=== PATIENT | female | born 1945 | race Caucasian/White ===

== ENCOUNTER 2019-08-22 17:46 | Inpatient (IN) | payer MEDICARE ==
[2019-08-22] MEDS ORDERED: DUONEB 0.5-3 MG/3 ml Neb IH ONE ×2 (17:51→17:59)
[2019-08-22] MEDS ORDERED: ROCEPHIN 1 Gm-D5w 50 ml Bag** 1 G/50 ML IVPB IV STA (17:51)
[2019-08-22] MEDS ORDERED: Zithromax 500 MG/ 250 ML NaCl Premix 500 MG/250 ML IVPB IV STA (17:51)
--- NOTE | 2019-08-22 17:51 | ERPHSYRPT ---
- History of Present Illness Time Seen by Provider: 08/22/19 17:47 Source: patient, family Exam Limitations: no limitations Physician History: known case of COPD, on home oxygen. The patient is DO NOT RESUSCITATE. The patient brought in by EMS for a cough, shortness of breath and fever for last 3- 4 days. EMS gave her a 125 Solu-Medrol, DuoNeb breathing treatment.. The patient feels little better. Patient is on nonrebreather mask. Patient denies any chest pain. Timing/Duration: day(s) (3) Activities at Onset: none Severity of Dyspnea-Max: moderate Severity of Dyspnea-Current: moderate Possible Cause: occasional episodes (history of pneumonia.) Modifying Factors: Improves With: coughing, deep breath, exertion, lying down Associated Symptoms: intermittent, cough, wheezing, No lightheadedness, No weakness, No ankle swelling, No chills, No hemoptysis, No calf pain, No dizziness, No heaviness, No heart racing International travel in last 2 weeks: No Allergies/Adverse Reactions: tapentadol HCl [From Nucynta] Allergy (Severe, Verified 08/22/19 17:51) throat swelling and itching acetaminophen [From Vicodin] Allergy (Mild, Verified 08/22/19 17:51) intense itching hydrocodone bitartrate [From Vicodin] Allergy (Mild, Verified 08/22/19 17:51) intense itching Home Medications: Amlodipine Besylate 5 mg [Norvasc 5 mg] 5 mg PO QAM 01/31/15 [History] Aspirin 81 gm Chew [Baby Aspirin 81 mg Chew] 81 mg PO HS 01/31/15 [History ] Gabapentin [Neurontin] 800 mg PO TID 01/31/15 [History] Nebivolol HCl [Bystolic] 10 mg PO DAILY 01/31/15 [History] Ramipril 1.25 mg [Altace 1.25 MG] 1.25 mg PO QAM 01/31/15 [History] Anastrozole [Arimidex] 1 mg PO HS 02/01/15 [History] Atorvastatin Calcium [Lipitor] 10 mg PO HS 02/01/15 [History] Buprenorphine [Butrans] 1 each TD WEEKLY 02/01/15 [History] Calcium 500 mg PO BID 02/01/15 [History] Cholecalciferol (Vitamin D3) [Vitamin D3] 50,000 unit PO WEEKLY 02/01/15 [ History] Duloxetine HCl [Cymbalta] 120 mg PO QAM 02/01/15 [History] Furosemide [Lasix] 20 mg PO DAILY 02/01/15 [History] Glimepiride 2 mg [Amaryl 2 MG] 2 mg PO DAILY 02/01/15 [History] Glucosam/Antony-Msm1/C/[place]/Bosw [Osteo Bi-Flex Caplet] 1 each PO BID 02/01/15 [ History] Ibandronate Sodium [Boniva] 150 mg PO UD 02/01/15 [History] Levothyroxine Sodium 75 Mcg [Synthroid 75 Mcg] 75 mcg PO DAILY 02/01/15 [ History] Loratadine 10 mg [Claritin 10 mg] 10 mg PO DAILY 02/01/15 [History] Multivitamin [Multivitamins] 1 each PO DAILY 02/01/15 [History] Oxybutynin Chloride 5 mg PO DAILY 02/01/15 [History] Pantoprazole Sodium [Protonix] 40 mg PO DAILY 02/01/15 [History] Ropinirole HCl [Requip] 1 mg PO HS 02/01/15 [History] SUMAtriptan succinate [Imitrex] 100 mg PO UD PRN 02/01/15 [History] Temazepam 15 mg [Restoril 15 MG] 30 mg PO HS 02/01/15 [History] Tizanidine HCl 4 mg [Zanaflex 4 MG] 4 mg PO HS 02/01/15 [History] Hx Influenza Vaccination/Date Given: Yes (2013) Hx Pneumococcal Vaccination/Date Given: Yes (" Due for another" 2009) - Review of Systems Constitutional: No Fever, No Chills Eyes: No Symptoms Ears, Nose, & Throat: No Symptoms Respiratory: Cough, Dyspnea Cardiac: No Chest Pain, No Edema, No Syncope Abdominal/Gastrointestinal: No Abdominal Pain, No Nausea, No Vomiting, No Diarrhea Genitourinary Symptoms: No Dysuria Musculoskeletal: No Back Pain, No Neck Pain Skin: No Rash Neurological: No Dizziness, No Focal Weakness, No Sensory Changes Psychological: No Symptoms Endocrine: No Symptoms All Other Systems: Reviewed and Negative - Past Medical History Pertinent Past Medical History: Yes Neurological History: Migraines, Peripheral Neuropathy ENT History: Cataracts Cardiac History: High Cholesterol, Hypertension Respiratory History: Other Endocrine Medical History: Diabetes Type II, Hypothyroidism Musculoskeletal History: Degenerative Disk Disease, Osteoporosis, Rheumatoid Arthritis GI Medical History: Diverticulosis, GERD History: Renal Disease Psycho-Social History: Anxiety, Depression Female Reproductive Disorders: Breast Cancer Other Medical History: Chronic stage 3 kidney diseasedropped mesh into vagina from bladder sling- causes frequent UTIIron def anemia and b-12 anemia - Past Surgical History Past Surgical History: Yes Neuro Surgical History: No Pertinent History Cardiac: Cardiac Catheterization Respiratory: No Pertinent History Gastrointestinal: Appendectomy, Cholecystectomy Genitourinary: Other Musculoskeletal: Orthopedic Surgery Female Surgical History: Hysterectomy, Lumpectomy, Mastectomy Other Surgical History: righ carpel tunnel surgerybilateral mastectomy 2013 Radical to left side2 lamenectomys3 vertebre fused to lumbarneck fusionthorasic fusionleft knee surgerybladder sling with mesh - Social History Smoking Status: Never smoker Exposure to second hand smoke: No Drug Use: none - Nursing Vital Signs Nursing Vital Signs: Initial Vital Signs Temperature 99.2 F 08/22/19 17:52 Pulse Rate 64 08/22/19 17:52 Respiratory Rate 26 H 08/22/19 17:52 Blood Pressure 157/81 08/22/19 17:52 O2 Sat by Pulse Oximetry 100 08/22/19 17:52 Pain Scale Pain Intensity 0 - Physical Exam General Appearance: mild distress Eye Exam: PERRL/EOMI Neck Exam: normal inspection, supple Respiratory Exam: respiratory distress, airway intact, diminished breath sounds , accessory muscle use, prolonged expirations, wheezing, No chest tenderness Cardiovascular/Chest Exam: normal heart sounds, regular rate/rhythm Abdominal/Gastrointestinal Exam: soft, No tenderness, No distention, No mass Extremity Exam: non-tender, normal range of motion, normal inspection, no calf tenderness, no pedal edema Neurologic Exam: alert, oriented x 3, cooperative, 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, sensation nml, No motor deficits Skin Exam: normal color, warm, No dry SpO2 Interpretation: normal O2 Delivery: Non-rebreather Ordered Tests: Active Orders 24 hr Category Date Time Status Adjunct Psychology Faculty Member STAT Care 08/22/19 17:52 Active EKG-ER Only STAT Care 08/22/19 17:51 Active IV Insertion STAT Care 08/22/19 17:51 Active Oxygen-ED Only NON-REBREATHER 100% Care 08/22/19 17:51 Active CHEST 1 VIEW (PORTABLE) Stat Exams 08/22/19 17:52 Taken ARTERIAL BLOOD GASES Stat Lab 08/22/19 17:55 Results BLOOD CULTURE Stat Lab 08/22/19 18:40 Received CBC W DIFF Stat Lab 08/22/19 18:40 Completed CMP Stat Lab 08/22/19 18:40 Completed CULTURE,SPUTUM Stat Lab 08/22/19 17:52 Uncollected Lactic Acid Stat Lab 08/22/19 17:55 Results TROPONIN Q3H Lab 08/22/19 18:40 Received TROPONIN Q3H Lab 08/22/19 21:00 Ordered Respiratory Therapy Assessment DAILY RT 08/22/19 18:03 Active Medication Summary Discontinued Medications Generic Name Dose Route Start Last Admin Trade Name Freq PRN Reason Stop Dose Admin Albuterol/Ipratropium 3 ml 08/22/19 17:51 08/22/19 18:00 Duoneb 0.5-3 Mg/3 Ml Neb IH 08/22/19 17:52 3 ml STAT ONE Administration Albuterol/Ipratropium Confirm 08/22/19 17:59 Duoneb 0.5-3 Mg/3 Ml Neb Administered 08/22/19 18:00 Dose 3 ml IH .STK-MED ONE Ceftriaxone Sodium/Dextrose 1 g in 50 mls @ 100 mls/hr 08/22/19 17:51 19:18 Rocephin 1 Gm-D5w 50 Ml Bag IV 08/22/19 18:20 Infused STAT STA Infusion Azithromycin 500 mg in 250 mls @ 250 mls/hr 08/22/19 17:51 Zithromax 500 Mg/ 250 Ml Nacl Premix IV 08/22/19 18:50 STAT STA Azithromycin Confirm 08/22/19 18:45 Zithromax 500 Mg/ 250 Ml Nacl Premix Administered 08/22/19 18:46 Dose 500 mg in 250 mls @ ud IV .STK-MED ONE Ceftriaxone Sodium/Dextrose Confirm 08/22/19 18:45 Rocephin 1 Gm-D5w 50 Ml Bag Administered 08/22/19 18:46 Dose 1 g in 50 mls @ ud IV .STK-MED ONE Lab/Rad Data: Laboratory Result Diagrams 08/22/19 18:40 08/22/19 18:40 Laboratory Results 08/22/19 08/22/19 08/22/19 Range/Units 18:40 18:40 17:55 WBC 9.4 (4.0-10.5) K/mm3 RBC 4.89 (4.1-5.4) M/mm3 Hgb 14.1 (12.0-16.0) gm/dl Hct 42.5 (35-47) % MCV 86.9 (78-100) fl MCH 28.8 (26-32) pg MCHC 33.2 (32-36) g/dl RDW 14.1 H (11.5-14.0) % Plt Count 216 (150-450) K/mm3 MPV 9.8 H (6-9.5) fl Gran % 72.2 H (36.0-66.0) % Eos # (Auto) 0.06 (0-0.5) Absolute Lymphs (auto) 2.17 (1.0-4.6) Absolute Monos (auto) 0.37 (0.0-1.3) Lymphocytes % 23.1 L (24.0-44.0) % Monocytes % 3.9 (0.0-12.0) % Eosinophils % 0.6 (0.00-5.0) % Basophils % 0.2 (0.0-0.4) % Absolute Granulocytes 6.76 (1.4-6.9) Basophils # 0.02 (0-0.4) Puncture Site LEFT RADIAL pCO2 21 L (35-45) mmHg pO2 162 H* (75-100) mmHg Base Excess 5.7 H (-2.0-2.0) O2 Saturation 96.6 (94-100) g/dF ABG pH 7.67 H* (7.35-7.45) ABG HCO3 24.2 (22-28) Subhash Test NOT APPLICABLE A-a Gradient 240 a/A Ratio 0.40 Hemoglobin 14.7 Carboxyhemoglobin 0.7 (0.0-6.9) % THgb Methemoglobin 0.7 L (1.4-1.5) % Potassium 4.3 4.1 (3.5-5.1) Temperature 37.0 C Sodium 143 (137-145) mmol/L Chloride 105 (98-107) mmol/L Carbon Dioxide 25 (22-30) mmol/L Anion Gap 17.6 H (5-15) MEQ/L BUN 23 H (7-17) mg/dL Creatinine 1.07 H (0.52-1.04) mg/dL Estimated GFR 53.6 ML/MIN Glucose 145 H (74-106) mg/dL Lactic Acid 2.0 (0.4-2.0) Calcium 9.6 (8.4-10.2) mg/dL Total Bilirubin 0.50 (0.2-1.3) mg/dL AST 38 H (14-36) U/L ALT 23 (0-35) U/L Alkaline Phosphatase 97 (38-126) U/L Serum Total Protein 8.2 (6.3-8.2) g/dL Albumin 4.3 (3.5-5.0) g/dL - Progress Progress: improved Air Movement: fair Progress Note: 08/22/19 19:[address] Franco Blood Culture(s) Obtained: Yes Antibiotics given: Yes Discussed with : Ry Will see patient in: hospital (full admit) Counseled pt/family regarding: lab results, diagnosis, rad results - Departure Departure Disposition: In-patient Admission Clinical Impression: Left lower lobe pneumonia Qualifiers: Pneumonia type: due to unspecified organism Qualified Code(s): J18.9 - Pneumonia, unspecified organism Chronic obstructive pulmonary disease Qualifiers: COPD type: COPD with acute lower respiratory infection Qualified Code(s): J44.0 - Chronic obstructive pulmonary disease with (acute) lower respiratory infection Condition: Stable Critical Care Time: No Referrals: JABIER RAUSCH [Primary Care Provider] - Instructions: Pneumonia, Adult (DC), Chronic Obstructive Pulmonary Disease Plan of Treatment: Admitted
[2019-08-22 18:04] LABS: A-aADO2 240; ABG POTASSIUM 4.1 (3.5-5.1); ARTERIAL BLOOD GAS BASE EXCESS 5.7 (-2.0-2.0); ARTERIAL BLOOD GAS PCO2 21 mmHg (35-45); ARTERIAL BLOOD GAS PO2 162 mmHg (75-100); CARBOXYHEMOGLOBIN 0.7 % THgb (0.0-6.9); HCO3- 24.2 (22-28); HGB O2 SAT 96.6 g/dF (94-100); Methhemoglobin 0.7 % (1.4-1.5)
[2019-08-22 18:05] LABS: ABG HEMOGLOBIN 14.7; ABG SITE LEFT RADIAL; ARTERIAL BLOOD GAS pH 7.67 (7.35-7.45)
[2019-08-22 18:43] LABS: Absolute Neutrophil Ct (ANC) 6.76 (1.4-6.9); BASOPHIL % 0.2 % (0.0-0.4); Basophil (Absolute #) 0.02 (0-0.4); Eosinophil % 0.6 % (0.00-5.0); Eosinophil (Absolute #) 0.06 (0-0.5); Hematocrit 42.5 % (35-47); Hemoglobin 14.1 gm/dl (12.0-16.0); Lymphocyte (Absolute #) 2.17 (1.0-4.6); Lymphocytes % 23.1 % (24.0-44.0); Mean Cell Volume 86.9 fl (78-100); Mean Corpuscular Hemoglobin 28.8 pg (26-32); Mean Corpuscular Hgb Concent. 33.2 g/dl (32-36); Mean Platelet Volume 9.8 fl (6-9.5); Monocyte (Absolute #) 0.37 (0.0-1.3); Monocytes % 3.9 % (0.0-12.0); Neutrophil % 72.2 % (36.0-66.0); Platelet Count 216 K/mm3 (150-450); Red Blood Count 4.89 M/mm3 (4.1-5.4); Red Cell Distribution Width 14.1 % (11.5-14.0); White Blood Count 9.4 K/mm3 (4.0-10.5)
[2019-08-22] MEDS ORDERED: Zithromax 500 MG/ 250 ML NaCl Premix 500 MG/250 ML IVPB IV ONE (18:45)
[2019-08-22] MEDS ORDERED: ROCEPHIN 1 Gm-D5w 50 ml Bag** 1 G/50 ML IVPB IV ONE (18:45)
[2019-08-22 19:02] LABS: ALBUMIN 4.3 g/dL (3.5-5.0); ANION GAP 17.6 MEQ/L (5-15); BILIRUBIN,TOTAL 0.5 mg/dL (0.2-1.3); Calcium 9.6 mg/dL (8.4-10.2); Creatinine 1 1.07 mg/dL (0.52-1.04); Potassium 4.3 mmol/L (3.5-5.1); Total Protein 8.2 g/dL (6.3-8.2)
[2019-08-22 19:59] LABS: INFLUENZA A NEGATIVE (NEGATIVE); INFLUENZA B NEGATIVE (NEGATIVE); RESPIRATORY SYNCTIAL VIRUS NEGATIVE (Negative)
[2019-08-22] MEDS ORDERED: DUONEB 0.5-3 MG/3 ml Neb IH PRN (21:02)
[2019-08-22] MEDS: DUONEB 0.5-3 MG/3 ml Neb IH SCH (22:29)
[2019-08-22] MEDS ORDERED: Amaryl 2 MG PO SCH (23:55)
[2019-08-22] MEDS ORDERED: BABY ASPIRIN 81 MG CHEW PO SCH (23:55)
[2019-08-23] MEDS ORDERED: ECOTRIN 81 MG PO ONE (00:02)
[2019-08-23] MEDS: DESYREL 50 MG PO SCH ×2 (00:07→21:24)
[2019-08-23] MEDS: Requip 0.5 MG PO SCH ×2 (00:07→21:26)
[2019-08-23] MEDS: LYRICA 150MG PO SCH ×3 (00:08→21:25)
[2019-08-23] MEDS: Protonix 40MG Tablet PO SCH ×3 (00:08→21:25)
[2019-08-23] MEDS: OXYCODONE-ACETAMINOPHEN 10-325 PO SCH ×3 (00:08→21:25)
[2019-08-23] MEDS: FISH OIL 1,000 MG CAPSULE PO SCH ×2 (00:08→21:24)
[2019-08-23] MEDS: Zanaflex 4 MG PO SCH ×3 (00:09→21:26)
[2019-08-23] MEDS: Zocor 10MG PO SCH ×2 (00:09→21:26)
[2019-08-23] MEDS ORDERED: ECOTRIN 81 MG PO SCH ×2 (00:30→10:00)
[2019-08-23] MEDS: DUONEB 0.5-3 MG/3 ml Neb IH SCH ×6 (05:19→22:38)
[2019-08-23] MEDS: Advair Hfa 230/21 Mcg COMMON CANISTER IH SCH ×2 (05:21→19:08)
[2019-08-23] MEDS: Amaryl 2 MG PO SCH ×2 (07:55→16:20)
--- NOTE | 2019-08-23 08:37 | XRAY ---
Indication: Dyspnea. Comparison: None Portable chest demonstrates subtle left base infiltrate. Remaining heart and right lung normal. Bony thorax intact with mild degenerative changes.
--- NOTE | 2019-08-23 09:09 | PCM.HP ---
History of Present Illness - Chief Complaint Chief Complaint: c/o shortness of breath for 2-3 days History of Present Illness: is a 74 year old female.known case of COPD, on home oxygen. The patient brought in by EMS for a cough, shortness of breath and fever for last 3- 4 days. EMS gave her a 125 Solu-Medrol, DuoNeb breathing treatment.. The patient feels little better. Patient is on nonrebreather mask. Patient denies any chest pain. Timing/Duration: day(s) (3) Activities at Onset: none Severity of Dyspnea-Max: moderate Severity of Dyspnea-Current: moderate Possible Cause: occasional episodes (history of pneumonia.) Modifying Factors: Improves With: coughing, deep breath, exertion, lying down Associated Symptoms: intermittent, cough, wheezing, No lightheadedness, No weakness, No ankle swelling, No chills, No hemoptysis, No calf pain, No dizziness, No heaviness, No heart racing - Review of Systems Constitutional: No Fever, No Chills Eyes: No Symptoms Ears, Nose, & Throat: No Symptoms Respiratory: Cough, Orthopnea, Short Of Breath Cardiac: No Chest Pain, No Edema, No Syncope Abdominal/Gastrointestinal: No Abdominal Pain, No Nausea, No Vomiting, No Diarrhea Genitourinary Symptoms: No Dysuria Musculoskeletal: No Back Pain, No Neck Pain Skin: No Rash Neurological: No Dizziness, No Focal Weakness, No Sensory Changes Psychological: No Symptoms Endocrine: No Symptoms Hematologic/Lymphatic: No Symptoms Immunological/Allergic: No Symptoms Medications & Allergies Home Medications: Home Medication List Amlodipine Besylate 5 mg [Norvasc 5 mg] 5 mg PO [facility] 01/31/15 [History Confirmed 08/22/19] Aspirin 81 gm Chew [Baby Aspirin 81 mg Chew] 324 mg PO 01/31/15 [ History Confirmed 08/23/19] Ramipril 1.25 mg [Altace 1.25 MG] 1.25 mg PO [facility] 01/31/15 [History Confirmed 08/22/19] Anastrozole [Arimidex] 1 mg PO 02/01/15 [History Confirmed 08/22/19] Atorvastatin Calcium [Lipitor] 10 mg PO 02/01/15 [History Confirmed 08/22/19] Calcium 500 mg PO BID 02/01/15 [History Confirmed 08/22/19] Cholecalciferol (Vitamin D3) [Vitamin D3] 50,000 unit PO WEEKLY 02/01/15 [ History Confirmed 08/22/19] Duloxetine HCl [Cymbalta] 60 mg PO QAM 02/01/15 [History Confirmed 08/22/19] Furosemide [Lasix] 40 mg PO DAILY 02/01/15 [History Confirmed 08/22/19] Glimepiride 2 mg [Amaryl 2 MG] 2 mg PO BID 02/01/15 [History Confirmed ] Glucosam/Antony-Msm1/C/[place]/Bosw [Osteo Bi-Flex Caplet] 1 each PO BID 02/01/15 [ History Confirmed 08/22/19] Levothyroxine Sodium 75 Mcg [Synthroid 75 Mcg] 88 mcg PO DAILY 02/01/15 [ History Confirmed 08/22/19] Loratadine 10 mg [Claritin 10 mg] 10 mg PO DAILY 02/01/15 [History Confirmed 08/22/19] Multivitamin [Multivitamins] 1 each PO DAILY 02/01/15 [History Confirmed ] Oxybutynin Chloride 10 mg PO DAILY 02/01/15 [History Confirmed 08/22/19] Pantoprazole Sodium [Protonix] 40 mg PO BID 02/01/15 [History Confirmed 08/22/19 ] Ropinirole HCl [Requip] 1 mg PO HS 02/01/15 [History Confirmed 08/22/19] SUMAtriptan succinate [Imitrex] 100 mg PO WEEKLY 02/01/15 [History Confirmed ] Tizanidine HCl 4 mg [Zanaflex 4 MG] 4 mg PO BID 02/01/15 [History Confirmed 08/22/19] Albuterol 2 inh PO Q4H PRN PRN 08/22/19 [History Confirmed 08/22/19] Albuterol 2.5 mg/3 ml Neb [Proventil 2.5 mg/3 ml Neb] 2.5 inh PO Q4HPRN PRN 08/22/19 [History Confirmed 08/22/19] Budesonide/Formoterol Fumarate [Symbicort 160-4.5 Mcg Inhaler] 2 inh PO DAILY [History Confirmed 08/22/19] Buprenorphine HCl [Belbuca] 450 mcg PO BID 08/22/19 [History Confirmed 08/22/19] Canagliflozin [Invokana] 300 mg PO DAILY 08/22/19 [History Confirmed 08/22/19] Metformin HCl Xr 500 mg [Glucophage XR 500 MG] 500 mg PO AC 08/22/19 [ History Confirmed 08/22/19] Sargeant-3/Dha/Epa/Fish Oil [Fish Oil 1,000 mg Softgel] 1,000 mg PO HS 08/22/19 [ History Confirmed 08/22/19] Oxycodone / APAP 10/325 mg [Oxycodone-Acetaminophen 10-325] 1 tab PO BID 08/22/19 [History Confirmed 08/22/19] Potassium Chloride 10 Meq Tab* [Klor Con 10 MEQ] 1 tab PO AC 08/22/19 [ History Confirmed 08/22/19] Pregabalin [Lyrica 150Mg] 150 mg PO BID 08/22/19 [History Confirmed 08/22/19] Propranolol HCl 20 mg [Inderal 20 MG] 60 mg PO DAILY 08/22/19 [History Confirmed 08/22/19] Raloxifene HCl 60 mg PO DAILY 08/22/19 [History Confirmed 08/22/19] Trazodone HCl 50 mg [Desyrel 50 mg] 100 mg PO HS 08/22/19 [History Confirmed 08/22/19] Allergies/Adverse Reactions: Allergies Allergy/AdvReac Type Severity Reaction Status Date / Time Sulfa (Sulfonamide Allergy Severe Hives Verified 08/22/19 21:41 Antibiotics) tapentadol HCl [From Nucynta] Allergy Severe throat Verified 08/22/19 21:41 swelling and itching acetaminophen [From Vicodin] Allergy Mild intense Verified 08/22/19 21:41 itching hydrocodone bitartrate Allergy Mild intense Verified 08/22/19 21:41 [From Vicodin] itching - Past Medical History Past Medical History: Yes Neurological History: Migraines, Peripheral Neuropathy ENT History: Cataracts Cardiac History: High Cholesterol, Hypertension Respiratory History: COPD, Pulmonary Embolism, Other Endocrine Medical History: Diabetes Type II, Hypothyroidism Musculoskelatal History: Degenerative Disk Disease, Fibromyalgia, Osteoporosis, Rheumatoid Arthritis GI Medical History: Diverticulosis, GERD History: Renal Disease Pyscho-Social History: Anxiety, Depression Reproductive Disorders: Breast Cancer Comment: Chronic stage 3 kidney diseasedropped mesh into vagina from bladder sling- causes frequent UTIIron def anemia and b-12 anemia, didn't recovery well from the PE pts wears 2L O2 via nasal canula - Female History Are you now?: No - Past Surgical History Past Surgical History: Yes Neuro Surgical History: No Pertinent History Cardiac History: Cardiac Catheterization Respiratory Surgery: No Pertinent History GI Surgical History: Cholecystectomy Genitourinary Surgical Hx: Other Musculskeletal Surgical Hx: Orthopedic Surgery Female Surgical History: Hysterectomy, Lumpectomy, Mastectomy Other Surgical History: righ carpel tunnel surgerybilateral mastectomy 2013 Radical to left side2 lamenectomys3 vertebre fused to lumbarneck fusionthorasic fusionleft knee surgerybladder sling with mesh catarct and lasix surgery - Social History Smoking Status: Never smoker Exposure to second hand smoke: No Alcohol: None Drug Use: none - Physical Exam Vital Signs: Vital Signs - 24 hr Temp Pulse Resp BP Pulse Ox 08/23/19 07:58 98.2 F 90 16 131/61 95 08/23/19 05:49 90 18 90 L 08/23/19 04:00 98 F 90 20 120/59 95 08/23/19 00:00 97.9 F 102 H 18 119/71 98 08/22/19 23:25 106 H 22 98 08/22/19 22:43 98.0 F 80 20 121/67 97 08/22/19 21:02 98.0 F 80 20 121/67 97 08/22/19 18:04 86 20 99 08/22/19 17:52 99.2 F 64 26 H 157/81 96 Oxygen-Last 24 hours O2 Percentage 2 Liters = 28% O2 Percentage 2 Liters = 28% O2 Percentage 2 Liters = 28% O2 Percentage 100% O2 Percentage 100% Oxygen Flowrate (L/min)-RT 2 General Appearance: no apparent distress, alert Neurologic Exam: alert, oriented x 3, cooperative, normal mood/affect, nml cerebellar function, nml station & gait, sensation nml, No motor deficits Eye Exam: PERRL/EOMI, eyes nml inspection Ears, Nose, Throat Exam: normal ENT inspection, TMs normal, pharynx normal, moist mucous membranes Neck Exam: normal inspection, non-tender, supple, full range of motion Respiratory Exam: normal breath sounds, diminished breath sounds, rhonchi, wheezing, No respiratory distress Cardiovascular Exam: regular rate/rhythm, normal heart sounds, normal peripheral pulses Gastrointestinal/Abdomen Exam: soft, normal bowel sounds, No tenderness, No mass Back Exam: normal inspection, normal range of motion, No CVA tenderness, No vertebral tenderness Extremity Exam: normal inspection, normal range of motion, pelvis stable Skin Exam: normal color, warm, dry, No rash Lymphatic Exam: No adenopathy Results - Labs Lab/Micro Results: Lab Results-Last 24 Hours 08/22/19 08/22/19 08/22/19 Range/Units 17:55 18:40 18:40 WBC 9.4 (4.0-10.5) K/mm3 RBC 4.89 (4.1-5.4) M/mm3 Hgb 14.1 (12.0-16.0) gm/dl Hct 42.5 (35-47) % MCV 86.9 (78-100) fl MCH 28.8 (26-32) pg MCHC 33.2 (32-36) g/dl RDW 14.1 H (11.5-14.0) % Plt Count 216 (150-450) K/mm3 MPV 9.8 H (6-9.5) fl Gran % 72.2 H (36.0-66.0) % Eos # (Auto) 0.06 (0-0.5) Absolute Lymphs (auto) 2.17 (1.0-4.6) Absolute Monos (auto) 0.37 (0.0-1.3) Lymphocytes % 23.1 L (24.0-44.0) % Monocytes % 3.9 (0.0-12.0) % Eosinophils % 0.6 (0.00-5.0) % Basophils % 0.2 (0.0-0.4) % Absolute Granulocytes 6.76 (1.4-6.9) Basophils # 0.02 (0-0.4) Puncture Site LEFT RADIAL pCO2 21 L (35-45) mmHg pO2 162 H* (75-100) mmHg Base Excess 5.7 H (-2.0-2.0) O2 Saturation 96.6 (94-100) g/dF ABG pH 7.67 H* (7.35-7.45) ABG HCO3 24.2 (22-28) Subhash Test NOT APPLICABLE A-a Gradient 240 a/A Ratio 0.40 Hemoglobin 14.7 Carboxyhemoglobin 0.7 (0.0-6.9) % THgb Methemoglobin 0.7 L (1.4-1.5) % Potassium 4.1 4.3 (3.5-5.1) Temperature 37.0 C Sodium 143 (137-145) mmol/L Chloride 105 (98-107) mmol/L Carbon Dioxide 25 (22-30) mmol/L Anion Gap 17.6 H (5-15) MEQ/L BUN 23 H (7-17) mg/dL Creatinine 1.07 H (0.52-1.04) mg/dL Estimated GFR 53.6 ML/MIN Glucose 145 H (74-106) mg/dL Lactic Acid 2.0 (0.4-2.0) Calcium 9.6 (8.4-10.2) mg/dL Total Bilirubin 0.50 (0.2-1.3) mg/dL AST 38 H (14-36) U/L ALT 23 (0-35) U/L Alkaline Phosphatase 97 (38-126) U/L Troponin I (0.000-0.034) ng/mL Serum Total Protein 8.2 (6.3-8.2) g/dL Albumin 4.3 (3.5-5.0) g/dL Influenza Type A Ag (NEGATIVE) Influenza Type B Ag (NEGATIVE) RSV (PCR) (Negative) 08/22/19 08/22/19 08/22/19 Range/Units 18:40 18:40 21:05 WBC (4.0-10.5) K/mm3 RBC (4.1-5.4) M/mm3 Hgb (12.0-16.0) gm/dl Hct (35-47) % MCV (78-100) fl MCH (26-32) pg MCHC (32-36) g/dl RDW (11.5-14.0) % Plt Count (150-450) K/mm3 MPV (6-9.5) fl Gran % (36.0-66.0) % Eos # (Auto) (0-0.5) Absolute Lymphs (auto) (1.0-4.6) Absolute Monos (auto) (0.0-1.3) Lymphocytes % (24.0-44.0) % Monocytes % (0.0-12.0) % Eosinophils % (0.00-5.0) % Basophils % (0.0-0.4) % Absolute Granulocytes (1.4-6.9) Basophils # (0-0.4) Puncture Site pCO2 (35-45) mmHg pO2 (75-100) mmHg Base Excess (-2.0-2.0) O2 Saturation (94-100) g/dF ABG pH (7.35-7.45) ABG HCO3 (22-28) Subhash Test A-a Gradient a/A Ratio Hemoglobin Carboxyhemoglobin (0.0-6.9) % THgb Methemoglobin (1.4-1.5) % Potassium (3.5-5.1) Temperature C Sodium (137-145) mmol/L Chloride (98-107) mmol/L Carbon Dioxide (22-30) mmol/L Anion Gap (5-15) MEQ/L BUN (7-17) mg/dL Creatinine (0.52-1.04) mg/dL Estimated GFR ML/MIN Glucose (74-106) mg/dL Lactic Acid (0.4-2.0) Calcium (8.4-10.2) mg/dL Total Bilirubin (0.2-1.3) mg/dL AST (14-36) U/L ALT (0-35) U/L Alkaline Phosphatase (38-126) U/L Troponin I < 0.012 < 0.012 (0.000-0.034) ng/mL Serum Total Protein (6.3-8.2) g/dL Albumin (3.5-5.0) g/dL Influenza Type A Ag NEGATIVE (NEGATIVE) Influenza Type B Ag NEGATIVE (NEGATIVE) RSV (PCR) NEGATIVE (Negative) 08/22/19 Range/Units 21:06 WBC (4.0-10.5) K/mm3 RBC (4.1-5.4) M/mm3 Hgb (12.0-16.0) gm/dl Hct (35-47) % MCV (78-100) fl MCH (26-32) pg MCHC (32-36) g/dl RDW (11.5-14.0) % Plt Count (150-450) K/mm3 MPV (6-9.5) fl Gran % (36.0-66.0) % Eos # (Auto) (0-0.5) Absolute Lymphs (auto) (1.0-4.6) Absolute Monos (auto) (0.0-1.3) Lymphocytes % (24.0-44.0) % Monocytes % (0.0-12.0) % Eosinophils % (0.00-5.0) % Basophils % (0.0-0.4) % Absolute Granulocytes (1.4-6.9) Basophils # (0-0.4) Puncture Site pCO2 (35-45) mmHg pO2 (75-100) mmHg Base Excess (-2.0-2.0) O2 Saturation (94-100) g/dF ABG pH (7.35-7.45) ABG HCO3 (22-28) Subhash Test A-a Gradient a/A Ratio Hemoglobin Carboxyhemoglobin (0.0-6.9) % THgb Methemoglobin (1.4-1.5) % Potassium (3.5-5.1) Temperature C Sodium (137-145) mmol/L Chloride (98-107) mmol/L Carbon Dioxide (22-30) mmol/L Anion Gap (5-15) MEQ/L BUN (7-17) mg/dL Creatinine (0.52-1.04) mg/dL Estimated GFR ML/MIN Glucose (74-106) mg/dL Lactic Acid 2.0 (0.4-2.0) Calcium (8.4-10.2) mg/dL Total Bilirubin (0.2-1.3) mg/dL AST (14-36) U/L ALT (0-35) U/L Alkaline Phosphatase (38-126) U/L Troponin I (0.000-0.034) ng/mL Serum Total Protein (6.3-8.2) g/dL Albumin (3.5-5.0) g/dL Influenza Type A Ag (NEGATIVE) Influenza Type B Ag (NEGATIVE) RSV (PCR) (Negative) Microbiology 08/22/19 18:40 Blood Culture - Preliminary Blood NO GROWTH TO DATE 08/22/19 18:40 Blood Culture - Preliminary Blood NO GROWTH TO DATE - Radiology Impressions Radiology Exams & Impressions: Radiology Procedures Category Date Time Status CHEST 1 VIEW (PORTABLE) Stat Exams 08/22/19 17:52 Completed - Other Procedures and Tests Respiratory Therapy 08/22/19 18:03 Respiratory Therapy Assessment DAILY 08/22/19 21:02 Oxygen Nasal Cannula 3 lpm 08/22/19 23:46 BiPap/CPAP ROUTINE 08/23/19 07:00 Peak Expiratory Flow Rate ONCE Assessment/Plan (1) Acute exacerbation of chronic obstructive pulmonary disease (COPD) Current Visit: Yes Status: Acute Code(s): J44.1 - CHRONIC OBSTRUCTIVE PULMONARY DISEASE W (ACUTE) EXACERBATION
[2019-08-23] MEDS ORDERED: NovoLOG Insulin SQ PRN (15:09)
[2019-08-23] MEDS ORDERED: ROCEPHIN 1 Gm-D5w 50 ml Bag** 1 G/50 ML IVPB IV SCH (22:00)
[2019-08-23] MEDS ORDERED: Zithromax 500 MG/ 250 ML NaCl Premix 500 MG/250 ML IVPB IV SCH (22:00)
[2019-08-23] MEDS ORDERED: Ecotrin 325 MG PO SCH (22:00)
[2019-08-24] MEDS: DUONEB 0.5-3 MG/3 ml Neb IH SCH ×3 (03:06→10:44)
[2019-08-24] MEDS: Advair Hfa 230/21 Mcg COMMON CANISTER IH SCH (07:15)
[2019-08-24] MEDS ORDERED: NON-FORMULARY ITEM (Sumatriptan Succinate [Imitrex] 100 MG) PO SCH (07:45)
[2019-08-24] MEDS ORDERED: NON-FORMULARY ITEM (Cholecalciferol (Vitamin D3) [Vitamin D3] 50,000 UNIT) PO SCH (07:45)
[2019-08-24] MEDS ORDERED: MEDICATION INTERVENTION MC SCH ×6 (08:00→08:30)
[2019-08-24] MEDS ORDERED: LASIX 20 MG PO SCH (10:00)
[2019-08-24] MEDS ORDERED: Lasix 40 MG PO SCH (10:00)
[2019-08-24] MEDS ORDERED: NON-FORMULARY ITEM (Duloxetine Hcl [Cymbalta] 60 MG) PO SCH (10:00)
[2019-08-24] MEDS ORDERED: NON-FORMULARY ITEM PO SCH (10:00)
[2019-08-24] MEDS ORDERED: NON-FORMULARY ITEM (Calcium [Calcium] 500 MG) PO SCH (10:00)
[2019-08-24] MEDS ORDERED: [UNRECOGNIZED DRUG - OTHER] PO SCH (10:00)
[2019-08-24] MEDS ORDERED: Inderal 20 MG PO SCH (10:00)
[2019-08-24] MEDS ORDERED: VITAMIN D2 PO SCH (10:00)
[2019-08-24] MEDS ORDERED: Cymbalta 30 MG Capsule PO SCH (10:00)
[2019-08-24] MEDS ORDERED: Calcium 500MG W/Vit D Tablet PO SCH (10:00)
[2019-08-24] MEDS ORDERED: SYNTHROID 88 MCG PO SCH (10:00)
[2019-08-24] MEDS ORDERED: Altace 1.25 MG PO SCH (10:00)
[2019-08-24] MEDS ORDERED: Ditropan 5 MG PO SCH (10:00)
[2019-08-24] MEDS ORDERED: SYNTHROID 75 MCG PO SCH (10:00)
[2019-08-24] MEDS ORDERED: NON-FORMULARY ITEM (Multivitamin [Multivitamins] 1 EACH) PO SCH (10:00)
[2019-08-24] MEDS ORDERED: THERAGRAN MULTIVITAMIN PO SCH (10:00)
[2019-08-24] MEDS ORDERED: NORVASC 5 MG PO SCH (10:00)
[2019-08-24] MEDS ORDERED: CLARITIN 10 MG PO SCH (10:00)
[2019-08-24] MEDS: OXYCODONE-ACETAMINOPHEN 10-325 PO SCH (10:34)
[2019-08-24] MEDS: Amaryl 2 MG PO SCH (10:35)
[2019-08-24] MEDS: Protonix 40MG Tablet PO SCH (10:37)
[2019-08-24] MEDS: Zanaflex 4 MG PO SCH (10:37)
[2019-08-24] MEDS: Glucophage XR 500 MG PO SCH ×2 (10:51→11:41)
[2019-08-24] MEDS ORDERED: Klor Con 10 MEQ PO SCH (11:30)
[2019-08-24] MEDS: LYRICA 150MG PO SCH (11:41)
[2019-08-24 12:45] VITALS: BP 184/84; PULSE 92; O2SAT 97
[2019-08-24] MEDS ORDERED: ANASTROZOLE 1 MG PO SCH (22:00)
== END 2019-08-24 14:15 | disposition home or self-care (01) | DRG 192 ==
LOC: ED 17:46 → MED SURG 20:54
PROVIDERS: ADMIT General Practice; ATTEND General Practice
DX: J44.1 Chronic obstructive pulmonary disease with (acute) exacerbation (principal); E78.00 Pure hypercholesterolemia, unspecified; Z99.81 Dependence on supplemental oxygen; E11.22 Type 2 diabetes mellitus with diabetic chronic kidney disease; I12.9 Hypertensive chronic kidney disease with stage 1 through stage 4 chronic kidney disease, or unspecified chronic kidney disease; N18.3 Chronic kidney disease, stage 3 (moderate); E03.9 Hypothyroidism, unspecified; Z86.711 Personal history of pulmonary embolism; M79.7 Fibromyalgia; M06.9 Rheumatoid arthritis, unspecified
CPT/HCPCS: 36415; 36600; 71045; 80053; 82375; 82803; 82962; 83036; 83605; 84484; 85025; 87040; 87070; 87631; 93005; 93041; 94150; 94640; 94660; 94760; 96365; 96367; 99284; J0456; J0696; A9270-GY

== ENCOUNTER 2019-10-03 08:46 | Day surgery (SDC) | payer MEDICARE ==
[2019-10-03] MEDS ORDERED: Depo-Medrol 40 MG/ML IM ONE (08:47)
[2019-10-03] MEDS ORDERED: Sodium Chloride 0.9(Preservative Free) 10 ML IJ ONE (08:47)
[2019-10-03] MEDS ORDERED: Ketamine HCl 50 MG/ML ONE (09:51)
[2019-10-03] MEDS ORDERED: DIPRIVAN 200 MG/20 ML IV ONE (09:51)
--- NOTE | 2019-10-03 11:51 | XRAY ---
Indication: Right L3-S1 transforaminal HERSON. Intraoperative fluoroscopy was provided for 48 seconds. 2 digital spot images submitted for interpretation demonstrate posterior needle tips projecting over the expected course of the right L4 and L5 nerve roots. Small amount of contrast injected for needle tip placement. Correlate with intraoperative findings/report. Incidental bilateral L4-S1 posterior spinal fusion hardware.
--- NOTE | 2019-10-03 11:58 | XRAY ---
48 seconds fluoroscopy time in surgery for L3-L5 transforaminal HERSON.
[2019-10-03] MEDS ORDERED: Lactated Ringers 1,000 ML IV ONE (13:09)
== END 2019-10-03 10:32 | disposition home or self-care (01) ==
LOC: SDC-PAIN 08:46
PROVIDERS: ATTEND Psychiatry & Neurology Pain Medicine
DX: M54.16 Radiculopathy, lumbar region (principal); E11.22 Type 2 diabetes mellitus with diabetic chronic kidney disease; N18.3 Chronic kidney disease, stage 3 (moderate); I13.0 Hypertensive heart and chronic kidney disease with heart failure and stage 1 through stage 4 chronic kidney disease, or unspecified chronic kidney disease; I50.9 Heart failure, unspecified; Z85.3 Personal history of malignant neoplasm of breast; K57.30 Diverticulosis of large intestine without perforation or abscess without bleeding; K21.9 Gastro-esophageal reflux disease without esophagitis; E11.40 Type 2 diabetes mellitus with diabetic neuropathy, unspecified; F41.8 Other specified anxiety disorders; Z79.899 Other long term (current) drug therapy; J44.9 Chronic obstructive pulmonary disease, unspecified; M79.7 Fibromyalgia
CPT/HCPCS: 64483; 64484; 72100; 77003; 82962; 99100; J1030; J2704; Q9966

== ENCOUNTER 2020-07-16 08:11 | Day surgery (SDC) | payer MEDICARE ==
[2020-07-16] MEDS ORDERED: Sodium Chloride 0.9(Preservative Free) 10 ML IJ ONE (08:12)
[2020-07-16] MEDS ORDERED: Xylocaine 1% Vial 30 ML PF IJ ONE (08:12)
[2020-07-16] MEDS ORDERED: Depo-Medrol 40 MG/ML IM ONE (08:12)
[2020-07-16] MEDS ORDERED: Ketamine HCl 50 MG/ML ONE (09:59)
[2020-07-16] MEDS ORDERED: DIPRIVAN 200 MG/20 ML IV ONE (09:59)
--- NOTE | 2020-07-16 11:15 | XRAY ---
Indication: Lumbar HERSON. Intraoperative fluoroscopy was provided for 20 seconds. 2 digital spot images submitted for interpretation demonstrates midline posterior needle tip projecting just posterior to the L2-L3 interspace. Small amount of contrast injected for needle tip placement. Correlate with intraoperative findings/report. Incidental partially visualized bilateral L4 posterior spinal fusion hardware.
--- NOTE | 2020-07-16 11:17 | XRAY ---
20 seconds fluoroscopy time in surgery for lumbar HERSON.
[2020-07-16] MEDS ORDERED: Lactated Ringers 1,000 ML IV ONE (15:41)
== END 2020-07-16 10:30 | disposition home or self-care (01) ==
LOC: SDC-PAIN 08:11
PROVIDERS: ATTEND Psychiatry & Neurology Pain Medicine
DX: M54.16 Radiculopathy, lumbar region (principal); J44.9 Chronic obstructive pulmonary disease, unspecified; I10 Essential (primary) hypertension; E11.40 Type 2 diabetes mellitus with diabetic neuropathy, unspecified; F41.8 Other specified anxiety disorders; Z79.899 Other long term (current) drug therapy
CPT/HCPCS: 62323; 72100; 77003; 82947; 82962; J1030; J2001; J2704; Q9966

== ENCOUNTER 2021-02-25 08:30 | Day surgery (SDC) | payer MEDICARE ==
[2021-02-25] MEDS ORDERED: Depo-Medrol 40 MG/ML IM ONE (08:31)
[2021-02-25] MEDS ORDERED: LIDOCAINE HCL 2% 100 MG/5 ML IJ ONE (08:31)
[2021-02-25] MEDS ORDERED: DIPRIVAN 200 MG/20 ML IV ONE (09:37)
--- NOTE | 2021-02-25 11:44 | XRAY ---
29 seconds fluoroscopy time in surgery for bilateral L4-S1 MBB.
--- NOTE | 2021-02-25 12:05 | XRAY ---
Indication: Bilateral L4-S1 MBB. Intraoperative fluoroscopy provided for 29 seconds. Single digital spot image submitted for interpretation demonstrates posterior needle tips projecting over the left and right L4-S1 nerve roots. Correlate with intraoperative findings/report. Incidental incompletely visualized bilateral L4-S1 posterior fusion hardware.
[2021-02-25] MEDS ORDERED: Lactated Ringers 1,000 ML IV ONE (15:29)
== END 2021-02-25 10:07 | disposition home or self-care (01) ==
LOC: SDC-PAIN 08:30
PROVIDERS: ATTEND Psychiatry & Neurology Pain Medicine
DX: M47.816 Spondylosis without myelopathy or radiculopathy, lumbar region (principal); I50.9 Heart failure, unspecified; J44.9 Chronic obstructive pulmonary disease, unspecified; I10 Essential (primary) hypertension; N18.30 Chronic kidney disease, stage 3 unspecified; E11.9 Type 2 diabetes mellitus without complications; F41.9 Anxiety disorder, unspecified; F32.9 Major depressive disorder, single episode, unspecified; K21.9 Gastro-esophageal reflux disease without esophagitis; Z79.01 Long term (current) use of anticoagulants; Z79.899 Other long term (current) drug therapy
CPT/HCPCS: 64493; 64494; 72020; 77002; 82947; J1030; J2704

== ENCOUNTER 2021-04-08 09:28 | Day surgery (SDC) | payer MEDICARE ==
[2021-04-08] MEDS ORDERED: Depo-Medrol 40 MG/ML IM ONE (09:29)
[2021-04-08] MEDS ORDERED: BUPIVACAINE 0.5% VIAL IJ ONE (09:29)
[2021-04-08] MEDS ORDERED: DIPRIVAN 200 MG/20 ML IV ONE (11:32)
--- NOTE | 2021-04-08 12:37 | XRAY ---
Indication: Bilateral L4-S1 MBB. Intraoperative fluoroscopy provided for 33 seconds. Single digital spot images submitted for interpretation demonstrates posterior needle tips projecting over the expected left and right L4-S1 nerve roots. Correlate with intraoperative findings/report. Incidental bilateral L4-S1 posterior fusion hardware.
--- NOTE | 2021-04-08 14:51 | XRAY ---
33 seconds fluoroscopy time in surgery for bilateral L4-S1 MBB.
[2021-04-08] MEDS ORDERED: Lactated Ringers 1,000 ML IV ONE (16:34)
== END 2021-04-08 12:01 | disposition home or self-care (01) ==
LOC: SDC-PAIN 09:28
PROVIDERS: ATTEND Psychiatry & Neurology Pain Medicine
DX: M47.816 Spondylosis without myelopathy or radiculopathy, lumbar region (principal); E11.9 Type 2 diabetes mellitus without complications; Z79.899 Other long term (current) drug therapy
CPT/HCPCS: 72020; 77002; 82947; J1030; J2704

== ENCOUNTER 2021-05-06 08:57 | Day surgery (SDC) | payer MEDICARE ==
[2021-05-06] MEDS ORDERED: Depo-Medrol 40 MG/ML IM ONE (08:58)
[2021-05-06] MEDS ORDERED: BUPIVACAINE 0.5% VIAL IJ ONE (08:58)
[2021-05-06] MEDS ORDERED: DIPRIVAN 200 MG/20 ML IV ONE (09:38)
[2021-05-06] MEDS ORDERED: Lactated Ringers 1,000 ML IV ONE (10:41)
--- NOTE | 2021-05-06 11:03 | XRAY ---
Indication: Left SI joint injection. Intraoperative fluoroscopy provided for 10 seconds. 2 digital spot images submitted for interpretation demonstrates posterior needle tip projecting over the inferior left SI joint. Correlate with intraoperative findings/report. Incidental incompletely visualized posterior lumbosacral fusion hardware.
--- NOTE | 2021-05-06 11:13 | XRAY ---
10 seconds of fluoroscopy was used in surgery for a left sacroiliac joint injection.
== END 2021-05-06 10:15 | disposition home or self-care (01) ==
LOC: SDC-PAIN 08:57
PROVIDERS: ATTEND Psychiatry & Neurology Pain Medicine
DX: M46.1 Sacroiliitis, not elsewhere classified (principal); E11.9 Type 2 diabetes mellitus without complications; Z79.899 Other long term (current) drug therapy
CPT/HCPCS: 27096; 72020; 77002; 82947; G0260; 99100; J1030; J2704

== ENCOUNTER 2021-05-27 06:45 | Day surgery (SDC) | payer MEDICARE ==
[2021-05-27] MEDS ORDERED: BUPIVACAINE 0.5% VIAL IJ ONE (06:46)
[2021-05-27] MEDS ORDERED: Xylocaine 1% Vial 30 ML PF IJ ONE (06:46)
[2021-05-27] MEDS ORDERED: Depo-Medrol 40 MG/ML IM ONE (06:46)
[2021-05-27] MEDS ORDERED: DIPRIVAN 200 MG/20 ML IV ONE (08:32)
--- NOTE | 2021-05-27 12:29 | XRAY ---
Indication: Right L4-S1 RFA. Intraoperative fluoroscopy was provided for 1 minute 22 seconds. 6 digital spot images submitted for interpretation demonstrates posterior needle tips projecting over the expected right L4-S1 nerve roots. Correlate with intraoperative findings/report. Incidental partially visualized bilateral L4-S1 posterior spinal fusion hardware.
--- NOTE | 2021-05-27 16:41 | XRAY ---
1 minute 22 seconds of fluoroscopy was used in surgery for a right L4-S1 RFA.
[2021-05-27] MEDS ORDERED: Lactated Ringers 1,000 ML IV ONE (17:24)
== END 2021-05-27 09:20 | disposition home or self-care (01) ==
LOC: SDC-PAIN 06:45
PROVIDERS: ATTEND Psychiatry & Neurology Pain Medicine
DX: M47.816 Spondylosis without myelopathy or radiculopathy, lumbar region (principal); E11.9 Type 2 diabetes mellitus without complications; Z79.899 Other long term (current) drug therapy
CPT/HCPCS: 64635; 64636; 72100; 77002; 82947; 99100; J1030; J2001; J2704

== ENCOUNTER 2021-06-03 09:28 | Day surgery (SDC) | payer MEDICARE ==
[2021-06-03] MEDS ORDERED: Depo-Medrol 40 MG/ML IM ONE (09:29)
[2021-06-03] MEDS ORDERED: BUPIVACAINE 0.5% VIAL IJ ONE (09:29)
[2021-06-03] MEDS ORDERED: Xylocaine 1% Vial 30 ML PF IJ ONE (09:29)
[2021-06-03] MEDS ORDERED: DIPRIVAN 200 MG/20 ML IV ONE (10:56)
--- NOTE | 2021-06-03 11:46 | XRAY ---
Indication: Left L4-S1 RFA. Intraoperative fluoroscopy provided for 36 seconds. 3 digital spot images submitted for interpretation demonstrates posterior needle tips projecting over the expected left L4-S1 nerve roots. Correlate with intraoperative findings/report. Incidental partially visualized bilateral L4-S1 posterior spinal fusion hardware.
--- NOTE | 2021-06-03 11:58 | XRAY ---
36 seconds fluoroscopy time in surgery for left L4-S1 RFA.
[2021-06-03] MEDS ORDERED: Lactated Ringers 1,000 ML IV ONE (15:20)
== END 2021-06-03 11:28 | disposition home or self-care (01) ==
LOC: SDC-PAIN 09:28
PROVIDERS: ATTEND Psychiatry & Neurology Pain Medicine
DX: M47.816 Spondylosis without myelopathy or radiculopathy, lumbar region (principal); E11.9 Type 2 diabetes mellitus without complications; Z79.899 Other long term (current) drug therapy
CPT/HCPCS: 64635; 64636; 72100; 77002; 82947; 99100; J1030; J2001; J2704

== ENCOUNTER 2023-06-30 15:35 | Emergency (ER) | payer MEDICARE ==
--- NOTE | 2023-06-30 16:01 | ERPHSYRPT ---
- History of Present Illness Time Seen by Provider: 06/30/23 16:00 Source: patient Exam Limitations: no limitations Physician History: This is a 78-year-old obese white female patient who presents with concerns that she has parasites living in side of her causing her to have "sutures" being placed in her skin about her face and in the buttock area. She has had negative ova and parasite test of her stool within the last few months and wants a repeat test. Patient has a degree of dementia per her report. She stated that she wants the sutures removed. She is also concerned about infection. Quality: itchy Severity: mild Location: face, perirectal Possible Causes: no cause identified Associated Symptoms: denies symptoms Allergies/Adverse Reactions: Sulfa (Sulfonamide Antibiotics) Allergy (Severe, Verified 06/30/23 15:55) Hives tapentadol HCl [From Nucynta] Allergy (Severe, Verified 06/30/23 15:55) throat swelling and itching acetaminophen [From Vicodin] Allergy (Mild, Verified 06/30/23 15:55) intense itching hydrocodone bitartrate [From Vicodin] Allergy (Mild, Verified 06/30/23 15:55) intense itching Home Medications: Amlodipine Besylate 5 mg [Norvasc 5 mg] 5 mg PO QA 01/31/15 [History] Aspirin 81 gm Chew [Baby Aspirin 81 mg Chew] 324 mg PO HS 01/31/15 [History] Ramipril 1.25 mg [Altace 1.25 MG] 1.25 mg PO QA 01/31/15 [History] Anastrozole [Arimidex] 1 mg PO HS 02/01/15 [History] Atorvastatin Calcium [Lipitor] 10 mg PO HS 02/01/15 [History] Calcium 500 mg PO BID 02/01/15 [History] Cholecalciferol (Vitamin D3) [Vitamin D3] 50,000 unit PO WEEKLY 02/01/15 [History] Duloxetine HCl [Cymbalta] 60 mg PO QAM 02/01/15 [History] Furosemide [Lasix] 40 mg PO DAILY 02/01/15 [History] Glimepiride 2 mg [Amaryl 2 MG] 2 mg PO BID 02/01/15 [History] Glucosam/Antony-Msm1/C/[place]/Bosw [Osteo Bi-Flex Caplet] 1 each PO BID 02/01/15 [History] Levothyroxine Sodium 75 Mcg [Synthroid 75 Mcg] 88 mcg PO DAILY 02/01/15 [History] Loratadine 10 mg [Claritin 10 mg] 10 mg PO DAILY 02/01/15 [History] Multivitamin [Multivitamins] 1 each PO DAILY 02/01/15 [History] Oxybutynin Chloride 10 mg PO DAILY 02/01/15 [History] Pantoprazole Sodium [Protonix] 40 mg PO BID 02/01/15 [History] Ropinirole HCl [Requip] 1 mg PO HS 02/01/15 [History] SUMAtriptan succinate [Imitrex] 100 mg PO WEEKLY 02/01/15 [History] Tizanidine HCl 4 mg [Zanaflex 4 MG] 4 mg PO BID 02/01/15 [History] Albuterol 2 inh PO Q4H PRN PRN 08/22/19 [History] Albuterol 2.5 mg/3 ml Neb [Proventil 2.5 mg/3 ml Neb] 2.5 inh PO Q4HPRN PRN 08/22/19 [History] Budesonide/Formoterol Fumarate [Symbicort 160-4.5 Mcg Inhaler] 2 inh PO DAILY 08/22/19 [History] Buprenorphine HCl [Belbuca] 450 mcg PO BID 08/22/19 [History] Canagliflozin [Invokana] 300 mg PO DAILY 08/22/19 [History] Metformin HCl Xr 500 mg [Glucophage XR 500 MG] 500 mg PO AC 08/22/19 [History] Marble-3/Dha/Epa/Fish Oil [Fish Oil 1,000 mg Softgel] 1,000 mg PO HS 08/22/19 [History] Oxycodone / APAP 10/325 mg [Oxycodone-Acetaminophen 10-325] 1 tab PO BID 08/22/19 [History] Potassium Chloride Tab* [Klor Con] 1 tab PO AC 08/22/19 [History] Pregabalin [Lyrica 150Mg] 150 mg PO BID 08/22/19 [History] Propranolol HCl [Inderal ] 60 mg PO DAILY 08/22/19 [History] Raloxifene HCl 60 mg PO DAILY 08/22/19 [History] Trazodone HCl 50 mg [Desyrel 50 mg] 100 mg PO HS 08/22/19 [History] Hx Influenza Vaccination/Date Given: Yes (2013) Hx Pneumococcal Vaccination/Date Given: Yes (" Due for another" 2009) Travel Risk - International Travel Have you traveled outside of the country in past 3 weeks: No - Coronavirus Screening Are you exhibiting any of the following symptoms?: No Close contact with a COVID-19 positive Pt in past 14-21 Days: No - Review of Systems Constitutional: No Symptoms Eyes: No Symptoms Ears, Nose, & Throat: No Symptoms Respiratory: No Symptoms Cardiac: No Symptoms Abdominal/Gastrointestinal: No Symptoms Genitourinary Symptoms: No Symptoms Musculoskeletal: No Symptoms Skin: Pruritis, Other (Patient has a belief that there are worms under her skin forming sutures and she wants them removed) Neurological: No Symptoms Psychological: Anxiety, Hallucinations Endocrine: No Symptoms Hematologic/Lymphatic: No Symptoms Immunological/Allergic: No Symptoms All Other Systems: Reviewed and Negative - Past Medical History Pertinent Past Medical History: Yes Neurological History: Migraines, Peripheral Neuropathy ENT History: Cataracts Cardiac History: High Cholesterol, Hypertension Respiratory History: COPD, Pulmonary Embolism, Other Endocrine Medical History: Diabetes Type II, Hypothyroidism Musculoskeletal History: Degenerative Disk Disease, Fibromyalgia, Osteoporosis, Rheumatoid Arthritis GI Medical History: Diverticulosis, GERD History: Renal Disease Psycho-Social History: Anxiety, Depression Female Reproductive Disorders: Breast Cancer Other Medical History: Chronic stage 3 kidney diseasedropped mesh into vagina from bladder sling- causes frequent UTIIron def anemia and b-12 anemia, didn't recovery well from the PE pts wears 2L O2 via nasal canula - Past Surgical History Past Surgical History: Yes Neuro Surgical History: No Pertinent History Cardiac: Cardiac Catheterization Respiratory: No Pertinent History Gastrointestinal: Cholecystectomy Genitourinary: Other Musculoskeletal: Orthopedic Surgery Female Surgical History: Hysterectomy, Lumpectomy, Mastectomy Other Surgical History: righ carpel tunnel surgerybilateral mastectomy 2013 Radical to left side2 lamenectomys3 vertebre fused to lumbarneck fusionthorasic fusionleft knee surgerybladder sling with mesh catarct and lasix surgery - Social History Smoking Status: Never smoker Exposure to second hand smoke: No Drug Use: none Patient Lives Alone: Yes - Nursing Vital Signs Nursing Vital Signs: Initial Vital Signs Temperature 97.2 F 06/30/23 16:03 Pulse Rate 67 06/30/23 16:03 Blood Pressure 116/54 06/30/23 16:03 O2 Sat by Pulse Oximetry 94 L 06/30/23 16:03 Pain Scale Pain Intensity 7 - Physical Exam General Appearance: no apparent distress, alert, anxiety, obese Eye Exam: PERRL/EOMI, eyes nml inspection Ears, Nose, Throat Exam: normal ENT inspection, moist mucous membranes Neck Exam: normal inspection, non-tender, supple, full range of motion Respiratory Exam: normal breath sounds, lungs clear, airway intact, No chest tenderness, No respiratory distress Cardiovascular Exam: regular rate/rhythm, normal heart sounds, normal peripheral pulses Gastrointestinal/Abdomen Exam: soft, normal bowel sounds, No tenderness Pelvic Exam: not done (Excoriation of the skin) Rectal Exam: other (Around the left buttock area slightly reddened) Back Exam: normal inspection, normal range of motion, vertebral tenderness, No CVA tenderness Extremity Exam: normal inspection, normal range of motion, pelvis stable Neurologic Exam: alert, oriented x 3, cooperative, data management analyst II-XII nml as tested, other Skin Exam: other (Anxious excoriation sites of her face and the left buttock area. No visible foreign bodies. No visible parasites or worms under the skin) - Course Nursing assessment & vital signs reviewed: Yes - Progress Progress: unchanged Progress Note: 06/30/23 16:30 This patient's medical issue is 1 of low complexity. Level complex in the work- up performed is based on review of the patient's past medical history, review the patient's medication list, review the patient's drug allergy list, history of present illness and physical findings on examination. This patient does not require any laboratory studies. Patient states that she cannot provide a stool sample at this time. We will send a prescription for the patient to obtain a stool sample at home and return the sample to the hospital lab. We will make sure that on the prescription it says to send the results to her primary care provider. I will write a prescription for Keflex 500 mg 3 times a day for 7 days because of the redness in the buttock area from the patient scratching. Patient does not require any other laboratory or radiographic studies. 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 Keep the abrasion sites clean daily with soap and water. Take your antibiotics as prescribed. Take your other medication as prescribed. Follow-up with your primary care provider for further evaluation management. Return the stool specimen to the lab.
[2023-06-30 16:04] VITALS: TEMP 97.2; O2SAT 94
[2023-06-30 16:36] VITALS: BP 109/60; PULSE 63; RESP 20
== END 2023-06-30 16:59 | disposition home or self-care (01) ==
LOC: ED 15:35
DX: F22 Delusional disorders (principal); L03.317 Cellulitis of buttock; E78.5 Hyperlipidemia, unspecified; I12.9 Hypertensive chronic kidney disease with stage 1 through stage 4 chronic kidney disease, or unspecified chronic kidney disease; E11.22 Type 2 diabetes mellitus with diabetic chronic kidney disease; N18.30 Chronic kidney disease, stage 3 unspecified; E11.42 Type 2 diabetes mellitus with diabetic polyneuropathy; Z79.84 Long term (current) use of oral hypoglycemic drugs; Z79.899 Other long term (current) drug therapy
CPT/HCPCS: 99281

== ENCOUNTER 2023-12-06 17:30 | Observation (INO) | payer MEDICARE ==
[2023-12-06 18:20] LABS: Hematocrit 33.9 % (35-47); Hemoglobin 10.5 g/dL (12.0-16.0); Mean Corpuscular Hemoglobin 26.6 pg (26-32); Mean Platelet Volume 9.2 fL (7.5-11.0); Platelet Count 196 x10^3/uL (150-450); Red Blood Count 3.94 x10^6/uL (4.1-5.4); Red Cell Distribution Width 14.1 % (11.5-14.0); White Blood Count 7.2 x10^3/uL (4.0-10.5)
--- NOTE | 2023-12-06 18:45 | ERPHSYRPT ---
- History of Present Illness Time Seen by Provider: 12/06/23 18:00 Source: patient Exam Limitations: no limitations Patient Subjective Stated Complaint: daughter states that pt has had 3 crises in the past 36 hours. pt states that her blood sugar has dropped 3 times and needed the ambulance to help. daughter states that she called mothers primary and they states to discontinue diabetic medication Triage Nursing Assessment: pt came into the er via ambulance; pt was transferred to cot per self and assist of 1; c/o hypoglycemia; blood sugar on arrival was 102; skin PDW; no respiratory distress present; vitals wnl Physician History: 78-year-old female presents to our ED via EMS for evaluation of blood sugar. Patient's daughter at bedside states patient had 2 episodes of hypoglycemia yesterday. She contacted primary care provider who ordered her to discontinue the diabetes medications. Since then patient's blood sugar has been normal. Patient's primary care doctor advised her to come to our ED to assess for possible cause for her hypoglycemia other than the medication. Patient states she feels weak. No pain. No nausea no vomiting no rash no fever. Patient conversant and has no complaints at this time. Portions of this note were created with voice recognition technology. There may be grammatical, spelling, punctuation or sound alike errors Timing/Duration: yesterday Severity: moderate Modifying Factors: Improves With: nothing Associated Symptoms: denies symptoms Allergies/Adverse Reactions: Sulfa (Sulfonamide Antibiotics) Allergy (Severe, Verified 12/06/23 17:38) Hives tapentadol HCl [From Nucynta] Allergy (Severe, Verified 12/06/23 17:38) throat swelling and itching acetaminophen [From Vicodin] Allergy (Mild, Verified 12/06/23 17:38) intense itching hydrocodone bitartrate [From Vicodin] Allergy (Mild, Verified 12/06/23 17:38) intense itching Home Medications: Amlodipine Besylate 5 mg [Norvasc 5 mg] 5 mg PO QAM 01/31/15 [History] Atorvastatin Calcium [Lipitor] 10 mg PO HS 02/01/15 [History] Calcium 500 mg PO BID 02/01/15 [History] Cholecalciferol (Vitamin D3) [Vitamin D3] 50,000 unit PO WEEKLY 02/01/15 [History] Duloxetine HCl [Cymbalta] 60 mg PO QAM 02/01/15 [History] Furosemide [Lasix] 40 mg PO DAILY 02/01/15 [History] Glucosam/Antony-Msm1/C/[place]/Bosw [Osteo Bi-Flex Caplet] 1 each PO BID 02/01/15 [History] Levothyroxine Sodium 75 Mcg [Synthroid 75 Mcg] 88 mcg PO DAILY 02/01/15 [History] Loratadine 10 mg [Claritin 10 mg] 10 mg PO DAILY 02/01/15 [History] Multivitamin [Multivitamins] 1 each PO DAILY 02/01/15 [History] Albuterol 2 inh PO Q4H PRN PRN 08/22/19 [History] Albuterol 2.5 mg/3 ml Neb [Proventil 2.5 mg/3 ml Neb] 2.5 inh PO Q4HPRN PRN 08/22/19 [History] Potassium Chloride Tab* [Klor Con] 1 tab PO AC 08/22/19 [History] Propranolol HCl [Inderal ] 60 mg PO DAILY 08/22/19 [History] Apixaban [Eliquis] 5 mg PO BID 12/06/23 [History] Cariprazine HCl [Vraylar] 3 mg PO DAILY 12/06/23 [History] Gabapentin 800 mg PO TID 12/06/23 [History] Magnesium 200 mg PO DAILY 12/06/23 [History] Memantine HCl 10 mg PO BID 12/06/23 [History] Methadone HCl 10 mg [DOLOPHINE 10MG Tablet] 10 mg PO BID 12/06/23 [History] Nitrofurantoin Macro 100 mg [Macrobid 100MG Capsule] 100 mg PO BID 12/06/23 [History] Nitrofurantoin Macrocrystal [Nitrofurantoin] 50 mg PO DAILY 12/06/23 [History] PANTOPRAZOLE 40 mg Tablet [Protonix 40MG Tablet] 40 mg PO QAM 12/06/23 [History] Quetiapine Fumarate 50 mg PO HS 12/06/23 [History] Solifenacin Succinate 5 mg PO DAILY 12/06/23 [History] Hx Tetanus, Diphtheria Vaccination/Date Given: No Hx Influenza Vaccination/Date Given: Yes Hx Pneumococcal Vaccination/Date Given: Yes Immunizations Up to Date: No Travel Risk - International Travel Have you traveled outside of the country in past 3 weeks: No - Emerging Infectious Disease Are you exhibiting symptoms associated with any current EIDs: No - Review of Systems Constitutional: No Symptoms, No Fever, No Chills Eyes: No Symptoms Ears, Nose, & Throat: No Symptoms Respiratory: No Symptoms, No Cough, No Dyspnea Cardiac: No Symptoms, No Chest Pain, No Edema, No Syncope Abdominal/Gastrointestinal: No Symptoms, No Abdominal Pain, No Nausea, No Vomiting, No Diarrhea Genitourinary Symptoms: No Symptoms, No Dysuria Musculoskeletal: No Symptoms, No Back Pain, No Neck Pain Skin: No Symptoms, No Rash Neurological: No Symptoms, No Dizziness, No Focal Weakness, No Sensory Changes Psychological: No Symptoms Endocrine: No Symptoms Hematologic/Lymphatic: No Symptoms Immunological/Allergic: No Symptoms All Other Systems: Reviewed and Negative - Past Medical History Pertinent Past Medical History: Yes Neurological History: Migraines, Peripheral Neuropathy ENT History: Cataracts Cardiac History: High Cholesterol, Hypertension Respiratory History: COPD, Pulmonary Embolism, Other Endocrine Medical History: Diabetes Type II, Hypothyroidism Musculoskeletal History: Degenerative Disk Disease, Fibromyalgia, Osteoporosis, Rheumatoid Arthritis GI Medical History: Diverticulosis, GERD History: Renal Disease Psycho-Social History: Anxiety, Depression Female Reproductive Disorders: Breast Cancer Other Medical History: Chronic stage 3 kidney diseasedropped mesh into vagina from bladder sling- causes frequent UTIIron def anemia and b-12 anemia, didn't recovery well from the PE pts wears 2L O2 via nasal canula - Past Surgical History Past Surgical History: Yes Neuro Surgical History: No Pertinent History Cardiac: Cardiac Catheterization Respiratory: No Pertinent History Gastrointestinal: Cholecystectomy Genitourinary: Other Musculoskeletal: Orthopedic Surgery Female Surgical History: Hysterectomy, Lumpectomy, Mastectomy Other Surgical History: righ carpel tunnel surgerybilateral mastectomy 2013 Radical to left side2 lamenectomys3 vertebre fused to lumbarneck fusionthorasic fusionleft knee surgerybladder sling with mesh catarct and lasix surgery - Social History Smoking Status: Never smoker Exposure to second hand smoke: No Drug Use: none Patient Lives Alone: Yes - Nursing Vital Signs Nursing Vital Signs: Initial Vital Signs Pulse Rate 63 12/06/23 17:34 Respiratory Rate 19 04/09/24 17:34 Blood Pressure 117/53 12/06/23 17:34 O2 Sat by Pulse Oximetry 96 12/06/23 17:34 Pain Scale Pain Intensity 6 - Physical Exam General Appearance: no apparent distress, alert Eye Exam: PERRL/EOMI, eyes nml inspection Ears, Nose, Throat Exam: normal ENT inspection, TMs normal, pharynx normal, moist mucous membranes Neck Exam: normal inspection, non-tender, supple, full range of motion Respiratory Exam: normal breath sounds, lungs clear, airway intact, No respiratory distress Cardiovascular Exam: regular rate/rhythm, normal heart sounds, normal peripheral pulses Gastrointestinal/Abdomen Exam: soft, normal bowel sounds, No tenderness, No mass Back Exam: normal inspection, normal range of motion, No CVA tenderness, No vertebral tenderness Extremity Exam: normal inspection, normal range of motion, pelvis stable Neurologic Exam: alert, oriented x 3, cooperative, normal mood/affect, nml cerebellar function, nml station & gait, sensation nml, No motor deficits Skin Exam: normal color, warm, dry, No rash Lymphatic Exam: No adenopathy SpO2 Interpretation: normal SpO2: 95 O2 Delivery: Room Air - Course Nursing assessment & vital signs reviewed: Yes EKG Interpreted by Me: RATE, Sinus Rhythm, NORMAL AXIS, NORMAL INTERVALS Ordered Tests: Active Orders 24 hr Category Date Time Status EKG-ER Only STAT Care 12/06/23 18:04 Active IV Insertion STAT Care 12/06/23 18:04 Active CBC Stat Lab 12/06/23 18:10 Completed CMP Stat Lab 12/06/23 18:10 Completed CULTURE,URINE Stat Lab 12/06/23 20:12 Received POCT GLUCOSE Stat Lab 12/06/23 20:35 Completed TROPONIN Q4H Lab 12/06/23 18:10 Completed TROPONIN Q4H Lab 12/06/23 22:15 Ordered TROPONIN Q4H Lab 12/07/23 02:15 Ordered UA W/RFX UR CULTURE Stat Lab 12/06/23 20:12 Completed Medication Summary Generic Name Dose Route Start Last Admin Trade Name Freq PRN Reason Stop Dose Admin Ceftriaxone Sodium 1 gm in 100 mls @ 200 mls/hr 12/06/23 20:39 Rocephin 1 Gm / 100 Ml Nacl IV 12/06/23 21:08 STAT ONE Lab/Rad Data: Laboratory Result Diagrams 12/06/23 18:10 12/06/23 18:10 Laboratory Results 12/06/23 12/06/23 12/06/23 Range/Units 20:35 20:12 18:10 WBC 7.2 (4.0-10.5) x10^3/uL RBC 3.94 L (4.1-5.4) x10^6/uL Hgb 10.5 L (12.0-16.0) g/dL Hct 33.9 L (35-47) % MCV 86.0 (78-100) fL MCH 26.6 (26-32) pg MCHC 31.0 L (32-36) g/dL RDW 14.1 H (11.5-14.0) % Plt Count 196 (150-450) x10^3/uL MPV 9.2 (7.5-11.0) fL Sodium (135-145) mmol/L Potassium (3.5-5.1) mmol/L Chloride (98-107) mmol/L Carbon Dioxide (22-30) mmol/L Anion Gap (5-15) MEQ/L BUN (7-17) mg/dL Creatinine (0.52-1.04) mg/dL Estimated GFR ML/MIN Glucose (74-106) mg/dL POC Glucometer 70 L (74 to 106) mg/dL Calcium (8.4-10.2) mg/dL Total Bilirubin (0.2-1.3) mg/dL AST (14-36) U/L ALT (0-35) U/L Alkaline Phosphatase (38-126) U/L Troponin I (0.000-0.033) ng/mL Serum Total Protein (6.3-8.2) g/dL Albumin (3.5-5.0) g/dL Urine Color Dark Yellow A (Yellow) Urine Appearance Cloudy A (Clear) Urine pH 7.0 (4.6-8.0) Ur Specific Ferguson 1.015 (1.005-1.030) Urine Protein Trace A (Negative) Urine Glucose (UA) Negative (Negative) mg/dL Urine Ketones Negative (Negative) Urine Blood Trace (Negative) Urine Nitrite Positive A (Negative) Urine Bilirubin Negative (Negative) Urine Urobilinogen 0.2 (0.2) mg/dL Ur Leukocyte Esterase Large A (Negative) U Hyaline Cast (Auto) NONE SEEN (0-2) /LPF Urine Microscopic RBC 0-2 (0-5) /HPF Urine Microscopic WBC >100 A (0-5) /HPF Ur Epithelial Cells None Seen (None Seen) /HPF Urine Bacteria Many A (None Seen) /HPF Urine Culture Reflexed YES (NO) 12/06/23 12/06/23 Range/Units 18:10 18:10 WBC (4.0-10.5) x10^3/uL RBC (4.1-5.4) x10^6/uL Hgb (12.0-16.0) g/dL Hct (35-47) % MCV (78-100) fL MCH (26-32) pg MCHC (32-36) g/dL RDW (11.5-14.0) % Plt Count (150-450) x10^3/uL MPV (7.5-11.0) fL Sodium 140 (135-145) mmol/L Potassium 4.5 (3.5-5.1) mmol/L Chloride 101 (98-107) mmol/L Carbon Dioxide 34 H (22-30) mmol/L Anion Gap 9.5 (5-15) MEQ/L BUN 18 H (7-17) mg/dL Creatinine 1.14 H (0.52-1.04) mg/dL Estimated GFR 49.9 ML/MIN Glucose 99 (74-106) mg/dL POC Glucometer (74 to 106) mg/dL Calcium 8.7 (8.4-10.2) mg/dL Total Bilirubin 0.30 (0.2-1.3) mg/dL AST 33 (14-36) U/L ALT 20 (0-35) U/L Alkaline Phosphatase 96 (38-126) U/L Troponin I < 0.012 (0.000-0.033) ng/mL Serum Total Protein 7.3 (6.3-8.2) g/dL Albumin 3.7 (3.5-5.0) g/dL Urine Color (Yellow) Urine Appearance (Clear) Urine pH (4.6-8.0) Ur Specific Ferguson (1.005-1.030) Urine Protein (Negative) Urine Glucose (UA) (Negative) mg/dL Urine Ketones (Negative) Urine Blood (Negative) Urine Nitrite (Negative) Urine Bilirubin (Negative) Urine Urobilinogen (0.2) mg/dL Ur Leukocyte Esterase (Negative) U Hyaline Cast (Auto) (0-2) /LPF Urine Microscopic RBC (0-5) /HPF Urine Microscopic WBC (0-5) /HPF Ur Epithelial Cells (None Seen) /HPF Urine Bacteria (None Seen) /HPF Urine Culture Reflexed (NO) - Progress Progress: improved Progress Note: Case discussed with Dr. Clay who accepts admission at 8:46 PM. Plan of care discussed with patient. Patient agrees to admission to [facility] for further evaluation and treatment. Portions of this note were created with voice recognition technology. There may be grammatical, spelling, punctuation or sound alike errors 12/06/23 20:46 78-year-old female presents to our ED for evaluation of recurrent hypoglycemia and spite of stopping her diabetic medications. While in our ED patient's glucose dropped from 170. The decision was made to admit for observation. Patient is currently eating. We will reassess glucose prior to going up to the floor. Case discussed with Dr. Clay who accepts admission to observation. Additionally patient was observed to have a urinary tract infection. Rocephin initiated. Portions of this note were created with voice recognition technology. There may be grammatical, spelling, punctuation or sound alike errors Complexity problem addressed is moderate acute complicated No critical care time Complexity of data reviewed and analyzed is extensive. Test ordered test reviewed results analyzed and correlated clinically with history and physical exam. Management discussed with hospitalist who accepts admission to observation Vital stable. Time spent admit patient is approximately 20 minutes. Vital stable. Portions of this note were created with voice recognition technology. There may be grammatical, spelling, punctuation or sound alike errors 12/06/23 20:49 Counseled pt/family regarding: lab results, diagnosis - Departure Departure Disposition: Observation Clinical Impression: Hypoglycemia, UTI (urinary tract infection), Generalized weakness Condition: Stable Critical Care Time: No Referrals: [facility] [LOCATION] - Follow up/PCP as directed
[2023-12-06 18:56] LABS: ALBUMIN 3.7 g/dL (3.5-5.0); ANION GAP 9.5 MEQ/L (5-15); BILIRUBIN,TOTAL 0.3 mg/dL (0.2-1.3); Calcium 8.7 mg/dL (8.4-10.2); Creatinine 1 1.14 mg/dL (0.52-1.04); EST GLOMERULAR FILTRATION RATE 49.9 ML/MIN; Potassium 4.5 mmol/L (3.5-5.1); Total Protein 7.3 g/dL (6.3-8.2)
[2023-12-06 20:22] LABS: Appearance Cloudy (Clear); Bacteria Many /HPF (None Seen); Bilirubin Negative (Negative); Blood Trace (Negative); Epithelial Cells None Seen /HPF (None Seen); Glucose, Urine Negative (Negative); Hyaline Casts NONE SEEN /LPF (0-2); Ketones Negative (Negative); Leukocyte Esterase Large (Negative); Nitrite Positive (Negative); Protein,Urine Dip Trace (Negative); RBC 0-2 /HPF (0-5); Specific Gravity 1.015 (1.005-1.030); Urobilinogen 0.2 mg/dL (0.2); WBC >100 /HPF (0-5)
[2023-12-06 20:23] LABS: ADD URINE CULTURE? YES (NO)
[2023-12-06] MEDS ORDERED: ROCEPHIN 1 GM / 100 ML NaCl 1 GM/100 ML IVPB IV ONE (20:46)
[2023-12-06] MEDS: ROCEPHIN 1 GM / 100 ML NaCl 1 GM/100 ML IVPB IV ONE (20:47)
--- NOTE | 2023-12-06 23:47 | PCM.HP ---
History of Present Illness - Chief Complaint Chief Complaint: hypoglycemia, UTI Date: 12/06/23 History of Present Illness: Ms. VALENCIA is a 78 year old female with a past medical history significant for hypertension, diabetes and hyperlipidemia who presents to the hospital with multiple episodes of hypoglycemia over the past two days. She saw her PCP who recommended that she stop her diabetic meds, but after they dropped again, she was advised to come to the ER. She was found to have blood sugars dropping into the 70s and initial work up demonstrated nitrites in her urine. She does report some dysuria and urgency. No chest pain or shortness of breath. No nausea, vomiting or diarrhea. No fever/chills. She has been recommended for admission to deal with her UTI and low blood sugars. Initial labs also notable for an elevated creatinine of 1.1. - Review of Systems Constitutional: Fatigue Eyes: No Vision Changes Ears, Nose, & Throat: No Painful Swallowing Respiratory: No Cough, No Orthopnea, No Short Of Breath Cardiac: No Chest Pain, No Edema Abdominal/Gastrointestinal: No Abdominal Pain, No Nausea, No Vomiting Genitourinary Symptoms: Dysuria, Frequency, Urgency, No Hematuria Musculoskeletal: No Joint Pain Skin: No Cellulitis, No Rash Neurological: No Dizziness, No Focal Weakness, No Gait Changes Psychological: No Suicidal Ideations Endocrine: No Polyuria, No Polydipsia Medications & Allergies Home Medications: Home Medication List Amlodipine Besylate 5 mg [Norvasc 5 mg] 5 mg PO QAM 01/31/15 [History Confirmed 12/06/23] Atorvastatin Calcium [Lipitor] 10 mg PO HS 02/01/15 [History Confirmed 12/06/23] Calcium 500 mg PO BID 02/01/15 [History Confirmed 12/06/23] Cholecalciferol (Vitamin D3) [Vitamin D3] 50,000 unit PO WEEKLY 02/01/15 [History Confirmed 12/06/23] Duloxetine HCl [Cymbalta] 60 mg PO QAM 02/01/15 [History Confirmed 12/06/23] Furosemide [Lasix] 40 mg PO DAILY 02/01/15 [History Confirmed 12/06/23] Glucosam/Antony-Msm1/C/[place]/Bosw [Osteo Bi-Flex Caplet] 1 each PO BID 02/01/15 [History Confirmed 12/06/23] Levothyroxine Sodium 75 Mcg [Synthroid 75 Mcg] 88 mcg PO DAILY 02/01/15 [History Confirmed 12/06/23] Loratadine 10 mg [Claritin 10 mg] 10 mg PO DAILY 02/01/15 [History Confirmed 12/06/23] Multivitamin [Multivitamins] 1 each PO DAILY 02/01/15 [History Confirmed 12/06/23] Albuterol 2 inh PO Q4H PRN PRN 08/22/19 [History Confirmed 12/06/23] Albuterol 2.5 mg/3 ml Neb [Proventil 2.5 mg/3 ml Neb] 2.5 inh PO Q4HPRN PRN 08/22/19 [History Confirmed 12/06/23] Potassium Chloride Tab* [Klor Con] 1 tab PO AC 08/22/19 [History Confirmed 12/06/23] Propranolol HCl [Inderal ] 60 mg PO DAILY 08/22/19 [History Confirmed 12/06/23] Apixaban [Eliquis] 5 mg PO BID 12/06/23 [History Confirmed 12/06/23] Cariprazine HCl [Vraylar] 3 mg PO DAILY 12/06/23 [History Confirmed 12/06/23] Gabapentin 800 mg PO TID 12/06/23 [History Confirmed 12/06/23] Magnesium 200 mg PO DAILY 12/06/23 [History Confirmed 12/06/23] Memantine HCl 10 mg PO BID 12/06/23 [History Confirmed 12/06/23] Methadone HCl 10 mg [DOLOPHINE 10MG Tablet] 10 mg PO BID 12/06/23 [History Confirmed 12/06/23] Nitrofurantoin Macro 100 mg [Macrobid 100MG Capsule] 100 mg PO BID 12/06/23 [History Confirmed 12/06/23] Nitrofurantoin Macrocrystal [Nitrofurantoin] 50 mg PO DAILY 12/06/23 [History Confirmed 12/06/23] PANTOPRAZOLE 40 mg Tablet [Protonix 40MG Tablet] 40 mg PO QAM 12/06/23 [History Confirmed 12/06/23] Quetiapine Fumarate 50 mg PO HS 12/06/23 [History Confirmed 12/06/23] Solifenacin Succinate 5 mg PO DAILY 12/06/23 [History Confirmed 12/06/23] Allergies/Adverse Reactions: Allergies Allergy/AdvReac Type Severity Reaction Status Date / Time Sulfa (Sulfonamide Allergy Severe Hives Verified 12/06/23 17:38 Antibiotics) tapentadol HCl [From Nucynta] Allergy Severe throat Verified 12/06/23 17:38 swelling and itching acetaminophen [From Vicodin] Allergy Mild intense Verified 12/06/23 17:38 itching hydrocodone bitartrate Allergy Mild intense Verified 12/06/23 17:38 [From Vicodin] itching - Past Medical History Past Medical History: Yes Neurological History: Migraines, Peripheral Neuropathy ENT History: Cataracts Cardiac History: High Cholesterol, Hypertension Respiratory History: COPD, Pulmonary Embolism, Other Endocrine Medical History: Diabetes Type II, Hypothyroidism Musculoskelatal History: Degenerative Disk Disease, Fibromyalgia, Osteoporosis, Rheumatoid Arthritis GI Medical History: Diverticulosis, GERD History: Renal Disease Pyscho-Social History: Anxiety, Depression Reproductive Disorders: Breast Cancer Comment: Chronic stage 3 kidney diseasedropped mesh into vagina from bladder sling- causes frequent UTIIron def anemia and b-12 anemia, didn't recovery well from the PE pts wears 2L O2 via nasal canula - Female History Are you now?: No - Past Surgical History Past Surgical History: Yes Neuro Surgical History: No Pertinent History Cardiac History: Cardiac Catheterization Respiratory Surgery: No Pertinent History GI Surgical History: Cholecystectomy Genitourinary Surgical Hx: Other Musculskeletal Surgical Hx: Orthopedic Surgery Female Surgical History: Hysterectomy, Lumpectomy, Mastectomy Other Surgical History: righ carpel tunnel surgerybilateral mastectomy 2013 Radical to left side2 lamenectomys3 vertebre fused to lumbarneck fusionthorasic fusionleft knee surgerybladder sling with mesh catarct and lasix surgery - Social History Smoking Status: Never smoker Exposure to second hand smoke: No Alcohol: None Drug Use: none - Social Determinants of Health Will the patient participate in the screening: Yes Do you worry about a steady place to live?: No Do you have any problems with any of the following?: No known problems In the past 12 months,have you had to go without utilities?: No Have you or anyone in your house had to go without enough: No Transportation Issues: No Has anyone in your support network made you feel unsafe?: No Does the patient want assistance with any of the above?: No - Physical Exam Vital Signs: Vital Signs - 24 hr Temp Pulse Resp BP BP Pulse Ox 12/06/23 22:00 64 98 12/06/23 21:31 97.1 F 64 25 H 110/53 98 12/06/23 20:52 95 12/06/23 20:00 66 21 131/68 97 12/06/23 19:30 67 17 123/63 97 12/06/23 19:00 62 12 124/70 97 12/06/23 18:30 62 18 124/69 97 12/06/23 18:06 61 16 110/60 97 12/06/23 18:02 61 16 97 12/06/23 17:38 97.9 F 61 16 117/52 95 12/06/23 17:34 63 19 117/53 96 General Appearance: no apparent distress Neurologic Exam: alert Ears, Nose, Throat Exam: dry mucous membranes Neck Exam: supple Respiratory Exam: No respiratory distress Cardiovascular Exam: regular rate/rhythm Gastrointestinal/Abdomen Exam: soft Extremity Exam: No pedal edema, No swelling Skin Exam: normal color, No rash Results - Labs Lab/Micro Results: Lab Results-Last 24 Hours 12/06/23 12/06/23 12/06/23 Range/Units 18:10 18:10 18:10 WBC 7.2 (4.0-10.5) x10^3/uL RBC 3.94 L (4.1-5.4) x10^6/uL Hgb 10.5 L (12.0-16.0) g/dL Hct 33.9 L (35-47) % MCV 86.0 (78-100) fL MCH 26.6 (26-32) pg MCHC 31.0 L (32-36) g/dL RDW 14.1 H (11.5-14.0) % Plt Count 196 (150-450) x10^3/uL MPV 9.2 (7.5-11.0) fL Sodium 140 (135-145) mmol/L Potassium 4.5 (3.5-5.1) mmol/L Chloride 101 (98-107) mmol/L Carbon Dioxide 34 H (22-30) mmol/L Anion Gap 9.5 (5-15) MEQ/L BUN 18 H (7-17) mg/dL Creatinine 1.14 H (0.52-1.04) mg/dL Estimated GFR 49.9 ML/MIN Glucose 99 (74-106) mg/dL POC Glucometer (74 to 106) mg/dL Calcium 8.7 (8.4-10.2) mg/dL Total Bilirubin 0.30 (0.2-1.3) mg/dL AST 33 (14-36) U/L ALT 20 (0-35) U/L Alkaline Phosphatase 96 (38-126) U/L Troponin I < 0.012 (0.000-0.033) ng/mL Serum Total Protein 7.3 (6.3-8.2) g/dL Albumin 3.7 (3.5-5.0) g/dL Urine Color (Yellow) Urine Appearance (Clear) Urine pH (4.6-8.0) Ur Specific [place] (1.005-1.030) Urine Protein (Negative) Urine Glucose (UA) (Negative) mg/dL Urine Ketones (Negative) Urine Blood (Negative) Urine Nitrite (Negative) Urine Bilirubin (Negative) Urine Urobilinogen (0.2) mg/dL Ur Leukocyte Esterase (Negative) U Hyaline Cast (Auto) (0-2) /LPF Urine Microscopic RBC (0-5) /HPF Urine Microscopic WBC (0-5) /HPF Ur Epithelial Cells (None Seen) /HPF Urine Bacteria (None Seen) /HPF Urine Culture Reflexed (NO) 12/06/23 12/06/23 12/06/23 Range/Units 20:12 20:35 22:00 WBC (4.0-10.5) x10^3/uL RBC (4.1-5.4) x10^6/uL Hgb (12.0-16.0) g/dL Hct (35-47) % MCV (78-100) fL MCH (26-32) pg MCHC (32-36) g/dL RDW (11.5-14.0) % Plt Count (150-450) x10^3/uL MPV (7.5-11.0) fL Sodium (135-145) mmol/L Potassium (3.5-5.1) mmol/L Chloride (98-107) mmol/L Carbon Dioxide (22-30) mmol/L Anion Gap (5-15) MEQ/L BUN (7-17) mg/dL Creatinine (0.52-1.04) mg/dL Estimated GFR ML/MIN Glucose (74-106) mg/dL POC Glucometer 70 L (74 to 106) mg/dL Calcium (8.4-10.2) mg/dL Total Bilirubin (0.2-1.3) mg/dL AST (14-36) U/L ALT (0-35) U/L Alkaline Phosphatase (38-126) U/L Troponin I < 0.012 (0.000-0.033) ng/mL Serum Total Protein (6.3-8.2) g/dL Albumin (3.5-5.0) g/dL Urine Color Dark Yellow A (Yellow) Urine Appearance Cloudy A (Clear) Urine pH 7.0 (4.6-8.0) Ur Specific [place] 1.015 (1.005-1.030) Urine Protein Trace A (Negative) Urine Glucose (UA) Negative (Negative) mg/dL Urine Ketones Negative (Negative) Urine Blood Trace (Negative) Urine Nitrite Positive A (Negative) Urine Bilirubin Negative (Negative) Urine Urobilinogen 0.2 (0.2) mg/dL Ur Leukocyte Esterase Large A (Negative) U Hyaline Cast (Auto) NONE SEEN (0-2) /LPF Urine Microscopic RBC 0-2 (0-5) /HPF Urine Microscopic WBC >100 A (0-5) /HPF Ur Epithelial Cells None Seen (None Seen) /HPF Urine Bacteria Many A (None Seen) /HPF Urine Culture Reflexed YES (NO) 12/06/23 Range/Units 22:22 WBC (4.0-10.5) x10^3/uL RBC (4.1-5.4) x10^6/uL Hgb (12.0-16.0) g/dL Hct (35-47) % MCV (78-100) fL MCH (26-32) pg MCHC (32-36) g/dL RDW (11.5-14.0) % Plt Count (150-450) x10^3/uL MPV (7.5-11.0) fL Sodium (135-145) mmol/L Potassium (3.5-5.1) mmol/L Chloride (98-107) mmol/L Carbon Dioxide (22-30) mmol/L Anion Gap (5-15) MEQ/L BUN (7-17) mg/dL Creatinine (0.52-1.04) mg/dL Estimated GFR ML/MIN Glucose (74-106) mg/dL POC Glucometer 124 H (74 to 106) mg/dL Calcium (8.4-10.2) mg/dL Total Bilirubin (0.2-1.3) mg/dL AST (14-36) U/L ALT (0-35) U/L Alkaline Phosphatase (38-126) U/L Troponin I (0.000-0.033) ng/mL Serum Total Protein (6.3-8.2) g/dL Albumin (3.5-5.0) g/dL Urine Color (Yellow) Urine Appearance (Clear) Urine pH (4.6-8.0) Ur Specific [place] (1.005-1.030) Urine Protein (Negative) Urine Glucose (UA) (Negative) mg/dL Urine Ketones (Negative) Urine Blood (Negative) Urine Nitrite (Negative) Urine Bilirubin (Negative) Urine Urobilinogen (0.2) mg/dL Ur Leukocyte Esterase (Negative) U Hyaline Cast (Auto) (0-2) /LPF Urine Microscopic RBC (0-5) /HPF Urine Microscopic WBC (0-5) /HPF Ur Epithelial Cells (None Seen) /HPF Urine Bacteria (None Seen) /HPF Urine Culture Reflexed (NO) Assessment/Plan (1) Acute kidney injury Current Visit: Yes Status: Acute Assessment & Plan: Creatinine 1.1 likely from prerenal azotemia +/- UTI 1. Hold diuretics 2. Trial of gentle IVFs 3. Follow I/Os 4. Watch electrolytes, creatinine closely Code(s): N17.9 - ACUTE KIDNEY FAILURE, UNSPECIFIED (2) Hypertensive chronic kidney disease with stage 1 through stage 4 chronic kidney disease, or unspecified chronic kidney disease Current Visit: Yes Status: Acute Assessment & Plan: Blood pressure under reasonable control 1. Continue bp meds 2. Low Na diet 3. Monitor blood pressure readings Code(s): I12.9 - HYPERTENSIVE CHRONIC KIDNEY DISEASE W STG 1-4/UNSP CHR KDNY (3) Hypoglycemia Current Visit: Yes Status: Acute Assessment & Plan: Likely triggered by UTI and LAURA 1. D5 IVFs 2. Hold Metformin/Glipizide 3. Monitor blood sugars Code(s): E16.2 - HYPOGLYCEMIA, UNSPECIFIED (4) UTI (urinary tract infection) Current Visit: Yes Status: Acute Qualifiers: Urinary tract infection type: acute cystitis Assessment & Plan: UTI with symptoms 1. Empiric antibiotics 2. IVFs 3. Follow up urine culture to guide antibiotic therapy Code(s): N39.0 - URINARY TRACT INFECTION, SITE NOT SPECIFIED Telemedicine Encounter - Telemedicine Encounter Telemedicine Encounter: The entirety of this encounter was performed via Telemedicine"
[2023-12-06] MEDS ORDERED: TYLENOL 325 MG PO PRN (23:48)
[2023-12-07] MEDS: Dextrose 5% -0.45 NaCl 1000 ML 1,000 ML IV SCH (00:08)
[2023-12-07] MEDS ORDERED: DUONEB 0.5-3 MG/3 ml Neb IH SCH (01:00)
[2023-12-07 02:28] LABS: Absolute Neutrophil Ct (ANC) 3.45 x10^3/uL (1.4-6.9); BASOPHIL % 0.5 % (0.0-0.4); Basophil (Absolute #) 0.03 x10^3/uL (0-0.4); Eosinophil % 2.5 % (0.00-5.0); Eosinophil (Absolute #) 0.15 x10^3/uL (0-0.5); Hematocrit 33.2 % (35-47); Hemoglobin 10.1 g/dL (12.0-16.0); IMMATURE GRAN # 0.01 x10^3u/L (0.00-0.03); IMMATURE GRAN % 0.2 % (0.00-0.4); Mean Cell Volume 85.8 fL (78-100); Mean Corpuscular Hemoglobin 26.1 pg (26-32); Mean Corpuscular Hgb Concent. 30.4 g/dL (32-36); Mean Platelet Volume 9.3 fL (7.5-11.0); Monocyte (Absolute #) 0.73 x10^3/uL (0.0-1.3); Neutrophil % 56.8 % (36.0-66.0); Platelet Count 175 x10^3/uL (150-450); Red Blood Count 3.87 x10^6/uL (4.1-5.4); Red Cell Distribution Width 14.3 % (11.5-14.0); White Blood Count 6.1 x10^3/uL (4.0-10.5)
[2023-12-07 02:47] LABS: ANION GAP 7.7 MEQ/L (5-15); Calcium 8.2 mg/dL (8.4-10.2); Creatinine 1 0.8 mg/dL (0.52-1.04); EST GLOMERULAR FILTRATION RATE 76.3 ML/MIN; Potassium 4.4 mmol/L (3.5-5.1)
[2023-12-07] MEDS: PROVENTIL 2.5 MG/3 ML NEB IH SCH (08:00)
[2023-12-07] MEDS ORDERED: NON-FORMULARY ITEM (Albuterol [Albuterol] 17 GM Aerosol) PO PRN (08:52)
[2023-12-07] MEDS ORDERED: CHOLECALCIFEROL 50000 UNIT PO SCH (09:00)
[2023-12-07] MEDS ORDERED: VENTOLIN COMMON CANISTER IH PRN (09:15)
--- NOTE | 2023-12-07 09:47 | PCM.NOTE ---
Date and Time: 12/07/23 0941 Subjective Assessment: 12/07/23 Ms. VALENCIA is a 78 year old female with a past medical history significant for hypertension, diabetes, and hyperlipidemia, migraines, peripheral neuropathy, cataracts, COPD, PE, hypothyroidism, DJD, fibromyalgia, OA, RA, diverticulosis, GERD, CKD, anxiety, depression, breast cancer, chronic UTI's, anemia, and wears BL 2lnc PRN. She presented to the hospital on 12/05 with multiple episodes of hypoglycemia over the past two days. She saw her PCP who recommended that she stop her diabetic meds, but after they dropped again, she was advised to come to the ER. She was found to have blood sugars dropping into the 70s and initial work up demonstrated nitrites in her urine. She does report some dysuria and urgency. She has been recommended for admission to deal with her UTI and low blood sugars. Initial labs also notable for an elevated creatinine of 1.1. today LAURA has resolved. Awaiting PT bhupinder; for weakness. Rocephin for UTI. UC is pending. IVF for hypoglycemia with dextrose. She request her methadone be restarted for her chronic back pain. She does follow with pain management at [place]. No chest pain or shortness of breath. No nausea, vomiting or diarrhea. No fever/chills. She does have left heel pressure ulcer that is chronic. No edema or erythema. Pics in chart. - Review of Systems Constitutional: Weakness, No Fever, No Chills Eyes: No Symptoms Ears, Nose, & Throat: No Symptoms Respiratory: No Cough, No Short Of Breath Cardiac: No Chest Pain, No Edema, No Syncope Abdominal/Gastrointestinal: No Abdominal Pain, No Nausea, No Vomiting, No Diarrhea Genitourinary Symptoms: No Dysuria Musculoskeletal: No Back Pain, No Neck Pain Skin: Other (chronic pressure ulcer left heel with scab. ), No Rash Neurological: No Dizziness, No Focal Weakness, No Sensory Changes Psychological: No Symptoms Endocrine: No Symptoms Hematologic/Lymphatic: No Symptoms Immunological/Allergic: No Symptoms Objective Exam General Appearance: no apparent distress, alert, obese Neurologic Exam: alert, oriented x 3, cooperative, normal mood/affect, nml cerebellar function, sensation nml, No motor deficits Skin Exam: normal color, warm, dry, other (Chronic pressure ulcer left heel with scab- pt reports this is old from recent rehab stay for ankle injury. No erythema or edema. Scab in place.) Eye Exam: PERRL, EOMI, eyes nml inspection Ears, Nose, Throat Exam: normal ENT inspection, pharynx normal, moist mucous membranes Neck Exam: normal inspection, non-tender, supple, full range of motion Respiratory Exam: normal breath sounds, lungs clear, No respiratory distress Cardiovascular Exam: regular rate/rhythm, normal heart sounds Gastrointestinal/Abdomen Exam: soft, No tenderness, No mass Extremity Exam: normal inspection, normal range of motion Back Exam: normal inspection, normal range of motion, No CVA tenderness, No vertebral tenderness Pelvic Exam: deferred Rectal Exam: deferred Objective Data Vital Signs: Vital Signs - 24 hr Temp Pulse Resp BP BP Pulse Ox 12/07/23 08:03 70 16 96 12/07/23 08:00 98 F 68 20 119/52 96 12/07/23 03:48 97.0 F 66 18 119/62 95 12/06/23 23:05 83 16 90 L 12/06/23 22:00 64 98 12/06/23 21:31 97.1 F 64 25 H 110/53 98 12/06/23 20:52 95 12/06/23 20:00 66 21 131/68 97 12/06/23 19:30 67 17 123/63 97 12/06/23 19:00 62 12 124/70 97 12/06/23 18:30 62 18 124/69 97 12/06/23 18:06 61 16 110/60 97 12/06/23 18:02 61 16 97 12/06/23 17:38 97.9 F 61 16 117/52 95 12/06/23 17:34 63 19 117/53 96 Pain Assessment - Last Documented Pain Intensity 2 Intake and Output: Intake & Output 12/04/23 12/05/23 12/06/23 12/07/23 11:59 11:59 11:59 11:59 Intake Total 120 Balance 120 Weight 93.6 kg Lab Results: Lab Results-Last 24 Hours 12/06/23 12/06/23 12/06/23 Range/Units 18:10 18:10 18:10 WBC 7.2 (4.0-10.5) x10^3/uL RBC 3.94 L (4.1-5.4) x10^6/uL Hgb 10.5 L (12.0-16.0) g/dL Hct 33.9 L (35-47) % MCV 86.0 (78-100) fL MCH 26.6 (26-32) pg MCHC 31.0 L (32-36) g/dL RDW 14.1 H (11.5-14.0) % Plt Count 196 (150-450) x10^3/uL MPV 9.2 (7.5-11.0) fL Gran % (36.0-66.0) % Immature Gran % (Auto) (0.00-0.4) % Nucleat RBC Rel Count (0.00-0.1) % Eos # (Auto) (0-0.5) x10^3/uL Immature Gran # (Auto) (0.00-0.03) x10^3u/L Absolute Lymphs (auto) (1.0-4.6) x10^3/uL Absolute Monos (auto) (0.0-1.3) x10^3/uL Absolute Nucleated RBC (0.00-0.01) x10^3u/L Lymphocytes % (24.0-44.0) % Monocytes % (0.0-12.0) % Eosinophils % (0.00-5.0) % Basophils % (0.0-0.4) % Absolute Granulocytes (1.4-6.9) x10^3/uL Basophils # (0-0.4) x10^3/uL Sodium 140 (135-145) mmol/L Potassium 4.5 (3.5-5.1) mmol/L Chloride 101 (98-107) mmol/L Carbon Dioxide 34 H (22-30) mmol/L Anion Gap 9.5 (5-15) MEQ/L BUN 18 H (7-17) mg/dL Creatinine 1.14 H (0.52-1.04) mg/dL Estimated GFR 49.9 ML/MIN Glucose 99 (74-106) mg/dL POC Glucometer (74 to 106) mg/dL Calcium 8.7 (8.4-10.2) mg/dL Total Bilirubin 0.30 (0.2-1.3) mg/dL AST 33 (14-36) U/L ALT 20 (0-35) U/L Alkaline Phosphatase 96 (38-126) U/L Troponin I < 0.012 (0.000-0.033) ng/mL Serum Total Protein 7.3 (6.3-8.2) g/dL Albumin 3.7 (3.5-5.0) g/dL Urine Color (Yellow) Urine Appearance (Clear) Urine pH (4.6-8.0) Ur Specific [place] (1.005-1.030) Urine Protein (Negative) Urine Glucose (UA) (Negative) mg/dL Urine Ketones (Negative) Urine Blood (Negative) Urine Nitrite (Negative) Urine Bilirubin (Negative) Urine Urobilinogen (0.2) mg/dL Ur Leukocyte Esterase (Negative) U Hyaline Cast (Auto) (0-2) /LPF Urine Microscopic RBC (0-5) /HPF Urine Microscopic WBC (0-5) /HPF Ur Epithelial Cells (None Seen) /HPF Urine Bacteria (None Seen) /HPF Urine Culture Reflexed (NO) 12/06/23 12/06/23 12/06/23 Range/Units 20:12 20:35 22:00 WBC (4.0-10.5) x10^3/uL RBC (4.1-5.4) x10^6/uL Hgb (12.0-16.0) g/dL Hct (35-47) % MCV (78-100) fL MCH (26-32) pg MCHC (32-36) g/dL RDW (11.5-14.0) % Plt Count (150-450) x10^3/uL MPV (7.5-11.0) fL Gran % (36.0-66.0) % Immature Gran % (Auto) (0.00-0.4) % Nucleat RBC Rel Count (0.00-0.1) % Eos # (Auto) (0-0.5) x10^3/uL Immature Gran # (Auto) (0.00-0.03) x10^3u/L Absolute Lymphs (auto) (1.0-4.6) x10^3/uL Absolute Monos (auto) (0.0-1.3) x10^3/uL Absolute Nucleated RBC (0.00-0.01) x10^3u/L Lymphocytes % (24.0-44.0) % Monocytes % (0.0-12.0) % Eosinophils % (0.00-5.0) % Basophils % (0.0-0.4) % Absolute Granulocytes (1.4-6.9) x10^3/uL Basophils # (0-0.4) x10^3/uL Sodium (135-145) mmol/L Potassium (3.5-5.1) mmol/L Chloride (98-107) mmol/L Carbon Dioxide (22-30) mmol/L Anion Gap (5-15) MEQ/L BUN (7-17) mg/dL Creatinine (0.52-1.04) mg/dL Estimated GFR ML/MIN Glucose (74-106) mg/dL POC Glucometer 70 L (74 to 106) mg/dL Calcium (8.4-10.2) mg/dL Total Bilirubin (0.2-1.3) mg/dL AST (14-36) U/L ALT (0-35) U/L Alkaline Phosphatase (38-126) U/L Troponin I < 0.012 (0.000-0.033) ng/mL Serum Total Protein (6.3-8.2) g/dL Albumin (3.5-5.0) g/dL Urine Color Dark Yellow A (Yellow) Urine Appearance Cloudy A (Clear) Urine pH 7.0 (4.6-8.0) Ur Specific [place] 1.015 (1.005-1.030) Urine Protein Trace A (Negative) Urine Glucose (UA) Negative (Negative) mg/dL Urine Ketones Negative (Negative) Urine Blood Trace (Negative) Urine Nitrite Positive A (Negative) Urine Bilirubin Negative (Negative) Urine Urobilinogen 0.2 (0.2) mg/dL Ur Leukocyte Esterase Large A (Negative) U Hyaline Cast (Auto) NONE SEEN (0-2) /LPF Urine Microscopic RBC 0-2 (0-5) /HPF Urine Microscopic WBC >100 A (0-5) /HPF Ur Epithelial Cells None Seen (None Seen) /HPF Urine Bacteria Many A (None Seen) /HPF Urine Culture Reflexed YES (NO) 12/06/23 12/07/23 12/07/23 Range/Units 22:22 02:20 02:20 WBC 6.1 (4.0-10.5) x10^3/uL RBC 3.87 L (4.1-5.4) x10^6/uL Hgb 10.1 L (12.0-16.0) g/dL Hct 33.2 L (35-47) % MCV 85.8 (78-100) fL MCH 26.1 (26-32) pg MCHC 30.4 L (32-36) g/dL RDW 14.3 H (11.5-14.0) % Plt Count 175 (150-450) x10^3/uL MPV 9.3 (7.5-11.0) fL Gran % 56.8 (36.0-66.0) % Immature Gran % (Auto) 0.2 (0.00-0.4) % Nucleat RBC Rel Count 0.0 (0.00-0.1) % Eos # (Auto) 0.15 (0-0.5) x10^3/uL Immature Gran # (Auto) 0.01 (0.00-0.03) x10^3u/L Absolute Lymphs (auto) 1.70 (1.0-4.6) x10^3/uL Absolute Monos (auto) 0.73 (0.0-1.3) x10^3/uL Absolute Nucleated RBC 0.00 (0.00-0.01) x10^3u/L Lymphocytes % 28.0 (24.0-44.0) % Monocytes % 12.0 (0.0-12.0) % Eosinophils % 2.5 (0.00-5.0) % Basophils % 0.5 (0.0-0.4) % Absolute Granulocytes 3.45 (1.4-6.9) x10^3/uL Basophils # 0.03 (0-0.4) x10^3/uL Sodium (135-145) mmol/L Potassium (3.5-5.1) mmol/L Chloride (98-107) mmol/L Carbon Dioxide (22-30) mmol/L Anion Gap (5-15) MEQ/L BUN (7-17) mg/dL Creatinine (0.52-1.04) mg/dL Estimated GFR ML/MIN Glucose (74-106) mg/dL POC Glucometer 124 H (74 to 106) mg/dL Calcium (8.4-10.2) mg/dL Total Bilirubin (0.2-1.3) mg/dL AST (14-36) U/L ALT (0-35) U/L Alkaline Phosphatase (38-126) U/L Troponin I < 0.012 (0.000-0.033) ng/mL Serum Total Protein (6.3-8.2) g/dL Albumin (3.5-5.0) g/dL Urine Color (Yellow) Urine Appearance (Clear) Urine pH (4.6-8.0) Ur Specific [place] (1.005-1.030) Urine Protein (Negative) Urine Glucose (UA) (Negative) mg/dL Urine Ketones (Negative) Urine Blood (Negative) Urine Nitrite (Negative) Urine Bilirubin (Negative) Urine Urobilinogen (0.2) mg/dL Ur Leukocyte Esterase (Negative) U Hyaline Cast (Auto) (0-2) /LPF Urine Microscopic RBC (0-5) /HPF Urine Microscopic WBC (0-5) /HPF Ur Epithelial Cells (None Seen) /HPF Urine Bacteria (None Seen) /HPF Urine Culture Reflexed (NO) 12/07/23 12/07/23 12/07/23 Range/Units 02:20 03:47 07:30 WBC (4.0-10.5) x10^3/uL RBC (4.1-5.4) x10^6/uL Hgb (12.0-16.0) g/dL Hct (35-47) % MCV (78-100) fL MCH (26-32) pg MCHC (32-36) g/dL RDW (11.5-14.0) % Plt Count (150-450) x10^3/uL MPV (7.5-11.0) fL Gran % (36.0-66.0) % Immature Gran % (Auto) (0.00-0.4) % Nucleat RBC Rel Count (0.00-0.1) % Eos # (Auto) (0-0.5) x10^3/uL Immature Gran # (Auto) (0.00-0.03) x10^3u/L Absolute Lymphs (auto) (1.0-4.6) x10^3/uL Absolute Monos (auto) (0.0-1.3) x10^3/uL Absolute Nucleated RBC (0.00-0.01) x10^3u/L Lymphocytes % (24.0-44.0) % Monocytes % (0.0-12.0) % Eosinophils % (0.00-5.0) % Basophils % (0.0-0.4) % Absolute Granulocytes (1.4-6.9) x10^3/uL Basophils # (0-0.4) x10^3/uL Sodium 138 (135-145) mmol/L Potassium 4.4 (3.5-5.1) mmol/L Chloride 102 (98-107) mmol/L Carbon Dioxide 33 H (22-30) mmol/L Anion Gap 7.7 (5-15) MEQ/L BUN 16 (7-17) mg/dL Creatinine 0.80 (0.52-1.04) mg/dL Estimated GFR 76.3 ML/MIN Glucose 91 (74-106) mg/dL POC Glucometer 96 116 H (74 to 106) mg/dL Calcium 8.2 L (8.4-10.2) mg/dL Total Bilirubin (0.2-1.3) mg/dL AST (14-36) U/L ALT (0-35) U/L Alkaline Phosphatase (38-126) U/L Troponin I (0.000-0.033) ng/mL Serum Total Protein (6.3-8.2) g/dL Albumin (3.5-5.0) g/dL Urine Color (Yellow) Urine Appearance (Clear) Urine pH (4.6-8.0) Ur Specific [place] (1.005-1.030) Urine Protein (Negative) Urine Glucose (UA) (Negative) mg/dL Urine Ketones (Negative) Urine Blood (Negative) Urine Nitrite (Negative) Urine Bilirubin (Negative) Urine Urobilinogen (0.2) mg/dL Ur Leukocyte Esterase (Negative) U Hyaline Cast (Auto) (0-2) /LPF Urine Microscopic RBC (0-5) /HPF Urine Microscopic WBC (0-5) /HPF Ur Epithelial Cells (None Seen) /HPF Urine Bacteria (None Seen) /HPF Urine Culture Reflexed (NO) Assessment/Plan (1) UTI (urinary tract infection) Current Visit: Yes Status: Acute Qualifiers: Urinary tract infection type: acute cystitis Assessment & Plan: - Acute on chronic- will need to f/u with urology Op - ceftriaxone - reviewed old UC results and this antibiotic works well for pt per results. - UC pending Code(s): N39.0 - URINARY TRACT INFECTION, SITE NOT SPECIFIED (2) Hypoglycemia Current Visit: Yes Status: Acute Assessment & Plan: - IVF D5 1/2 @ 75 ml/hr - improved - carb const. diet - 2:2 UTI - as she was not eating at home she reports Code(s): E16.2 - HYPOGLYCEMIA, UNSPECIFIED (3) HTN (hypertension) Current Visit: Yes Status: Acute Assessment & Plan: - BP stable - Continue home meds Code(s): I10 - ESSENTIAL (PRIMARY) HYPERTENSION (4) Acute kidney injury Current Visit: Yes Status: Resolved Assessment & Plan: - acute on chronic - resolved - IV fluids Code(s): N17.9 - ACUTE KIDNEY FAILURE, UNSPECIFIED (5) Generalized weakness Current Visit: Yes Status: Acute Assessment & Plan: - PT eval and treat - 2:2 UTI and hypoglycemia Code(s): R53.1 - WEAKNESS (6) Pressure ulcer of left heel, stage 1 Current Visit: Yes Status: Chronic Assessment & Plan: - pictures in chart - chronic per pt from recent stay at rehab after injury to left ankle - elevate leg on pillow with leg hanging off Code(s): L89.621 - PRESSURE ULCER OF LEFT HEEL, STAGE 1 (7) long-term current use of anticoagulant therapy Current Visit: Yes Status: Chronic Assessment & Plan: - Continue Eliquis 5mg PO BID - + hx of PE Code(s): Z79.01 - LEGAL SERVICES MANAGER (CURRENT) USE OF ANTICOAGULANTS (8) Hypothyroidism Current Visit: Yes Status: Chronic Assessment & Plan: - continue synthroid Code(s): E03.9 - HYPOTHYROIDISM, UNSPECIFIED (9) Chronic back pain Current Visit: Yes Status: Chronic Assessment & Plan: - continue methadone - follows Dr. Leiva at pain management VTE: Eliquis PPI: Protonix Next of KIN: Altagracia Matias [phone] D/C plan: tomorrow Code status: DNR/ SCO Code(s): M54.9 - DORSALGIA, UNSPECIFIED; G89.29 - OTHER CHRONIC PAIN
[2023-12-07] MEDS ORDERED: NON-FORMULARY ITEM (Apixaban [Eliquis] 5 MG Tab.Ds.Pk) PO SCH (10:00)
[2023-12-07] MEDS ORDERED: [UNRECOGNIZED DRUG - OTHER] PO SCH (10:00)
[2023-12-07] MEDS ORDERED: CALCIUM 500 MG PO SCH (10:00)
[2023-12-07] MEDS ORDERED: NON-FORMULARY ITEM (Memantine Hcl [Memantine Hcl] 10 MG Tablet) PO SCH (10:00)
[2023-12-07] MEDS ORDERED: NON-FORMULARY ITEM (Cariprazine Hcl [Vraylar] 3 MG Capsule) PO SCH (10:00)
[2023-12-07] MEDS ORDERED: Inderal PO SCH (10:00)
[2023-12-07] MEDS ORDERED: NON-FORMULARY ITEM (Gabapentin [Gabapentin] 800 MG Tablet) PO SCH (10:00)
[2023-12-07] MEDS ORDERED: LASIX 20 MG PO SCH (10:00)
[2023-12-07] MEDS ORDERED: NON-FORMULARY ITEM (Magnesium [Magnesium] 200 MG Tablet) PO SCH (10:00)
[2023-12-07] MEDS ORDERED: NON-FORMULARY ITEM (Multivitamin [Multivitamins] 1 EACH Capsule) PO SCH (10:00)
[2023-12-07] MEDS ORDERED: NON-FORMULARY ITEM (Duloxetine Hcl [Cymbalta] 60 MG Capsule.Dr) PO SCH (10:00)
[2023-12-07] MEDS ORDERED: ELIQUIS 2.5 MG TABLET PO SCH (10:00)
[2023-12-07] MEDS ORDERED: NON-FORMULARY ITEM (Solifenacin Succinate [Solifenacin Succinate] 5 MG Tablet) PO SCH (10:00)
[2023-12-07] MEDS ORDERED: MEDICATION INTERVENTION MC SCH ×2 (10:15)
[2023-12-07] MEDS: DOLOPHINE 10MG Tablet PO SCH (10:17)
[2023-12-07] MEDS: Neurontin PO SCH (10:17)
[2023-12-07] MEDS: ELIQUIS 2.5 MG TABLET PO SCH (10:17)
[2023-12-07] MEDS: Cymbalta 30 MG Capsule PO SCH (10:18)
[2023-12-07] MEDS: Ditropan 5 MG PO SCH (10:18)
[2023-12-07] MEDS: Namenda 5 MG PO SCH (10:18)
[2023-12-07] MEDS: CLARITIN 10 MG PO SCH (10:18)
[2023-12-07] MEDS: THERAGRAN MULTIVITAMIN PO SCH (10:18)
[2023-12-07] MEDS: NORVASC 5 MG PO SCH (10:19)
[2023-12-07] MEDS: Lasix 40 MG PO SCH (10:19)
[2023-12-07] MEDS: Protonix 40MG Tablet PO SCH (10:19)
[2023-12-07] MEDS: SYNTHROID 88 MCG PO SCH (10:19)
[2023-12-07] MEDS: Inderal PO SCH (11:28)
[2023-12-07] MEDS: Klor Con PO SCH ×2 (11:32→12:18)
[2023-12-07] MEDS: MAG-OX 400 PO SCH (12:18)
[2023-12-07] MEDS: Calcium 500MG W/Vit D Tablet PO SCH (12:18)
[2023-12-07] MEDS: HUMALOG SQ PRN (18:02)
[2023-12-07] MEDS: ROCEPHIN 1 GM / 100 ML NaCl 1 GM/100 ML IVPB IV SCH ×2 (21:50)
[2023-12-07] MEDS: Zocor 10MG PO SCH (21:51)
[2023-12-07] MEDS: Seroquel 25 MG PO SCH (21:51)
[2023-12-07] MEDS ORDERED: NON-FORMULARY ITEM (Atorvastatin Calcium 10 MG Tablet) PO SCH (22:00)
[2023-12-07] MEDS ORDERED: NON-FORMULARY ITEM (Quetiapine Fumarate [Quetiapine Fumarate] 50 MG Tablet) PO SCH (22:00)
[2023-12-08 05:05] LABS: Hematocrit 30.1 % (35-47); Hemoglobin 9.4 g/dL (12.0-16.0); Mean Corpuscular Hemoglobin 26.6 pg (26-32); Mean Corpuscular Hgb Concent. 31.2 g/dL (32-36); Mean Platelet Volume 9.5 fL (7.5-11.0); Platelet Count 187 x10^3/uL (150-450); Red Blood Count 3.54 x10^6/uL (4.1-5.4); Red Cell Distribution Width 14.4 % (11.5-14.0); White Blood Count 5.8 x10^3/uL (4.0-10.5)
[2023-12-08 05:19] LABS: ALBUMIN 3.2 g/dL (3.5-5.0); BILIRUBIN,TOTAL 0.4 mg/dL (0.2-1.3); Calcium 8.7 mg/dL (8.4-10.2); Creatinine 1 0.89 mg/dL (0.52-1.04); EST GLOMERULAR FILTRATION RATE 67.2 ML/MIN; Total Protein 6.5 g/dL (6.3-8.2)
[2023-12-08] MEDS ORDERED: DOLOPHINE 10MG Tablet PO PRN (09:03)
--- NOTE | 2023-12-08 12:46 | PCM.NOTE ---
Date and Time: 12/08/23 1239 Subjective Assessment: 12/07/23 Ms. VALENCIA is a 78 year old female with a past medical history significant for hypertension, diabetes, and hyperlipidemia, migraines, peripheral neuropathy, cataracts, COPD, PE, hypothyroidism, DJD, fibromyalgia, OA, RA, diverticulosis, GERD, CKD, anxiety, depression, breast cancer, chronic UTI's, anemia, and wears BL 2lnc PRN. She presented to the hospital on 12/05 with multiple episodes of hypoglycemia over the past two days. She saw her PCP who recommended that she stop her diabetic meds, but after they dropped again, she was advised to come to the ER. She was found to have blood sugars dropping into the 70s and initial work up demonstrated nitrites in her urine. She does report some dysuria and urgency. She has been recommended for admission to deal with her UTI and low blood sugars. Initial labs also notable for an elevated creatinine of 1.1. today LAURA has resolved. Awaiting PT bhupinder; for weakness. Rocephin for UTI. UC is pending. IVF for hypoglycemia with dextrose. She request her methadone be restarted for her chronic back pain. She does follow with pain management at [place]. No chest pain or shortness of breath. No nausea, vomiting or diarrhea. No fever/chills. She does have left heel pressure ulcer that is chronic. No edema or erythema. Pics in chart. 12/07 Pt resting in bed. She is drowsy but able to follow commands. Discussed with nurse and son possible causes. Son explains she is not supposed to be taking Seroquel anymore as it was making her drowsy. This was given last night. Methadone was last sent in to pharmacy as BID prn, we had it scheduled here BID. All sedating meds stopped for now. UC gram negative but sensitivity pending. Continue IV antibiotics. Will start IVF since she is drowsy and not eating well. - Review of Systems Constitutional: No Fever, No Chills Eyes: No Symptoms Ears, Nose, & Throat: No Symptoms Respiratory: No Cough, No Short Of Breath Cardiac: No Chest Pain, No Edema, No Syncope Abdominal/Gastrointestinal: No Abdominal Pain, No Nausea, No Vomiting, No Diarrhea Genitourinary Symptoms: No Dysuria Musculoskeletal: No Back Pain, No Neck Pain Skin: No Rash Neurological: Other (drowsy), No Dizziness, No Focal Weakness, No Sensory Changes Psychological: No Symptoms Endocrine: No Symptoms Hematologic/Lymphatic: No Symptoms Immunological/Allergic: No Symptoms Objective Exam General Appearance: no apparent distress, alert Neurologic Exam: cooperative, normal mood/affect, sensation nml, other (drowsy), No motor deficits Skin Exam: normal color, warm, dry Eye Exam: PERRL, EOMI, eyes nml inspection Ears, Nose, Throat Exam: normal ENT inspection, pharynx normal, moist mucous membranes Neck Exam: normal inspection, non-tender, supple, full range of motion Respiratory Exam: normal breath sounds, lungs clear, No respiratory distress Cardiovascular Exam: regular rate/rhythm, normal heart sounds Gastrointestinal/Abdomen Exam: soft, No tenderness, No mass Extremity Exam: normal inspection, normal range of motion Back Exam: normal inspection, normal range of motion, No CVA tenderness, No vertebral tenderness Pelvic Exam: deferred Rectal Exam: deferred Objective Data Vital Signs: Vital Signs - 24 hr Temp Pulse Resp BP BP Pulse Ox 12/08/23 11:36 98.6 F 77 16 111/59 96/63 96 12/08/23 07:28 97.2 F 76 18 96/63 93 L 12/08/23 07:16 74 18 94 L 12/08/23 04:00 97.5 F 69 16 102/54 95 12/07/23 23:42 97.5 F 66 19 106/52 94 L 12/07/23 22:00 73 12/07/23 20:00 97.5 F 73 20 112/58 94 L 12/07/23 19:32 70 16 95 12/07/23 16:00 97.6 F 86 20 95 Pain Assessment - Last Documented Pain Intensity 0 Intake and Output: Intake & Output 12/06/23 12/07/23 12/08/23 12/09/23 11:59 11:59 11:59 11:59 Intake Total 120 1220 Balance 120 1220 Weight 93.6 kg Lab Results: Lab Results-Last 24 Hours 12/07/23 12/07/23 12/08/23 Range/Units 17:07 21:09 04:28 WBC 5.8 (4.0-10.5) x10^3/uL RBC 3.54 L (4.1-5.4) x10^6/uL Hgb 9.4 L (12.0-16.0) g/dL Hct 30.1 L (35-47) % MCV 85.0 (78-100) fL MCH 26.6 (26-32) pg MCHC 31.2 L (32-36) g/dL RDW 14.4 H (11.5-14.0) % Plt Count 187 (150-450) x10^3/uL MPV 9.5 (7.5-11.0) fL Sodium (135-145) mmol/L Potassium (3.5-5.1) mmol/L Chloride (98-107) mmol/L Carbon Dioxide (22-30) mmol/L Anion Gap (5-15) MEQ/L BUN (7-17) mg/dL Creatinine (0.52-1.04) mg/dL Estimated GFR ML/MIN Glucose (74-106) mg/dL POC Glucometer 307 H 258 H (74 to 106) mg/dL Calcium (8.4-10.2) mg/dL Total Bilirubin (0.2-1.3) mg/dL AST (14-36) U/L ALT (0-35) U/L Alkaline Phosphatase (38-126) U/L Serum Total Protein (6.3-8.2) g/dL Albumin (3.5-5.0) g/dL 12/08/23 12/08/23 12/08/23 Range/Units 04:28 07:09 11:30 WBC (4.0-10.5) x10^3/uL RBC (4.1-5.4) x10^6/uL Hgb (12.0-16.0) g/dL Hct (35-47) % MCV (78-100) fL MCH (26-32) pg MCHC (32-36) g/dL RDW (11.5-14.0) % Plt Count (150-450) x10^3/uL MPV (7.5-11.0) fL Sodium 139 (135-145) mmol/L Potassium 4.0 (3.5-5.1) mmol/L Chloride 102 (98-107) mmol/L Carbon Dioxide 33 H (22-30) mmol/L Anion Gap 8.0 (5-15) MEQ/L BUN 17 (7-17) mg/dL Creatinine 0.89 (0.52-1.04) mg/dL Estimated GFR 67.2 ML/MIN Glucose 136 H (74-106) mg/dL POC Glucometer 122 H 107 H (74 to 106) mg/dL Calcium 8.7 (8.4-10.2) mg/dL Total Bilirubin 0.40 (0.2-1.3) mg/dL AST 25 (14-36) U/L ALT 16 (0-35) U/L Alkaline Phosphatase 86 (38-126) U/L Serum Total Protein 6.5 (6.3-8.2) g/dL Albumin 3.2 L (3.5-5.0) g/dL Multi-Disciplinary Progress Notes: Multi-Disciplinary Progress Notes 12/08/23 11:29 Physical Therapy Note by Hubert(L#[id number])[facility] HELD THIS A.M. PT. ALSEEP AND HAVING DIFFICULTY WAKING UP. NURSING S TATES THIS IS MED RELATED. WILL ATTEMPT THIS P.M. Initialized on 12/08/23 11:29 - END OF NOTE Assessment/Plan (1) UTI (urinary tract infection) Current Visit: Yes Status: Acute Qualifiers: Urinary tract infection type: acute cystitis Code(s): N39.0 - URINARY TRACT INFECTION, SITE NOT SPECIFIED (2) Hypoglycemia Current Visit: Yes Status: Acute Code(s): E16.2 - HYPOGLYCEMIA, UNSPECIFIED (3) HTN (hypertension) Current Visit: Yes Status: Acute Code(s): I10 - ESSENTIAL (PRIMARY) HYPERTENSION (4) Acute kidney injury Current Visit: Yes Status: Resolved Code(s): N17.9 - ACUTE KIDNEY FAILURE, UNSPECIFIED (5) Generalized weakness Current Visit: Yes Status: Acute Code(s): R53.1 - WEAKNESS (6) Pressure ulcer of left heel, stage 1 Current Visit: Yes Status: Chronic Code(s): L89.621 - PRESSURE ULCER OF LEFT HEEL, STAGE 1 (7) [facility] current use of anticoagulant therapy Current Visit: Yes Status: Chronic Code(s): Z79.01 - SNF (CURRENT) USE OF ANTICOAGULANTS (8) Hypothyroidism Current Visit: Yes Status: Chronic Code(s): E03.9 - HYPOTHYROIDISM, UNSPECIFIED (9) Chronic back pain Current Visit: Yes Status: Chronic Assessment & Plan: (1) UTI (urinary tract infection) Current Visit: Yes Status: Acute Qualifiers: Urinary tract infection type: acute cystitis Assessment & Plan: - Acute on chronic- will need to f/u with urology Op - ceftriaxone - reviewed old UC results and this antibiotic works well for pt per results. - UC gram negative- sensitivity pending Code(s): N39.0 - URINARY TRACT INFECTION, SITE NOT SPECIFIED (2) Hypoglycemia Current Visit: Yes Status: Acute Assessment & Plan: - IVF D5 1/2 @ 75 ml/hr - improved - carb const. diet - 2:2 UTI - as she was not eating at home she reports 12/07 - no t eating well today as she is drowsy - S/S insulin stopped - D5NS started at 50ml/hr Code(s): E16.2 - HYPOGLYCEMIA, UNSPECIFIED (3) HTN (hypertension) Current Visit: Yes Status: Acute Assessment & Plan: - BP stable - Continue home meds Code(s): I10 - ESSENTIAL (PRIMARY) HYPERTENSION (4) Acute kidney injury Current Visit: Yes Status: Resolved Assessment & Plan: - acute on chronic - resolved - IV fluids Code(s): N17.9 - ACUTE KIDNEY FAILURE, UNSPECIFIED (5) Generalized weakness Current Visit: Yes Status: Acute Assessment & Plan: - PT eval and treat - 2:2 UTI and hypoglycemia Code(s): R53.1 - WEAKNESS (6) Pressure ulcer of left heel, stage 1 Current Visit: Yes Status: Chronic Assessment & Plan: - pictures in chart - chronic per pt from recent stay at rehab after injury to left ankle - elevate leg on pillow with leg hanging off Code(s): L89.621 - PRESSURE ULCER OF LEFT HEEL, STAGE 1 (7) [facility] current use of anticoagulant therapy Current Visit: Yes Status: Chronic Assessment & Plan: - Continue Eliquis 5mg PO BID - + hx of PE Code(s): Z79.01 - SNF (CURRENT) USE OF ANTICOAGULANTS (8) Hypothyroidism Current Visit: Yes Status: Chronic Assessment & Plan: - continue synthroid Code(s): E03.9 - HYPOTHYROIDISM, UNSPECIFIED (9) Chronic back pain Current Visit: Yes Status: Chronic Assessment & Plan: - continue methadone - follows Dr. Leiva at pain management 12/07 - stop methadone as she is too drowsy VTE: Eliquis PPI: Protonix Next of KIN: Altagracia Matias [phone] D/C plan: tomorrow if more awake and alert Code status: DNR/ SCO Code(s): M54.9 - DORSALGIA, UNSPECIFIED; G89.29 - OTHER CHRONIC PAIN
[2023-12-08] MEDS ORDERED: Dextrose 5%-NS IV Solution 1000 ML 1,000 ML IV SCH (13:00)
[2023-12-08] MEDS: HUMALOG SQ PRN (21:52)
[2023-12-09 04:58] LABS: Hematocrit 32.4 % (35-47); Mean Cell Volume 85.7 fL (78-100); Mean Corpuscular Hemoglobin 26.5 pg (26-32); Mean Corpuscular Hgb Concent. 30.9 g/dL (32-36); Mean Platelet Volume 9.3 fL (7.5-11.0); Platelet Count 203 x10^3/uL (150-450); Red Blood Count 3.78 x10^6/uL (4.1-5.4); Red Cell Distribution Width 14.3 % (11.5-14.0); White Blood Count 6.2 x10^3/uL (4.0-10.5)
[2023-12-09 05:20] LABS: ALBUMIN 3.4 g/dL (3.5-5.0); ANION GAP 8.8 MEQ/L (5-15); BILIRUBIN,TOTAL 0.3 mg/dL (0.2-1.3); Calcium 8.9 mg/dL (8.4-10.2); Creatinine 1 0.77 mg/dL (0.52-1.04); EST GLOMERULAR FILTRATION RATE 79.9 ML/MIN; Potassium 4.1 mmol/L (3.5-5.1); Total Protein 6.8 g/dL (6.3-8.2)
--- NOTE | 2023-12-09 10:37 | PCM.DS ---
Discharge Summary Date of Admission: 12/06/23 20:58 Date of Discharge: 12/09/23 Admitting Physician: SHEBA NICHOLS MD Primary Care Provider: KASH EDMONDS Allergies Allergies Sulfa (Sulfonamide Antibiotics) Allergy (Severe, Verified 12/06/23 17:38) Hives tapentadol HCl [From Nucynta] Allergy (Severe, Verified 12/06/23 17:38) throat swelling and itching acetaminophen [From Vicodin] Allergy (Mild, Verified 12/06/23 17:38) intense itching hydrocodone bitartrate [From Vicodin] Allergy (Mild, Verified 12/06/23 17:38) intense itching Hospital Summary - Hospital Course Hospital Course: 12/07/23 Ms. VALENCIA is a 78 year old female with a past medical history significant for hypertension, diabetes, and hyperlipidemia, migraines, peripheral neuropathy, cataracts, COPD, PE, hypothyroidism, DJD, fibromyalgia, OA, RA, diverticulosis, GERD, CKD, anxiety, depression, breast cancer, chronic UTI's, anemia, and wears BL 2lnc PRN. She presented to the hospital on 12/05 with multiple episodes of hypoglycemia over the past two days. She saw her PCP who recommended that she stop her diabetic meds, but after they dropped again, she was advised to come to the ER. She was found to have blood sugars dropping into the 70s and initial work up demonstrated nitrites in her urine. She does report some dysuria and urgency. She has been recommended for admission to deal with her UTI and low blood sugars. Initial labs also notable for an elevated creatinine of 1.1. today LAURA has resolved. Awaiting PT bhupinder; for weakness. Rocephin for UTI. UC is pending. IVF for hypoglycemia with dextrose. She request her methadone be restarted for her chronic back pain. She does follow with pain management at [place]. No chest pain or shortness of breath. No nausea, vomiting or diarrhea. No fever/chills. She does have left heel pressure ulcer that is chronic. No ed jose or erythema. Pics in chart. 12/07 Pt resting in bed. She is drowsy but able to follow commands. Discussed with nurse and son possible causes. Son explains she is not supposed to be taking Seroquel anymore as it was making her drowsy. This was given last night. Methadone was last sent in to pharmacy as BID prn, we had it scheduled here BID. All sedating meds stopped for now. UC gram negative but sensitivity pending. Continue IV antibiotics. Will start IVF since she is drowsy and not eating well. 12/08 Pt restin in bed. She is awake and alert today. Yesterday she was rather sedated and all sedating meds stopped. Will start methadone again tody as she is requesting this med. Will not continue gabapentin due to sedation. She can discuss with pain management if this needs to be continued as methadone works for neuropathy and back pain. Will also take seroquel off home med list as son reports she is not to be taking this any longer. Will have PT eval today for any home needs. She does have [facility]. UC + for citrobactor- will continue Op antibiotics. She will d/c today. She denies CP, SOB, abd. pain, N/V/D, or dysuria. - Vitals & Intake/Output Vital Signs: Vital Signs Temperature 98 F 12/09/23 07:56 Pulse Rate 84 12/09/23 07:56 Respiratory Rate 19 12/09/23 07:56 Blood Pressure 126/69 12/09/23 07:56 O2 Sat by Pulse Oximetry 93 L 12/09/23 07:56 Intake & Output: Intake & Output 12/06/23 12/07/23 12/08/23 12/09/23 11:59 11:59 11:59 11:59 Intake Total 120 1220 1530 Balance 120 1220 1530 Weight 93.6 kg - Lab Result Diagrams: 12/09/23 04:05 12/09/23 04:05 Lab Results-Last 24 Hrs: Lab Results-Last 24 Hours 12/08/23 12/08/23 12/08/23 Range/Units 11:30 16:29 20:52 WBC (4.0-10.5) x10^3/uL RBC (4.1-5.4) x10^6/uL Hgb (12.0-16.0) g/dL Hct (35-47) % MCV (78-100) fL MCH (26-32) pg MCHC (32-36) g/dL RDW (11.5-14.0) % Plt Count (150-450) x10^3/uL MPV (7.5-11.0) fL Sodium (135-145) mmol/L Potassium (3.5-5.1) mmol/L Chloride (98-107) mmol/L Carbon Dioxide (22-30) mmol/L Anion Gap (5-15) MEQ/L BUN (7-17) mg/dL Creatinine (0.52-1.04) mg/dL Estimated GFR ML/MIN Glucose (74-106) mg/dL POC Glucometer 107 H 272 H 317 H (74 to 106) mg/dL Calcium (8.4-10.2) mg/dL Total Bilirubin (0.2-1.3) mg/dL AST (14-36) U/L ALT (0-35) U/L Alkaline Phosphatase (38-126) U/L Serum Total Protein (6.3-8.2) g/dL Albumin (3.5-5.0) g/dL 12/09/23 12/09/23 12/09/23 Range/Units 04:05 04:05 07:45 WBC 6.2 (4.0-10.5) x10^3/uL RBC 3.78 L (4.1-5.4) x10^6/uL Hgb 10.0 L (12.0-16.0) g/dL Hct 32.4 L (35-47) % MCV 85.7 (78-100) fL MCH 26.5 (26-32) pg MCHC 30.9 L (32-36) g/dL RDW 14.3 H (11.5-14.0) % Plt Count 203 (150-450) x10^3/uL MPV 9.3 (7.5-11.0) fL Sodium 140 (135-145) mmol/L Potassium 4.1 (3.5-5.1) mmol/L Chloride 102 (98-107) mmol/L Carbon Dioxide 33 H (22-30) mmol/L Anion Gap 8.8 (5-15) MEQ/L BUN 16 (7-17) mg/dL Creatinine 0.77 (0.52-1.04) mg/dL Estimated GFR 79.9 ML/MIN Glucose 82 (74-106) mg/dL POC Glucometer 107 H (74 to 106) mg/dL Calcium 8.9 (8.4-10.2) mg/dL Total Bilirubin 0.30 (0.2-1.3) mg/dL AST 28 (14-36) U/L ALT 19 (0-35) U/L Alkaline Phosphatase 94 (38-126) U/L Serum Total Protein 6.8 (6.3-8.2) g/dL Albumin 3.4 L (3.5-5.0) g/dL Micro Results-Entire Visit: Microbiology 12/06/23 20:12 Urine Culture - Final Clean Catch Midstream Citrobacter Freundii Accuchecks Date 12/09/23 Date 12/08/23 Date 12/08/23 Date 12/08/23 Time 07:55 Time 21:00 - Procedures and Test Procedures and Tests throughout Hospitalization: Therapy Orders & Screens 12/06/23 23:52 Oxygen Nasal Cannula 2 lpm Comment: Diagnosis: hypoglycemia, UTI 12/07/23 00:06 Respiratory Therapy Assessment DAILY Comment: Diagnosis: hypoglycemia, UTI 12/07/23 07:27 PT Eval & Treat (MD Order) ONCE Reason for Eval:: weakness Diagnosis: hypoglycemia, UTI 12/09/23 09:38 PT Eval & Treat (MD Order) ONCE Reason for Eval:: home needs for weakness, dos have [facility] Diagnosis: hypoglycemia, UTI Discharge Exam General Appearance: no apparent distress, alert Neurologic Exam: alert, oriented x 3, cooperative, normal mood/affect, nml cerebellar function, sensation nml, No motor deficits Eye Exam: PERRL, EOMI, eyes nml inspection Ears, Nose, Throat Exam: normal ENT inspection, pharynx normal, moist mucous m embranes Neck Exam: normal inspection, non-tender, supple, full range of motion Respiratory Exam: normal breath sounds, lungs clear, No respiratory distress Cardiovascular Exam: regular rate/rhythm, normal heart sounds Gastrointestinal/Abdomen Exam: soft, No tenderness, No mass Pelvic Exam: deferred Rectal Exam: deferred Back Exam: normal inspection, normal range of motion, No CVA tenderness, No vertebral tenderness Extremity Exam: normal inspection, normal range of motion Skin Exam: normal color, warm, dry Final Diagnosis/Problem List - Final Discharge Diagnosis/Problem (1) UTI (urinary tract infection) Current Visit: Yes Status: Acute Code(s): N39.0 - URINARY TRACT INFECTION, SITE NOT SPECIFIED (2) Hypoglycemia Current Visit: Yes Status: Acute Code(s): E16.2 - HYPOGLYCEMIA, UNSPECIFIED (3) HTN (hypertension) Current Visit: Yes Status: Acute Code(s): I10 - ESSENTIAL (PRIMARY) HYPERTENSION (4) Acute kidney injury Current Visit: Yes Status: Resolved Code(s): N17.9 - ACUTE KIDNEY FAILURE, UNSPECIFIED (5) Generalized weakness Current Visit: Yes Status: Acute Code(s): R53.1 - WEAKNESS (6) Pressure ulcer of left heel, stage 1 Current Visit: Yes Status: Chronic Code(s): L89.621 - PRESSURE ULCER OF LEFT HEEL, STAGE 1 (7) senior care current use of anticoagulant therapy Current Visit: Yes Status: Chronic Code(s): Z79.01 - FINANCIAL CONSULTANT (CURRENT) USE OF ANTICOAGULANTS (8) Hypothyroidism Current Visit: Yes Status: Chronic Code(s): E03.9 - HYPOTHYROIDISM, UNSPECI FIED (9) Chronic back pain Current Visit: Yes Status: Chronic Assessment & Plan: (1) UTI (urinary tract infection) Current Visit: Yes Status: Acute Qualifiers: Urinary tract infection type: acute cystitis Assessment & Plan: - Acute on chronic- will need to f/u with urology Op - ceftriaxone - reviewed old UC results and this antibiotic works well for pt per results. - UC gram negative- sensitivity pending 12/08 - UC + for citrobactor - continue OP antibiotics Code(s): N39.0 - URINARY TRACT INFECTION, SITE NOT SPECIFIED (2) Hypoglycemia Current Visit: Yes Status: Acute Assessment & Plan: - IVF D5 / @ 75 ml/hr - improved - carb const. diet - 2:2 UTI - as she was not eating at home she reports 12/07 - no t eating well today as she is drowsy - S/S insulin stopped - D5NS started at 50ml/hr 12/08 - resolved - eating and drinking well Code(s): E16.2 - HYPOGLYCEMIA, UNSPECIFIED (3) HTN (hypertension) Current Visit: Yes Status: Acute Assessment & Plan: - BP stable - Continue home meds Code(s): I10 - ESSENTIAL (PRIMARY) HYPERTENSION (4) Acute kidney injury Current Visit: Yes Status: Resolved Assessment & Plan: - acute on chronic - resolved - IV fluids Code(s): N17.9 - ACUTE KIDNEY FAILURE, UNSPECIFIED (5) Generalized weakness Current Visit: Yes Status: Acute Assessment & Plan: - PT eval and treat - 2:2 UTI and hypoglycemia Code(s): R53.1 - WEAKNESS (6) Pressure ulcer of left heel, stage 1 Current Visit: Yes Status: Chronic Assessment & Plan: - pictures in chart - chronic per pt from recent stay at rehab after injury to left ankle - elevate leg on pillow with leg hanging off Code(s): L89.621 - PRESSURE ULCER OF LEFT HEEL, STAGE 1 (7) senior care current use of anticoagulant therapy Current Visit: Yes Status: Chronic Assessment & Plan: - Continue Eliquis 5mg PO BID - + hx of PE Code(s): Z79.01 - INTERMEDIATE (CURRENT) USE OF ANTICOAGULANTS (8) Hypothyroidism Current Visit: Yes Status: Chronic Assessment & Plan: - continue synthroid Code(s): E03.9 - HYPOTHYROIDISM, UNSPECIFIED (9) Chronic back pain Current Visit: Yes Status: Chronic Assessment & Plan: - continue methadone - follows Dr. Leiva at pain management 12/07 - stop methadone as she is too drowsy 12/08 - she is awake and alert today - medications causing increased sedation yesterday - stop gabapentin- can discuss with pain management if she needs to continue this OP - restarted methadone Code(s): M54.9 - DORSALGIA, UNSPECIFIED; G89.29 - OTHER CHRONIC PAIN - Discharge Discharge Date: 12/09/23 Disposition: HOME HEALTH SERVICE Condition: Stable Prescriptions: Continue Amlodipine Besylate 5 mg [Norvasc 5 mg] 5 mg PO QAM Duloxetine HCl [Cymbalta] 60 mg PO QAM Calcium 500 mg PO BID Multivitamin [Multivitamins] 1 each PO DAILY Cholecalciferol (Vitamin D3) [Vitamin D3] 50,000 unit PO WEEKLY Glucosam/Antony-Msm1/C/[place]/Bosw [Osteo Bi-Flex Caplet] 1 each PO BID Furosemide [Lasix] 40 mg PO DAILY Loratadine 10 mg [Claritin 10 mg] 10 mg PO DAILY Levothyroxine Sodium 75 Mcg [Synthroid 75 Mcg] 88 mcg PO DAILY Atorvastatin Calcium [Lipitor] 10 mg PO HS Albuterol 2.5 mg/3 ml Neb [Proventil 2.5 mg/3 ml Neb] 2.5 inh PO Q4HPRN PRN PRN Reason: breathing Albuterol 2 inh PO Q4H PRN PRN PRN Reason: breathing Potassium Chloride Tab* [Klor Con] 10 meq PO DAILY Solifenacin Succinate 5 mg PO DAILY Quetiapine Fumarate 50 mg PO HS PANTOPRAZOLE 40 mg Tablet [Protonix 40MG Tablet] 40 mg PO QAM Nitrofurantoin Macrocrystal [Nitrofurantoin] 50 mg PO DAILY Nitrofurantoin Macro 100 mg [Macrobid 100MG Capsule] 100 mg PO BID Methadone HCl 10 mg [DOLOPHINE 10MG Tablet] 10 mg PO BID PRN Memantine HCl 10 mg PO BID Magnesium 200 mg PO DAILY Cariprazine HCl [Vraylar] 3 mg PO DAILY Apixaban [Eliquis] 5 mg PO BID Propranolol HCl [Propranolol HCl ER] 60 mg PO DAILY Ropinirole HCl 1 mg PO TID Discontinued Gabapentin 800 mg PO TID Follow up with: MARIBELL LEIVA MD [CONSULTING PHYSICIAN] - 12/14/23 10:15 am ([place] Office) KASH EDMONDS [Primary Care Provider] - 12/13/23 1:30 pm
[2023-12-09] MEDS: DOLOPHINE 10MG Tablet PO PRN (10:44)
[2023-12-09 12:29] VITALS: BP 138/69; PULSE 75; RESP 20; TEMP 97.7; O2SAT 95
[2023-12-13] MEDS ORDERED: VITAMIN D2 PO SCH (10:00)
== END 2023-12-09 16:55 | disposition home health service (06) ==
LOC: ED 17:30 → MED SURG 20:58
PROVIDERS: ADMIT Internal Medicine Nephrology; ATTEND Internal Medicine Nephrology
DX: N39.0 Urinary tract infection, site not specified (principal); E11.649 Type 2 diabetes mellitus with hypoglycemia without coma; N17.9 Acute kidney failure, unspecified; R53.1 Weakness; L89.621 Pressure ulcer of left heel, stage 1; Z79.01 Long term (current) use of anticoagulants; E03.9 Hypothyroidism, unspecified; M54.9 Dorsalgia, unspecified; G89.29 Other chronic pain; Z79.899 Other long term (current) drug therapy; E78.5 Hyperlipidemia, unspecified; E11.22 Type 2 diabetes mellitus with diabetic chronic kidney disease; I12.9 Hypertensive chronic kidney disease with stage 1 through stage 4 chronic kidney disease, or unspecified chronic kidney disease; N18.30 Chronic kidney disease, stage 3 unspecified
CPT/HCPCS: 36000; 36415; 80048; 80053; 81001; 82947; 83036; 84484; 85025; 85027; 87077; 87086; 87186; 93005; 94640; 94762; 96365; 97110; 97161; 97530; 99284; Q3014; 93268; J0696; J1817; J7609; A9270-GY; G0378

== ENCOUNTER 2024-05-14 12:25 | Observation (INO) | payer MEDICARE ==
--- NOTE | 2024-05-14 12:33 | ERPHSYRPT ---
- History of Present Illness Time Seen by Provider: 05/14/24 12:33 Source: patient, EMS, old records Physician History: This is a morbidly obese 79-year-old white female patient who lives alone and fell onto her feet and ankles prior to arrival. Patient was brought to the emergency department by the utility person service. She complains of pain in both feet, left ankle and both knees. Patient denies headache. Patient denies neck pain. She has no complaints of injury or pain anywhere else. Patient has a history of hyperlipidemia, migraine headaches, COPD, diabetes, hypothyroidism, peripheral neuropathy, renal disease, degenerative disc disease, and fibromyalgia. She does not have shortness of breath. She does not have chest pain. She has no abdominal pain at this time. Does have a history of frequent urinary tract infections. Occurred: just prior to arrival Reason for Fall: lost balance Injuries/Pain Location: lower extremity (Bilateral knees, left ankle and bilateral feet) Loss of Consciousness: no loss of consciousness Quality: aching Severity of Pain-Max: mild Severity of Pain-Current: mild (To moderate) Modifying Factors: Improves With: movement Associated Symptoms (Fall): confusion (Intermittent), extremity injury, trouble walking, No chest pain, No dizziness, No headache, No lightheadedness, No shortness of breath Allergies/Adverse Reactions: Sulfa (Sulfonamide Antibiotics) Allergy (Severe, Verified 05/14/24 12:32) Hives tapentadol HCl [From Nucynta] Allergy (Severe, Verified 05/14/24 12:32) throat swelling and itching acetaminophen [From Vicodin] Allergy (Mild, Verified 05/14/24 12:32) intense itching hydrocodone bitartrate [From Vicodin] Allergy (Mild, Verified 05/14/24 12:32) intense itching Home Medications: Amlodipine Besylate 5 mg [Norvasc 5 mg] 5 mg PO QAM 01/31/15 [History] Atorvastatin Calcium [Lipitor] 10 mg PO HS 02/01/15 [History] Calcium 500 mg PO BID 02/01/15 [History] Cholecalciferol (Vitamin D3) [Vitamin D3] 50,000 unit PO WEEKLY 02/01/15 [Hist ory] Duloxetine HCl [Cymbalta] 60 mg PO QAM 02/01/15 [History] Furosemide [Lasix] 40 mg PO DAILY 02/01/15 [History] Glucosam/Antony-Msm1/C/Chapincito/Bosw [Osteo Bi-Flex Caplet] 1 each PO BID 02/01/15 [History] Levothyroxine Sodium 75 Mcg [Synthroid 75 Mcg] 88 mcg PO DAILY 02/01/15 [History] Loratadine 10 mg [Claritin 10 mg] 10 mg PO DAILY 02/01/15 [History] Multivitamin [Multivitamins] 1 each PO DAILY 02/01/15 [History] Albuterol 2 inh PO Q4H PRN PRN 08/22/19 [History] Albuterol 2.5 mg/3 ml Neb [Proventil 2.5 mg/3 ml Neb] 2.5 inh PO Q4HPRN PRN 08/22/19 [History] Potassium Chloride Tab* [Klor Con] 10 meq PO DAILY 08/22/19 [History] Apixaban [Eliquis] 5 mg PO BID 12/06/23 [History] Cariprazine HCl [Vraylar] 3 mg PO DAILY 12/06/23 [History] Magnesium 200 mg PO DAILY 12/06/23 [History] Memantine HCl 10 mg PO BID 12/06/23 [History] Methadone HCl 10 mg [DOLOPHINE 10MG Tablet] 10 mg PO BID PRN 12/06/23 [History] Nitrofurantoin Macro 100 mg [Macrobid 100MG Capsule] 100 mg PO BID 12/06/23 [History] Nitrofurantoin Macrocrystal [Nitrofurantoin] 50 mg PO DAILY 12/06/23 [History] PANTOPRAZOLE 40 mg Tablet [Protonix 40MG Tablet] 40 mg PO QAM 12/06/23 [History] Quetiapine Fumarate 50 mg PO HS 12/06/23 [History] Solifenacin Succinate 5 mg PO DAILY 12/06/23 [History] Propranolol HCl [Propranolol HCl ER] 60 mg PO DAILY 12/07/23 [History] Ropinirole HCl 1 mg PO TID 12/07/23 [History] Hx Tetanus, Diphtheria Vaccination/Date Given: No Hx Influenza Vaccination/Date Given: Yes Hx Pneumococcal Vaccination/Date Given: Yes Travel Risk - International Travel Have you traveled outside of the country in past 3 weeks: No - Emerging Infectious Disease Are you exhibiting symptoms associated with any current EIDs: No - Review of Systems Constitutional: Weakness Eyes: No Symptoms Ears, Nose, & Throat: No Symptoms Respiratory: No Symptoms Cardiac: No Symptoms Abdominal/Gastrointestinal: No Symptoms Genitourinary Symptoms: No Symptoms Musculoskeletal: Fall, Joint Pain (Lateral knees, left ankle and bilateral feet) Skin: No Symptoms Neurological: No Symptoms Psychological: No Symptoms Endocrine: No Symptoms Hematologic/Lymphatic: No Symptoms Immunological/Allergic: No Symptoms All Other Systems: Reviewed and Negative - Past Medical History Pertinent Past Medical History: Yes Neurological History: Migraines, Peripheral Neuropathy ENT History: Cataracts Cardiac History: High Cholesterol, Hypertension Respiratory History: COPD, Pulmonary Embolism, Other Endocrine Medical History: Diabetes Type II, Hypothyroidism Musculoskeletal History: Degenerative Disk Disease, Fibromyalgia, Osteoporosis, Rheumatoid Arthritis GI Medical History: Diverticulosis, GERD History: Renal Disease Psycho-Social History: Anxiety, Depression Female Reproductive Disorders: Breast Cancer Other Medical History: Chronic stage 3 kidney diseasedropped mesh into vagina from bladder sling- causes frequent UTIIron def anemia and b-12 anemia, didn't recovery well from the PE pts wears 2L O2 via nasal canula - Past Surgical History Past Surgical History: Yes Neuro Surgical History: No Pertinent History Cardiac: Cardiac Catheterization Respiratory: No Pertinent History Gastrointestinal: Cholecystectomy Genitourinary: Other Musculoskeletal: Orthopedic Surgery Female Surgical History: Hysterectomy, Lumpectomy, Mastectomy Other Surgical History: righ carpel tunnel surgerybilateral mastectomy 2013 Radical to left side2 lamenectomys3 vertebre fused to lumbarneck fusionthorasic fusionleft knee surgerybladder sling with mesh catarct and lasix surgery - Social History Smoking Status: Never smoker Exposure to second hand smoke: No Drug Use: none Patient Lives Alone: Yes - Social Determinants of Health Will the patient participate in the screening: Yes Do you worry about a steady place to live?: No In the past 12 months,have you had to go without utilities?: No Transportation Issues: No Has anyone in your support network made you feel unsafe?: No Have you or anyone in your house had to go without enough: No - Nursing Vital Signs Nursing Vital Signs: Initial Vital Signs Temperature 98.4 F 05/14/24 12:25 Pulse Rate 59 L 05/14/24 12:25 Respiratory Rate 17 05/14/24 12:25 Blood Pressure 118/35 05/14/24 12:25 O2 Sat by Pulse Oximetry 98 05/14/24 12:25 Pain Scale Pain Intensity 4 - Hoskins Coma Score Best Eye Response (Hoskins): (4) open spontaneously Best Verbal Response (Hoskins): (5) oriented Best Motor Response (Lucila): (6) obeys commands Lucila Total: 15 - Physical Exam General Appearance: no apparent distress, alert, anxiety, obese Head Injury: no evidence of injury Eye Exam: PERRL/EOMI, eyes nml inspection ENT Exam: airway nml, nml ext.inspection Neck Exam: supple, trachea midline, full range of motion, normal alignment, normal inspection Respiratory/Chest Exam: normal breath sounds, No chest tenderness, No respiratory distress, No ecchymosis, No crepitus Cardiovascular Exam: normal heart sounds, regular rate/rhythm Gastrointestinal Exam: soft, normal bowel sounds, No tenderness Rectal Exam: not done Back Exam: normal inspection, normal range of motion, No CVA tenderness, No vertebral tenderness Extremity Exam: normal inspection, normal range of motion, capillary refill <3 sec, pelvis stable, tenderness (Anterior knees bilateral, left ankle, lateral feet bilaterally), No deformities, No evidence of injury Neurologic Exam: alert, oriented x 3, cooperative, timber bucker II-XII nml as tested, sen sation nml Skin Exam: normal color, warm, dry SpO2 Interpretation: normal O2 Delivery: Room Air - Course Nursing assessment & vital signs reviewed: Yes Ordered Tests: Active Orders 24 hr Category Date Time Status EKG-ER Only STAT Care 05/14/24 15:26 Active IV Insertion STAT Care 05/14/24 15:26 Active NPO (ED) STAT Care 05/14/24 15:27 Active Pulse Oximetry (ED) STAT Care 05/14/24 15:26 Active ANKLE (3 VIEWS) Stat Exams 05/14/24 12:51 Completed FOOT (MINIMUM 3 VIEWS) Stat Exams 05/14/24 12:52 Completed FOOT (MINIMUM 3 VIEWS) Stat Exams 05/14/24 12:52 Completed HEAD WITHOUT CONTRAST [CT] Stat Exams 05/14/24 15:27 Completed KNEE (1 OR 2 VIEW) Stat Exams 05/14/24 12:52 Completed KNEE (1 OR 2 VIEW) Stat Exams 05/14/24 12:52 Completed CBC W DIFF Stat Lab 05/14/24 15:45 Completed CMP Stat Lab 05/14/24 15:45 Completed CULTURE,URINE Stat Lab 05/14/24 16:05 Received POCT GLUCOSE Stat Lab 05/14/24 15:19 Completed POCT GLUCOSE Stat Lab 05/14/24 16:35 Completed POCT GLUCOSE Stat Lab 05/14/24 19:29 Completed UA W/RFX UR CULTURE Stat Lab 05/14/24 16:05 Completed Medication Summary Generic Name Dose Route Start Last Admin Trade Name Freq PRN Reason Stop Dose Admin Sodium Chloride 1,000 mls @ 100 mls/hr 05/14/24 15:30 05/14/24 19:18 Sodium Chloride 0.9% 1000 Ml IV 06/13/24 15:29 100 mls/hr .Q10H HUNTER Administration Discontinued Medications Generic Name Dose Route Start Last Admin Trade Name Freq PRN Reason Stop Dose Admin Ceftriaxone Sodium 1 gm in 100 mls @ 200 mls/hr 05/14/24 17:14 05/14/24 19:20 Rocephin 1 Gm / 100 Ml Nacl IV 05/14/24 17:43 200 ml/hr STAT ONE 200 mls/hr Administration Ceftriaxone Sodium Confirm 05/14/24 19:19 Rocephin 1 Gm / 100 Ml Nacl Administered 05/14/24 19:20 Dose 1 gm in 100 mls @ ud IV .STK-MED ONE Lidocaine HCl Confirm 05/14/24 19:18 Lidocaine - Mpf 2% 5 Ml Vial Administered 05/14/24 19:19 Dose 5 ml .ROUTE .STK-MED ONE Lab/Rad Data: Laboratory Result Diagrams 05/14/24 15:45 05/14/24 15:45 Laboratory Results 05/14/24 05/14/24 05/14/24 Range/Units 19:29 16:35 16:05 WBC (3.98-10.04) x10^3/uL RBC (3.93-5.22) x10^6/uL Hgb (11.2-15.7) g/dL Hct (34.1-44.9) % MCV (79.4-94.8) fL MCH (25.6-32.2) pg MCHC (32.2-35.5) g/dL RDW (11.7-14.4) % Plt Count (182-369) x10^3/uL MPV (9.4-12.3) fL Gran % (34.0-71.1) % Immature Gran % (Auto) (0.001-0.429) % Nucleat RBC Rel Count (0.00-0.2) % Eos # (Auto) (0.04-0.36) x10^3/uL Immature Gran # (Auto) (0.001-0.031) x10^3u/L Absolute Lymphs (auto) (1.18-3.74) x10^3/uL Absolute Monos (auto) (0.24-0.86) x10^3/uL Absolute Nucleated RBC (0.00-0.012) x10^3u/L Lymphocytes % (19.3-51.7) % Monocytes % (4.7-12.5) % Eosinophils % (0.7-5.8) % Basophils % (0.1-1.2) % Absolute Granulocytes (1.56-6.13) x10^3/uL Basophils # (0.01-0.08) x10^3/uL Sodium (135-145) mmol/L Potassium (3.5-5.1) mmol/L Chloride (98-107) mmol/L Carbon Dioxide (22-30) mmol/L Anion Gap (5-15) MEQ/L BUN (7-17) mg/dL Creatinine (0.52-1.04) mg/dL Estimated GFR ML/MIN Glucose (74-106) mg/dL POC Glucometer 100 57 L (74 to 106) mg/dL Calcium (8.4-10.2) mg/dL Total Bilirubin (0.2-1.3) mg/dL AST (14-36) U/L ALT (0-35) U/L Alkaline Phosphatase (38-126) U/L Serum Total Protein (6.3-8.2) g/dL Albumin (3.5-5.0) g/dL Urine Color Yellow (Yellow) Urine Appearance Cloudy A (Clear) Urine pH 7.5 (4.6-8.0) Ur Specific Elton 1.015 (1.005-1.030) Urine Protein Negative (Negative) Urine Glucose (UA) Negative (Negative) mg/dL Urine Ketones Negative (Negative) Urine Blood Negative (Negative) Urine Nitrite Negative (Negative) Urine Bilirubin Negative (Negative) Urine Urobilinogen 0.2 (0.2) mg/dL Ur Leukocyte Esterase Large A (Negative) U Hyaline Cast (Auto) NONE SEEN (0-2) /LPF Urine Microscopic RBC 3-5 (0-5) /HPF Urine Microscopic WBC >100 A (0-5) /HPF Ur Epithelial Cells None Seen (None Seen) /HPF Urine Bacteria Many A (None Seen) /HPF Urine Culture Reflexed ORDERED SEPARATELY (NO) 05/14/24 05/14/24 05/14/24 Range/Units 15:45 15:45 15:19 WBC 7.2 (3.98-10.04) x10^3/uL RBC 3.93 (3.93-5.22) x10^6/uL Hgb 10.7 L (11.2-15.7) g/dL Hct 35.3 (34.1-44.9) % MCV 89.8 (79.4-94.8) fL MCH 27.2 (25.6-32.2) pg MCHC 30.3 L (32.2-35.5) g/dL RDW 15.2 H (11.7-14.4) % Plt Count 126 L (182-369) x10^3/uL MPV 9.9 (9.4-12.3) fL Gran % 70.7 (34.0-71.1) % Immature Gran % (Auto) 0.1 (0.001-0.429) % Nucleat RBC Rel Count 0.0 (0.00-0.2) % Eos # (Auto) 0.13 (0.04-0.36) x10^3/uL Immature Gran # (Auto) 0.01 (0.001-0.031) x10^3u/L Absolute Lymphs (auto) 1.13 L (1.18-3.74) x10^3/uL Absolute Monos (auto) 0.81 (0.24-0.86) x10^3/uL Absolute Nucleated RBC 0.00 (0.00-0.012) x10^3u/L Lymphocytes % 15.8 L (19.3-51.7) % Monocytes % 11.3 (4.7-12.5) % Eosinophils % 1.8 (0.7-5.8) % Basophils % 0.3 (0.1-1.2) % Absolute Granulocytes 5.06 (1.56-6.13) x10^3/uL Basophils # 0.02 (0.01-0.08) x10^3/uL Sodium 139 (135-145) mmol/L Potassium 4.7 (3.5-5.1) mmol/L Chloride 97 L (98-107) mmol/L Carbon Dioxide 36 H (22-30) mmol/L Anion Gap 10.9 (5-15) MEQ/L BUN 22 H (7-17) mg/dL Creatinine 1.08 H (0.52-1.04) mg/dL Estimated GFR 52.9 ML/MIN Glucose 98 (74-106) mg/dL POC Glucometer 86 (74 to 106) mg/dL Calcium 9.0 (8.4-10.2) mg/dL Total Bilirubin 0.40 (0.2-1.3) mg/dL AST 38 H (14-36) U/L ALT 21 (0-35) U/L Alkaline Phosphatase 73 (38-126) U/L Serum Total Protein 8.2 (6.3-8.2) g/dL Albumin 4.3 (3.5-5.0) g/dL Urine Color (Yellow) Urine Appearance (Clear) Urine pH (4.6-8.0) Ur Specific Elton (1.005-1.030) Urine Protein (Negative) Urine Glucose (UA) (Negative) mg/dL Urine Ketones (Negative) Urine Blood (Negative) Urine Nitrite (Negative) Urine Bilirubin (Negative) Urine Urobilinogen (0.2) mg/dL Ur Leukocyte Esterase (Negative) U Hyaline Cast (Auto) (0-2) /LPF Urine Microscopic RBC (0-5) /HPF Urine Microscopic WBC (0-5) /HPF Ur Epithelial Cells (None Seen) /HPF Urine Bacteria (None Seen) /HPF Urine Culture Reflexed (NO) - Progress Progress: improved Progress Note: 05/14/24 15:33 My medical decision today and the assignment of moderate complexity is based on review of the patient's past medical history, review the patient's medication list, review of patient drug allergy list, history present illness and physical findings on examination. The workup of this patient includes placement of intravenous line, x-ray of both knees, x-ray left ankle and both feet. Differential diagnoses include but is not limited to bilateral feet contusions, left ankle contusion, bilateral knee contusion, bilateral feet fractu re/dislocation, left ankle fracture or dislocation, bilateral knee fracture/dislocation. All radiographic studies were interpreted by the radiologist and I reviewed the: Right knee x-ray shows chronic degenerative changes. No acute fracture or dislocation. Left knee x-ray shows degenerative changes without acute fracture or dislocation. Right foot x-ray shows no acute fracture or dislocation. Left foot x-ray shows old fifth metatarsal fracture but no new fractures. No dislocation and no soft tissue abnormalities. Left ankle x-ray shows no acute fracture or dislocation. There are no soft t issue abnormalities. Reevaluation reexamination of this patient shows her to appear more confused. We opted to obtain urine for analysis. In addition, although the patient did states she did not hit her head or neck, she is obviously more confused. Her daughter later showed up and we had a discussion. Patient does live alone. We will CT scan her head, provided with low rate infusion, obtain a urinalysis, will also obtain a twelve-lead EKG and lab work. I believe the patient will be best served by placing her in observation. 05/14/24 19:[address] Hughes, our telehospitalist on-call at this time. I reviewed the patient history, presenting complaint, workup during her emergency department visit and laboratory and radiographic studies as well as the response to our management. We agree that the patient will be placed in observation. We will provide her with low rate IV fluid and intravenous antibiotics. Will also obtain a social service consult for possible [facility] placement since the patient lives alone. Discussed with : Kal Counseled pt/family regarding: lab results, diagnosis, rad results Medical Desision Making - Independent Historian Additional History obtained from: Child - Diagnostic Testing Diagnostic test were ordered, analyzed, and reviewed by me: Yes Radiological Interpretation: Reviewed by me, Teleradiologist Report - Risk of complications The pt has a high risk of morbidity or mortality based on: Decision regarding h ospitilization or escalation of hosp level of care - Departure Departure Disposition: Observation Clinical Impression: UTI (urinary tract infection), Confusion, Fall with no significant injury Condition: Stable Critical Care Time: No Referrals: KASH EDMONDS [Primary Care Provider] - Follow up/PCP as directed
--- NOTE | 2024-05-14 13:54 | XRAY ---
Indication: Pain following fall. Comparison: None Portable AP/crosstable lateral left knee demonstrates osteopenia and minimal/mild tricompartmental degenerative changes greatest lateral compartment. No other bony, articular, or soft tissue abnormalities
--- NOTE | 2024-05-14 13:56 | XRAY ---
Indication: Pain following fall. Comparison: None 3 view left ankle demonstrates osteopenia, small posterior heel spur, and tiny medial malleolus tip spur. No other bony, articular, or soft tissue abnormalities.
--- NOTE | 2024-05-14 13:56 | XRAY ---
Indication: Pain following fall. Comparison: None Portable AP/crosstable lateral right knee demonstrates osteopenia, faint medial/lateral joint space degenerative chondrocalcinosis, and small suprapatella spurring. No other bony, articular, or soft tissue abnormalities.
--- NOTE | 2024-05-14 13:57 | XRAY ---
Indication: Pain following fall. Comparison: None Single AP view right foot demonstrates osteopenia and small lateral malleolus tip heterotopic ossification. No other bony, articular, or soft tissue abnormalities.
--- NOTE | 2024-05-14 13:57 | XRAY ---
Indication: Pain following fall. Comparison: None 3 portable nonweightbearing views left foot demonstrates osteopenia, old 5th metatarsal fracture, and small posterior heel spur. No other bony, articular, or soft tissue abnormalities.
[2024-05-14 15:47] LABS: Absolute Neutrophil Ct (ANC) 5.06 x10^3/uL (1.56-6.13); BASOPHIL % 0.3 % (0.1-1.2); Basophil (Absolute #) 0.02 x10^3/uL (0.01-0.08); Eosinophil % 1.8 % (0.7-5.8); Eosinophil (Absolute #) 0.13 x10^3/uL (0.04-0.36); Hematocrit 35.3 % (34.1-44.9); Hemoglobin 10.7 g/dL (11.2-15.7); IMMATURE GRAN # 0.01 x10^3u/L (0.001-0.031); IMMATURE GRAN % 0.1 % (0.001-0.429); Lymphocyte (Absolute #) 1.13 x10^3/uL (1.18-3.74); Lymphocytes % 15.8 % (19.3-51.7); Mean Cell Volume 89.8 fL (79.4-94.8); Mean Corpuscular Hemoglobin 27.2 pg (25.6-32.2); Mean Corpuscular Hgb Concent. 30.3 g/dL (32.2-35.5); Mean Platelet Volume 9.9 fL (9.4-12.3); Monocyte (Absolute #) 0.81 x10^3/uL (0.24-0.86); Monocytes % 11.3 % (4.7-12.5); Neutrophil % 70.7 % (34.0-71.1); Platelet Count 126 x10^3/uL (182-369); Red Blood Count 3.93 x10^6/uL (3.93-5.22); Red Cell Distribution Width 15.2 % (11.7-14.4); White Blood Count 7.2 x10^3/uL (3.98-10.04)
[2024-05-14 16:01] LABS: ALBUMIN 4.3 g/dL (3.5-5.0); ANION GAP 10.9 MEQ/L (5-15); BILIRUBIN,TOTAL 0.4 mg/dL (0.2-1.3); Creatinine 1 1.08 mg/dL (0.52-1.04); EST GLOMERULAR FILTRATION RATE 52.9 ML/MIN; Potassium 4.7 mmol/L (3.5-5.1); Total Protein 8.2 g/dL (6.3-8.2)
[2024-05-14 16:29] LABS: Appearance Cloudy (Clear); Bacteria Many /HPF (None Seen); Bilirubin Negative (Negative); Blood Negative (Negative); Epithelial Cells None Seen /HPF (None Seen); Glucose, Urine Negative (Negative); Hyaline Casts NONE SEEN /LPF (0-2); Ketones Negative (Negative); Leukocyte Esterase Large (Negative); Nitrite Negative (Negative); Ph 7.5 (4.6-8.0); Protein,Urine Dip Negative (Negative); Specific Gravity 1.015 (1.005-1.030); Urobilinogen 0.2 mg/dL (0.2); WBC >100 /HPF (0-5)
--- NOTE | 2024-05-14 16:32 | XRAY ---
Indication: Confusion. Recent fall. Multiple contiguous axial images obtained through the head without contrast. Comparison: None Age-appropriate global atrophy and minimal periventricular degenerative micro-ischemia. No acute intracranial hemorrhage, abnormal extra-axial fluid collection, or mass effect. Fourth ventricle is midline without hydrocephalus. Aldana-white matter differentiation preserved. Bony calvarium intact. Complete opacification right maxillary sinus. Mastoid air cells are clear. Impression: Atrophy and degenerative micro-ischemia within normal limits. Right maxillary sinus disease. No acute intracranial abnormalities.
[2024-05-14 16:36] LABS: ADD URINE CULTURE? ORDERED SEPARATELY (NO)
[2024-05-14] MEDS ORDERED: Sodium Chloride 0.9% 1000 ML 1,000 ML ONE (16:50)
[2024-05-14] MEDS ORDERED: Xylocaine-Mpf 2% 5 Ml Vial ONE (19:18)
[2024-05-14] MEDS: Sodium Chloride 0.9% 1000 ML 1,000 ML IV SCH (19:18)
[2024-05-14] MEDS ORDERED: ROCEPHIN 1 GM / 100 ML NaCl 1 GM/100 ML IVPB IV ONE (19:19)
[2024-05-14] MEDS: ROCEPHIN 1 GM / 100 ML NaCl 1 GM/100 ML IVPB IV ONE (19:20)
[2024-05-14] MEDS ORDERED: PROVENTIL 2.5 MG/3 ML NEB IH PRN (22:06)
[2024-05-14] MEDS ORDERED: PROVENTIL 2.5 MG/3 ML NEB IH ONE (22:50)
[2024-05-14] MEDS: PROVENTIL 2.5 MG/3 ML NEB IH PRN (23:04)
--- NOTE | 2024-05-14 23:35 | PCM.HP ---
History of Present Illness - Chief Complaint Chief Complaint: fall, lethargy Date: 05/14/24 History of Present Illness: 79 y/o F with h/o A-fib, DM2, COPD on 2L oxygen, CHF, hypothyroidism, here after a fall. She notes that she fell on to her knees and feet after losing her balance. Denies hitting head or any LOC. However, on arrival, she appeared a little lethargic. Daughter arrived in ED and confirmed that patient was not at her baseline, slow to answer questions; to the daughter this was similar to prior episodes when patient had a UTI. Multiple X-rays confirmed no fracture, but patient complains of dysuria, although she is unsure how long it has been going on. She remembers falling this afternoon, but is uncertain of the details. States she has good PO intake; denies fevers (although states her thermometer broke so she doesn't really know), and denies lightheadedness or dizziness. She is on her baseline 2L oxygen. - Review of Systems All Other Systems: Reviewed and Negative Medications & Allergies Home Medications: Home Medication List Duloxetine HCl [Cymbalta] 60 mg PO QAM 02/01/15 [History Confirmed 05/14/24] Furosemide [Lasix] 40 mg PO 0800 02/01/15 [History Confirmed 05/14/24] Glucosam/Antony-Msm1/C/[place]/Bosw [Osteo Bi-Flex Caplet] 1 each PO BID 02/01/15 [History Confirmed 05/14/24] Multivitamin [Multivitamins] 1 each PO DAILY 02/01/15 [History Confirmed ] Albuterol 2 puff IH Q4H PRN PRN 08/22/19 [History Confirmed 05/14/24] Albuterol 2.5 mg/3 ml Neb [Proventil 2.5 mg/3 ml Neb] 1 neb IH Q4HPRN PRN 08/22/19 [History Confirmed 05/14/24] Potassium Chloride Tab* [Klor Con] 10 meq PO DAILY 08/22/19 [History Confirmed 05/14/24] Apixaban [Eliquis] 5 mg PO BID 12/06/23 [History Confirmed 05/14/24] Cariprazine HCl [Vraylar] 3 mg PO HS 12/06/23 [History Confirmed 05/14/24] Magnesium 500 mg PO DAILY 12/06/23 [History Confirmed 05/14/24] Memantine HCl 10 mg PO BID 12/06/23 [History Confirmed 05/14/24] Methadone HCl 10 mg [DOLOPHINE 10MG Tablet] 5 mg PO BID PRN PRN 12/06/23 [History Confirmed 05/14/24] Nitrofurantoin Macrocrystal [Nitrofurantoin] 50 mg PO HS 12/06/23 [History Confirmed 05/14/24] PANTOPRAZOLE 40 mg Tablet [Protonix 40MG Tablet] 40 mg PO QAM 12/06/23 [History Confirmed 05/14/24] Solifenacin Succinate 5 mg PO DAILY 12/06/23 [History Confirmed 05/14/24] Propranolol HCl [Propranolol HCl ER] 60 mg PO DAILY 12/07/23 [History Confirmed 05/14/24] Ropinirole HCl 1 mg PO TID 12/07/23 [History Confirmed 05/14/24] Calcium Carbonate/Vitamin D3 [Calcium 250-D Tablet] 1 each PO DAILY 05/14/24 [History Confirmed 05/14/24] Cetirizine HCl [All Day Allergy Relief] 10 mg PO DAILY 05/14/24 [History Confirmed 05/14/24] Furosemide [Lasix] 20 mg PO 1700 05/14/24 [History Confirmed 05/14/24] Gabapentin [Neurontin ] 800 mg PO TID 05/14/24 [History Confirmed 05/14/24] Glimepiride 1 mg PO BREAKFAST 05/14/24 [History Confirmed 05/14/24] Levothyroxine Sodium 88 Mcg [Synthroid 88 Mcg] 88 mcg PO DAILY 05/14/24 [History Confirmed 05/14/24] Allergies/Adverse Reactions: Allergies Allergy/AdvReac Type Severity Reaction Status Date / Time Sulfa (Sulfonamide Allergy Severe Hives Verified 05/14/24 21:27 Antibiotics) tapentadol HCl [From Nucynta] Allergy Severe throat Verified 05/14/24 21:27 swelling and itching acetaminophen [From Vicodin] Allergy Mild intense Verified 05/14/24 21:27 itching hydrocodone bitartrate Allergy Mild intense Verified 05/14/24 21:27 [From Vicodin] itching - Past Medical History Past Medical History: Yes Neurological History: Migraines, Peripheral Neuropathy ENT History: Cataracts Cardiac History: High Cholesterol, Hypertension Respiratory History: COPD, Pulmonary Embolism, Other Endocrine Medical History: Diabetes Type II, Hypothyroidism Musculoskelatal History: Degenerative Disk Disease, Fibromyalgia, Osteoporosis, Rheumatoid Arthritis GI Medical History: Diverticulosis, GERD History: Renal Disease Pyscho-Social History: Anxiety, Depression Reproductive Disorders: Breast Cancer Comment: Chronic stage 3 kidney disease, dropped mesh into vagina from bladder sling- causes frequent UTI, Iron def anemia and b-12 anemia, didn't recovery well from the PE pts wears 2L O2 via nasal canula - Past Surgical History Past Surgical History: Yes Neuro Surgical History: No Pertinent History Cardiac History: Cardiac Catheterization Respiratory Surgery: No Pertinent History GI Surgical History: Cholecystectomy Genitourinary Surgical Hx: Other Musculskeletal Surgical Hx: Orthopedic Surgery Female Surgical History: Hysterectomy, Lumpectomy, Mastectomy Other Surgical History: righ carpel tunnel surgery, bilateral mastectomy 2013 Radical to left side2 lamenectomys, 3 vertebre fused to lumbar neck fusion thorasic fusion left knee surgery bladder sling with mesh catarct and lasix surgery Significant Family History: no pertinent family hx - Social History Smoking Status: Never smoker Exposure to second hand smoke: No Alcohol: None Drug Use: none - Social Determinants of Health Will the patient participate in the screening: Yes Do you worry about a steady place to live?: No Do you have any problems with any of the following?: No known problems In the past 12 months,have you had to go without utilities?: No Have you or anyone in your house had to go without enough: No Transportation Issues: No Has anyone in your support network made you feel unsafe?: No Does the patient want assistance with any of the above?: No - Physical Exam Vital Signs: Vital Signs - 24 hr Temp Pulse Resp BP BP Pulse Ox 05/14/24 23:06 74 16 97 05/14/24 20:42 97.1 F 68 16 115/56 96 05/14/24 19:01 65 22 97/44 05/14/24 18:30 79 105/47 92 L 05/14/24 17:50 60 92/76 94 L 05/14/24 16:32 60 20 105/46 98 09/16/24 16:12 59 L 21 05/14/24 16:10 60 21 05/14/24 16:05 63 15 05/14/24 15:33 96 05/14/24 15:31 59 L 21 101/63 05/14/24 15:01 57 L 21 103/59 100 05/14/24 13:51 68 21 108/42 95 05/14/24 13:32 58 L 20 108/34 100 05/14/24 13:30 60 18 05/14/24 13:20 66 20 05/14/24 13:10 59 L 17 05/14/24 13:03 66 14 05/14/24 12:25 98.4 F 59 L 17 118/35 98 GEN: lying in bed in no acute distress PSYCH: Alert, oriented, but slow to answer questions NEURO: No focal deficits, face symmetric PULM: Minimal trace wheezing, but moving air well, no work of breathing. On 2L oxygen by NC. CV: irregularly irregular rhythm no murmurs, no edema ABD: Non-distended, normoactive bowel sounds Wound Assessment: Skin/Wound Assessment Wound/Incision Assessment Start: 05/14/24 21:17 Text: Status: Active Freq: Q6H Protocol: Document 05/14/24 21:24 MM (Rec: 05/14/24 21:26 MM [id number]) Wound/Incision Assessment Left Heel Wound Assessment Admission Wound Type redness General Appearance Open to air,Clean/Dry,Reddened Surrounding Tissue Bright Red Comment barrier ointment applied to pt bilat heels, areas of redness noted, skin is intact, pt reports she had a previous wound there that is healed. Right Buttock Wound Assessment Admission Wound Type shearing Drainage Amount None Drainage Odor None/Absent General Appearance Open to air Surrounding Tissue [place] Comment barrier ointment applied to pt buttocks near gluteal fold. Wound Photo Photo Taken Yes Date: 05/14/24 Time: 21:00 Results - Labs Lab/Micro Results: Lab Results-Last 24 Hours 05/14/24 05/14/24 05/14/24 Range/Units 15:19 15:45 15:45 WBC 7.2 (3.98-10.04) x10^3/uL RBC 3.93 (3.93-5.22) x10^6/uL Hgb 10.7 L (11.2-15.7) g/dL Hct 35.3 (34.1-44.9) % MCV 89.8 (79.4-94.8) fL MCH 27.2 (25.6-32.2) pg MCHC 30.3 L (32.2-35.5) g/dL RDW 15.2 H (11.7-14.4) % Plt Count 126 L (182-369) x10^3/uL MPV 9.9 (9.4-12.3) fL Gran % 70.7 (34.0-71.1) % Immature Gran % (Auto) 0.1 (0.001-0.429) % Nucleat RBC Rel Count 0.0 (0.00-0.2) % Eos # (Auto) 0.13 (0.04-0.36) x10^3/uL Immature Gran # (Auto) 0.01 (0.001-0.031) x10^3u/L Absolute Lymphs (auto) 1.13 L (1.18-3.74) x10^3/uL Absolute Monos (auto) 0.81 (0.24-0.86) x10^3/uL Absolute Nucleated RBC 0.00 (0.00-0.012) x10^3u/L Lymphocytes % 15.8 L (19.3-51.7) % Monocytes % 11.3 (4.7-12.5) % Eosinophils % 1.8 (0.7-5.8) % Basophils % 0.3 (0.1-1.2) % Absolute Granulocytes 5.06 (1.56-6.13) x10^3/uL Basophils # 0.02 (0.01-0.08) x10^3/uL Sodium 139 (135-145) mmol/L Potassium 4.7 (3.5-5.1) mmol/L Chloride 97 L (98-107) mmol/L Carbon Dioxide 36 H (22-30) mmol/L Anion Gap 10.9 (5-15) MEQ/L BUN 22 H (7-17) mg/dL Creatinine 1.08 H (0.52-1.04) mg/dL Estimated GFR 52.9 ML/MIN Glucose 98 (74-106) mg/dL POC Glucometer 86 (74 to 106) mg/dL Calcium 9.0 (8.4-10.2) mg/dL Total Bilirubin 0.40 (0.2-1.3) mg/dL AST 38 H (14-36) U/L ALT 21 (0-35) U/L Alkaline Phosphatase 73 (38-126) U/L Serum Total Protein 8.2 (6.3-8.2) g/dL Albumin 4.3 (3.5-5.0) g/dL Urine Color (Yellow) Urine Appearance (Clear) Urine pH (4.6-8.0) Ur Specific [place] (1.005-1.030) Urine Protein (Negative) Urine Glucose (UA) (Negative) mg/dL Urine Ketones (Negative) Urine Blood (Negative) Urine Nitrite (Negative) Urine Bilirubin (Negative) Urine Urobilinogen (0.2) mg/dL Ur Leukocyte Esterase (Negative) U Hyaline Cast (Auto) (0-2) /LPF Urine Microscopic RBC (0-5) /HPF Urine Microscopic WBC (0-5) /HPF Ur Epithelial Cells (None Seen) /HPF Urine Bacteria (None Seen) /HPF Urine Culture Reflexed (NO) 05/14/24 05/14/24 05/14/24 Range/Units 16:05 16:35 19:29 WBC (3.98-10.04) x10^3/uL RBC (3.93-5.22) x10^6/uL Hgb (11.2-15.7) g/dL Hct (34.1-44.9) % MCV (79.4-94.8) fL MCH (25.6-32.2) pg MCHC (32.2-35.5) g/dL RDW (11.7-14.4) % Plt Count (182-369) x10^3/uL MPV (9.4-12.3) fL Gran % (34.0-71.1) % Immature Gran % (Auto) (0.001-0.429) % Nucleat RBC Rel Count (0.00-0.2) % Eos # (Auto) (0.04-0.36) x10^3/uL Immature Gran # (Auto) (0.001-0.031) x10^3u/L Absolute Lymphs (auto) (1.18-3.74) x10^3/uL Absolute Monos (auto) (0.24-0.86) x10^3/uL Absolute Nucleated RBC (0.00-0.012) x10^3u/L Lymphocytes % (19.3-51.7) % Monocytes % (4.7-12.5) % Eosinophils % (0.7-5.8) % Basophils % (0.1-1.2) % Absolute Granulocytes (1.56-6.13) x10^3/uL Basophils # (0.01-0.08) x10^3/uL Sodium (135-145) mmol/L Potassium (3.5-5.1) mmol/L Chloride (98-107) mmol/L Carbon Dioxide (22-30) mmol/L Anion Gap (5-15) MEQ/L BUN (7-17) mg/dL Creatinine (0.52-1.04) mg/dL Estimated GFR ML/MIN Glucose (74-106) mg/dL POC Glucometer 57 L 100 (74 to 106) mg/dL Calcium (8.4-10.2) mg/dL Total Bilirubin (0.2-1.3) mg/dL AST (14-36) U/L ALT (0-35) U/L Alkaline Phosphatase (38-126) U/L Serum Total Protein (6.3-8.2) g/dL Albumin (3.5-5.0) g/dL Urine Color Yellow (Yellow) Urine Appearance Cloudy A (Clear) Urine pH 7.5 (4.6-8.0) Ur Specific [place] 1.015 (1.005-1.030) Urine Protein Negative (Negative) Urine Glucose (UA) Negative (Negative) mg/dL Urine Ketones Negative (Negative) Urine Blood Negative (Negative) Urine Nitrite Negative (Negative) Urine Bilirubin Negative (Negative) Urine Urobilinogen 0.2 (0.2) mg/dL Ur Leukocyte Esterase Large A (Negative) U Hyaline Cast (Auto) NONE SEEN (0-2) /LPF Urine Microscopic RBC 3-5 (0-5) /HPF Urine Microscopic WBC >100 A (0-5) /HPF Ur Epithelial Cells None Seen (None Seen) /HPF Urine Bacteria Many A (None Seen) /HPF Urine Culture Reflexed ORDERED SEPARATELY (NO) 05/14/24 Range/Units 20:23 WBC (3.98-10.04) x10^3/uL RBC (3.93-5.22) x10^6/uL Hgb (11.2-15.7) g/dL Hct (34.1-44.9) % MCV (79.4-94.8) fL MCH (25.6-32.2) pg MCHC (32.2-35.5) g/dL RDW (11.7-14.4) % Plt Count (182-369) x10^3/uL MPV (9.4-12.3) fL Gran % (34.0-71.1) % Immature Gran % (Auto) (0.001-0.429) % Nucleat RBC Rel Count (0.00-0.2) % Eos # (Auto) (0.04-0.36) x10^3/uL Immature Gran # (Auto) (0.001-0.031) x10^3u/L Absolute Lymphs (auto) (1.18-3.74) x10^3/uL Absolute Monos (auto) (0.24-0.86) x10^3/uL Absolute Nucleated RBC (0.00-0.012) x10^3u/L Lymphocytes % (19.3-51.7) % Monocytes % (4.7-12.5) % Eosinophils % (0.7-5.8) % Basophils % (0.1-1.2) % Absolute Granulocytes (1.56-6.13) x10^3/uL Basophils # (0.01-0.08) x10^3/uL Sodium (135-145) mmol/L Potassium (3.5-5.1) mmol/L Chloride (98-107) mmol/L Carbon Dioxide (22-30) mmol/L Anion Gap (5-15) MEQ/L BUN (7-17) mg/dL Creatinine (0.52-1.04) mg/dL Estimated GFR ML/MIN Glucose (74-106) mg/dL POC Glucometer 102 (74 to 106) mg/dL Calcium (8.4-10.2) mg/dL Total Bilirubin (0.2-1.3) mg/dL AST (14-36) U/L ALT (0-35) U/L Alkaline Phosphatase (38-126) U/L Serum Total Protein (6.3-8.2) g/dL Albumin (3.5-5.0) g/dL Urine Color (Yellow) Urine Appearance (Clear) Urine pH (4.6-8.0) Ur Specific [place] (1.005-1.030) Urine Protein (Negative) Urine Glucose (UA) (Negative) mg/dL Urine Ketones (Negative) Urine Blood (Negative) Urine Nitrite (Negative) Urine Bilirubin (Negative) Urine Urobilinogen (0.2) mg/dL Ur Leukocyte Esterase (Negative) U Hyaline Cast (Auto) (0-2) /LPF Urine Microscopic RBC (0-5) /HPF Urine Microscopic WBC (0-5) /HPF Ur Epithelial Cells (None Seen) /HPF Urine Bacteria (None Seen) /HPF Urine Culture Reflexed (NO) Accuchecks Date 05/14/24 Date 05/14/24 Date 05/14/24 Date 05/14/24 Date 05/14/24 Time 19:20 Time 19:30 Time 17:45 Time 16:40 - Radiology Impressions Radiology Exams & Impressions: Radiology Procedures Category Date Time Status ANKLE (3 VIEWS) Stat Exams 05/14/24 12:51 Completed FOOT (MINIMUM 3 VIEWS) Stat Exams 05/14/24 12:52 Completed FOOT (MINIMUM 3 VIEWS) Stat Exams 05/14/24 12:52 Completed HEAD WITHOUT CONTRAST [CT] Stat Exams 05/14/24 15:27 Completed KNEE (1 OR 2 VIEW) Stat Exams 05/14/24 12:52 Completed KNEE (1 OR 2 VIEW) Stat Exams 05/14/24 12:52 Completed Bilateral knee, bilateral foot, and left ankle XR - no acute fracture, but diffuse osteopenia and osteroarthrois CT Head - Atrophy and degenerative micro-ischemia within normal limits. Right maxillary sinus disease. No acute intracranial abnormalities. - Other Procedures and Tests Respiratory Therapy 05/14/24 23:05 Oxygen Nasal Cannula 3 lpm Respiratory Therapy Assessment DAILY Assessment/Plan (1) UTI (urinary tract infection) Current Visit: Yes Status: Acute Assessment & Plan: 79 y/o F with h/o COPD, A-fib, hypothyroidism, here with acute cystitis. ## Acute cystitis - causing mild metabolic encephalopathy with confusion. Has h/o recurrent UTI; reviewed prior urine cultures and generally sensitive except to levaquin. - Rocephin 1 g IV q24h - follow up urine cultures ## COPD - on her baseline 2L oxygen - titrate oxygen to maintain SpO2 90-94% - PRN albuterol ## A-fib - rate-controlled - continue Eliquis 5 BID ## Dementia - continue home Namenda, cariprazine ## chronic diastolic heart failure - Euvolemic today - continue Lasix 40 mg AM, 20 mg PM - d/c continuous NS ## hypothyroidism - resume home levothyroxine 88 mcg Code status: DNR Prophylaxis: Eliquis Diet: Regular Code(s): N39.0 - URINARY TRACT INFECTION, SITE NOT SPECIFIED Telemedicine Encounter - Telemedicine Encounter Telemedicine Encounter: "The entirety of this encounter was performed via Telemedicine" This visit was performed using real-time audio and video connection between my location and thepatients locationwith the assistance of a surrogateat the patients location. Written or verbal consent was obtained from the patient/guardian to perform this visit using[place] [facility] [place]. Any patient questions regarding the telemedicine interaction were answered.
[2024-05-15 04:23] LABS: Hemoglobin 9.6 g/dL (11.2-15.7); Mean Cell Volume 89.3 fL (79.4-94.8); Mean Corpuscular Hemoglobin 27.7 pg (25.6-32.2); Mean Platelet Volume 9.5 fL (9.4-12.3); Platelet Count 100 x10^3/uL (182-369); Red Blood Count 3.47 x10^6/uL (3.93-5.22); Red Cell Distribution Width 15.1 % (11.7-14.4); White Blood Count 5.4 x10^3/uL (3.98-10.04)
[2024-05-15 04:50] LABS: ANION GAP 8.3 MEQ/L (5-15); Calcium 8.2 mg/dL (8.4-10.2); Creatinine 1 1.03 mg/dL (0.52-1.04); PREALBUMIN 14.1 mg/dL (17.6-36.0); Potassium 4.2 mmol/L (3.5-5.1)
--- NOTE | 2024-05-15 05:16 | PCM.NOTE ---
Date and Time: 05/15/24 0509 Subjective Assessment: HPI: Ms. Agudelo is a 79 y/o F with h/o A-fib, DM2, COPD on 2L oxygen, CHF, hypothyroidism, admitted 05/14/24 after a fall at home. Head CT with non-acute findings. CXR with non-acute findings. Multiple X-rays confirmed no fracture. Patient unsure of what preempted her fall, she states she just became weak. Urinalysis suspicious for infection. Rocephin started. 05/15/24: Met with patient bedside. Endorses bilateral knee pain 5/10 on numerical pain scale. She is A&O x 3 this morning. Lung sounds coarse on auscultation. On her baseline of 3L oxygen.CXR with non-acute findings. U-cult pending. Patient is still very weak. Will have PT evaluate, patient does live at home alone. Denies fever, cp, abdominal pain, YANES, dizziness, N/V/D. - Review of Systems Constitutional: Fatigue, Weakness Eyes: No Symptoms Ears, Nose, & Throat: No Symptoms Respiratory: Cough, Short Of Breath Cardiac: No Symptoms Abdominal/Gastrointestinal: No Symptoms Genitourinary Symptoms: No Symptoms Musculoskeletal: Joint Pain (bilater knee pain 5/10) Skin: No Symptoms Neurological: No Symptoms Psychological: No Symptoms Endocrine: No Symptoms Hematologic/Lymphatic: No Symptoms Immunological/Allergic: No Symptoms Objective Exam General Appearance: no apparent distress Neurologic Exam: alert, oriented x 3, cooperative Skin Exam: normal color Wound Assessment: Skin/Wound Assessment Wound/Incision Assessment Start: 05/14/24 21:17 Text: Status: Active Freq: Q6H Protocol: Document 05/15/24 02:00 MM (Rec: 05/15/24 03:07 MM [id number]) Wound/Incision Assessment Left Heel Wound Assessment Shift Assessment Wound Type redness General Appearance Open to air,Clean/Dry,Reddened Surrounding Tissue Bright Red Comment barrier ointment applied to pt bilat heels, areas of redness noted, skin is intact, pt reports she had a previous wound there that is healed. Right Buttock Wound Assessment Shift Assessment Wound Type shearing Drainage Amount None Drainage Odor None/Absent General Appearance Open to air Surrounding Tissue [place] Comment barrier ointment applied to pt buttocks near gluteal fold. Wound Photo Photo Taken No Eye Exam: PERRL Ears, Nose, Throat Exam: normal ENT inspection Neck Exam: normal inspection Respiratory Exam: crackles/rales Cardiovascular Exam: regular rate/rhythm, normal heart sounds Gastrointestinal/Abdomen Exam: soft, normal bowel sounds Extremity Exam: normal inspection Back Exam: normal inspection Pelvic Exam: deferred Rectal Exam: deferred Objective Data Vital Signs: Vital Signs - 24 hr Temp Pulse Resp BP BP Pulse Ox 05/15/24 04:00 97.6 F 73 18 107/53 96 05/15/24 00:00 98.6 F 75 16 117/56 97 05/14/24 23:06 74 16 97 05/14/24 20:42 97.1 F 68 16 115/56 96 05/14/24 19:01 65 22 97/44 05/14/24 18:30 79 105/47 92 L 05/14/24 17:50 60 92/76 94 L 05/14/24 16:32 60 20 105/46 98 05/14/24 16:12 59 L 21 05/14/24 16:10 60 21 05/14/24 16:05 63 15 05/14/24 15:33 96 05/14/24 15:31 59 L 21 101/63 05/14/24 15:01 57 L 21 103/59 100 05/14/24 13:51 68 21 108/42 95 05/14/24 13:32 58 L 20 108/34 100 05/14/24 13:30 60 18 05/14/24 13:20 66 20 05/14/24 13:10 59 L 17 05/14/24 13:03 66 14 05/14/24 12:25 98.4 F 59 L 17 118/35 98 Pain Assessment - Last Documented Pain Intensity 5 Intake and Output: Intake & Output 05/12/24 05/13/24 05/14/24 05/15/24 11:59 11:59 11:59 11:59 Weight 90.9 kg Lab Results: Lab Results-Last 24 Hours 05/14/24 05/14/24 05/14/24 Range/Units 15:19 15:45 15:45 WBC 7.2 (3.98-10.04) x10^3/uL RBC 3.93 (3.93-5.22) x10^6/uL Hgb 10.7 L (11.2-15.7) g/dL Hct 35.3 (34.1-44.9) % MCV 89.8 (79.4-94.8) fL MCH 27.2 (25.6-32.2) pg MCHC 30.3 L (32.2-35.5) g/dL RDW 15.2 H (11.7-14.4) % Plt Count 126 L (182-369) x10^3/uL MPV 9.9 (9.4-12.3) fL Gran % 70.7 (34.0-71.1) % Immature Gran % (Auto) 0.1 (0.001-0.429) % Nucleat RBC Rel Count 0.0 (0.00-0.2) % Eos # (Auto) 0.13 (0.04-0.36) x10^3/uL Immature Gran # (Auto) 0.01 (0.001-0.031) x10^3u/L Absolute Lymphs (auto) 1.13 L (1.18-3.74) x10^3/uL Absolute Monos (auto) 0.81 (0.24-0.86) x10^3/uL Absolute Nucleated RBC 0.00 (0.00-0.012) x10^3u/L Lymphocytes % 15.8 L (19.3-51.7) % Monocytes % 11.3 (4.7-12.5) % Eosinophils % 1.8 (0.7-5.8) % Basophils % 0.3 (0.1-1.2) % Absolute Granulocytes 5.06 (1.56-6.13) x10^3/uL Basophils # 0.02 (0.01-0.08) x10^3/uL Sodium 139 (135-145) mmol/L Potassium 4.7 (3.5-5.1) mmol/L Chloride 97 L (98-107) mmol/L Carbon Dioxide 36 H (22-30) mmol/L Anion Gap 10.9 (5-15) MEQ/L BUN 22 H (7-17) mg/dL Creatinine 1.08 H (0.52-1.04) mg/dL Estimated GFR 52.9 ML/MIN Glucose 98 (74-106) mg/dL POC Glucometer 86 (74 to 106) mg/dL Calcium 9.0 (8.4-10.2) mg/dL Total Bilirubin 0.40 (0.2-1.3) mg/dL AST 38 H (14-36) U/L ALT 21 (0-35) U/L Alkaline Phosphatase 73 (38-126) U/L Serum Total Protein 8.2 (6.3-8.2) g/dL Albumin 4.3 (3.5-5.0) g/dL Prealbumin (17.6-36.0) mg/dL Urine Color (Yellow) Urine Appearance (Clear) Urine pH (4.6-8.0) Ur Specific [place] (1.005-1.030) Urine Protein (Negative) Urine Glucose (UA) (Negative) mg/dL Urine Ketones (Negative) Urine Blood (Negative) Urine Nitrite (Negative) Urine Bilirubin (Negative) Urine Urobilinogen (0.2) mg/dL Ur Leukocyte Esterase (Negative) U Hyaline Cast (Auto) (0-2) /LPF Urine Microscopic RBC (0-5) /HPF Urine Microscopic WBC (0-5) /HPF Ur Epithelial Cells (None Seen) /HPF Urine Bacteria (None Seen) /HPF Urine Culture Reflexed (NO) 05/14/24 05/14/24 05/14/24 Range/Units 16:05 16:35 19:29 WBC (3.98-10.04) x10^3/uL RBC (3.93-5.22) x10^6/uL Hgb (11.2-15.7) g/dL Hct (34.1-44.9) % MCV (79.4-94.8) fL MCH (25.6-32.2) pg MCHC (32.2-35.5) g/dL RDW (11.7-14.4) % Plt Count (182-369) x10^3/uL MPV (9.4-12.3) fL Gran % (34.0-71.1) % Immature Gran % (Auto) (0.001-0.429) % Nucleat RBC Rel Count (0.00-0.2) % Eos # (Auto) (0.04-0.36) x10^3/uL Immature Gran # (Auto) (0.001-0.031) x10^3u/L Absolute Lymphs (auto) (1.18-3.74) x10^3/uL Absolute Monos (auto) (0.24-0.86) x10^3/uL Absolute Nucleated RBC (0.00-0.012) x10^3u/L Lymphocytes % (19.3-51.7) % Monocytes % (4.7-12.5) % Eosinophils % (0.7-5.8) % Basophils % (0.1-1.2) % Absolute Granulocytes (1.56-6.13) x10^3/uL Basophils # (0.01-0.08) x10^3/uL Sodium (135-145) mmol/L Potassium (3.5-5.1) mmol/L Chloride (98-107) mmol/L Carbon Dioxide (22-30) mmol/L Anion Gap (5-15) MEQ/L BUN (7-17) mg/dL Creatinine (0.52-1.04) mg/dL Estimated GFR ML/MIN Glucose (74-106) mg/dL POC Glucometer 57 L 100 (74 to 106) mg/dL Calcium (8.4-10.2) mg/dL Total Bilirubin (0.2-1.3) mg/dL AST (14-36) U/L ALT (0-35) U/L Alkaline Phosphatase (38-126) U/L Serum Total Protein (6.3-8.2) g/dL Albumin (3.5-5.0) g/dL Prealbumin (17.6-36.0) mg/dL Urine Color Yellow (Yellow) Urine Appearance Cloudy A (Clear) Urine pH 7.5 (4.6-8.0) Ur Specific [place] 1.015 (1.005-1.030) Urine Protein Negative (Negative) Urine Glucose (UA) Negative (Negative) mg/dL Urine Ketones Negative (Negative) Urine Blood Negative (Negative) Urine Nitrite Negative (Negative) Urine Bilirubin Negative (Negative) Urine Urobilinogen 0.2 (0.2) mg/dL Ur Leukocyte Esterase Large A (Negative) U Hyaline Cast (Auto) NONE SEEN (0-2) /LPF Urine Microscopic RBC 3-5 (0-5) /HPF Urine Microscopic WBC >100 A (0-5) /HPF Ur Epithelial Cells None Seen (None Seen) /HPF Urine Bacteria Many A (None Seen) /HPF Urine Culture Reflexed ORDERED SEPARATELY (NO) 05/14/24 05/15/24 05/15/24 Range/Units 20:23 00:01 04:00 WBC 5.4 (3.98-10.04) x10^3/uL RBC 3.47 L (3.93-5.22) x10^6/uL Hgb 9.6 L (11.2-15.7) g/dL Hct 31.0 L (34.1-44.9) % MCV 89.3 (79.4-94.8) fL MCH 27.7 (25.6-32.2) pg MCHC 31.0 L (32.2-35.5) g/dL RDW 15.1 H (11.7-14.4) % Plt Count 100 L (182-369) x10^3/uL MPV 9.5 (9.4-12.3) fL Gran % (34.0-71.1) % Immature Gran % (Auto) (0.001-0.429) % Nucleat RBC Rel Count (0.00-0.2) % Eos # (Auto) (0.04-0.36) x10^3/uL Immature Gran # (Auto) (0.001-0.031) x10^3u/L Absolute Lymphs (auto) (1.18-3.74) x10^3/uL Absolute Monos (auto) (0.24-0.86) x10^3/uL Absolute Nucleated RBC (0.00-0.012) x10^3u/L Lymphocytes % (19.3-51.7) % Monocytes % (4.7-12.5) % Eosinophils % (0.7-5.8) % Basophils % (0.1-1.2) % Absolute Granulocytes (1.56-6.13) x10^3/uL Basophils # (0.01-0.08) x10^3/uL Sodium (135-145) mmol/L Potassium (3.5-5.1) mmol/L Chloride (98-107) mmol/L Carbon Dioxide (22-30) mmol/L Anion Gap (5-15) MEQ/L BUN (7-17) mg/dL Creatinine (0.52-1.04) mg/dL Estimated GFR ML/MIN Glucose (74-106) mg/dL POC Glucometer 102 64 L (74 to 106) mg/dL Calcium (8.4-10.2) mg/dL Total Bilirubin (0.2-1.3) mg/dL AST (14-36) U/L ALT (0-35) U/L Alkaline Phosphatase (38-126) U/L Serum Total Protein (6.3-8.2) g/dL Albumin (3.5-5.0) g/dL Prealbumin (17.6-36.0) mg/dL Urine Color (Yellow) Urine Appearance (Clear) Urine pH (4.6-8.0) Ur Specific [place] (1.005-1.030) Urine Protein (Negative) Urine Glucose (UA) (Negative) mg/dL Urine Ketones (Negative) Urine Blood (Negative) Urine Nitrite (Negative) Urine Bilirubin (Negative) Urine Urobilinogen (0.2) mg/dL Ur Leukocyte Esterase (Negative) U Hyaline Cast (Auto) (0-2) /LPF Urine Microscopic RBC (0-5) /HPF Urine Microscopic WBC (0-5) /HPF Ur Epithelial Cells (None Seen) /HPF Urine Bacteria (None Seen) /HPF Urine Culture Reflexed (NO) 05/15/24 05/15/24 Range/Units 04:10 04:10 WBC (3.98-10.04) x10^3/uL RBC (3.93-5.22) x10^6/uL Hgb (11.2-15.7) g/dL Hct (34.1-44.9) % MCV (79.4-94.8) fL MCH (25.6-32.2) pg MCHC (32.2-35.5) g/dL RDW (11.7-14.4) % Plt Count (182-369) x10^3/uL MPV (9.4-12.3) fL Gran % (34.0-71.1) % Immature Gran % (Auto) (0.001-0.429) % Nucleat RBC Rel Count (0.00-0.2) % Eos # (Auto) (0.04-0.36) x10^3/uL Immature Gran # (Auto) (0.001-0.031) x10^3u/L Absolute Lymphs (auto) (1.18-3.74) x10^3/uL Absolute Monos (auto) (0.24-0.86) x10^3/uL Absolute Nucleated RBC (0.00-0.012) x10^3u/L Lymphocytes % (19.3-51.7) % Monocytes % (4.7-12.5) % Eosinophils % (0.7-5.8) % Basophils % (0.1-1.2) % Absolute Granulocytes (1.56-6.13) x10^3/uL Basophils # (0.01-0.08) x10^3/uL Sodium 138 (135-145) mmol/L Potassium 4.2 (3.5-5.1) mmol/L Chloride 99 (98-107) mmol/L Carbon Dioxide 35 H (22-30) mmol/L Anion Gap 8.3 (5-15) MEQ/L BUN 21 H (7-17) mg/dL Creatinine 1.03 (0.52-1.04) mg/dL Estimated GFR 56.0 ML/MIN Glucose 186 H (74-106) mg/dL POC Glucometer 145 H (74 to 106) mg/dL Calcium 8.2 L (8.4-10.2) mg/dL Total Bilirubin (0.2-1.3) mg/dL AST (14-36) U/L ALT (0-35) U/L Alkaline Phosphatase (38-126) U/L Serum Total Protein (6.3-8.2) g/dL Albumin (3.5-5.0) g/dL Prealbumin 14.10 L (17.6-36.0) mg/dL Urine Color (Yellow) Urine Appearance (Clear) Urine pH (4.6-8.0) Ur Specific [place] (1.005-1.030) Urine Protein (Negative) Urine Glucose (UA) (Negative) mg/dL Urine Ketones (Negative) Urine Blood (Negative) Urine Nitrite (Negative) Urine Bilirubin (Negative) Urine Urobilinogen (0.2) mg/dL Ur Leukocyte Esterase (Negative) U Hyaline Cast (Auto) (0-2) /LPF Urine Microscopic RBC (0-5) /HPF Urine Microscopic WBC (0-5) /HPF Ur Epithelial Cells (None Seen) /HPF Urine Bacteria (None Seen) /HPF Urine Culture Reflexed (NO) Radiology Exams: Radiology Procedures Category Date Time Status ANKLE (3 VIEWS) Stat Exams 05/14/24 12:51 Completed FOOT (MINIMUM 3 VIEWS) Stat Exams 05/14/24 12:52 Completed FOOT (MINIMUM 3 VIEWS) Stat Exams 05/14/24 12:52 Completed HEAD WITHOUT CONTRAST [CT] Stat Exams 05/14/24 15:27 Completed KNEE (1 OR 2 VIEW) Stat Exams 05/14/24 12:52 Completed KNEE (1 OR 2 VIEW) Stat Exams 05/14/24 12:52 Completed Assessment/Plan (1) UTI (urinary tract infection) Current Visit: Yes Status: Acute Assessment & Plan: -UA suspicious for infection, Rocephin initiated empirically, will follow cultures Code(s): N39.0 - URINARY TRACT INFECTION, SITE NOT SPECIFIED (2) Fall with no significant injury Current Visit: Yes Status: Acute Assessment & Plan: -Head CT negative for acute findings -Bilat knee xray - no acute findings -bilateral foot xray no acute findings -Left Katie xray no acute findings -Pain control -PT/OT Code status: DNR Prophylaxis: Eliquis Diet: Regular Code(s): W19.XXXA - UNSPECIFIED FALL, INITIAL ENCOUNTER (3) Dementia Current Visit: Yes Status: Acute Assessment & Plan: -Continue home medication namenda/carpirazine Code(s): F03.90 - UNSP DEMENTIA, UNSP SEVERITY, WITHOUT BEH/PSYCH/MOOD/ANX (4) Afib Current Visit: Yes Status: Acute Assessment & Plan: -Cotninue home Eliquis Code(s): I48.91 - UNSPECIFIED ATRIAL FIBRILLATION (5) Chronic diastolic (congestive) heart failure Current Visit: Yes Status: Acute Assessment & Plan: - continue Lasix 40 mg AM, 20 mg PM - d/c continuous NS Code(s): I50.32 - CHRONIC DIASTOLIC (CONGESTIVE) HEART FAILURE (6) Hypothyroid Current Visit: Yes Status: Acute Assessment & Plan: - resume home levothyroxine 88 mcg Code(s): E03.9 - HYPOTHYROIDISM, UNSPECIFIED (7) COPD (chronic obstructive pulmonary disease) Current Visit: Yes Status: Acute Assessment & Plan: -on baseline 3L oxygen -supplemental oxygen with spo2 goal >91% -Nebs/INH -RT eval -CXR with no acute findings -Does not appear to be in exacerbation
[2024-05-15] MEDS ORDERED: MEDICATION INTERVENTION MC SCH (07:00)
[2024-05-15] MEDS ORDERED: LASIX 20 MG PO SCH (08:00)
[2024-05-15] MEDS: Lasix 40 MG PO SCH (08:38)
[2024-05-15] MEDS: Cymbalta 30 MG Capsule PO SCH (08:50)
[2024-05-15] MEDS: ELIQUIS 2.5 MG TABLET PO SCH (08:51)
[2024-05-15] MEDS: Namenda 5 MG PO SCH (08:51)
[2024-05-15] MEDS: Ditropan 5 MG PO SCH (08:51)
[2024-05-15] MEDS: Protonix 40MG Tablet PO SCH (08:51)
[2024-05-15] MEDS: MAG-OX 400 PO SCH (08:51)
[2024-05-15] MEDS: Klor Con PO SCH (08:51)
[2024-05-15] MEDS: CLARITIN 10 MG PO SCH (08:51)
[2024-05-15] MEDS: NON-FORMULARY ITEM PO SCH (08:53)
[2024-05-15] MEDS: Neurontin PO SCH (08:53)
[2024-05-15] MEDS: ROCEPHIN 1 GM / 100 ML NaCl 1 GM/100 ML IVPB IV SCH (08:53)
[2024-05-15] MEDS: SYNTHROID 88 MCG PO SCH (08:53)
--- NOTE | 2024-05-15 09:23 | XRAY ---
Indication: Cough. Comparison: March 15, 2022 Portable apical lordotic chest again demonstrates chronic right hemidiaphragm elevation without focal infiltrate, consolidation, or large effusion. Heart not enlarged. Bony thorax intact again with osteopenia and degenerative changes. Impression: Continued nonacute chest with chronic features.
[2024-05-15] MEDS ORDERED: NON-FORMULARY ITEM (Memantine Hcl [Memantine Hcl] 10 MG Tablet) PO SCH (10:00)
[2024-05-15] MEDS ORDERED: NON-FORMULARY ITEM (Propranolol Hcl [Propranolol Hcl Er] 60 MG Cap.Sa.24h) PO SCH (10:00)
[2024-05-15] MEDS ORDERED: NON-FORMULARY ITEM (Magnesium [Magnesium] 200 MG Tablet) PO SCH (10:00)
[2024-05-15] MEDS ORDERED: NON-FORMULARY ITEM (Solifenacin Succinate [Solifenacin Succinate] 5 MG Tablet) PO SCH (10:00)
[2024-05-15] MEDS ORDERED: NON-FORMULARY ITEM (Cetirizine Hcl [All Day Allergy Relief] 10 MG Capsule) PO SCH (10:00)
[2024-05-15] MEDS ORDERED: NON-FORMULARY ITEM (Apixaban [Eliquis] 5 MG Tab.Ds.Pk) PO SCH (10:00)
[2024-05-15] MEDS ORDERED: NON-FORMULARY ITEM (Duloxetine Hcl [Cymbalta] 60 MG Capsule.Dr) PO SCH (10:00)
[2024-05-15] MEDS: LASIX 20 MG PO SCH (16:42)
[2024-05-15] MEDS ORDERED: Miralax Powder 17GM PACKET PO PRN (16:47)
[2024-05-15] MEDS: PROVENTIL 2.5 MG/3 ML NEB IH PRN (19:24)
[2024-05-15] MEDS: OMNICEF 300 MG PO SCH (21:54)
[2024-05-15] MEDS ORDERED: NON-FORMULARY ITEM (Cariprazine Hcl [Vraylar] 3 MG Capsule) PO SCH (22:00)
--- NOTE | 2024-05-16 05:07 | PCM.NOTE ---
Date and Time: 05/16/24 0506 Subjective Assessment: HPI: Ms. Agudelo is a 79 y/o F with h/o A-fib, DM2, COPD on 2L oxygen, CHF, hypothyroidism, admitted 05/14/24 after a fall at home. Head CT with non-acute findings. CXR with non-acute findings. Multiple X-rays confirmed no fracture. Patient unsure of what preempted her fall, she states she just became weak. Urinalysis suspicious for infection. Rocephin started. 05/15/24: Met with patient bedside. Endorses bilateral knee pain 5/10 on numerical pain scale. She is A&O x 3 this morning. Lung sounds coarse on auscultation. On her baseline of 3L oxygen.CXR with non-acute findings. U-cult pending. Patient is still very weak. Will have PT evaluate, patient does live at home alone. Denies fever, cp, abdominal pain, YANES, dizziness, N/V/D. Objective Exam Wound Assessment: Skin/Wound Assessment Wound/Incision Assessment Start: 05/14/24 21:17 Text: Status: Active Freq: Q6H Protocol: Document 05/16/24 02:00 KD (Rec: 05/16/24 03:03 KD [id number]) Wound/Incision Assessment Left Heel Wound Assessment Shift Assessment Wound Type redness General Appearance Open to air,Clean/Dry,Reddened Surrounding Tissue Bright Red Comment healed previous wound Right Buttock Wound Assessment Shift Assessment Wound Type shearing Drainage Amount None Drainage Odor None/Absent Surrounding Tissue [place] Primary Dressing mepilex Wound Photo Photo Taken No Objective Data Vital Signs: Vital Signs - 24 hr Temp Pulse Resp BP Pulse Ox 05/16/24 00:00 97.5 F 60 17 132/63 97 05/15/24 20:00 97.1 F 63 19 128/59 96 05/15/24 19:26 73 16 99 05/15/24 16:00 97.7 F 58 L 16 112/55 95 05/15/24 11:17 97.9 F 66 16 107/51 98 05/15/24 07:25 62 16 94 L 05/15/24 07:11 97.8 F 57 L 16 95/45 95 Pain Assessment - Last Documented Pain Intensity 0 Intake and Output: Intake & Output 05/13/24 05/14/24 05/15/24 09/18/24 11:59 11:59 11:59 11:59 Intake Total 600 240 Output Total 550 Balance 600 -310 Weight 90.9 kg Lab Results: Lab Results-Last 24 Hours 05/15/24 05/15/24 05/15/24 Range/Units 07:36 11:50 16:25 POC Glucometer 77 143 H 133 H (74 to 106) mg/dL 05/15/24 Range/Units 21:52 POC Glucometer 168 H (74 to 106) mg/dL Radiology Exams: Radiology Procedures Category Date Time Status ANKLE (3 VIEWS) Stat Exams 05/14/24 12:51 Completed CHEST 1 VIEW (PORTABLE) Urgent Exams 05/15/24 07:33 Completed FOOT (MINIMUM 3 VIEWS) Stat Exams 05/14/24 12:52 Completed FOOT (MINIMUM 3 VIEWS) Stat Exams 05/14/24 12:52 Completed HEAD WITHOUT CONTRAST [CT] Stat Exams 05/14/24 15:27 Completed KNEE (1 OR 2 VIEW) Stat Exams 05/14/24 12:52 Completed KNEE (1 OR 2 VIEW) Stat Exams 05/14/24 12:52 Completed Multi-Disciplinary Progress Notes: Multi-Disciplinary Progress Notes 05/15/24 15:38 Case Management Note by Lois Payton INITIATED AT THIS TIME- IN REVIEW Initialized on 05/15/24 15:38 - END OF NOTE 05/15/24 12:30 (created 05/15/24 14:15) Case Management Note by Lois Payton REFERRAL EMAILED TO [facility] S/W ZAKIA- SHE IS AWARE PATIENT WILL NOT MEET MEDICARE GUIDELINES FOR A REHAB STAY. FAMILY INTERESTED IN PLACING PATIENT UNDER MEDICAID PENDING THEY HAVE BEEN WORKING ON THAT. SHE STATED SHE WILL TALK TO PATIENT/FAMILY AND TALK WITH HER BUSINESS OFFICE. Initialized on 05/15/24 14:15 - END OF NOTE Assessment/Plan (1) UTI (urinary tract infection) Current Visit: Yes Status: Acute Assessment & Plan: -UA suspicious for infection, Rocephin initiated empirically, will follow cultures Code(s): N39.0 - URINARY TRACT INFECTION, SITE NOT SPECIFIED (2) Fall with no significant injury Current Visit: Yes Status: Acute Assessment & Plan: -Head CT negative for acute findings -Bilat knee xray - no acute findings -bilateral foot xray no acute findings -Left Katie xray no acute findings -Pain control -PT/OT Code status: DNR Prophylaxis: Eliquis Diet: Regular Code(s): W19.XXXA - UNSPECIFIED FALL, INITIAL ENCOUNTER (3) Dementia Current Visit: Yes Status: Acute Assessment & Plan: -Continue home medication namenda/carpirazine Code(s): F03.90 - UNSP DEMENTIA, UNSP SEVERITY, WITHOUT BEH/PSYCH/MOOD/ANX (4) Afib Current Visit: Yes Status: Acute Assessment & Plan: -Cotninue home Eliquis Code(s): I48.91 - UNSPECIFIED ATRIAL FIBRILLATION (5) Chronic diastolic (congestive) heart failure Current Visit: Yes Status: Acute Assessment & Plan: - continue Lasix 40 mg AM, 20 mg PM - d/c continuous NS Code(s): I50.32 - CHRONIC DIASTOLIC (CONGESTIVE) HEART FAILURE (6) Hypothyroid Current Visit: Yes Status: Acute Assessment & Plan: - resume home levothyroxine 88 mcg Code(s): E03.9 - HYPOTHYROIDISM, UNSPECIFIED (7) COPD (chronic obstructive pulmonary disease) Current Visit: Yes Status: Acute Assessment & Plan: -on baseline 3L oxygen -supplemental oxygen with spo2 goal >91% -Nebs/INH -RT eval -CXR with no acute findings -Does not appear to be in exacerbation Code(s): N39.0 - URINARY TRACT INFECTION, SITE NOT SPECIFIED (2) Fall with no significant injury Current Visit: Yes Status: Acute Code(s): W19.XXXA - UNSPECIFIED FALL, INITIAL ENCOUNTER (3) Dementia Current Visit: Yes Status: Acute Code(s): F03.90 - UNSP DEMENTIA, UNSP SEVERITY, WITHOUT BEH/PSYCH/MOOD/ANX (4) Afib Current Visit: Yes Status: Acute Code(s): I48.91 - UNSPECIFIED ATRIAL FIBRILLATION (5) Chronic diastolic (congestive) heart failure Current Visit: Yes Status: Acute Code(s): I50.32 - CHRONIC DIASTOLIC (CONGESTIVE) HEART FAILURE (6) Hypothyroid Current Visit: Yes Status: Acute Code(s): E03.9 - HYPOTHYROIDISM, UNSPECIFIED (7) COPD (chronic obstructive pulmonary disease) Current Visit: Yes Status: Acute
[2024-05-16 05:16] LABS: Absolute Neutrophil Ct (ANC) 2.56 x10^3/uL (1.56-6.13); BASOPHIL % 0.4 % (0.1-1.2); Basophil (Absolute #) 0.02 x10^3/uL (0.01-0.08); Eosinophil % 5.5 % (0.7-5.8); Eosinophil (Absolute #) 0.25 x10^3/uL (0.04-0.36); Hematocrit 31.1 % (34.1-44.9); Hemoglobin 9.8 g/dL (11.2-15.7); IMMATURE GRAN # 0.01 x10^3u/L (0.001-0.031); IMMATURE GRAN % 0.2 % (0.001-0.429); Lymphocyte (Absolute #) 1.18 x10^3/uL (1.18-3.74); Mean Cell Volume 88.6 fL (79.4-94.8); Mean Corpuscular Hemoglobin 27.9 pg (25.6-32.2); Mean Corpuscular Hgb Concent. 31.5 g/dL (32.2-35.5); Mean Platelet Volume 10.4 fL (9.4-12.3); Monocyte (Absolute #) 0.52 x10^3/uL (0.24-0.86); Monocytes % 11.5 % (4.7-12.5); Neutrophil % 56.4 % (34.0-71.1); Platelet Count 106 x10^3/uL (182-369); Red Blood Count 3.51 x10^6/uL (3.93-5.22); Red Cell Distribution Width 14.9 % (11.7-14.4); White Blood Count 4.5 x10^3/uL (3.98-10.04)
[2024-05-16 05:47] LABS: ALBUMIN 3.6 g/dL (3.5-5.0); ANION GAP 7.6 MEQ/L (5-15); BILIRUBIN,TOTAL 0.4 mg/dL (0.2-1.3); Calcium 8.5 mg/dL (8.4-10.2); Creatinine 1 1.04 mg/dL (0.52-1.04); EST GLOMERULAR FILTRATION RATE 55.4 ML/MIN; Potassium 4.3 mmol/L (3.5-5.1); Total Protein 7.1 g/dL (6.3-8.2)
[2024-05-16 05:59] LABS: Slide Review 1 YES
[2024-05-16 07:11] VITALS: RESP 16
[2024-05-16] MEDS: TYLENOL 325 MG PO PRN (09:14)
[2024-05-16] MEDS: Docusate Sodium 100 MG PO PRN (09:17)
[2024-05-16 11:14] VITALS: BP 129/59; PULSE 75; TEMP 97.6; O2SAT 99
--- NOTE | 2024-05-16 12:20 | PCM.DS ---
Discharge Summary Date of Admission: 05/14/24 20:09 Date of Discharge: 05/16/24 Admitting Physician: LYNDSEY SINGH MD Primary Care Provider: KASH EDMONDS Allergies Allergies Sulfa (Sulfonamide Antibiotics) Allergy (Severe, Verified 05/14/24 21:27) Hives tapentadol HCl [From Nucynta] Allergy (Severe, Verified 05/14/24 21:27) throat swelling and itching acetaminophen [From Vicodin] Allergy (Mild, Verified 05/14/24 21:27) intense itching hydrocodone bitartrate [From Vicodin] Allergy (Mild, Verified 05/14/24 21:27) intense itching Hospital Summary - Hospital Course Hospital Course: Ms. Agudelo is a 79 y/o F with h/o A-fib, DM2, COPD on 2L oxygen, CHF, hypothyroidism, admitted 05/14/24 after a fall at home. Head CT with non-acute findings. CXR with non-acute findings. Multiple X-rays confirmed no fracture. Patient unsure of what preempted her fall, she states she just became weak. Urinalysis suspicious for infection. IP treatment with Rocephin/Cefdinir. Ucult with enerococcus faecalis - covered by cefdinir. Patient requesting discharge to SNF for rehab. Stable for discharge. Discharge Note New Diagnosis: UTI New Medications: Cefdinir Follow Up: PC Latest Assessment & Plan (1) UTI (urinary tract infection) Current Visit: Yes Status: Acute Assessment & Plan: -UA suspicious for infection, Rocephin initiated empirically, will follow cultures Code(s): N39.0 - URINARY TRACT INFECTION, SITE NOT SPECIFIED (2) Fall with no significant injury Current Visit: Yes Status: Acute Assessment & Plan: -Head CT negative for acute findings -Bilat knee xray - no acute findings -bilateral foot xray no acute findings -Left Katie xray no acute findings -Pain control -PT/OT Code status: DNR Prophylaxis: Eliquis Diet: Regular Code(s): W19.XXXA - UNSPECIFIED FALL, INITIAL ENCOUNTER (3) Dementia Current Visit: Yes Status: Acute Assessment & Plan: -Continue home medication namenda/carpirazine Code(s): F03.90 - UNSP DEMENTIA, UNSP SEVERITY, WITHOUT BEH/PSYCH/MOOD/ANX (4) Afib Current Visit: Yes Status: Acute Assessment & Plan: -Cotninue home Eliquis Code(s): I48.91 - UNSPECIFIED ATRIAL FIBRILLATION (5) Chronic diastolic (congestive) heart failure Current Visit: Yes Status: Acute Assessment & Plan: - continue Lasix 40 mg AM, 20 mg PM - d/c continuous NS Code(s): I50.32 - CHRONIC DIASTOLIC (CONGESTIVE) HEART FAILURE (6) Hypothyroid Current Visit: Yes Status: Acute Assessment & Plan: - resume home levothyroxine 88 mcg Code(s): E03.9 - HYPOTHYROIDISM, UNSPECIFIED (7) COPD (chronic obstructive pulmonary disease) Current Visit: Yes Status: Acute Assessment & Plan: -on baseline 3L oxygen -supplemental oxygen with spo2 goal >91% -Nebs/INH -RT eval -CXR with no acute findings -Does not appear to be in exacerbation I spent 35 minutes [id number] with the patient on the day of discharge performing discharge exam, discussing hospital stay and discharge instructions with patient and caregivers, preparation of discharge records, prescriptions & referral forms and addressing any questions/concerns the patient had as documented above. - Vitals & Intake/Output Vital Signs: Vital Signs Temperature 97.6 F 05/16/24 11:14 Pulse Rate 75 05/16/24 11:14 Respiratory Rate 16 05/16/24 11:14 Blood Pressure 129/59 05/16/24 11:14 O2 Sat by Pulse Oximetry 99 05/16/24 11:14 Intake & Output: Intake & Output 05/14/24 05/15/24 05/16/24 05/17/24 11:59 11:59 11:59 11:59 Intake Total 600 315 Output Total 550 Balance 600 -235 Weight 90.9 kg - Lab Result Diagrams: 05/16/24 05:00 05/16/24 05:00 Lab Results-Last 24 Hrs: Lab Results-Last 24 Hours 05/15/24 05/15/24 05/16/24 Range/Units 16:25 21:52 05:00 WBC 4.5 (3.98-10.04) x10^3/uL RBC 3.51 L (3.93-5.22) x10^6/uL Hgb 9.8 L (11.2-15.7) g/dL Hct 31.1 L (34.1-44.9) % MCV 88.6 (79.4-94.8) fL MCH 27.9 (25.6-32.2) pg MCHC 31.5 L (32.2-35.5) g/dL RDW 14.9 H (11.7-14.4) % Plt Count 106 L (182-369) x10^3/uL MPV 10.4 (9.4-12.3) fL Gran % 56.4 (34.0-71.1) % Immature Gran % (Auto) 0.2 (0.001-0.429) % Nucleat RBC Rel Count 0.0 (0.00-0.2) % Eos # (Auto) 0.25 (0.04-0.36) x10^3/uL Immature Gran # (Auto) 0.01 (0.001-0.031) x10^3u/L Absolute Lymphs (auto) 1.18 (1.18-3.74) x10^3/uL Absolute Monos (auto) 0.52 (0.24-0.86) x10^3/uL Absolute Nucleated RBC 0.00 (0.00-0.012) x10^3u/L Lymphocytes % 26.0 (19.3-51.7) % Monocytes % 11.5 (4.7-12.5) % Eosinophils % 5.5 (0.7-5.8) % Basophils % 0.4 (0.1-1.2) % Absolute Granulocytes 2.56 (1.56-6.13) x10^3/uL Basophils # 0.02 (0.01-0.08) x10^3/uL Sodium (135-145) mmol/L Potassium (3.5-5.1) mmol/L Chloride (98-107) mmol/L Carbon Dioxide (22-30) mmol/L Anion Gap (5-15) MEQ/L BUN (7-17) mg/dL Creatinine (0.52-1.04) mg/dL Estimated GFR ML/MIN Glucose (74-106) mg/dL POC Glucometer 133 H 168 H (74 to 106) mg/dL Calcium (8.4-10.2) mg/dL Total Bilirubin (0.2-1.3) mg/dL AST (14-36) U/L ALT (0-35) U/L Alkaline Phosphatase (38-126) U/L Serum Total Protein (6.3-8.2) g/dL Albumin (3.5-5.0) g/dL Slides for Path Review YES 05/16/24 05/16/24 05/16/24 Range/Units 05:00 07:31 11:53 WBC (3.98-10.04) x10^3/uL RBC (3.93-5.22) x10^6/uL Hgb (11.2-15.7) g/dL Hct (34.1-44.9) % MCV (79.4-94.8) fL MCH (25.6-32.2) pg MCHC (32.2-35.5) g/dL RDW (11.7-14.4) % Plt Count (182-369) x10^3/uL MPV (9.4-12.3) fL Gran % (34.0-71.1) % Immature Gran % (Auto) (0.001-0.429) % Nucleat RBC Rel Count (0.00-0.2) % Eos # (Auto) (0.04-0.36) x10^3/uL Immature Gran # (Auto) (0.001-0.031) x10^3u/L Absolute Lymphs (auto) (1.18-3.74) x10^3/uL Absolute Monos (auto) (0.24-0.86) x10^3/uL Absolute Nucleated RBC (0.00-0.012) x10^3u/L Lymphocytes % (19.3-51.7) % Monocytes % (4.7-12.5) % Eosinophils % (0.7-5.8) % Basophils % (0.1-1.2) % Absolute Granulocytes (1.56-6.13) x10^3/uL Basophils # (0.01-0.08) x10^3/uL Sodium 138 (135-145) mmol/L Potassium 4.3 (3.5-5.1) mmol/L Chloride 99 (98-107) mmol/L Carbon Dioxide 36 H (22-30) mmol/L Anion Gap 7.6 (5-15) MEQ/L BUN 18 H (7-17) mg/dL Creatinine 1.04 (0.52-1.04) mg/dL Estimated GFR 55.4 ML/MIN Glucose 135 H (74-106) mg/dL POC Glucometer 77 172 H (74 to 106) mg/dL Calcium 8.5 (8.4-10.2) mg/dL Total Bilirubin 0.40 (0.2-1.3) mg/dL AST 27 (14-36) U/L ALT 15 (0-35) U/L Alkaline Phosphatase 68 (38-126) U/L Serum Total Protein 7.1 (6.3-8.2) g/dL Albumin 3.6 (3.5-5.0) g/dL Slides for Path Review Micro Results-Entire Visit: Microbiology 05/14/24 16:05 Urine Culture - Final Catherized Enterococcus Faecalis Accuchecks Date 05/16/24 Date 05/16/24 Date 05/16/24 Date 05/15/24 Time 11:55 Time 07:34 Time 21:52 Time 17:02 - Radiology Exams Ordered Rad Exams-Entire Visit: Radiology Procedures Category Date Time Status ANKLE (3 VIEWS) Stat Exams 05/14/24 12:51 Completed CHEST 1 VIEW (PORTABLE) Urgent Exams 05/15/24 07:33 Completed FOOT (MINIMUM 3 VIEWS) Stat Exams 05/14/24 12:52 Completed FOOT (MINIMUM 3 VIEWS) Stat Exams 05/14/24 12:52 Completed HEAD WITHOUT CONTRAST [CT] Stat Exams 05/14/24 15:27 Completed KNEE (1 OR 2 VIEW) Stat Exams 05/14/24 12:52 Completed KNEE (1 OR 2 VIEW) Stat Exams 05/14/24 12:52 Completed - Procedures and Test Procedures and Tests throughout Hospitalization: Therapy Orders & Screens 05/14/24 23:05 Oxygen Nasal Cannula 3 lpm Comment: Diagnosis: UTI, Fall, Confusion Respiratory Therapy Assessment DAILY Comment: Diagnosis: UTI, Fall, Confusion Discharge Exam General Appearance: no apparent distress Neurologic Exam: alert, oriented x 3, cooperative Eye Exam: PERRL Ears, Nose, Throat Exam: normal ENT inspection Neck Exam: normal inspection Respiratory Exam: crackles/rales Cardiovascular Exam: regular rate/rhythm, normal heart sounds Gastrointestinal/Abdomen Exam: soft, normal bowel sounds Pelvic Exam: deferred Rectal Exam: deferred Extremity Exam: normal inspection Skin Exam: normal color Wound Assessment: Skin/Wound Assessment Wound/Incision Assessment Start: 05/14/24 21:17 Text: Status: Active Freq: Q6H Protocol: Document 05/16/24 08:00 RB (Rec: 05/16/24 09:14 RB [id number]) Wound/Incision Assessment Left Heel Wound Assessment Shift Assessment Wound Type redness General Appearance Open to air,Clean/Dry,Reddened Surrounding Tissue Bright Red Comment healed previous wound Right Buttock Wound Assessment Shift Assessment Wound Type shearing Drainage Amount None Drainage Odor None/Absent Surrounding Tissue [employer] Primary Dressing mepilex Comment healed no open areas Wound Photo Photo Taken No Final Diagnosis/Problem List - Final Discharge Diagnosis/Problem (1) UTI (urinary tract infection) Current Visit: Yes Status: Acute Code(s): N39.0 - URINARY TRACT INFECTION, SITE NOT SPECIFIED (2) Fall with no significant injury Current Visit: Yes Status: Acute Code(s): W19.XXXA - UNSPECIFIED FALL, INITIAL ENCOUNTER (3) Dementia Current Visit: Yes Status: Chronic Code(s): F03.90 - UNSP DEMENTIA, UNSP SEVERITY, WITHOUT BEH/PSYCH/MOOD/ANX (4) Afib Current Visit: Yes Status: Chronic Code(s): I48.91 - UNSPECIFIED ATRIAL FIBRILLATION (5) Chronic diastolic (congestive) heart failure Current Visit: Yes Status: Chronic Code(s): I50.32 - CHRONIC DIASTOLIC (CONGESTIVE) HEART FAILURE (6) Hypothyroid Current Visit: Yes Status: Chronic Code(s): E03.9 - HYPOTHYROIDISM, UNSPECIFIED (7) COPD (chronic obstructive pulmonary disease) Current Visit: Yes Status: Chronic - Discharge Disposition: DC TO ANY "OTHER" LONGTERM Condition: Stable Prescriptions: New Cefdinir [Omnicef 300 mg] 300 mg PO BID 7 Days #14 cap Continue Duloxetine HCl [Cymbalta] 60 mg PO QAM Multivitamin [Multivitamins] 1 each PO DAILY Glucosam/Antony-Msm1/C/[place]/Bosw [Osteo Bi-Flex Caplet] 1 each PO BID Furosemide [Lasix] 40 mg PO 0800 Albuterol 2.5 mg/3 ml Neb [Proventil 2.5 mg/3 ml Neb] 1 neb IH Q4HPRN PRN PRN Reason: breathing Albuterol 2 puff IH Q4H PRN PRN PRN Reason: breathing Potassium Chloride Tab* [Klor Con] 10 meq PO DAILY Solifenacin Succinate 5 mg PO DAILY PANTOPRAZOLE 40 mg Tablet [Protonix 40MG Tablet] 40 mg PO QAM Methadone HCl 10 mg [DOLOPHINE 10MG Tablet] 5 mg PO BID PRN PRN PRN Reason: Pain Memantine HCl 10 mg PO BID Magnesium 500 mg PO DAILY Cariprazine HCl [Vraylar] 3 mg PO HS Apixaban [Eliquis] 5 mg PO BID Propranolol HCl [Propranolol HCl ER] 60 mg PO DAILY Ropinirole HCl 1 mg PO TID Levothyroxine Sodium 88 Mcg [Synthroid 88 Mcg] 88 mcg PO DAILY Gabapentin [Neurontin ] 800 mg PO TID Cetirizine HCl [All Day Allergy Relief] 10 mg PO DAILY Calcium Carbonate/Vitamin D3 [Calcium 250-D Tablet] 1 each PO DAILY Furosemide [Lasix] 20 mg PO 1700 Glimepiride 1 mg PO BREAKFAST Discontinued Nitrofurantoin Macrocrystal [Nitrofurantoin] 50 mg PO HS Follow up with: KASH EDMONDS [Primary Care Provider] -
[2024-05-16] MEDS: Calcium 500MG W/Vit D Tablet PO SCH (13:24)
[2024-05-16] MEDS: Mucinex 600MG ER Tabs PO SCH (13:25)
== END 2024-05-16 16:37 ==
LOC: ED 12:25 → MED SURG 20:09
PROVIDERS: ADMIT Internal Medicine; ATTEND Internal Medicine
DX: N39.0 Urinary tract infection, site not specified (principal); W19.XXXA Unspecified fall, initial encounter; F03.90 Unspecified dementia, unspecified severity, without behavioral disturbance, psychotic disturbance, mood disturbance, and anxiety; I48.91 Unspecified atrial fibrillation; I11.0 Hypertensive heart disease with heart failure; I50.9 Heart failure, unspecified; Z85.3 Personal history of malignant neoplasm of breast; E78.5 Hyperlipidemia, unspecified; E03.9 Hypothyroidism, unspecified; J44.9 Chronic obstructive pulmonary disease, unspecified; Z79.01 Long term (current) use of anticoagulants; Z79.899 Other long term (current) drug therapy; Z99.81 Dependence on supplemental oxygen
CPT/HCPCS: 36000; 36415; 70450; 71045; 73560; 73610; 73630; 80048; 80053; 81001; 82947; 84134; 85025; 85027; 87077; 87086; 87186; 93005; 94640; 94760; 96365; 99285; G0378; Q3014; J0696; J7609; A9270-GY

== ENCOUNTER 2024-06-14 13:56 | Observation (INO) | payer MEDICARE ==
[~2024-06-14 13:56] MED LIST: SYNTHROID 88 MCG PO SCH
[2024-06-14] MEDS ORDERED: DUONEB 0.5-3 MG/3 ml Neb IH ONE (14:28)
[2024-06-14] MEDS: DUONEB 0.5-3 MG/3 ml Neb IH ONE (14:32)
--- NOTE | 2024-06-14 14:44 | XRAY ---
Indication: Short of breath. Comparison: May 15, 2024 Portable chest again demonstrates chronic right hemidiaphragm elevation without focal infiltrate, consolidation, or large effusion. Heart not enlarged. Bony thorax intact again with osteopenia and degenerative changes. Impression: Continued nonacute chest with chronic features.
[2024-06-14 14:48] LABS: Absolute Neutrophil Ct (ANC) 8.26 x10^3/uL (1.56-6.13); BASOPHIL % 0.4 % (0.1-1.2); Basophil (Absolute #) 0.04 x10^3/uL (0.01-0.08); Eosinophil % 0.9 % (0.7-5.8); Eosinophil (Absolute #) 0.09 x10^3/uL (0.04-0.36); Hematocrit 37.2 % (34.1-44.9); Hemoglobin 11.6 g/dL (11.2-15.7); IMMATURE GRAN # 0.03 x10^3u/L (0.001-0.031); IMMATURE GRAN % 0.3 % (0.001-0.429); Lymphocyte (Absolute #) 1.22 x10^3/uL (1.18-3.74); Lymphocytes % 11.8 % (19.3-51.7); Mean Corpuscular Hemoglobin 27.8 pg (25.6-32.2); Mean Corpuscular Hgb Concent. 31.2 g/dL (32.2-35.5); Mean Platelet Volume 9.3 fL (9.4-12.3); Monocytes % 6.8 % (4.7-12.5); Neutrophil % 79.8 % (34.0-71.1); Platelet Count 168 x10^3/uL (182-369); Red Blood Count 4.18 x10^6/uL (3.93-5.22); Red Cell Distribution Width 13.5 % (11.7-14.4); White Blood Count 10.3 x10^3/uL (3.98-10.04)
--- NOTE | 2024-06-14 14:48 | ERPHSYRPT ---
- History of Present Illness Time Seen by Provider: 06/14/24 14:04 Source: patient Exam Limitations: no limitations Patient Subjective Stated Complaint: Patient reported to have decreased 02 sats today at [facility] and changes in alertness. Triage Nursing Assessment: Patient arrived by ambulance. She is awake upon arrival and answering yes/no questions appropriately. Alert to name but confused to time, place, situation at the beginning of assessment/upon arrival. Patient becoming more alert toward the end of the assessment. Patient does not appear SOB upon arrival. She is sating 92% on 2L per N/C upon arrival. No cough. Patient soiled with urine. Dressing noted to left buttocks. Dressing removed and shearing noted underneath. Some edema present to BLE. JASON BEAVER. 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 Patient apparently was desatting to 70% per custodial on 2 L, was given DuoNeb and increased oxygen to 4 L with improvement in saturation to 98%. Patient is currently on 2 L with saturation around 92%. She is answering most of the question but a little slower in response. Moving all 4 extremities. Denies any chest pain or palpitations. Patient although denies any difficulty breathing, abdominal pain nausea or vomiting. No chest pain. No fever or chills reported. Allergies/Adverse Reactions: Sulfa (Sulfonamide Antibiotics) Allergy (Severe, Verified 06/14/24 14:02) Hives tapentadol HCl [From Nucynta] Allergy (Severe, Verified 06/14/24 14:02) throat swelling and itching acetaminophen [From Vicodin] Allergy (Mild, Verified 06/14/24 14:02) intense itching hydrocodone bitartrate [From Vicodin] Allergy (Mild, Verified 06/14/24 14:02) intense itching Home Medications: Duloxetine HCl [Cymbalta] 60 mg PO QAM 02/01/15 [History] Furosemide [Lasix] 40 mg PO 0800 02/01/15 [History] Multivitamin [Multivitamins] 1 each PO DAILY 06/06/15 [History] Albuterol 2 puff IH Q4H PRN PRN 08/22/19 [History] Albuterol 2.5 mg/3 ml Neb [Proventil 2.5 mg/3 ml Neb] 1 neb IH Q4HPRN PRN 08/22/19 [History] Potassium Chloride Tab* [Klor Con] 10 meq PO DAILY 08/22/19 [History] Apixaban [Eliquis] 5 mg PO BID 12/06/23 [History] Cariprazine HCl [Vraylar] 3 mg PO HS 12/06/23 [History] Magnesium 500 mg PO DAILY 12/06/23 [History] Memantine HCl 10 mg PO BID 12/06/23 [History] Methadone HCl 10 mg [DOLOPHINE 10MG Tablet] 5 mg PO BID PRN 12/06/23 [History] PANTOPRAZOLE 40 mg Tablet [Protonix 40MG Tablet] 40 mg PO QAM 12/06/23 [History] Solifenacin Succinate 5 mg PO DAILY 12/06/23 [History] Propranolol HCl [Propranolol HCl ER] 60 mg PO DAILY 12/07/23 [History] Ropinirole HCl 1 mg PO TID 12/07/23 [History] Calcium Carbonate/Vitamin D3 [Calcium 250-D Tablet] 1 each PO DAILY 05/14/24 [History] Cetirizine HCl [All Day Allergy Relief] 10 mg PO DAILY 05/14/24 [History] Furosemide [Lasix] 20 mg PO 1700 05/14/24 [History] Gabapentin [Neurontin ] 800 mg PO TID 05/14/24 [History] Glimepiride 1 mg PO BREAKFAST 05/14/24 [History] Levothyroxine Sodium 88 Mcg [Synthroid 88 Mcg] 88 mcg PO DAILY 05/14/24 [History] Hx Tetanus, Diphtheria Vaccination/Date Given: Yes Hx Influenza Vaccination/Date Given: Yes Hx Pneumococcal Vaccination/Date Given: Yes Immunizations Up to Date: Yes Travel Risk - International Travel Have you traveled outside of the country in past 3 weeks: No - Emerging Infectious Disease Are you exhibiting symptoms associated with any current EIDs: Yes Symptoms: Shortness of Breath - Review of Systems Constitutional: Fatigue Eyes: No Symptoms Ears, Nose, & Throat: No Symptoms Respiratory: Dyspnea Cardiac: No Symptoms Abdominal/Gastrointestinal: No Symptoms Genitourinary Symptoms: No Symptoms Musculoskeletal: Back Pain Skin: Skin Lesions Neurological: No Symptoms Endocrine: No Symptoms Hematologic/Lymphatic: No Symptoms - Past Medical History Pertinent Past Medical History: Yes Neurological History: Migraines, Peripheral Neuropathy ENT History: Cataracts Cardiac History: High Cholesterol, Hypertension Respiratory History: COPD, Pulmonary Embolism, Other Endocrine Medical History: Diabetes Type II, Hypothyroidism Musculoskeletal History: Degenerative Disk Disease, Fibromyalgia, Osteoporosis, Rheumatoid Arthritis GI Medical History: Diverticulosis, GERD History: Renal Disease Psycho-Social History: Anxiety, Depression Female Reproductive Disorders: Breast Cancer Other Medical History: Chronic stage 3 kidney disease, dropped mesh into vagina from bladder sling- causes frequent UTI, Iron def anemia and b-12 anemia, didn't recovery well from the PE pts wears 2L O2 via nasal canula - Past Surgical History Past Surgical History: Yes Neuro Surgical History: No Pertinent History Cardiac: Cardiac Catheterization Respiratory: No Pertinent History Gastrointestinal: Cholecystectomy Genitourinary: Other Musculoskeletal: Orthopedic Surgery Female Surgical History: Hysterectomy, Lumpectomy, Mastectomy Other Surgical History: righ carpel tunnel surgery, bilateral mastectomy 2013 Radical to left side2 lamenectomys, 3 vertebre fused to lumbar neck fusion thorasic fusion left knee surgery bladder sling with mesh catarct and lasix surgery Significant Family History: no pertinent family hx - Social History Smoking Status: Never smoker Exposure to second hand smoke: No Drug Use: none Patient Lives Alone: Yes - Social Determinants of Health Will the patient participate in the screening: Yes Do you worry about a steady place to live?: No Do you have any problems with any of the following?: No known problems In the past 12 months,have you had to go without utilities?: No Transportation Issues: No Has anyone in your support network made you feel unsafe?: No Have you or anyone in your house had to go without enough: No Comment: Currently resides at [facility]. - Nursing Vital Signs Nursing Vital Signs: Initial Vital Signs Temperature 98.9 F 06/14/24 14:00 Pulse Rate 60 06/14/24 14:00 Respiratory Rate 18 06/14/24 14:00 Blood Pressure 133/62 06/14/24 14:00 O2 Sat by Pulse Oximetry 92 L 06/14/24 14:00 Pain Scale Pain Intensity 0 - Physical Exam General Appearance: no apparent distress, alert Eye Exam: PERRL/EOMI Ears, Nose, Throat Exam: hearing grossly normal Neck Exam: normal inspection, non-tender, supple, full range of motion Respiratory Exam: rhonchi, wheezing Cardiovascular/Chest Exam: normal heart sounds, regular rate/rhythm Abdominal/Gastrointestinal Exam: soft, normal bowel sounds, No tenderness Extremity Exam: non-tender, normal range of motion Neurologic Exam: alert, oriented x 3, cooperative, dragsaw operator II-XII nml as tested, sensation nml, No normal mood/affect, No motor deficits Skin Exam: normal color, other (Healing decubitus) SpO2 Interpretation: O2 applied SpO2: 91 O2 Delivery: Nasal Cannula (2 L) - Course EKG Interpreted by Me: RATE ([id number]), Sinus Wang, NORMAL AXIS, NORMAL INTERVALS, NORMAL QRS Ordered Tests: Active Orders 24 hr Category Date Time Status EKG-ER Only STAT Care 06/14/24 14:18 Active IV Insertion STAT Care 06/14/24 14:18 Active NPO (ED) STAT Care 06/14/24 14:18 Active CHEST 1 VIEW (PORTABLE) Stat Exams 06/14/24 14:18 Completed BLOOD CULTURE Stat Lab 06/14/24 14:47 Received CBC W DIFF Stat Lab 06/14/24 14:47 Completed CMP Stat Lab 06/14/24 14:47 Completed CULTURE,URINE Stat Lab 06/14/24 14:06 Received LIPASE Stat Lab 06/14/24 14:47 Completed Lactic Acid Stat Lab 06/14/24 14:45 Completed MAGNESIUM Stat Lab 06/14/24 14:47 Completed NT PRO BNPII Stat Lab 06/14/24 14:47 Completed PROCALCITONIN Stat Lab 06/14/24 14:47 Completed TROPONIN Q4H Lab 06/14/24 14:47 Completed TROPONIN Q4H Lab 06/14/24 18:30 Ordered TROPONIN Q4H Lab 06/14/24 22:30 Ordered UA W/RFX UR CULTURE Stat Lab 06/14/24 14:06 Completed Respiratory Therapy Assessment DAILY RT 06/14/24 14:34 Active Transfer Order Routine Transfer 06/14/24 Ordered Medication Summary Discontinued Medications Generic Name Dose Route Start Last Admin Trade Name Freq PRN Reason Stop Dose Admin Albuterol/Ipratropium 3 ml 06/14/24 14:19 06/14/24 14:32 Ipratropium/Albuterol Sulfate 3 Ml Ampul.Neb IH 06/14/24 14:20 3 ml STAT ONE Administration Albuterol/Ipratropium Confirm 06/14/24 14:28 Ipratropium/Albuterol Sulfate 3 Ml Ampul.Neb Administered 06/14/24 14:29 Dose 3 ml IH .STK-MED ONE Ceftriaxone Sodium 2 gm in 100 mls @ 200 mls/hr 06/14/24 15:17 06/14/24 16:04 Rocephin 2 Gm/100 Ml Nacl IV 06/14/24 15:46 Infused STAT ONE Infusion Ceftriaxone Sodium Confirm 06/14/24 15:21 Rocephin 2 Gm/100 Ml Nacl Administered 06/14/24 15:22 Dose 2 gm in 100 mls @ ud IV .STK-MED ONE Patiromer 8.4 gm 06/14/24 16:08 06/14/24 16:17 Patiromer Calcium Sorbitex 8.4 Gm Powd.Pack PO 06/14/24 16:09 Not Given STAT STA Patiromer Confirm 06/14/24 16:14 Patiromer Calcium Sorbitex 8.4 Gm Powd.Pack Administered 06/14/24 16:15 Dose 8.4 gm PO .STK-MED ONE Lab/Rad Data: Laboratory Result Diagrams 06/14/24 14:47 06/14/24 14:47 Laboratory Results 06/14/24 06/14/24 06/14/24 Range/Units 14:53 14:47 14:47 WBC (3.98-10.04) x10^3/uL RBC (3.93-5.22) x10^6/uL Hgb (11.2-15.7) g/dL Hct (34.1-44.9) % MCV (79.4-94.8) fL MCH (25.6-32.2) pg MCHC (32.2-35.5) g/dL RDW (11.7-14.4) % Plt Count (182-369) x10^3/uL MPV (9.4-12.3) fL Gran % (34.0-71.1) % Immature Gran % (Auto) (0.001-0.429) % Nucleat RBC Rel Count (0.00-0.2) % Eos # (Auto) (0.04-0.36) x10^3/uL Immature Gran # (Auto) (0.001-0.031) x10^3u/L Absolute Lymphs (auto) (1.18-3.74) x10^3/uL Absolute Monos (auto) (0.24-0.86) x10^3/uL Absolute Nucleated RBC (0.00-0.012) x10^3u/L Lymphocytes % (19.3-51.7) % Monocytes % (4.7-12.5) % Eosinophils % (0.7-5.8) % Basophils % (0.1-1.2) % Absolute Granulocytes (1.56-6.13) x10^3/uL Basophils # (0.01-0.08) x10^3/uL Sodium 140 (135-145) mmol/L Potassium 5.4 H (3.5-5.1) mmol/L Chloride 97 L (98-107) mmol/L Carbon Dioxide 37 H (22-30) mmol/L Anion Gap 11.6 (5-15) MEQ/L BUN 17 (7-17) mg/dL Creatinine 1.12 H (0.52-1.04) mg/dL Estimated GFR 50.7 ML/MIN Glucose 103 (74-106) mg/dL Lactic Acid (0.4-2.0) Calcium 9.1 (8.4-10.2) mg/dL Magnesium 2.0 (1.6-2.3) mg/dL Total Bilirubin 0.50 (0.2-1.3) mg/dL AST 33 (14-36) U/L ALT 16 (0-35) U/L Alkaline Phosphatase 90 (38-126) U/L Troponin I < 0.012 (0.000-0.033) ng/mL NT-Pro-B Natriuret Pep 594 (<300) pg/mL Serum Total Protein 8.3 H (6.3-8.2) g/dL Albumin 4.5 (3.5-5.0) g/dL Lipase 58 (23-300) U/L Procalcitonin 0.043 (0.030-0.080) ng/mL Urine Color (Yellow) Urine Appearance (Clear) Urine pH (4.6-8.0) Ur Specific [place] (1.005-1.030) Urine Protein (Negative) Urine Glucose (UA) (Negative) mg/dL Urine Ketones (Negative) Urine Blood (Negative) Urine Nitrite (Negative) Urine Bilirubin (Negative) Urine Urobilinogen (0.2) mg/dL Ur Leukocyte Esterase (Negative) U Hyaline Cast (Auto) (0-2) /LPF Urine Microscopic RBC (0-5) /HPF Urine Microscopic WBC (0-5) /HPF Ur Epithelial Cells (None Seen) /HPF Urine Bacteria (None Seen) /HPF Urine Culture Reflexed (NO) Influenza Type A Ag NEGATIVE (NEGATIVE) Influenza Type B Ag NEGATIVE (NEGATIVE) RSV (PCR) NEGATIVE (NEGATIVE) SARS-CoV-2 (PCR) NEGATIVE (NEGATIVE) 06/14/24 06/14/24 06/14/24 Range/Units 14:47 14:45 14:06 WBC 10.3 H (3.98-10.04) x10^3/uL RBC 4.18 (3.93-5.22) x10^6/uL Hgb 11.6 (11.2-15.7) g/dL Hct 37.2 (34.1-44.9) % MCV 89.0 (79.4-94.8) fL MCH 27.8 (25.6-32.2) pg MCHC 31.2 L (32.2-35.5) g/dL RDW 13.5 (11.7-14.4) % Plt Count 168 L (182-369) x10^3/uL MPV 9.3 L (9.4-12.3) fL Gran % 79.8 H (34.0-71.1) % Immature Gran % (Auto) 0.3 (0.001-0.429) % Nucleat RBC Rel Count 0.0 (0.00-0.2) % Eos # (Auto) 0.09 (0.04-0.36) x10^3/uL Immature Gran # (Auto) 0.03 (0.001-0.031) x10^3u/L Absolute Lymphs (auto) 1.22 (1.18-3.74) x10^3/uL Absolute Monos (auto) 0.70 (0.24-0.86) x10^3/uL Absolute Nucleated RBC 0.00 (0.00-0.012) x10^3u/L Lymphocytes % 11.8 L (19.3-51.7) % Monocytes % 6.8 (4.7-12.5) % Eosinophils % 0.9 (0.7-5.8) % Basophils % 0.4 (0.1-1.2) % Absolute Granulocytes 8.26 H (1.56-6.13) x10^3/uL Basophils # 0.04 (0.01-0.08) x10^3/uL Sodium (135-145) mmol/L Potassium (3.5-5.1) mmol/L Chloride (98-107) mmol/L Carbon Dioxide (22-30) mmol/L Anion Gap (5-15) MEQ/L BUN (7-17) mg/dL Creatinine (0.52-1.04) mg/dL Estimated GFR ML/MIN Glucose (74-106) mg/dL Lactic Acid 1.3 (0.4-2.0) Calcium (8.4-10.2) mg/dL Magnesium (1.6-2.3) mg/dL Total Bilirubin (0.2-1.3) mg/dL AST (14-36) U/L ALT (0-35) U/L Alkaline Phosphatase (38-126) U/L Troponin I (0.000-0.033) ng/mL NT-Pro-B Natriuret Pep (<300) pg/mL Serum Total Protein (6.3-8.2) g/dL Albumin (3.5-5.0) g/dL Lipase (23-300) U/L Procalcitonin (0.030-0.080) ng/mL Urine Color Yellow (Yellow) Urine Appearance Cloudy A (Clear) Urine pH 7.0 (4.6-8.0) Ur Specific [place] 1.010 (1.005-1.030) Urine Protein Trace A (Negative) Urine Glucose (UA) Negative (Negative) mg/dL Urine Ketones Negative (Negative) Urine Blood Small A (Negative) Urine Nitrite Negative (Negative) Urine Bilirubin Negative (Negative) Urine Urobilinogen 0.2 (0.2) mg/dL Ur Leukocyte Esterase Large A (Negative) U Hyaline Cast (Auto) NONE SEEN (0-2) /LPF Urine Microscopic RBC 3-5 (0-5) /HPF Urine Microscopic WBC >100 A (0-5) /HPF Ur Epithelial Cells None Seen (None Seen) /HPF Urine Bacteria Many A (None Seen) /HPF Urine Culture Reflexed ORDERED SEPARATELY (NO) Influenza Type A Ag (NEGATIVE) Influenza Type B Ag (NEGATIVE) RSV (PCR) (NEGATIVE) SARS-CoV-2 (PCR) (NEGATIVE) - Progress Progress: re-examined Air Movement: good Progress Note: 06/14/24 16:47 79-year-old resident of custodial with multiple medical problems including chronic respiratory failure on 2 L oxygen, CHF, diabetes mellitus, 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 Patient has no distress, answering most of the questions appropriately. No focal obvious deficit. Chest x-ray is negative. EKG did not show any acute ST elevation. Has a white count of 10, chemistries with mildly elevated potassium, given [place]. Renal function pretty much around baseline. Does have UTI and given a dose of Rocephin. Has negative COVID flu and RSV. I believe patient's confusion was secondary to UTI. I have discussed with Dr. Cao, reviewed history, workup and agreed with admission. Shared the results of workup with patient and plan of admission which she understands and agrees. Counseled pt/family regarding: lab results, diagnosis, need for follow-up, rad results Medical Desision Making - Independent Historian Additional History obtained from: Long-Term nurse, Optical Design Engineer/EMT - Discussion of managment Care discussed with:: hospitalist (Dr. Cao) Reviewed:: Test results Agreed on:: Treatment plan, place in obs Will see patient: in hospital - Diagnostic Testing Diagnostic test were ordered, analyzed, and reviewed by me: Yes Radiological Interpretation: Reviewed by me - Risk of complications The pt has a mod risk of morbidity or mortality based on: Need for prescription drug management The pt has a high risk of morbidity or mortality based on: Decision regarding hospitilization or escalation of hosp level of care - Departure Departure Disposition: Observation Clinical Impression: Acute UTI (urinary tract infection), Altered mental status, Dyspnea, H yperkalemia Condition: Stable Critical Care Time: No
[2024-06-14 15:07] LABS: Appearance Cloudy (Clear); Bacteria Many /HPF (None Seen); Bilirubin Negative (Negative); Blood Small (Negative); Epithelial Cells None Seen /HPF (None Seen); Glucose, Urine Negative (Negative); Hyaline Casts NONE SEEN /LPF (0-2); Ketones Negative (Negative); Leukocyte Esterase Large (Negative); Nitrite Negative (Negative); Protein,Urine Dip Trace (Negative); Urobilinogen 0.2 mg/dL (0.2); WBC >100 /HPF (0-5)
[2024-06-14] MEDS ORDERED: ROCEPHIN 2 GM/100 ML NACL 2 GM/100 ML IVPB IV ONE (15:21)
[2024-06-14] MEDS: ROCEPHIN 2 GM/100 ML NACL 2 GM/100 ML IVPB IV ONE (15:22)
[2024-06-14 15:25] LABS: ALBUMIN 4.5 g/dL (3.5-5.0); ANION GAP 11.6 MEQ/L (5-15); BILIRUBIN,TOTAL 0.5 mg/dL (0.2-1.3); Calcium 9.1 mg/dL (8.4-10.2); Creatinine 1 1.12 mg/dL (0.52-1.04); EST GLOMERULAR FILTRATION RATE 50.7 ML/MIN; PROCALCITONIN 0.043 ng/mL (0.030-0.080); Potassium 5.4 mmol/L (3.5-5.1); Total Protein 8.3 g/dL (6.3-8.2)
[2024-06-14 15:30] LABS: INFLUENZA A NEGATIVE (NEGATIVE); INFLUENZA B NEGATIVE (NEGATIVE); RESPIRATORY SYNCTIAL VIRUS NEGATIVE (NEGATIVE); SARS-CoV-2 Xpert Express NEGATIVE (NEGATIVE)
[2024-06-14] MEDS ORDERED: VELTASSA PO ONE (16:14)
[2024-06-14] MEDS: VELTASSA PO STA (16:17)
--- NOTE | 2024-06-14 16:53 | PCM.HP ---
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 Patient is A&O x 4 during interview and daughter is able to help provide history as well. Daughter states that for the past several weeks patient has been more confused and tired. Patient has recurrent UTI's and usually presents with similar symptoms so she requested a urinalysis but never received results and symptoms have progressed. Patient is comfortable during interview at her baseline oxygen of 2L. She does report fatigue but denies dysuria, frequency, hematuria, fever, back pain, shortness of breath, chest pain, nausea, vomiting, or diarrhea. Upon arrival to ED patient mildly bradycardic with spo2 at 92% on 2L NC. CXR non-acute with chronic features EKG RATE (53), Sinus Wang, NORMAL AXIS, NORMAL INTERVALS, NORMAL QRS. Lab findings remarkable for mild leukocytosis, hyp erkalemia, and creat at 1.12 (baseline around 0.8-1. Urinalysis with pyuria. Respiratory viral panel negative. Patient given duoneb, veltassa, and ceftriaxone in ED. Admit for UTI. - Review of Systems Constitutional: Fatigue, Weakness Eyes: No Symptoms Ears, Nose, & Throat: No Symptoms Respiratory: No Symptoms Cardiac: No Symptoms Abdominal/Gastrointestinal: No Symptoms Genitourinary Symptoms: No Symptoms Musculoskeletal: Back Pain (chronic) Skin: No Symptoms Neurological: Lethargy Psychological: No Symptoms Endocrine: No Symptoms Hematologic/Lymphatic: No Symptoms Immunological/Allergic: No Symptoms Medications & Allergies Home Medications: Home Medication List Duloxetine HCl [Cymbalta] 60 mg PO QAM 02/01/15 [History Confirmed 06/14/24] Furosemide [Lasix] 40 mg PO 0800 02/01/15 [History Confirmed 06/14/24] Multivitamin [Multivitamins] 1 each PO DAILY 02/01/15 [History Confirmed 06/14/24] Albuterol 2 puff IH Q4H PRN PRN 08/22/19 [History Confirmed 06/14/24] Albuterol 2.5 mg/3 ml Neb [Proventil 2.5 mg/3 ml Neb] 1 neb IH Q4HPRN PRN 08/22/19 [History Confirmed 06/14/24] Potassium Chloride Tab* [Klor Con] 10 meq PO DAILY 08/22/19 [History Confirmed 06/14/24] Apixaban [Eliquis] 5 mg PO BID 12/06/23 [History Confirmed 06/14/24] Cariprazine HCl [Vraylar] 3 mg PO HS 12/06/23 [History Confirmed 06/14/24] Magnesium 500 mg PO DAILY 12/06/23 [History Confirmed 06/14/24] Memantine HCl 10 mg PO BID 12/06/23 [History Confirmed 06/14/24] Methadone HCl 10 mg [DOLOPHINE 10MG Tablet] 5 mg PO BID 12/06/23 [History Confirmed 06/14/24] PANTOPRAZOLE 40 mg Tablet [Protonix 40MG Tablet] 40 mg PO QAM 12/06/23 [History Confirmed 06/14/24] Solifenacin Succinate 5 mg PO DAILY 12/06/23 [History Confirmed 06/14/24] Propranolol HCl [Propranolol HCl ER] 60 mg PO DAILY 12/07/23 [History Confirmed 06/14/24] Ropinirole HCl 1 mg PO TID 12/07/23 [History Confirmed 06/14/24] Calcium Carbonate/Vitamin D3 [Calcium 250-D Tablet] 1 each PO DAILY 05/14/24 [History Confirmed 06/14/24] Cetirizine HCl [All Day Allergy Relief] 10 mg PO DAILY 05/14/24 [History Confirmed 06/14/24] Furosemide [Lasix] 20 mg PO 1700 05/14/24 [History Confirmed 06/14/24] Gabapentin [Neurontin ] 800 mg PO TID 05/14/24 [History Confirmed 06/14/24] Glimepiride 1 mg PO BREAKFAST 05/14/24 [History Confirmed 06/14/24] Levothyroxine Sodium 88 Mcg [Synthroid 88 Mcg] 88 mcg PO DAILY 05/14/24 [History Confirmed 06/14/24] Allergies/Adverse Reactions: Allergies Allergy/AdvReac Type Severity Reaction Status Date / Time Sulfa (Sulfonamide Allergy Severe Hives Verified 06/14/24 14:02 Antibiotics) tapentadol HCl [From Nucynta] Allergy Severe throat Verified 06/14/24 14:02 swelling and itching hydrocodone bitartrate Allergy Mild intense Verified 06/14/24 14:02 [From Vicodin] itching - Past Medical History Past Medical History: Yes Neurological History: Migraines, Peripheral Neuropathy ENT History: Cataracts Cardiac History: High Cholesterol, Hypertension Respiratory History: COPD, Pulmonary Embolism, Other Endocrine Medical History: Diabetes Type II, Hypothyroidism Musculoskelatal History: Degenerative Disk Disease, Fibromyalgia, Osteoporosis, Rheumatoid Arthritis GI Medical History: Diverticulosis, GERD History: Renal Disease Pyscho-Social History: Anxiety, Depression Reproductive Disorders: Breast Cancer Comment: Chronic stage 3 kidney disease, dropped mesh into vagina from bladder sling- causes frequent UTI, Iron def anemia and b-12 anemia, didn't recovery well from the PE pts wears 2L O2 via nasal canula - Past Surgical History Past Surgical History: Yes Neuro Surgical History: No Pertinent History Cardiac History: Cardiac Catheterization Respiratory Surgery: No Pertinent History GI Surgical History: Cholecystectomy Genitourinary Surgical Hx: Other Musculskeletal Surgical Hx: Orthopedic Surgery Female Surgical History: Hysterectomy, Lumpectomy, Mastectomy Other Surgical History: righ carpel tunnel surgery, bilateral mastectomy 2013 Radical to left side2 lamenectomys, 3 vertebre fused to lumbar neck fusion thorasic fusion left knee surgery bladder sling with mesh catarct and lasix surgery Significant Family History: no pertinent family hx - Social History Smoking Status: Never smoker Exposure to second hand smoke: No Alcohol: None Drug Use: none - Social Determinants of Health Will the patient participate in the screening: Yes Do you worry about a steady place to live?: No Do you have any problems with any of the following?: No known problems In the past 12 months,have you had to go without utilities?: No Have you or anyone in your house had to go without enough: No Transportation Issues: No Has anyone in your support network made you feel unsafe?: No Does the patient want assistance with any of the above?: No Comment: Currently resides at [facility]. - Physical Exam Vital Signs: Vital Signs - 24 hr Temp Pulse Resp BP Pulse Ox 06/14/24 16:00 51 L 19 101/61 97 06/14/24 15:30 50 L 17 92/62 06/14/24 15:00 52 L 16 108/61 95 06/14/24 14:51 91 L 06/14/24 14:35 52 L 19 91 L 06/14/24 14:00 98.9 F 60 18 133/62 92 L General Appearance: no apparent distress Neurologic Exam: alert, oriented x 3, cooperative Eye Exam: PERRL/EOMI Ears, Nose, Throat Exam: normal ENT inspection Neck Exam: normal inspection Respiratory Exam: crackles/rales Cardiovascular Exam: regular rate/rhythm, normal heart sounds Pelvic Exam: not done Rectal Exam: deferred Back Exam: normal inspection Extremity Exam: normal inspection Skin Exam: pale Results - Labs Lab/Micro Results: Lab Results-Last 24 Hours 06/14/24 06/14/24 06/14/24 Range/Units 14:06 14:45 14:47 WBC 10.3 H (3.98-10.04) x10^3/uL RBC 4.18 (3.93-5.22) x10^6/uL Hgb 11.6 (11.2-15.7) g/dL Hct 37.2 (34.1-44.9) % MCV 89.0 (79.4-94.8) fL MCH 27.8 (25.6-32.2) pg MCHC 31.2 L (32.2-35.5) g/dL RDW 13.5 (11.7-14.4) % Plt Count 168 L (182-369) x10^3/uL MPV 9.3 L (9.4-12.3) fL Gran % 79.8 H (34.0-71.1) % Immature Gran % (Auto) 0.3 (0.001-0.429) % Nucleat RBC Rel Count 0.0 (0.00-0.2) % Eos # (Auto) 0.09 (0.04-0.36) x10^3/uL Immature Gran # (Auto) 0.03 (0.001-0.031) x10^3u/L Absolute Lymphs (auto) 1.22 (1.18-3.74) x10^3/uL Absolute Monos (auto) 0.70 (0.24-0.86) x10^3/uL Absolute Nucleated RBC 0.00 (0.00-0.012) x10^3u/L Lymphocytes % 11.8 L (19.3-51.7) % Monocytes % 6.8 (4.7-12.5) % Eosinophils % 0.9 (0.7-5.8) % Basophils % 0.4 (0.1-1.2) % Absolute Granulocytes 8.26 H (1.56-6.13) x10^3/uL Basophils # 0.04 (0.01-0.08) x10^3/uL Sodium (135-145) mmol/L Potassium (3.5-5.1) mmol/L Chloride (98-107) mmol/L Carbon Dioxide (22-30) mmol/L Anion Gap (5-15) MEQ/L BUN (7-17) mg/dL Creatinine (0.52-1.04) mg/dL Estimated GFR ML/MIN Glucose (74-106) mg/dL Lactic Acid 1.3 (0.4-2.0) Calcium (8.4-10.2) mg/dL Magnesium (1.6-2.3) mg/dL Total Bilirubin (0.2-1.3) mg/dL AST (14-36) U/L ALT (0-35) U/L Alkaline Phosphatase (38-126) U/L Troponin I (0.000-0.033) ng/mL NT-Pro-B Natriuret Pep (<300) pg/mL Serum Total Protein (6.3-8.2) g/dL Albumin (3.5-5.0) g/dL Lipase (23-300) U/L Procalcitonin (0.030-0.080) ng/mL Urine Color Yellow (Yellow) Urine Appearance Cloudy A (Clear) Urine pH 7.0 (4.6-8.0) Ur Specific [place] 1.010 (1.005-1.030) Urine Protein Trace A (Negative) Urine Glucose (UA) Negative (Negative) mg/dL Urine Ketones Negative (Negative) Urine Blood Small A (Negative) Urine Nitrite Negative (Negative) Urine Bilirubin Negative (Negative) Urine Urobilinogen 0.2 (0.2) mg/dL Ur Leukocyte Esterase Large A (Negative) U Hyaline Cast (Auto) NONE SEEN (0-2) /LPF Urine Microscopic RBC 3-5 (0-5) /HPF Urine Microscopic WBC >100 A (0-5) /HPF Ur Epithelial Cells None Seen (None Seen) /HPF Urine Bacteria Many A (None Seen) /HPF Urine Culture Reflexed ORDERED SEPARATELY (NO) Influenza Type A Ag (NEGATIVE) Influenza Type B Ag (NEGATIVE) RSV (PCR) (NEGATIVE) SARS-CoV-2 (PCR) (NEGATIVE) 06/14/24 06/14/24 06/14/24 Range/Units 14:47 14:47 14:53 WBC (3.98-10.04) x10^3/uL RBC (3.93-5.22) x10^6/uL Hgb (11.2-15.7) g/dL Hct (34.1-44.9) % MCV (79.4-94.8) fL MCH (25.6-32.2) pg MCHC (32.2-35.5) g/dL RDW (11.7-14.4) % Plt Count (182-369) x10^3/uL MPV (9.4-12.3) fL Gran % (34.0-71.1) % Immature Gran % (Auto) (0.001-0.429) % Nucleat RBC Rel Count (0.00-0.2) % Eos # (Auto) (0.04-0.36) x10^3/uL Immature Gran # (Auto) (0.001-0.031) x10^3u/L Absolute Lymphs (auto) (1.18-3.74) x10^3/uL Absolute Monos (auto) (0.24-0.86) x10^3/uL Absolute Nucleated RBC (0.00-0.012) x10^3u/L Lymphocytes % (19.3-51.7) % Monocytes % (4.7-12.5) % Eosinophils % (0.7-5.8) % Basophils % (0.1-1.2) % Absolute Granulocytes (1.56-6.13) x10^3/uL Basophils # (0.01-0.08) x10^3/uL Sodium 140 (135-145) mmol/L Potassium 5.4 H (3.5-5.1) mmol/L Chloride 97 L (98-107) mmol/L Carbon Dioxide 37 H (22-30) mmol/L Anion Gap 11.6 (5-15) MEQ/L BUN 17 (7-17) mg/dL Creatinine 1.12 H (0.52-1.04) mg/dL Estimated GFR 50.7 ML/MIN Glucose 103 (74-106) mg/dL Lactic Acid (0.4-2.0) Calcium 9.1 (8.4-10.2) mg/dL Magnesium 2.0 (1.6-2.3) mg/dL Total Bilirubin 0.50 (0.2-1.3) mg/dL AST 33 (14-36) U/L ALT 16 (0-35) U/L Alkaline Phosphatase 90 (38-126) U/L Troponin I < 0.012 (0.000-0.033) ng/mL NT-Pro-B Natriuret Pep 594 (<300) pg/mL Serum Total Protein 8.3 H (6.3-8.2) g/dL Albumin 4.5 (3.5-5.0) g/dL Lipase 58 (23-300) U/L Procalcitonin 0.043 (0.030-0.080) ng/mL Urine Color (Yellow) Urine Appearance (Clear) Urine pH (4.6-8.0) Ur Specific [place] (1.005-1.030) Urine Protein (Negative) Urine Glucose (UA) (Negative) mg/dL Urine Ketones (Negative) Urine Blood (Negative) Urine Nitrite (Negative) Urine Bilirubin (Negative) Urine Urobilinogen (0.2) mg/dL Ur Leukocyte Esterase (Negative) U Hyaline Cast (Auto) (0-2) /LPF Urine Microscopic RBC (0-5) /HPF Urine Microscopic WBC (0-5) /HPF Ur Epithelial Cells (None Seen) /HPF Urine Bacteria (None Seen) /HPF Urine Culture Reflexed (NO) Influenza Type A Ag NEGATIVE (NEGATIVE) Influenza Type B Ag NEGATIVE (NEGATIVE) RSV (PCR) NEGATIVE (NEGATIVE) SARS-CoV-2 (PCR) NEGATIVE (NEGATIVE) - Radiology Impressions Radiology Exams & Impressions: Radiology Procedures Category Date Time Status CHEST 1 VIEW (PORTABLE) Stat Exams 06/14/24 14:18 Completed - Other Procedures and Tests Respiratory Therapy 06/14/24 14:34 Respiratory Therapy Assessment DAILY Assessment/Plan (1) UTI (urinary tract infection) Current Visit: Yes Status: Acute Assessment & Plan: -causing mild metabolic encephalopathy with confusion. Has h/o recurrent UTI -Rocephin started in ED, will continue Code(s): N39.0 - URINARY TRACT INFECTION, SITE NOT SPECIFIED (2) Leukocytosis Current Visit: Yes Status: Acute Assessment & Plan: -most likely secondary to UTI -CXR with no acute findings -blood and urine cultures pending Code(s): D72.829 - ELEVATED WHITE BLOOD CELL COUNT, UNSPECIFIED (3) LAURA (acute kidney injury) Current Visit: Yes Status: Acute Assessment & Plan: -mild, baseline around 0.8-1, creat at 1.12 -Monitor renal/lytes -avoid nephrotoxic medications Code(s): N17.9 - ACUTE KIDNEY FAILURE, UNSPECIFIED (4) Confusion Current Visit: No Status: Acute Assessment & Plan: -Most likely secondary to UTI, A&O x 3 during interview, has dementia at baseline, will monitor Code(s): R41.0 - DISORIENTATION, UNSPECIFIED (5) HTN (hypertension) Current Visit: No Status: Acute Assessment & Plan: -hypotensive on arrival, will hold bp meds/lasix for now Code(s): I10 - ESSENTIAL (PRIMARY) HYPERTENSION (6) Afib Current Visit: No Status: Chronic Assessment & Plan: -Cotninue home Eliquis Code(s): I48.91 - UNSPECIFIED ATRIAL FIBRILLATION (7) Chronic diastolic (congestive) heart failure Current Visit: No Status: Chronic Assessment & Plan: -BNP at 594 -No edema on exam -cxr with no acute cardiopulmonary findings -hold lasix for laura -No recent echo on file Code(s): I50.32 - CHRONIC DIASTOLIC (CONGESTIVE) HEART FAILURE (8) Dementia Current Visit: No Status: Chronic Assessment & Plan: - continue home Namenda, cariprazine Code(s): F03.90 - UNSP DEMENTIA, UNSP SEVERITY, WITHOUT BEH/PSYCH/MOOD/ANX (9) Hypothyroid Current Visit: No Status: Chronic Assessment & Plan: -continue home synthroid Code(s): E03.9 - HYPOTHYROIDISM, UNSPECIFIED (10) Chronic obstructive pulmonary disease Current Visit: No Status: Acute Qualifiers: COPD type: COPD with acute lower respiratory infection Qualified Code(s): J44.0 - Chronic obstructive pulmonary disease with (acute) lower respiratory infection Assessment & Plan: -on baseline 3L oxygen -supplemental oxygen with spo2 goal >91% -Nebs/INH -RT eval -CXR with no acute findings -Does not appear to be in exacerbation VTE: eliquis PPI: protonix Dispo: 1-2 days [facility] Telemedicine Encounter - Telemedicine Encounter Telemedicine Encounter: "The entirety of this encounter was performed via Telemedicine" This visit was performed using real-time audio and video connection between my location and thepatients locationwith the assistance of a surrogateat the patients location. Written or verbal consent was obtained from the patient/guardian to perform this [facility]. Any patient questions regarding the telemedicine interaction were answered. <LG CALLE - Last Filed: 06/14/24 19:48> History of Present Illness - Chief Complaint History of Present Illness: is a 79 year old female. - Physical Exam Vital Signs: Vital Signs - 24 hr Temp Pulse Resp BP BP Pulse Ox 06/14/24 17:32 52 L 18 98 06/14/24 17:23 97.3 F 51 L 12 102/52 96 06/14/24 17:13 91 L 06/14/24 17:06 91 L 06/14/24 16:00 51 L 19 101/61 97 06/14/24 15:30 50 L 17 92/62 06/14/24 15:00 52 L 16 108/61 95 06/14/24 14:35 52 L 19 91 L 06/14/24 14:00 98.9 F 60 18 133/62 92 L Results - Labs Lab/Micro Results: Lab Results-Last 24 Hours 06/14/24 06/14/24 06/14/24 Range/Units 14:06 14:45 14:47 WBC 10.3 H (3.98-10.04) x10^3/uL RBC 4.18 (3.93-5.22) x10^6/uL Hgb 11.6 (11.2-15.7) g/dL Hct 37.2 (34.1-44.9) % MCV 89.0 (79.4-94.8) fL MCH 27.8 (25.6-32.2) pg MCHC 31.2 L (32.2-35.5) g/dL RDW 13.5 (11.7-14.4) % Plt Count 168 L (182-369) x10^3/uL MPV 9.3 L (9.4-12.3) fL Gran % 79.8 H (34.0-71.1) % Immature Gran % (Auto) 0.3 (0.001-0.429) % Nucleat RBC Rel Count 0.0 (0.00-0.2) % Eos # (Auto) 0.09 (0.04-0.36) x10^3/uL Immature Gran # (Auto) 0.03 (0.001-0.031) x10^3u/L Absolute Lymphs (auto) 1.22 (1.18-3.74) x10^3/uL Absolute Monos (auto) 0.70 (0.24-0.86) x10^3/uL Absolute Nucleated RBC 0.00 (0.00-0.012) x10^3u/L Lymphocytes % 11.8 L (19.3-51.7) % Monocytes % 6.8 (4.7-12.5) % Eosinophils % 0.9 (0.7-5.8) % Basophils % 0.4 (0.1-1.2) % Absolute Granulocytes 8.26 H (1.56-6.13) x10^3/uL Basophils # 0.04 (0.01-0.08) x10^3/uL Sodium (135-145) mmol/L Potassium (3.5-5.1) mmol/L Chloride (98-107) mmol/L Carbon Dioxide (22-30) mmol/L Anion Gap (5-15) MEQ/L BUN (7-17) mg/dL Creatinine (0.52-1.04) mg/dL Estimated GFR ML/MIN Glucose (74-106) mg/dL POC Glucometer (74 to 106) mg/dL Hemoglobin A1c (4.5-6.0) % Lactic Acid 1.3 (0.4-2.0) Calcium (8.4-10.2) mg/dL Magnesium (1.6-2.3) mg/dL Total Bilirubin (0.2-1.3) mg/dL AST (14-36) U/L ALT (0-35) U/L Alkaline Phosphatase (38-126) U/L Troponin I (0.000-0.033) ng/mL NT-Pro-B Natriuret Pep (<300) pg/mL Serum Total Protein (6.3-8.2) g/dL Albumin (3.5-5.0) g/dL Lipase (23-300) U/L Procalcitonin (0.030-0.080) ng/mL Urine Color Yellow (Yellow) Urine Appearance Cloudy A (Clear) Urine pH 7.0 (4.6-8.0) Ur Specific [place] 1.010 (1.005-1.030) Urine Protein Trace A (Negative) Urine Glucose (UA) Negative (Negative) mg/dL Urine Ketones Negative (Negative) Urine Blood Small A (Negative) Urine Nitrite Negative (Negative) Urine Bilirubin Negative (Negative) Urine Urobilinogen 0.2 (0.2) mg/dL Ur Leukocyte Esterase Large A (Negative) U Hyaline Cast (Auto) NONE SEEN (0-2) /LPF Urine Microscopic RBC 3-5 (0-5) /HPF Urine Microscopic WBC >100 A (0-5) /HPF Ur Epithelial Cells None Seen (None Seen) /HPF Urine Bacteria Many A (None Seen) /HPF Urine Culture Reflexed ORDERED SEPARATELY (NO) Influenza Type A Ag (NEGATIVE) Influenza Type B Ag (NEGATIVE) RSV (PCR) (NEGATIVE) SARS-CoV-2 (PCR) (NEGATIVE) 06/14/24 06/14/24 06/14/24 Range/Units 14:47 14:47 14:53 WBC (3.98-10.04) x10^3/uL RBC (3.93-5.22) x10^6/uL Hgb (11.2-15.7) g/dL Hct (34.1-44.9) % MCV (79.4-94.8) fL MCH (25.6-32.2) pg MCHC (32.2-35.5) g/dL RDW (11.7-14.4) % Plt Count (182-369) x10^3/uL MPV (9.4-12.3) fL Gran % (34.0-71.1) % Immature Gran % (Auto) (0.001-0.429) % Nucleat RBC Rel Count (0.00-0.2) % Eos # (Auto) (0.04-0.36) x10^3/uL Immature Gran # (Auto) (0.001-0.031) x10^3u/L Absolute Lymphs (auto) (1.18-3.74) x10^3/uL Absolute Monos (auto) (0.24-0.86) x10^3/uL Absolute Nucleated RBC (0.00-0.012) x10^3u/L Lymphocytes % (19.3-51.7) % Monocytes % (4.7-12.5) % Eosinophils % (0.7-5.8) % Basophils % (0.1-1.2) % Absolute Granulocytes (1.56-6.13) x10^3/uL Basophils # (0.01-0.08) x10^3/uL Sodium 140 (135-145) mmol/L Potassium 5.4 H (3.5-5.1) mmol/L Chloride 97 L (98-107) mmol/L Carbon Dioxide 37 H (22-30) mmol/L Anion Gap 11.6 (5-15) MEQ/L BUN 17 (7-17) mg/dL Creatinine 1.12 H (0.52-1.04) mg/dL Estimated GFR 50.7 ML/MIN Glucose 103 (74-106) mg/dL POC Glucometer (74 to 106) mg/dL Hemoglobin A1c (4.5-6.0) % Lactic Acid (0.4-2.0) Calcium 9.1 (8.4-10.2) mg/dL Magnesium 2.0 (1.6-2.3) mg/dL Total Bilirubin 0.50 (0.2-1.3) mg/dL AST 33 (14-36) U/L ALT 16 (0-35) U/L Alkaline Phosphatase 90 (38-126) U/L Troponin I < 0.012 (0.000-0.033) ng/mL NT-Pro-B Natriuret Pep 594 (<300) pg/mL Serum Total Protein 8.3 H (6.3-8.2) g/dL Albumin 4.5 (3.5-5.0) g/dL Lipase 58 (23-300) U/L Procalcitonin 0.043 (0.030-0.080) ng/mL Urine Color (Yellow) Urine Appearance (Clear) Urine pH (4.6-8.0) Ur Specific [place] (1.005-1.030) Urine Protein (Negative) Urine Glucose (UA) (Negative) mg/dL Urine Ketones (Negative) Urine Blood (Negative) Urine Nitrite (Negative) Urine Bilirubin (Negative) Urine Urobilinogen (0.2) mg/dL Ur Leukocyte Esterase (Negative) U Hyaline Cast (Auto) (0-2) /LPF Urine Microscopic RBC (0-5) /HPF Urine Microscopic WBC (0-5) /HPF Ur Epithelial Cells (None Seen) /HPF Urine Bacteria (None Seen) /HPF Urine Culture Reflexed (NO) Influenza Type A Ag NEGATIVE (NEGATIVE) Influenza Type B Ag NEGATIVE (NEGATIVE) RSV (PCR) NEGATIVE (NEGATIVE) SARS-CoV-2 (PCR) NEGATIVE (NEGATIVE) 06/14/24 06/14/24 06/14/24 Range/Units 17:48 18:20 18:20 WBC (3.98-10.04) x10^3/uL RBC (3.93-5.22) x10^6/uL Hgb (11.2-15.7) g/dL Hct (34.1-44.9) % MCV (79.4-94.8) fL MCH (25.6-32.2) pg MCHC (32.2-35.5) g/dL RDW (11.7-14.4) % Plt Count (182-369) x10^3/uL MPV (9.4-12.3) fL Gran % (34.0-71.1) % Immature Gran % (Auto) (0.001-0.429) % Nucleat RBC Rel Count (0.00-0.2) % Eos # (Auto) (0.04-0.36) x10^3/uL Immature Gran # (Auto) (0.001-0.031) x10^3u/L Absolute Lymphs (auto) (1.18-3.74) x10^3/uL Absolute Monos (auto) (0.24-0.86) x10^3/uL Absolute Nucleated RBC (0.00-0.012) x10^3u/L Lymphocytes % (19.3-51.7) % Monocytes % (4.7-12.5) % Eosinophils % (0.7-5.8) % Basophils % (0.1-1.2) % Absolute Granulocytes (1.56-6.13) x10^3/uL Basophils # (0.01-0.08) x10^3/uL Sodium (135-145) mmol/L Potassium 4.3 D (3.5-5.1) mmol/L Chloride (98-107) mmol/L Carbon Dioxide (22-30) mmol/L Anion Gap (5-15) MEQ/L BUN (7-17) mg/dL Creatinine (0.52-1.04) mg/dL Estimated GFR ML/MIN Glucose (74-106) mg/dL POC Glucometer 67 L (74 to 106) mg/dL Hemoglobin A1c (4.5-6.0) % Lactic Acid (0.4-2.0) Calcium (8.4-10.2) mg/dL Magnesium (1.6-2.3) mg/dL Total Bilirubin (0.2-1.3) mg/dL AST (14-36) U/L ALT (0-35) U/L Alkaline Phosphatase (38-126) U/L Troponin I < 0.012 (0.000-0.033) ng/mL NT-Pro-B Natriuret Pep (<300) pg/mL Serum Total Protein (6.3-8.2) g/dL Albumin (3.5-5.0) g/dL Lipase (23-300) U/L Procalcitonin (0.030-0.080) ng/mL Urine Color (Yellow) Urine Appearance (Clear) Urine pH (4.6-8.0) Ur Specific [place] (1.005-1.030) Urine Protein (Negative) Urine Glucose (UA) (Negative) mg/dL Urine Ketones (Negative) Urine Blood (Negative) Urine Nitrite (Negative) Urine Bilirubin (Negative) Urine Urobilinogen (0.2) mg/dL Ur Leukocyte Esterase (Negative) U Hyaline Cast (Auto) (0-2) /LPF Urine Microscopic RBC (0-5) /HPF Urine Microscopic WBC (0-5) /HPF Ur Epithelial Cells (None Seen) /HPF Urine Bacteria (None Seen) /HPF Urine Culture Reflexed (NO) Influenza Type A Ag (NEGATIVE) Influenza Type B Ag (NEGATIVE) RSV (PCR) (NEGATIVE) SARS-CoV-2 (PCR) (NEGATIVE) 06/14/24 06/14/24 Range/Units 19:06 Unknown WBC (3.98-10.04) x10^3/uL RBC (3.93-5.22) x10^6/uL Hgb (11.2-15.7) g/dL Hct (34.1-44.9) % MCV (79.4-94.8) fL MCH (25.6-32.2) pg MCHC (32.2-35.5) g/dL RDW (11.7-14.4) % Plt Count (182-369) x10^3/uL MPV (9.4-12.3) fL Gran % (34.0-71.1) % Immature Gran % (Auto) (0.001-0.429) % Nucleat RBC Rel Count (0.00-0.2) % Eos # (Auto) (0.04-0.36) x10^3/uL Immature Gran # (Auto) (0.001-0.031) x10^3u/L Absolute Lymphs (auto) (1.18-3.74) x10^3/uL Absolute Monos (auto) (0.24-0.86) x10^3/uL Absolute Nucleated RBC (0.00-0.012) x10^3u/L Lymphocytes % (19.3-51.7) % Monocytes % (4.7-12.5) % Eosinophils % (0.7-5.8) % Basophils % (0.1-1.2) % Absolute Granulocytes (1.56-6.13) x10^3/uL Basophils # (0.01-0.08) x10^3/uL Sodium (135-145) mmol/L Potassium (3.5-5.1) mmol/L Chloride (98-107) mmol/L Carbon Dioxide (22-30) mmol/L Anion Gap (5-15) MEQ/L BUN (7-17) mg/dL Creatinine (0.52-1.04) mg/dL Estimated GFR ML/MIN Glucose (74-106) mg/dL POC Glucometer 120 H (74 to 106) mg/dL Hemoglobin A1c 5.52 (4.5-6.0) % Lactic Acid (0.4-2.0) Calcium (8.4-10.2) mg/dL Magnesium (1.6-2.3) mg/dL Total Bilirubin (0.2-1.3) mg/dL AST (14-36) U/L ALT (0-35) U/L Alkaline Phosphatase (38-126) U/L Troponin I (0.000-0.033) ng/mL NT-Pro-B Natriuret Pep (<300) pg/mL Serum Total Protein (6.3-8.2) g/dL Albumin (3.5-5.0) g/dL Lipase (23-300) U/L Procalcitonin (0.030-0.080) ng/mL Urine Color (Yellow) Urine Appearance (Clear) Urine pH (4.6-8.0) Ur Specific [place] (1.005-1.030) Urine Protein (Negative) Urine Glucose (UA) (Negative) mg/dL Urine Ketones (Negative) Urine Blood (Negative) Urine Nitrite (Negative) Urine Bilirubin (Negative) Urine Urobilinogen (0.2) mg/dL Ur Leukocyte Esterase (Negative) U Hyaline Cast (Auto) (0-2) /LPF Urine Microscopic RBC (0-5) /HPF Urine Microscopic WBC (0-5) /HPF Ur Epithelial Cells (None Seen) /HPF Urine Bacteria (None Seen) /HPF Urine Culture Reflexed (NO) Influenza Type A Ag (NEGATIVE) Influenza Type B Ag (NEGATIVE) RSV (PCR) (NEGATIVE) SARS-CoV-2 (PCR) (NEGATIVE) - Radiology Impressions Radiology Exams & Impressions: Radiology Procedures Category Date Time Status CHEST 1 VIEW (PORTABLE) Stat Exams 06/14/24 14:18 Completed - Other Procedures and Tests Respiratory Therapy 06/14/24 14:34 Respiratory Therapy Assessment DAILY 06/14/24 17:06 Oxygen Nasal Cannula 2 lpm Telemedicine Encounter - Telemedicine Encounter Telemedicine Encounter: "The entirety of this encounter was performed via Telemedicine" This visit was performed using real-time audio and video connection between my location and thepatients locationwith the assistance of a surrogateat the patients location. Written or verbal consent was obtained from the patient/guardian to perform this visit [email or web address] technology. Any patient questions regarding the telemedicine interaction were answered. SARAI Encounter - SARAI Encounter Attestation SARAI Encounter Attestation: "IhchrispersonallyseenandKulwant,PHIL KAMINSKI andhavediscussed pertinent aspects of their care with Zakia Reyes and agree with the history, physical exam (any modifications based on my personal exam will be noted below), assessment, and plan as outlined in original note. Please see immediately below for my summary of findings and additional assessment and plan along with any meaningful corrections/explanations to the Subjective/Objective portions of the SARAI note will be noted." My portion of the encounter took place via telemedicine. -Patient presenting with generalized weakness, found to have UTI and hyperkalemia. Admit for IV antibiotics given age and multiple comorbidities. S/p Valtessa for hyperkalemia, repeat BMP tomorrow.
[2024-06-14] MEDS ORDERED: HUMALOG SQ PRN (17:35)
[2024-06-14] MEDS ORDERED: Zofran 4 MG/2 ML VIAL IV PRN (17:35)
[2024-06-14] MEDS ORDERED: DUONEB 0.5-3 MG/3 ml Neb IH PRN (17:35)
[2024-06-14] MEDS ORDERED: TYLENOL 325 MG PO PRN (17:35)
[2024-06-14] MEDS ORDERED: PROVENTIL 2.5 MG/3 ML NEB IH PRN (17:39)
[2024-06-14] MEDS: DOLOPHINE 10MG Tablet PO SCH (22:56)
--- NOTE | 2024-06-15 05:22 | PCM.NOTE ---
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 Patient is A&O x 4 during interview and daughter is able to help provide history as well. Daughter states that for the past several weeks patient has been more confused and tired. Patient has recurrent UTI's and usually presents with similar symptoms so she requested a urinalysis but never received results and symptoms have progressed. Patient is comfortable during interview at her baseline oxygen of 2L. She does report fatigue but denies dysuria, frequency, hematuria, fever, back pain, shortness of breath, chest pain, nausea, vomiting, or diarrhea. Upon arrival to ED patient mildly bradycardic with spo2 at 92% on 2L NC. CXR non- acute with chronic features EKG RATE (53), Sinus Wang, NORMAL AXIS, NORMAL INTERVALS, NORMAL QRS. Lab findings remarkable for mild leukocytosis, hyperkalemia, and creat at 1.12 (baseline around 0.8-1. Urinalysis with pyuria. Respiratory viral panel negative. Patient given duoneb, veltassa, and ceftriaxone in ED. Admit for UTI. 06/15: Patient feeling better today. Mentation appears to be at baseline. She has complaints of chronic back pain, otherwise improved. Most recent Ucult with enterobacter - current ucult pending. Will continue abx regimen for now pending culture results. Most likely can discharge tomorrow. - Review of Systems Constitutional: Weakness Eyes: No Symptoms Ears, Nose, & Throat: No Symptoms Respiratory: Short Of Breath Cardiac: No Symptoms Abdominal/Gastrointestinal: No Symptoms Genitourinary Symptoms: No Symptoms Musculoskeletal: Back Pain, Joint Pain Neurological: No Symptoms Psychological: No Symptoms Endocrine: No Symptoms Hematologic/Lymphatic: No Symptoms Immunological/Allergic: No Symptoms Objective Exam General Appearance: no apparent distress Neurologic Exam: alert, oriented x 3, cooperative Skin Exam: pale Eye Exam: PERRL Ears, Nose, Throat Exam: normal ENT inspection Neck Exam: normal inspection Respiratory Exam: crackles/rales Cardiovascular Exam: regular rate/rhythm, normal heart sounds Gastrointestinal/Abdomen Exam: soft, normal bowel sounds Extremity Exam: normal inspection Back Exam: normal inspection Pelvic Exam: deferred Rectal Exam: deferred Objective Data Vital Signs: Vital Signs - 24 hr Temp Pulse Resp BP BP Pulse Ox 06/15/24 04:00 97.9 F 55 L 20 115/58 96 06/14/24 23:46 97.6 F 52 L 21 108/52 95 06/14/24 20:00 97.3 F 55 L 16 102/52 91 L 06/14/24 19:56 55 L 16 91 L 06/14/24 17:32 52 L 18 98 06/14/24 17:23 97.3 F 51 L 12 102/52 96 06/14/24 17:13 91 L 06/14/24 17:06 91 L 06/14/24 16:00 51 L 19 101/61 97 06/14/24 15:30 50 L 17 92/62 06/14/24 15:00 52 L 16 108/61 95 06/14/24 14:35 52 L 19 91 L 06/14/24 14:00 98.9 F 60 18 133/62 92 L Pain Assessment - Last Documented Pain Intensity 4 Intake and Output: Intake & Output 06/12/24 06/13/24 06/14/24 06/15/24 11:59 11:59 11:59 11:59 Intake Total 290 Balance 290 Weight 95.5 kg Lab Results: Lab Results-Last 24 Hours 06/14/24 06/14/24 06/14/24 Range/Units 14:06 14:45 14:47 WBC 10.3 H (3.98-10.04) x10^3/uL RBC 4.18 (3.93-5.22) x10^6/uL Hgb 11.6 (11.2-15.7) g/dL Hct 37.2 (34.1-44.9) % MCV 89.0 (79.4-94.8) fL MCH 27.8 (25.6-32.2) pg MCHC 31.2 L (32.2-35.5) g/dL RDW 13.5 (11.7-14.4) % Plt Count 168 L (182-369) x10^3/uL MPV 9.3 L (9.4-12.3) fL Gran % 79.8 H (34.0-71.1) % Immature Gran % (Auto) 0.3 (0.001-0.429) % Nucleat RBC Rel Count 0.0 (0.00-0.2) % Eos # (Auto) 0.09 (0.04-0.36) x10^3/uL Immature Gran # (Auto) 0.03 (0.001-0.031) x10^3u/L Absolute Lymphs (auto) 1.22 (1.18-3.74) x10^3/uL Absolute Monos (auto) 0.70 (0.24-0.86) x10^3/uL Absolute Nucleated RBC 0.00 (0.00-0.012) x10^3u/L Lymphocytes % 11.8 L (19.3-51.7) % Monocytes % 6.8 (4.7-12.5) % Eosinophils % 0.9 (0.7-5.8) % Basophils % 0.4 (0.1-1.2) % Absolute Granulocytes 8.26 H (1.56-6.13) x10^3/uL Basophils # 0.04 (0.01-0.08) x10^3/uL Sodium (135-145) mmol/L Potassium (3.5-5.1) mmol/L Chloride (98-107) mmol/L Carbon Dioxide (22-30) mmol/L Anion Gap (5-15) MEQ/L BUN (7-17) mg/dL Creatinine (0.52-1.04) mg/dL Estimated GFR ML/MIN Glucose (74-106) mg/dL POC Glucometer (74 to 106) mg/dL Hemoglobin A1c (4.5-6.0) % Lactic Acid 1.3 (0.4-2.0) Calcium (8.4-10.2) mg/dL Magnesium (1.6-2.3) mg/dL Total Bilirubin (0.2-1.3) mg/dL AST (14-36) U/L ALT (0-35) U/L Alkaline Phosphatase (38-126) U/L Troponin I (0.000-0.033) ng/mL NT-Pro-B Natriuret Pep (<300) pg/mL Serum Total Protein (6.3-8.2) g/dL Albumin (3.5-5.0) g/dL Lipase (23-300) U/L Procalcitonin (0.030-0.080) ng/mL Urine Color Yellow (Yellow) Urine Appearance Cloudy A (Clear) Urine pH 7.0 (4.6-8.0) Ur Specific [place] 1.010 (1.005-1.030) Urine Protein Trace A (Negative) Urine Glucose (UA) Negative (Negative) mg/dL Urine Ketones Negative (Negative) Urine Blood Small A (Negative) Urine Nitrite Negative (Negative) Urine Bilirubin Negative (Negative) Urine Urobilinogen 0.2 (0.2) mg/dL Ur Leukocyte Esterase Large A (Negative) U Hyaline Cast (Auto) NONE SEEN (0-2) /LPF Urine Microscopic RBC 3-5 (0-5) /HPF Urine Microscopic WBC >100 A (0-5) /HPF Ur Epithelial Cells None Seen (None Seen) /HPF Urine Bacteria Many A (None Seen) /HPF Urine Culture Reflexed ORDERED SEPARATELY (NO) Influenza Type A Ag (NEGATIVE) Influenza Type B Ag (NEGATIVE) RSV (PCR) (NEGATIVE) SARS-CoV-2 (PCR) (NEGATIVE) 06/14/24 06/14/24 06/14/24 Range/Units 14:47 14:47 14:53 WBC (3.98-10.04) x10^3/uL RBC (3.93-5.22) x10^6/uL Hgb (11.2-15.7) g/dL Hct (34.1-44.9) % MCV (79.4-94.8) fL MCH (25.6-32.2) pg MCHC (32.2-35.5) g/dL RDW (11.7-14.4) % Plt Count (182-369) x10^3/uL MPV (9.4-12.3) fL Gran % (34.0-71.1) % Immature Gran % (Auto) (0.001-0.429) % Nucleat RBC Rel Count (0.00-0.2) % Eos # (Auto) (0.04-0.36) x10^3/uL Immature Gran # (Auto) (0.001-0.031) x10^3u/L Absolute Lymphs (auto) (1.18-3.74) x10^3/uL Absolute Monos (auto) (0.24-0.86) x10^3/uL Absolute Nucleated RBC (0.00-0.012) x10^3u/L Lymphocytes % (19.3-51.7) % Monocytes % (4.7-12.5) % Eosinophils % (0.7-5.8) % Basophils % (0.1-1.2) % Absolute Granulocytes (1.56-6.13) x10^3/uL Basophils # (0.01-0.08) x10^3/uL Sodium 140 (135-145) mmol/L Potassium 5.4 H (3.5-5.1) mmol/L Chloride 97 L (98-107) mmol/L Carbon Dioxide 37 H (22-30) mmol/L Anion Gap 11.6 (5-15) MEQ/L BUN 17 (7-17) mg/dL Creatinine 1.12 H (0.52-1.04) mg/dL Estimated GFR 50.7 ML/MIN Glucose 103 (74-106) mg/dL POC Glucometer (74 to 106) mg/dL Hemoglobin A1c (4.5-6.0) % Lactic Acid (0.4-2.0) Calcium 9.1 (8.4-10.2) mg/dL Magnesium 2.0 (1.6-2.3) mg/dL Total Bilirubin 0.50 (0.2-1.3) mg/dL AST 33 (14-36) U/L ALT 16 (0-35) U/L Alkaline Phosphatase 90 (38-126) U/L Troponin I < 0.012 (0.000-0.033) ng/mL NT-Pro-B Natriuret Pep 594 (<300) pg/mL Serum Total Protein 8.3 H (6.3-8.2) g/dL Albumin 4.5 (3.5-5.0) g/dL Lipase 58 (23-300) U/L Procalcitonin 0.043 (0.030-0.080) ng/mL Urine Color (Yellow) Urine Appearance (Clear) Urine pH (4.6-8.0) Ur Specific [place] (1.005-1.030) Urine Protein (Negative) Urine Glucose (UA) (Negative) mg/dL Urine Ketones (Negative) Urine Blood (Negative) Urine Nitrite (Negative) Urine Bilirubin (Negative) Urine Urobilinogen (0.2) mg/dL Ur Leukocyte Esterase (Negative) U Hyaline Cast (Auto) (0-2) /LPF Urine Microscopic RBC (0-5) /HPF Urine Microscopic WBC (0-5) /HPF Ur Epithelial Cells (None Seen) /HPF Urine Bacteria (None Seen) /HPF Urine Culture Reflexed (NO) Influenza Type A Ag NEGATIVE (NEGATIVE) Influenza Type B Ag NEGATIVE (NEGATIVE) RSV (PCR) NEGATIVE (NEGATIVE) SARS-CoV-2 (PCR) NEGATIVE (NEGATIVE) 06/14/24 06/14/24 06/14/24 Range/Units 17:48 18:20 18:20 WBC (3.98-10.04) x10^3/uL RBC (3.93-5.22) x10^6/uL Hgb (11.2-15.7) g/dL Hct (34.1-44.9) % MCV (79.4-94.8) fL MCH (25.6-32.2) pg MCHC (32.2-35.5) g/dL RDW (11.7-14.4) % Plt Count (182-369) x10^3/uL MPV (9.4-12.3) fL Gran % (34.0-71.1) % Immature Gran % (Auto) (0.001-0.429) % Nucleat RBC Rel Count (0.00-0.2) % Eos # (Auto) (0.04-0.36) x10^3/uL Immature Gran # (Auto) (0.001-0.031) x10^3u/L Absolute Lymphs (auto) (1.18-3.74) x10^3/uL Absolute Monos (auto) (0.24-0.86) x10^3/uL Absolute Nucleated RBC (0.00-0.012) x10^3u/L Lymphocytes % (19.3-51.7) % Monocytes % (4.7-12.5) % Eosinophils % (0.7-5.8) % Basophils % (0.1-1.2) % Absolute Granulocytes (1.56-6.13) x10^3/uL Basophils # (0.01-0.08) x10^3/uL Sodium (135-145) mmol/L Potassium 4.3 D (3.5-5.1) mmol/L Chloride (98-107) mmol/L Carbon Dioxide (22-30) mmol/L Anion Gap (5-15) MEQ/L BUN (7-17) mg/dL Creatinine (0.52-1.04) mg/dL Estimated GFR ML/MIN Glucose (74-106) mg/dL POC Glucometer 67 L (74 to 106) mg/dL Hemoglobin A1c (4.5-6.0) % Lactic Acid (0.4-2.0) Calcium (8.4-10.2) mg/dL Magnesium (1.6-2.3) mg/dL Total Bilirubin (0.2-1.3) mg/dL AST (14-36) U/L ALT (0-35) U/L Alkaline Phosphatase (38-126) U/L Troponin I < 0.012 (0.000-0.033) ng/mL NT-Pro-B Natriuret Pep (<300) pg/mL Serum Total Protein (6.3-8.2) g/dL Albumin (3.5-5.0) g/dL Lipase (23-300) U/L Procalcitonin (0.030-0.080) ng/mL Urine Color (Yellow) Urine Appearance (Clear) Urine pH (4.6-8.0) Ur Specific [place] (1.005-1.030) Urine Protein (Negative) Urine Glucose (UA) (Negative) mg/dL Urine Ketones (Negative) Urine Blood (Negative) Urine Nitrite (Negative) Urine Bilirubin (Negative) Urine Urobilinogen (0.2) mg/dL Ur Leukocyte Esterase (Negative) U Hyaline Cast (Auto) (0-2) /LPF Urine Microscopic RBC (0-5) /HPF Urine Microscopic WBC (0-5) /HPF Ur Epithelial Cells (None Seen) /HPF Urine Bacteria (None Seen) /HPF Urine Culture Reflexed (NO) Influenza Type A Ag (NEGATIVE) Influenza Type B Ag (NEGATIVE) RSV (PCR) (NEGATIVE) SARS-CoV-2 (PCR) (NEGATIVE) 06/14/24 06/14/24 06/14/24 Range/Units 19:06 21:08 22:50 WBC (3.98-10.04) x10^3/uL RBC (3.93-5.22) x10^6/uL Hgb (11.2-15.7) g/dL Hct (34.1-44.9) % MCV (79.4-94.8) fL MCH (25.6-32.2) pg MCHC (32.2-35.5) g/dL RDW (11.7-14.4) % Plt Count (182-369) x10^3/uL MPV (9.4-12.3) fL Gran % (34.0-71.1) % Immature Gran % (Auto) (0.001-0.429) % Nucleat RBC Rel Count (0.00-0.2) % Eos # (Auto) (0.04-0.36) x10^3/uL Immature Gran # (Auto) (0.001-0.031) x10^3u/L Absolute Lymphs (auto) (1.18-3.74) x10^3/uL Absolute Monos (auto) (0.24-0.86) x10^3/uL Absolute Nucleated RBC (0.00-0.012) x10^3u/L Lymphocytes % (19.3-51.7) % Monocytes % (4.7-12.5) % Eosinophils % (0.7-5.8) % Basophils % (0.1-1.2) % Absolute Granulocytes (1.56-6.13) x10^3/uL Basophils # (0.01-0.08) x10^3/uL Sodium (135-145) mmol/L Potassium (3.5-5.1) mmol/L Chloride (98-107) mmol/L Carbon Dioxide (22-30) mmol/L Anion Gap (5-15) MEQ/L BUN (7-17) mg/dL Creatinine (0.52-1.04) mg/dL Estimated GFR ML/MIN Glucose (74-106) mg/dL POC Glucometer 120 H 136 H (74 to 106) mg/dL Hemoglobin A1c (4.5-6.0) % Lactic Acid (0.4-2.0) Calcium (8.4-10.2) mg/dL Magnesium (1.6-2.3) mg/dL Total Bilirubin (0.2-1.3) mg/dL AST (14-36) U/L ALT (0-35) U/L Alkaline Phosphatase (38-126) U/L Troponin I < 0.012 (0.000-0.033) ng/mL NT-Pro-B Natriuret Pep (<300) pg/mL Serum Total Protein (6.3-8.2) g/dL Albumin (3.5-5.0) g/dL Lipase (23-300) U/L Procalcitonin (0.030-0.080) ng/mL Urine Color (Yellow) Urine Appearance (Clear) Urine pH (4.6-8.0) Ur Specific [place] (1.005-1.030) Urine Protein (Negative) Urine Glucose (UA) (Negative) mg/dL Urine Ketones (Negative) Urine Blood (Negative) Urine Nitrite (Negative) Urine Bilirubin (Negative) Urine Urobilinogen (0.2) mg/dL Ur Leukocyte Esterase (Negative) U Hyaline Cast (Auto) (0-2) /LPF Urine Microscopic RBC (0-5) /HPF Urine Microscopic WBC (0-5) /HPF Ur Epithelial Cells (None Seen) /HPF Urine Bacteria (None Seen) /HPF Urine Culture Reflexed (NO) Influenza Type A Ag (NEGATIVE) Influenza Type B Ag (NEGATIVE) RSV (PCR) (NEGATIVE) SARS-CoV-2 (PCR) (NEGATIVE) 06/14/24 Range/Units Unknown WBC (3.98-10.04) x10^3/uL RBC (3.93-5.22) x10^6/uL Hgb (11.2-15.7) g/dL Hct (34.1-44.9) % MCV (79.4-94.8) fL MCH (25.6-32.2) pg MCHC (32.2-35.5) g/dL RDW (11.7-14.4) % Plt Count (182-369) x10^3/uL MPV (9.4-12.3) fL Gran % (34.0-71.1) % Immature Gran % (Auto) (0.001-0.429) % Nucleat RBC Rel Count (0.00-0.2) % Eos # (Auto) (0.04-0.36) x10^3/uL Immature Gran # (Auto) (0.001-0.031) x10^3u/L Absolute Lymphs (auto) (1.18-3.74) x10^3/uL Absolute Monos (auto) (0.24-0.86) x10^3/uL Absolute Nucleated RBC (0.00-0.012) x10^3u/L Lymphocytes % (19.3-51.7) % Monocytes % (4.7-12.5) % Eosinophils % (0.7-5.8) % Basophils % (0.1-1.2) % Absolute Granulocytes (1.56-6.13) x10^3/uL Basophils # (0.01-0.08) x10^3/uL Sodium (135-145) mmol/L Potassium (3.5-5.1) mmol/L Chloride (98-107) mmol/L Carbon Dioxide (22-30) mmol/L Anion Gap (5-15) MEQ/L BUN (7-17) mg/dL Creatinine (0.52-1.04) mg/dL Estimated GFR ML/MIN Glucose (74-106) mg/dL POC Glucometer (74 to 106) mg/dL Hemoglobin A1c 5.52 (4.5-6.0) % Lactic Acid (0.4-2.0) Calcium (8.4-10.2) mg/dL Magnesium (1.6-2.3) mg/dL Total Bilirubin (0.2-1.3) mg/dL AST (14-36) U/L ALT (0-35) U/L Alkaline Phosphatase (38-126) U/L Troponin I (0.000-0.033) ng/mL NT-Pro-B Natriuret Pep (<300) pg/mL Serum Total Protein (6.3-8.2) g/dL Albumin (3.5-5.0) g/dL Lipase (23-300) U/L Procalcitonin (0.030-0.080) ng/mL Urine Color (Yellow) Urine Appearance (Clear) Urine pH (4.6-8.0) Ur Specific [place] (1.005-1.030) Urine Protein (Negative) Urine Glucose (UA) (Negative) mg/dL Urine Ketones (Negative) Urine Blood (Negative) Urine Nitrite (Negative) Urine Bilirubin (Negative) Urine Urobilinogen (0.2) mg/dL Ur Leukocyte Esterase (Negative) U Hyaline Cast (Auto) (0-2) /LPF Urine Microscopic RBC (0-5) /HPF Urine Microscopic WBC (0-5) /HPF Ur Epithelial Cells (None Seen) /HPF Urine Bacteria (None Seen) /HPF Urine Culture Reflexed (NO) Influenza Type A Ag (NEGATIVE) Influenza Type B Ag (NEGATIVE) RSV (PCR) (NEGATIVE) SARS-CoV-2 (PCR) (NEGATIVE) Radiology Exams: Radiology Procedures Category Date Time Status CHEST 1 VIEW (PORTABLE) Stat Exams 06/14/24 14:18 Completed Assessment/Plan (1) UTI (urinary tract infection) Current Visit: Yes Status: Acute Assessment & Plan: -causing mild metabolic encephalopathy with confusion. Has h/o recurrent UTI -Rocephin started in ED, will continue Code(s): N39.0 - URINARY TRACT INFECTION, SITE NOT SPECIFIED (2) Leukocytosis Current Visit: Yes Status: Acute Assessment & Plan: -most likely secondary to UTI -CXR with no acute findings -blood and urine cultures pending Code(s): D72.829 - ELEVATED WHITE BLOOD CELL COUNT, UNSPECIFIED (3) LAURA (acute kidney injury) Current Visit: Yes Status: Acute Assessment & Plan: -mild, baseline around 0.8-1, creat at 1.12 -Monitor renal/lytes -avoid nephrotoxic medications 06/15: -at baseline Code(s): N17.9 - ACUTE KIDNEY FAILURE, UNSPECIFIED (4) Confusion Current Visit: No Status: Acute Assessment & Plan: -Most likely secondary to UTI, A&O x 3 during interview, has dementia at baseline, will monitor 06/15: -at baseline Code(s): R41.0 - DISORIENTATION, UNSPECIFIED (5) HTN (hypertension) Current Visit: No Status: Acute Assessment & Plan: -hypotensive on arrival, will hold bp meds/lasix for now Code(s): I10 - ESSENTIAL (PRIMARY) HYPERTENSION (6) Afib Current Visit: No Status: Chronic Assessment & Plan: -Cotninue home Eliquis Code(s): I48.91 - UNSPECIFIED ATRIAL FIBRILLATION (7) Chronic diastolic (congestive) heart failure Current Visit: No Status: Chronic Assessment & Plan: -BNP at 594 -No edema on exam -cxr with no acute cardiopulmonary findings -hold lasix for laura -No recent echo on file Code(s): I50.32 - CHRONIC DIASTOLIC (CONGESTIVE) HEART FAILURE (8) Dementia Current Visit: No Status: Chronic Assessment & Plan: - continue home Namenda, cariprazine Code(s): F03.90 - UNSP DEMENTIA, UNSP SEVERITY, WITHOUT BEH/PSYCH/MOOD/ANX (9) Hypothyroid Current Visit: No Status: Chronic Assessment & Plan: -continue home synthroid Code(s): E03.9 - HYPOTHYROIDISM, UNSPECIFIED (10) Chronic obstructive pulmonary disease Current Visit: No Status: Acute Qualifiers: COPD type: COPD with acute lower respiratory infection Qualified Code(s): J44.0 - Chronic obstructive pulmonary disease with (acute) lower respiratory infection Assessment & Plan: -on baseline 3L oxygen -supplemental oxygen with spo2 goal >91% -Nebs/INH -RT eval -CXR with no acute findings -Does not appear to be in exacerbation VTE: eliquis PPI: protonix Dispo: 1-2 days SCO Code(s): N39.0 - URINARY TRACT INFECTION, SITE NOT SPECIFIED (2) Leukocytosis Current Visit: Yes Status: Acute Code(s): D72.829 - ELEVATED WHITE BLOOD CELL COUNT, UNSPECIFIED (3) LAURA (acute kidney injury) Current Visit: Yes Status: Acute Code(s): N17.9 - ACUTE KIDNEY FAILURE, UNSPECIFIED (4) Confusion Current Visit: No Status: Acute Code(s): R41.0 - DISORIENTATION, UNSPECIFIED (5) HTN (hypertension) Current Visit: No Status: Acute Code(s): I10 - ESSENTIAL (PRIMARY) HYPERTENSION (6) Afib Current Visit: No Status: Chronic Code(s): I48.91 - UNSPECIFIED ATRIAL FIBRILLATION (7) Chronic diastolic (congestive) heart failure Current Visit: No Status: Chronic Code(s): I50.32 - CHRONIC DIASTOLIC (CONGESTIVE) HEART FAILURE (8) Dementia Current Visit: No Status: Chronic Code(s): F03.90 - UNSP DEMENTIA, UNSP SEVERITY, WITHOUT BEH/PSYCH/MOOD/ANX (9) Hypothyroid Current Visit: No Status: Chronic Code(s): E03.9 - HYPOTHYROIDISM, UNSPECIFIED (10) Chronic obstructive pulmonary disease Current Visit: No Status: Acute Qualifiers: COPD type: COPD with acute lower respiratory infection Qualified Code(s): J44.0 - Chronic obstructive pulmonary disease with (acute) lower respiratory infection
[2024-06-15 05:41] LABS: Absolute Neutrophil Ct (ANC) 4.34 x10^3/uL (1.56-6.13); BASOPHIL % 0.4 % (0.1-1.2); Basophil (Absolute #) 0.03 x10^3/uL (0.01-0.08); Eosinophil % 2.2 % (0.7-5.8); Eosinophil (Absolute #) 0.15 x10^3/uL (0.04-0.36); Hematocrit 33.5 % (34.1-44.9); Hemoglobin 10.3 g/dL (11.2-15.7); IMMATURE GRAN # 0.02 x10^3u/L (0.001-0.031); IMMATURE GRAN % 0.3 % (0.001-0.429); Lymphocytes % 23.5 % (19.3-51.7); Mean Cell Volume 89.3 fL (79.4-94.8); Mean Corpuscular Hemoglobin 27.5 pg (25.6-32.2); Mean Corpuscular Hgb Concent. 30.7 g/dL (32.2-35.5); Mean Platelet Volume 9.7 fL (9.4-12.3); Monocyte (Absolute #) 0.66 x10^3/uL (0.24-0.86); Monocytes % 9.7 % (4.7-12.5); Neutrophil % 63.9 % (34.0-71.1); Platelet Count 163 x10^3/uL (182-369); Red Blood Count 3.75 x10^6/uL (3.93-5.22); Red Cell Distribution Width 13.6 % (11.7-14.4); White Blood Count 6.8 x10^3/uL (3.98-10.04)
[2024-06-15 05:49] LABS: ALBUMIN 3.8 g/dL (3.5-5.0); ANION GAP 11.6 MEQ/L (5-15); BILIRUBIN,TOTAL 0.4 mg/dL (0.2-1.3); Calcium 8.6 mg/dL (8.4-10.2); Creatinine 1 1.2 mg/dL (0.52-1.04); EST GLOMERULAR FILTRATION RATE 46.6 ML/MIN; Total Protein 7.4 g/dL (6.3-8.2)
[2024-06-15] MEDS: ROCEPHIN 1 GM / 100 ML NaCl 1 GM/100 ML IVPB IV SCH (09:01)
[2024-06-15] MEDS: Protonix 40MG Tablet PO SCH (09:01)
[2024-06-15] MEDS ORDERED: PROVENTIL 2.5 MG/3 ML NEB IH PRN (10:06)
[2024-06-15] MEDS ORDERED: NON-FORMULARY ITEM (Albuterol [Albuterol] 17 GM Aerosol) IH PRN (10:06)
[2024-06-15] MEDS ORDERED: VENTOLIN COMMON CANISTER IH PRN (10:43)
[2024-06-15] MEDS ORDERED: MEDICATION INTERVENTION MC SCH (11:00)
[2024-06-15] MEDS: Namenda 5 MG PO SCH (11:41)
[2024-06-15] MEDS: MAG-OX 400 PO SCH (11:41)
[2024-06-15] MEDS: THERAGRAN MULTIVITAMIN PO SCH (11:41)
[2024-06-15] MEDS: Ditropan 5 MG PO SCH (11:41)
[2024-06-15] MEDS: Calcium 500MG W/Vit D Tablet PO SCH (11:42)
[2024-06-15] MEDS: CLARITIN 10 MG PO SCH (11:42)
[2024-06-15] MEDS: Cymbalta 30 MG Capsule PO SCH (11:42)
[2024-06-15] MEDS: ELIQUIS 2.5 MG TABLET PO SCH (11:42)
[2024-06-15] MEDS: NON-FORMULARY ITEM PO SCH (11:43)
[2024-06-15] MEDS: SYNTHROID 88 MCG PO SCH (11:44)
[2024-06-15] MEDS ORDERED: NON-FORMULARY ITEM (Ropinirole Hcl [Ropinirole Hcl] 1 MG Tablet) PO SCH (15:00)
[2024-06-15] MEDS: Neurontin PO SCH (15:51)
[2024-06-15] MEDS: REQUIP 2MG TAB PO SCH (15:51)
[2024-06-15] MEDS ORDERED: NON-FORMULARY ITEM (Cariprazine Hcl [Vraylar] 3 MG Capsule) PO SCH (22:00)
[2024-06-15] MEDS ORDERED: DOLOPHINE 10MG Tablet PO SCH (22:00)
[2024-06-15] MEDS ORDERED: NON-FORMULARY ITEM (Memantine Hcl [Memantine Hcl] 10 MG Tablet) PO SCH (22:00)
[2024-06-15] MEDS ORDERED: NON-FORMULARY ITEM (Apixaban [Eliquis] 5 MG Tab.Ds.Pk) PO SCH (22:00)
[2024-06-16 06:19] LABS: Absolute Neutrophil Ct (ANC) 3.26 x10^3/uL (1.56-6.13); BASOPHIL % 0.5 % (0.1-1.2); Basophil (Absolute #) 0.03 x10^3/uL (0.01-0.08); Eosinophil % 3.4 % (0.7-5.8); Hematocrit 31.5 % (34.1-44.9); Hemoglobin 9.8 g/dL (11.2-15.7); IMMATURE GRAN # 0.01 x10^3u/L (0.001-0.031); IMMATURE GRAN % 0.2 % (0.001-0.429); Lymphocyte (Absolute #) 1.74 x10^3/uL (1.18-3.74); Lymphocytes % 29.9 % (19.3-51.7); Mean Cell Volume 88.7 fL (79.4-94.8); Mean Corpuscular Hemoglobin 27.6 pg (25.6-32.2); Mean Corpuscular Hgb Concent. 31.1 g/dL (32.2-35.5); Monocyte (Absolute #) 0.58 x10^3/uL (0.24-0.86); Platelet Count 149 x10^3/uL (182-369); Red Blood Count 3.55 x10^6/uL (3.93-5.22); Red Cell Distribution Width 13.6 % (11.7-14.4); White Blood Count 5.8 x10^3/uL (3.98-10.04)
[2024-06-16 06:39] LABS: ALBUMIN 3.6 g/dL (3.5-5.0); ANION GAP 9.9 MEQ/L (5-15); BILIRUBIN,TOTAL 0.3 mg/dL (0.2-1.3); Calcium 8.6 mg/dL (8.4-10.2); Creatinine 1 1.17 mg/dL (0.52-1.04); EST GLOMERULAR FILTRATION RATE 48.1 ML/MIN; Potassium 4.1 mmol/L (3.5-5.1)
[2024-06-16 08:29] VITALS: BP 115/56; TEMP 97.5
[2024-06-16 09:27] VITALS: PULSE 53; RESP 18; O2SAT 95
[2024-06-16] MEDS: Klor Con PO SCH (09:28)
[2024-06-16] MEDS ORDERED: Protonix 40MG Tablet PO SCH (10:00)
[2024-06-16] MEDS ORDERED: NON-FORMULARY ITEM (Cetirizine Hcl [All Day Allergy Relief] 10 MG Capsule) PO SCH (10:00)
[2024-06-16] MEDS ORDERED: NON-FORMULARY ITEM (Magnesium [Magnesium] 200 MG Tablet) PO SCH (10:00)
[2024-06-16] MEDS ORDERED: NON-FORMULARY ITEM (Multivitamin [Multivitamins] 1 EACH Capsule) PO SCH (10:00)
[2024-06-16] MEDS ORDERED: NON-FORMULARY ITEM (Solifenacin Succinate [Solifenacin Succinate] 5 MG Tablet) PO SCH (10:00)
[2024-06-16] MEDS ORDERED: NON-FORMULARY ITEM (Calcium Carbonate/Vitamin D3 [Calcium 250-D Tablet] 1 EACH Tablet) PO SCH (10:00)
[2024-06-16] MEDS ORDERED: NON-FORMULARY ITEM (Propranolol Hcl [Propranolol Hcl Er] 60 MG Cap.Sa.24h) PO SCH (10:00)
[2024-06-16] MEDS ORDERED: NON-FORMULARY ITEM (Duloxetine Hcl [Cymbalta] 60 MG Capsule.Dr) PO SCH (10:00)
--- NOTE | 2024-06-16 10:00 | PCM.DS ---
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 Patient is A&O x 4 during interview and daughter is able to help provide history as well. Daughter states that for the past several weeks patient has been more confused and tired. Patient has recurrent UTI's and usually presents with similar sympt oms so she requested a urinalysis but never received results and symptoms have progressed. Patient is comfortable during interview at her baseline oxygen of 2L. She does report fatigue but denies dysuria, frequency, hematuria, fever, back pain, shortness of breath, chest pain, nausea, vomiting, or diarrhea. Upon arrival to ED patient mildly bradycardic with spo2 at 92% on 2L NC. CXR non- acute with chronic features EKG RATE (53), Sinus Wang, NORMAL AXIS, NORMAL INTERVALS, NORMAL QRS. Lab findings remarkable for mild leukocytosis, hyperkalemia, and creat at 1.12 (baseline around 0.8-1. Urinalysis with pyuria. Respiratory viral panel negative. Patient given duoneb, veltassa, and ceftriaxone in ED. Admit for UTI. Leukocytosis has now resolved. Ucult with klebsiella pneumoniae-ESBL with sensitivity to Levaquin. Labs and vitals stable. Patient at baseline mentation and A&O x 4. Stable for discharge to [facility]. Continue to hold lasix. Will need CMP rechecked tomorrow. Discharge Note New Diagnosis: UTI New Medications: Levaquin -renal dosed per pharm -okay to give with low dose methadone per pharmacy at 500mg daily Follow Up: pcp Results pending: blood cult Latest Assessment & Plan (1) UTI (urinary tract infection) Current Visit: Yes Status: Acute Assessment & Plan: -causing mild metabolic encephalopathy with confusion. Has h/o recurrent UTI -Rocephin started in ED, will continue 06/16: -mentation at baseline -Ucult with klebsiella pneumonia -ESBL with sensitivity to levaquin -renal dose at 500mg daily per pharmacy recommendations Code(s): N39.0 - URINARY TRACT INFECTION, SITE NOT SPECIFIED (2) Leukocytosis Current Visit: Yes Status: Acute Assessment & Plan: -most likely secondary to UTI -CXR with no acute findings -blood and urine cultures pending 06/16: -resolved Code(s): D72.829 - ELEVATED WHITE BLOOD CELL COUNT, UNSPECIFIED (3) LAURA (acute kidney injury) Current Visit: Yes Status: Acute Assessment & Plan: -mild, baseline around 0.8-1, creat at 1.12 -Monitor renal/lytes -avoid nephrotoxic medications 06/15: -at baseline -monitor Code(s): N17.9 - ACUTE KIDNEY FAILURE, UNSPECIFIED (4) Confusion Current Visit: No Status: Acute Assessment & Plan: -Most likely secondary to UTI, A&O x 3 during interview, has dementia at baseline, will monitor 06/15: -at baseline Code(s): R41.0 - DISORIENTATION, UNSPECIFIED (5) HTN (hypertension) Current Visit: No Status: Acute Assessment & Plan: -hypotensive on arrival, will hold bp meds/lasix for now Code(s): I10 - ESSENTIAL (PRIMARY) HYPERTENSION (6) Afib Current Visit: No Status: Chronic Assessment & Plan: -Cotninue home Eliquis Code(s): I48.91 - UNSPECIFIED ATRIAL FIBRILLATION (7) Chronic diastolic (congestive) heart failure Current Visit: No Status: Chronic Assessment & Plan: -BNP at 594 -No edema on exam -cxr with no acute cardiopulmonary findings -hold lasix for laura -No recent echo on file Code(s): I50.32 - CHRONIC DIASTOLIC (CONGESTIVE) HEART FAILURE (8) Dementia Current Visit: No Status: Chronic Assessment & Plan: - continue home Namenda, cariprazine Code(s): F03.90 - UNSP DEMENTIA, UNSP SEVERITY, WITHOUT BEH/PSYCH/MOOD/ANX (9) Hypothyroid Current Visit: No Status: Chronic Assessment & Plan: -continue home synthroid Code(s): E03.9 - HYPOTHYROIDISM, UNSPECIFIED (10) Chronic obstructive pulmonary disease Current Visit: No Status: Acute Qualifiers: COPD type: COPD with acute lower respiratory infection Qualified Code(s): J44.0 - Chronic obstructive pulmonary disease with (acute) lower respiratory infection Assessment & Plan: -on baseline 3L oxygen -supplemental oxygen with spo2 goal >91% -Nebs/INH -RT eval -CXR with no acute findings -Does not appear to be in exacerbation I spent 35 minutes [id number] with the patient on the day of discharge performing discharge exam, discussing hospital stay and discharge instructions with patient and caregivers, preparation of discharge records, prescriptions & referral forms and addressing any questions/concerns the patient had as documented above. - Vitals & Intake/Output Vital Signs: Vital Signs Temperature 97.5 F 06/16/24 08:00 Pulse Rate 53 L 06/16/24 09:27 Respiratory Rate 18 06/16/24 09:27 Blood Pressure 115/56 06/16/24 08:00 O2 Sat by Pulse Oximetry 95 06/16/24 09:27 Intake & Output: Intake & Output 06/13/24 06/14/24 06/15/24 06/16/24 11:59 11:59 11:59 11:59 Intake Total 530 1400 Balance 530 1400 Weight 95.5 kg - Lab Result Diagrams: 06/16/24 05:25 06/16/24 05:30 Lab Results-Last 24 Hrs: Lab Results-Last 24 Hours 06/15/24 06/15/24 06/15/24 Range/Units 11:57 16:31 21:50 WBC (3.98-10.04) x10^3/uL RBC (3.93-5.22) x10^6/uL Hgb (11.2-15.7) g/dL Hct (34.1-44.9) % MCV (79.4-94.8) fL MCH (25.6-32.2) pg MCHC (32.2-35.5) g/dL RDW (11.7-14.4) % Plt Count (182-369) x10^3/uL MPV (9.4-12.3) fL Gran % (34.0-71.1) % Immature Gran % (Auto) (0.001-0.429) % Nucleat RBC Rel Count (0.00-0.2) % Eos # (Auto) (0.04-0.36) x10^3/uL Immature Gran # (Auto) (0.001-0.031) x10^3u/L Absolute Lymphs (auto) (1.18-3.74) x10^3/uL Absolute Monos (auto) (0.24-0.86) x10^3/uL Absolute Nucleated RBC (0.00-0.012) x10^3u/L Lymphocytes % (19.3-51.7) % Monocytes % (4.7-12.5) % Eosinophils % (0.7-5.8) % Basophils % (0.1-1.2) % Absolute Granulocytes (1.56-6.13) x10^3/uL Basophils # (0.01-0.08) x10^3/uL Sodium (135-145) mmol/L Potassium (3.5-5.1) mmol/L Chloride (98-107) mmol/L Carbon Dioxide (22-30) mmol/L Anion Gap (5-15) MEQ/L BUN (7-17) mg/dL Creatinine (0.52-1.04) mg/dL Estimated GFR ML/MIN Glucose (74-106) mg/dL POC Glucometer 143 H 118 H 178 H (74 to 106) mg/dL Calcium (8.4-10.2) mg/dL Total Bilirubin (0.2-1.3) mg/dL AST (14-36) U/L ALT (0-35) U/L Alkaline Phosphatase (38-126) U/L Serum Total Protein (6.3-8.2) g/dL Albumin (3.5-5.0) g/dL 06/16/24 06/16/24 06/16/24 Range/Units 05:25 05:30 07:57 WBC 5.8 (3.98-10.04) x10^3/uL RBC 3.55 L (3.93-5.22) x10^6/uL Hgb 9.8 L (11.2-15.7) g/dL Hct 31.5 L (34.1-44.9) % MCV 88.7 (79.4-94.8) fL MCH 27.6 (25.6-32.2) pg MCHC 31.1 L (32.2-35.5) g/dL RDW 13.6 (11.7-14.4) % Plt Count 149 L (182-369) x10^3/uL MPV 10.0 (9.4-12.3) fL Gran % 56.0 (34.0-71.1) % Immature Gran % (Auto) 0.2 (0.001-0.429) % Nucleat RBC Rel Count 0.0 (0.00-0.2) % Eos # (Auto) 0.20 (0.04-0.36) x10^3/uL Immature Gran # (Auto) 0.01 (0.001-0.031) x10^3u/L Absolute Lymphs (auto) 1.74 (1.18-3.74) x10^3/uL Absolute Monos (auto) 0.58 (0.24-0.86) x10^3/uL Absolute Nucleated RBC 0.00 (0.00-0.012) x10^3u/L Lymphocytes % 29.9 (19.3-51.7) % Monocytes % 10.0 (4.7-12.5) % Eosinophils % 3.4 (0.7-5.8) % Basophils % 0.5 (0.1-1.2) % Absolute Granulocytes 3.26 (1.56-6.13) x10^3/uL Basophils # 0.03 (0.01-0.08) x10^3/uL Sodium 140 (135-145) mmol/L Potassium 4.1 (3.5-5.1) mmol/L Chloride 101 (98-107) mmol/L Carbon Dioxide 33 H (22-30) mmol/L Anion Gap 9.9 (5-15) MEQ/L BUN 19 H (7-17) mg/dL Creatinine 1.17 H (0.52-1.04) mg/dL Estimated GFR 48.1 ML/MIN Glucose 108 H (74-106) mg/dL POC Glucometer 108 H (74 to 106) mg/dL Calcium 8.6 (8.4-10.2) mg/dL Total Bilirubin 0.30 (0.2-1.3) mg/dL AST 23 (14-36) U/L ALT 14 (0-35) U/L Alkaline Phosphatase 77 (38-126) U/L Serum Total Protein 7.0 (6.3-8.2) g/dL Albumin 3.6 (3.5-5.0) g/dL Micro Results-Entire Visit: Microbiology 06/14/24 14:06 Urine Culture - Final Catherized Klebsiella Pneumoniae 06/14/24 14:47 Blood Culture - Preliminary Blood 06/14/24 14:47 Blood Culture - Preliminary Blood Accuchecks Date 06/16/24 Date 06/15/24 Date 06/15/24 Time 08:28 Time 16:36 - Radiology Exams Ordered Rad Exams-Entire Visit: Radiology Procedures Category Date Time Status CHEST 1 VIEW (PORTABLE) Stat Exams 06/14/24 14:18 Completed - Procedures and Test Procedures and Tests throughout Hospitalization: Therapy Orders & Screens 06/14/24 14:34 Respiratory Therapy Assessment DAILY Comment: 06/14/24 17:06 Oxygen Nasal Cannula 2 lpm Comment: Respiratory Therapy Consult ONCE Comment: Reason For Exam: Discharge Exam General Appearance: no apparent distress Neurologic Exam: alert, oriented x 3, cooperative Eye Exam: PERRL Ears, Nose, Throat Exam: normal ENT inspection Neck Exam: normal inspection Respiratory Exam: normal breath sounds, lungs clear Cardiovascular Exam: regular rate/rhythm, normal heart sounds Gastrointestinal/Abdomen Exam: soft, normal bowel sounds Pelvic Exam: deferred Rectal Exam: deferred Back Exam: normal inspection Extremity Exam: normal inspection Skin Exam: normal color Wound Assessment: Skin/Wound Assessment Wound/Incision Assessment Start: 06/15/24 11:32 Text: Status: Active Freq: Q6H Protocol: Document 06/16/24 06:00 MP (Rec: 06/16/24 06:40 MP [id number]) Wound/Incision Assessment Left Posterior Buttock Wound Assessment Shift Assessment Wound Type Pressure Ulcer Dressing Status Dry & Intact Drainage Odor None/Absent Surrounding Tissue [place] Primary Dressing meplex Comment dressing c/d/i Wound Photo Photo Taken No Date: 06/14/24 Time: 18:30 Final Diagnosis/Problem List - Final Discharge Diagnosis/Problem (1) UTI (urinary tract infection) Current Visit: Yes Status: Acute Code(s): N39.0 - URINARY TRACT INFECTION, SITE NOT SPECIFIED (2) Leukocytosis Current Visit: Yes Status: Resolved Code(s): D72.829 - ELEVATED WHITE BLOOD CELL COUNT, UNSPECIFIED (3) LAURA (acute kidney injury) Current Visit: Yes Status: Acute Code(s): N17.9 - ACUTE KIDNEY FAILURE, UNSPECIFIED (4) Confusion Current Visit: No Status: Resolved Code(s): R41.0 - DISORIENTATION, UNSPECIFIED (5) HTN (hypertension) Current Visit: No Status: Chronic Code(s): I10 - ESSENTIAL (PRIMARY) HYPERTENSION (6) Afib Current Visit: No Status: Chronic Code(s): I48.91 - UNSPECIFIED ATRIAL FIBRILLATION (7) Chronic diastolic (congestive) heart failure Current Visit: No Status: Chronic Code(s): I50.32 - CHRONIC DIASTOLIC (CONGESTIVE) HEART FAILURE (8) Dementia Current Visit: No Status: Chronic Code(s): F03.90 - UNSP DEMENTIA, UNSP SEVERITY, WITHOUT BEH/PSYCH/MOOD/ANX (9) Hypothyroid Current Visit: No Status: Chronic Code(s): E03.9 - HYPOTHYROIDISM, UNSPECIFIED (10) Chronic obstructive pulmonary disease Current Visit: No Status: Chronic - Discharge Discharge Date: 06/16/24 Disposition: DC TO ANY "OTHER" SNF Condition: Stable Prescriptions: New levoFLOXacin [Levofloxacin] 500 mg PO DAILY 7 Days #7 tablet Continue Duloxetine HCl [Cymbalta] 60 mg PO QAM Multivitamin [Multivitamins] 1 each PO DAILY Albuterol 2.5 mg/3 ml Neb [Proventil 2.5 mg/3 ml Neb] 1 neb IH Q4HPRN PRN PRN Reason: breathing Albuterol 2 puff IH Q4H PRN PRN PRN Reason: breathing Potassium Chloride Tab* [Klor Con] 10 meq PO DAILY Solifenacin Succinate 5 mg PO DAILY PANTOPRAZOLE 40 mg Tablet [Protonix 40MG Tablet] 40 mg PO QAM Methadone HCl 10 mg [DOLOPHINE 10MG Tablet] 5 mg PO BID Memantine HCl 10 mg PO BID Magnesium 500 mg PO DAILY Cariprazine HCl [Vraylar] 3 mg PO HS Apixaban [Eliquis] 5 mg PO BID Propranolol HCl [Propranolol HCl ER] 60 mg PO DAILY Ropinirole HCl 1 mg PO TID Levothyroxine Sodium 88 Mcg [Synthroid 88 Mcg] 88 mcg PO DAILY Gabapentin [Neurontin ] 800 mg PO TID Cetirizine HCl [All Day Allergy Relief] 10 mg PO DAILY Calcium Carbonate/Vitamin D3 [Calcium 250-D Tablet] 1 each PO DAILY Glimepiride 1 mg PO BREAKFAST Discontinued Furosemide [Lasix] 40 mg PO 0800 Furosemide [Lasix] 20 mg PO 1700 Additional Instructions: -CMP 06/17/24 -Levaquin daily x 7 days - recheck UA after completion of abx course for treatment response/resolution -Hold lasix x 3 days- monitor for edema/fluid overload -contact onsite provider for further instruction if edema present Follow up with: RENATO GUNN MD [Primary Care Provider] -
--- NOTE | 2024-06-16 10:29 | PCM.DS ---
Discharge Summary Date of Admission: 06/14/24 17:02 Date of Discharge: 06/16/24 Admitting Physician: LG CALLE MD Primary Care Provider: VELIA,RENATO Allergies Allergies Sulfa (Sulfonamide Antibiotics) Allergy (Severe, Verified 06/14/24 14:02) Hives tapentadol HCl [From Nucynta] Allergy (Severe, Verified 06/14/24 14:02) throat swelling and itching hydrocodone bitartrate [From Vicodin] Allergy (Mild, Verified 06/14/24 14:02) intense itching Hospital Summary - Vitals & Intake/Output Vital Signs: Vital Signs Temperature 97.5 F 06/16/24 08:00 Pulse Rate 53 L 06/16/24 09:27 Respiratory Rate 18 06/16/24 09:27 Blood Pressure 115/56 06/16/24 08:00 O2 Sat by Pulse Oximetry 95 06/16/24 09:27 Intake & Output: Intake & Output 06/13/24 06/14/24 06/15/24 06/16/24 11:59 11:59 11:59 11:59 Intake Total 530 1400 Balance 530 1400 Weight 95.5 kg - Lab Result Diagrams: 06/16/24 05:25 06/16/24 05:30 Lab Results-Last 24 Hrs: Lab Results-Last 24 Hours 06/15/24 06/15/24 06/15/24 Range/Units 11:57 16:31 21:50 WBC (3.98-10.04) x10^3/uL RBC (3.93-5.22) x10^6/uL Hgb (11.2-15.7) g/dL Hct (34.1-44.9) % MCV (79.4-94.8) fL MCH (25.6-32.2) pg MCHC (32.2-35.5) g/dL RDW (11.7-14.4) % Plt Count (182-369) x10^3/uL MPV (9.4-12.3) fL Gran % (34.0-71.1) % Immature Gran % (Auto) (0.001-0.429) % Nucleat RBC Rel Count (0.00-0.2) % Eos # (Auto) (0.04-0.36) x10^3/uL Immature Gran # (Auto) (0.001-0.031) x10^3u/L Absolute Lymphs (auto) (1.18-3.74) x10^3/uL Absolute Monos (auto) (0.24-0.86) x10^3/uL Absolute Nucleated RBC (0.00-0.012) x10^3u/L Lymphocytes % (19.3-51.7) % Monocytes % (4.7-12.5) % Eosinophils % (0.7-5.8) % Basophils % (0.1-1.2) % Absolute Granulocytes (1.56-6.13) x10^3/uL Basophils # (0.01-0.08) x10^3/uL Sodium (135-145) mmol/L Potassium (3.5-5.1) mmol/L Chloride (98-107) mmol/L Carbon Dioxide (22-30) mmol/L Anion Gap (5-15) MEQ/L BUN (7-17) mg/dL Creatinine (0.52-1.04) mg/dL Estimated GFR ML/MIN Glucose (74-106) mg/dL POC Glucometer 143 H 118 H 178 H (74 to 106) mg/dL Calcium (8.4-10.2) mg/dL Total Bilirubin (0.2-1.3) mg/dL AST (14-36) U/L ALT (0-35) U/L Alkaline Phosphatase (38-126) U/L Serum Total Protein (6.3-8.2) g/dL Albumin (3.5-5.0) g/dL 06/16/24 06/16/24 06/16/24 Range/Units 05:25 05:30 07:57 WBC 5.8 (3.98-10.04) x10^3/uL RBC 3.55 L (3.93-5.22) x10^6/uL Hgb 9.8 L (11.2-15.7) g/dL Hct 31.5 L (34.1-44.9) % MCV 88.7 (79.4-94.8) fL MCH 27.6 (25.6-32.2) pg MCHC 31.1 L (32.2-35.5) g/dL RDW 13.6 (11.7-14.4) % Plt Count 149 L (182-369) x10^3/uL MPV 10.0 (9.4-12.3) fL Gran % 56.0 (34.0-71.1) % Immature Gran % (Auto) 0.2 (0.001-0.429) % Nucleat RBC Rel Count 0.0 (0.00-0.2) % Eos # (Auto) 0.20 (0.04-0.36) x10^3/uL Immature Gran # (Auto) 0.01 (0.001-0.031) x10^3u/L Absolute Lymphs (auto) 1.74 (1.18-3.74) x10^3/uL Absolute Monos (auto) 0.58 (0.24-0.86) x10^3/uL Absolute Nucleated RBC 0.00 (0.00-0.012) x10^3u/L Lymphocytes % 29.9 (19.3-51.7) % Monocytes % 10.0 (4.7-12.5) % Eosinophils % 3.4 (0.7-5.8) % Basophils % 0.5 (0.1-1.2) % Absolute Granulocytes 3.26 (1.56-6.13) x10^3/uL Basophils # 0.03 (0.01-0.08) x10^3/uL Sodium 140 (135-145) mmol/L Potassium 4.1 (3.5-5.1) mmol/L Chloride 101 (98-107) mmol/L Carbon Dioxide 33 H (22-30) mmol/L Anion Gap 9.9 (5-15) MEQ/L BUN 19 H (7-17) mg/dL Creatinine 1.17 H (0.52-1.04) mg/dL Estimated GFR 48.1 ML/MIN Glucose 108 H (74-106) mg/dL POC Glucometer 108 H (74 to 106) mg/dL Calcium 8.6 (8.4-10.2) mg/dL Total Bilirubin 0.30 (0.2-1.3) mg/dL AST 23 (14-36) U/L ALT 14 (0-35) U/L Alkaline Phosphatase 77 (38-126) U/L Serum Total Protein 7.0 (6.3-8.2) g/dL Albumin 3.6 (3.5-5.0) g/dL Micro Results-Entire Visit: Microbiology 06/14/24 14:06 Urine Culture - Final Catherized Klebsiella Pneumoniae 06/14/24 14:47 Blood Culture - Preliminary Blood 06/14/24 14:47 Blood Culture - Preliminary Blood Accuchecks Date 06/16/24 Date 06/15/24 Date 06/15/24 Time 08:28 Time 16:36 - Radiology Exams Ordered Rad Exams-Entire Visit: Radiology Procedures Category Date Time Status CHEST 1 VIEW (PORTABLE) Stat Exams 06/14/24 14:18 Completed - Procedures and Test Procedures and Tests throughout Hospitalization: Therapy Orders & Screens 06/14/24 14:34 Respiratory Therapy Assessment DAILY Comment: 06/14/24 17:06 Oxygen Nasal Cannula 2 lpm Comment: Respiratory Therapy Consult ONCE Comment: Reason For Exam: Discharge Exam Wound Assessment: Skin/Wound Assessment Wound/Incision Assessment Start: 06/15/24 11:32 Text: Status: Active Freq: Q6H Protocol: Document 06/16/24 06:00 MP (Rec: 06/16/24 06:40 MP [id number]) Wound/Incision Assessment Left Posterior Buttock Wound Assessment Shift Assessment Wound Type Pressure Ulcer Dressing Status Dry & Intact Drainage Odor None/Absent Surrounding Tissue [place] Primary Dressing meplex Comment dressing c/d/i Wound Photo Photo Taken No Date: 06/14/24 Time: 18:30 Final Diagnosis/Problem List - Final Discharge Diagnosis/Problem (1) UTI (urinary tract infection) Current Visit: Yes Status: Acute Code(s): N39.0 - URINARY TRACT INFECTION, SITE NOT SPECIFIED (2) Leukocytosis Current Visit: Yes Status: Resolved Code(s): D72.829 - ELEVATED WHITE BLOOD CELL COUNT, UNSPECIFIED (3) LAURA (acute kidney injury) Current Visit: Yes Status: Acute Code(s): N17.9 - ACUTE KIDNEY FAILURE, UNSPECIFIED (4) Confusion Current Visit: No Status: Resolved Code(s): R41.0 - DISORIENTATION, UNSPECIFIED (5) HTN (hypertension) Current Visit: No Status: Chronic Code(s): I10 - ESSENTIAL (PRIMARY) HYPERTENSION (6) Afib Current Visit: No Status: Chronic Code(s): I48.91 - UNSPECIFIED ATRIAL FIBRILLATION (7) Chronic diastolic (congestive) heart failure Current Visit: No Status: Chronic Code(s): I50.32 - CHRONIC DIASTOLIC (CONGESTIVE) HEART FAILURE (8) Dementia Current Visit: No Status: Chronic Code(s): F03.90 - UNSP DEMENTIA, UNSP SEVERITY, WITHOUT BEH/PSYCH/MOOD/ANX (9) Hypothyroid Current Visit: No Status: Chronic Code(s): E03.9 - HYPOTHYROIDISM, UNSPECIFIED (10) Chronic obstructive pulmonary disease Current Visit: No Status: Chronic - Discharge Disposition: Skilled Care @ [facility] Condition: Stable Prescriptions: New levoFLOXacin [Levofloxacin] 500 mg PO DAILY 7 Days #7 tablet Continue Duloxetine HCl [Cymbalta] 60 mg PO QAM Multivitamin [Multivitamins] 1 each PO DAILY Albuterol 2.5 mg/3 ml Neb [Proventil 2.5 mg/3 ml Neb] 1 neb IH Q4HPRN PRN PRN Reason: breathing Albuterol 2 puff IH Q4H PRN PRN PRN Reason: breathing Potassium Chloride Tab* [Klor Con] 10 meq PO DAILY Solifenacin Succinate 5 mg PO DAILY PANTOPRAZOLE 40 mg Tablet [Protonix 40MG Tablet] 40 mg PO QAM Methadone HCl 10 mg [DOLOPHINE 10MG Tablet] 5 mg PO BID Memantine HCl 10 mg PO BID Magnesium 500 mg PO DAILY Cariprazine HCl [Vraylar] 3 mg PO HS Apixaban [Eliquis] 5 mg PO BID Propranolol HCl [Propranolol HCl ER] 60 mg PO DAILY Ropinirole HCl 1 mg PO TID Levothyroxine Sodium 88 Mcg [Synthroid 88 Mcg] 88 mcg PO DAILY Gabapentin [Neurontin ] 800 mg PO TID Cetirizine HCl [All Day Allergy Relief] 10 mg PO DAILY Calcium Carbonate/Vitamin D3 [Calcium 250-D Tablet] 1 each PO DAILY Glimepiride 1 mg PO BREAKFAST Discontinued Furosemide [Lasix] 40 mg PO 0800 Furosemide [Lasix] 20 mg PO 1700 Additional Instructions: -CMP 06/17/24 -Will need Urology follow up for recurrent UTIs set up -Levaquin daily x 7 days - recheck UA after completion of abx course for treatment response/resolution -Hold lasix x 3 days- monitor for edema/fluid overload -contact onsite provider for further instruction if edema present Follow up with: RENATO GUNN MD [Primary Care Provider] -
[2024-06-16] MEDS: Levofloxacin 250MG Tablet PO SCH (11:59)
== END 2024-06-16 11:13 ==
LOC: ED 13:56 → MED SURG 17:02
PROVIDERS: ADMIT Internal Medicine; ATTEND Internal Medicine
DX: N39.0 Urinary tract infection, site not specified (principal); D72.829 Elevated white blood cell count, unspecified; I12.9 Hypertensive chronic kidney disease with stage 1 through stage 4 chronic kidney disease, or unspecified chronic kidney disease; E11.22 Type 2 diabetes mellitus with diabetic chronic kidney disease; N18.9 Chronic kidney disease, unspecified; I50.32 Chronic diastolic (congestive) heart failure; I48.91 Unspecified atrial fibrillation; N17.9 Acute kidney failure, unspecified; E78.5 Hyperlipidemia, unspecified; R41.0 Disorientation, unspecified; F03.90 Unspecified dementia, unspecified severity, without behavioral disturbance, psychotic disturbance, mood disturbance, and anxiety; E03.9 Hypothyroidism, unspecified; J44.0 Chronic obstructive pulmonary disease with (acute) lower respiratory infection; Z85.3 Personal history of malignant neoplasm of breast; Z79.01 Long term (current) use of anticoagulants; Z79.899 Other long term (current) drug therapy
CPT/HCPCS: 0241U; 36000; 36415; 71045; 80053; 81001; 82947; 83036; 83605; 83690; 83735; 83880; 84132; 84145; 84484; 85025; 87040; 87077; 87086; 87186; 93005; 93268; 94640; 94760; 94762; 96365; 99285; G0378; Q3014; J0696; A9270-GY

== ENCOUNTER 2025-07-29 10:37 | Inpatient (IN) | payer MEDICARE, OTHER ==
[2025-07-29] MEDS ORDERED: DUONEB 0.5-3 MG/3 ml Neb IH ONE (10:51)
--- NOTE | 2025-07-29 10:55 | ERPHSYRPT ---
- History of Present Illness Time Seen by Provider: 07/29/25 10:45 Source: patient, EMS, halfway records Exam Limitations: no limitations Physician History: Patient brought in by EMS from halfway secondary to shortness of breath and cough. Reported to have a saturation of mid 80s. Patient has a known history of atrial fibrillation and COPD. States she has had a cough. States it is exacerbated with ambulation and activity. Patient is chronically on 3 L. Denies nausea vomit diarrhea. Denies fever aches or chills. Complains of chronic back pain. Timing/Duration: today Activities at Onset: none Severity of Dyspnea-Max: none Severity of Dyspnea-Current: none Possible Cause: occasional episodes (Patient states she had a past history of COPD and CHF.) Modifying Factors: Improves With: activity Associated Symptoms: intermittent (States she does get short of breath with activity.) Allergies/Adverse Reactions: Sulfa (Sulfonamide Antibiotics) Allergy (Severe, Verified 07/29/25 13:37) Hives tapentadol HCl [From Nucynta] Allergy (Severe, Verified 07/29/25 13:37) throat swelling and itching hydrocodone bitartrate [From Vicodin] Allergy (Mild, Verified 07/29/25 13:37) intense itching codeine Allergy (Verified 07/29/25 13:37) oxycodone Allergy (Verified 07/29/25 13:37) Home Medications: Duloxetine HCl [Cymbalta] 60 mg PO BID 02/01/15 [History] Multivitamin [Multivitamins] 1 each PO DAILY 02/01/15 [History] Albuterol 2 puff IH Q4H PRN PRN 08/22/19 [History] Albuterol 2.5 mg/3 ml Neb [Proventil 2.5 mg/3 ml Neb] 1 neb IH Q4HPRN PRN 08/22/19 [History] Potassium Chloride Tab* [Klor Con] 10 meq PO DAILY 08/22/19 [History] Apixaban [Eliquis] 5 mg PO BID 12/06/23 [History] Magnesium 500 mg PO DAILY 12/06/23 [History] Memantine HCl 10 mg PO BID 12/06/23 [History] PANTOPRAZOLE 40 mg Tablet [Protonix 40MG Tablet] 40 mg PO QAM 12/06/23 [History] Propranolol HCl [Propranolol HCl ER] 60 mg PO DAILY 12/07/23 [History] Ropinirole HCl 1 mg PO TID 12/07/23 [History] Calcium Carbonate/Vitamin D3 [Calcium 250-D Tablet] 1 each PO DAILY 05/14/24 [History] Gabapentin [Neurontin ] 800 mg PO TID 05/14/24 [History] Glimepiride 2 mg PO BREAKFAST 05/14/24 [History] Levothyroxine Sodium 88 Mcg [Synthroid 88 Mcg] 88 mcg PO DAILY 05/14/24 [History] Acetaminophen 325 mg [Tylenol 325 mg] 325 mg PO Q4-6HPRN PRN 07/29/25 [History] Bisacodyl [Dulcolax] 10 mg RC DAILY PRN 07/29/25 [History] Cranberry Fruit [Cranberry] 300 mg PO BID 07/29/25 [History] Fexofenadine HCl [Padmini Allergy] 180 mg PO BREAKFAST 07/29/25 [History] Fluticasone/Vilanterol [Breo Ellipta 100-25 Mcg INH] 1 each IH DAILY 07/29/25 [History] Glucosam/Chondro/MSM/D3/Boswel [Osteo-Joint Complex Tablet] 1 each PO DAILY 07/29/25 [History] Guaifenesin/Dextromethorphan [Tussin Dm 10-100 mg/5 ml Liq] 15 ml PO Q4-6HPRN PRN 07/29/25 [History] Hydroxyzine HCl 25 mg [Atarax 25 mg] 25 mg PO BID 07/29/25 [History] Insulin Glargine,Hum.rec.anlog [Lantus] 30 unit SQ BID 07/29/25 [History] Loperamide HCl [Imodium A-D] 2 mg PO Q6H PRN 07/29/25 [History] Magnesium Hydroxide [Dulcolax] 2,400 mg PO DAILY 07/29/25 [History] Magnesium Hydroxide [Milk of Magnesia] 30 ml PO DAILY PRN 07/29/25 [History] Metformin HCl 500 mg [Glucophage 500 MG] 500 mg PO DINNER 07/29/25 [History] Metformin HCl [Metformin ER Osmotic] 1,000 mg PO BREAKFAST 07/29/25 [History] Nystatin 1 each MC DAILY PRN 07/29/25 [History] Pilocarpine HCl [Salagen] 5 mg PO TID 07/29/25 [History] SUMAtriptan succinate [Imitrex 50 mg] 50 mg PO DAILY PRN 07/29/25 [History] Sodium Chloride/Aloe Vera [[place] Saline Nasal Gel] 14.1 gm NS DAILY PRN 07/29/25 [History] Temazepam 30 mg PO HS 07/29/25 [History] Torsemide 50 mg PO BREAKFAST 07/29/25 [History] Torsemide 60 mg PO BREAKFAST 07/29/25 [History] Zinc Oxide Ointment 30 gm 30 gm TP BID 07/29/25 [History] cycloSPORINE [Restasis Multidose] 1.5 ml OP BID 07/29/25 [History] Hx Tetanus, Diphtheria Vaccination/Date Given: Yes Hx Influenza Vaccination/Date Given: Yes Hx Pneumococcal Vaccination/Date Given: Yes Travel Risk - Emerging Infectious Disease Are you exhibiting symptoms associated with any current EIDs: Yes Symptoms: Shortness of Breath - Review of Systems Constitutional: No Fever, No Chills Eyes: No Symptoms Ears, Nose, & Throat: No Symptoms Respiratory: Cough, Dyspnea on Exertion (KEMP) Cardiac: Palpitations Abdominal/Gastrointestinal: No Abdominal Pain, No Nausea, No Vomiting, No Diarrhea Genitourinary Symptoms: No Dysuria Musculoskeletal: Back Pain Skin: No Rash Neurological: No Dizziness, No Focal Weakness, No Sensory Changes Psychological: No Symptoms Endocrine: No Symptoms - Past Medical History Pertinent Past Medical History: Yes Neurological History: Migraines, Peripheral Neuropathy ENT History: Cataracts Cardiac History: High Cholesterol, Hypertension Respiratory History: COPD, Pulmonary Embolism, Other Endocrine Medical History: Diabetes Type II, Hypothyroidism Musculoskeletal History: Degenerative Disk Disease, Fibromyalgia, Osteoporosis, Rheumatoid Arthritis GI Medical History: Diverticulosis, GERD History: Renal Disease Psycho-Social History: Anxiety, Depression Female Reproductive Disorders: Breast Cancer Other Medical History: Chronic stage 3 kidney disease, dropped mesh into vagina from bladder sling- causes frequent UTI, Iron def anemia and b-12 anemia, didn't recovery well from the PE pts wears 2L O2 via nasal canula - Past Surgical History Past Surgical History: Yes Neuro Surgical History: No Pertinent History Cardiac: Cardiac Catheterization Respiratory: No Pertinent History Gastrointestinal: Cholecystectomy Genitourinary: Other Musculoskeletal: Orthopedic Surgery Female Surgical History: Hysterectomy, Lumpectomy, Mastectomy Other Surgical History: righ carpel tunnel surgery, bilateral mastectomy 2013 Radical to left side2 lamenectomys, 3 vertebre fused to lumbar neck fusion thorasic fusion left knee surgery bladder sling with mesh catarct and lasix surgery Significant Family History: no pertinent family hx - Social History Smoking Status: Never smoker Exposure to second hand smoke: No Drug Use: none - Social Determinants of Health Will the patient participate in the screening: Yes Do you worry about a steady place to live?: No In the past 12 months,have you had to go without utilities?: No Transportation Issues: No Has anyone in your support network made you feel unsafe?: No Have you or anyone in your house had to go w/o enough food: No Comment: Currently resides at [facility]. - Nursing Vital Signs Nursing Vital Signs: Initial Vital Signs Temperature 97.7 F 07/29/25 10:38 Pulse Rate 130 H 07/29/25 10:38 Respiratory Rate 26 H 07/29/25 10:38 Blood Pressure 138/91 07/29/25 10:38 O2 Sat by Pulse Oximetry 96 07/29/25 10:38 Pain Scale Pain Intensity 4 - Physical Exam General Appearance: no apparent distress, alert Eye Exam: PERRL/EOMI Ears, Nose, Throat Exam: normal ENT inspection (Pasty dry mucous membranes.), No hearing decreased, No nasal congestion, No pharyngeal erythema, No tonsillar exudate Neck Exam: normal inspection Respiratory Exam: rhonchi, wheezing Cardiovascular/Chest Exam: tachycardia, irregular Abdominal/Gastrointestinal Exam: soft Extremity Exam: non-tender, normal range of motion, normal inspection, no calf tenderness, no pedal edema Neurologic Exam: alert, oriented x 3, cooperative, administrator pesticide II-XII nml as tested, sensation nml, No motor deficits Skin Exam: normal color, warm, No dry SpO2 Interpretation: borderline oxygenation - Course EKG Interpreted by Me: A-fib, NORMAL AXIS, NORMAL QRS, Ischemic ST-T changes Ordered Tests: Active Orders 24 hr Category Date Time Status Leather Softener STAT Care 07/29/25 10:46 Completed Oxygen-ED Only Nasal Cannula 3 lpm Care 07/29/25 10:45 Completed Heart-Healthy Diet Diet 07/29/25 Dinner Active CHEST 1 VIEW (PORTABLE) Stat Exams 07/29/25 10:46 Taken BLOOD CULTURE Stat Lab 07/29/25 10:46 Received BMP Stat Lab 07/29/25 11:00 Completed CBC W DIFF Stat Lab 07/29/25 11:00 Completed CULTURE,SPUTUM Stat Lab 07/29/25 10:46 Ordered Hepatic Function Panel Stat Lab 07/29/25 11:00 Completed Lactic Acid Stat Lab 07/29/25 11:05 Completed Lactic Acid Stat Lab 07/29/25 13:16 Received MAGNESIUM Stat Lab 07/29/25 11:00 Completed NT PRO BNPII Stat Lab 07/29/25 11:00 Completed PROTIME WITH INR Stat Lab 07/29/25 11:00 Completed TROPONIN Q4H Lab 07/29/25 11:00 Completed TROPONIN Q4H Lab 07/29/25 15:00 Ordered TROPONIN Q4H Lab 07/29/25 19:00 Ordered Respiratory Therapy Assessment DAILY RT 07/29/25 11:18 Completed Transfer Order Routine Transfer 07/29/25 Completed Medication Summary Discontinued Medications Generic Name Dose Route Start Last Admin Trade Name Freq PRN Reason Stop Dose Admin Albuterol/Ipratropium 3 ml 07/29/25 10:45 07/29/25 11:10 Ipratropium/Albuterol Sulfate 3 Ml Ampul.Neb IH 07/29/25 10:46 3 ml STAT ONE Administration Albuterol/Ipratropium Confirm 07/29/25 10:51 Ipratropium/Albuterol Sulfate 3 Ml Ampul.Neb Administered 07/29/25 10:52 Dose 3 ml IH .STK-MED ONE Methylprednisolone Sodium 0 mg 07/29/25 10:45 07/29/25 11:01 Succinate 125 mg/ Sterile IV 07/29/25 10:46 125 mg Water 2 ml STAT ONE Administration Sodium Chloride 500 mls @ 500 mls/hr 07/29/25 10:49 07/29/25 12:04 Sodium Chloride 0.9% 500 Ml IV 07/29/25 11:48 Infused .Q1H ONE Infusion Sodium Chloride Confirm 07/29/25 10:59 Sodium Chloride 0.9% 500 Ml Administered 07/29/25 11:00 Dose 500 mls @ ud IV .STK-MED ONE Methylprednisolone Sodium Succinate Confirm 07/29/25 10:59 Methylprednis Sod Succ 125 Mg/2 Ml Vial Administered 07/29/25 11:00 Dose 125 mg .ROUTE .STK-MED ONE Metoprolol Succinate 50 mg 07/30/25 10:00 Metoprolol Succinate 50 Mg Tablet.Sa PO 08/29/25 09:59 DAILY HUNTER Metoprolol Succinate Confirm 07/29/25 12:31 Metoprolol Succinate 25 Mg Xl Tab Administered 07/29/25 12:32 Dose 50 mg .ROUTE .STK-MED ONE Metoprolol Succinate 25 mg 07/29/25 12:32 07/29/25 12:33 Metoprolol Succinate 25 Mg Xl Tab PO 07/29/25 12:33 25 mg STAT ONE Administration Sterile Water Confirm 07/29/25 10:59 Water For Injection,Sterile 10 Ml Vial Administered 07/29/25 11:00 Dose 10 ml IJ .STK-MED ONE Lab/Rad Data: Laboratory Result Diagrams 07/29/25 11:00 07/29/25 11:00 Laboratory Results 07/29/25 07/29/25 07/29/25 Range/Units 11:05 11:00 11:00 WBC (3.98-10.04) x10^3/uL RBC (3.93-5.22) x10^6/uL Hgb (11.2-15.7) g/dL Hct (34.1-44.9) % MCV (79.4-94.8) fL MCH (25.6-32.2) pg MCHC (32.2-35.5) g/dL RDW (11.7-14.4) % Plt Count (182-369) x10^3/uL MPV (9.4-12.3) fL Gran % (34.0-71.1) % Immature Gran % (Auto) (0.001-0.429) % Nucleat RBC Rel Count (0.00-0.2) % Eos # (Auto) (0.04-0.36) x10^3/uL Immature Gran # (Auto) (0.001-0.031) x10^3u/L Absolute Lymphs (auto) (1.18-3.74) x10^3/uL Absolute Monos (auto) (0.24-0.86) x10^3/uL Absolute Nucleated RBC (0.00-0.012) x10^3u/L Lymphocytes % (19.3-51.7) % Monocytes % (4.7-12.5) % Eosinophils % (0.7-5.8) % Basophils % (0.1-1.2) % Absolute Granulocytes (1.56-6.13) x10^3/uL Basophils # (0.01-0.08) x10^3/uL PT (9.4-12.5) SECONDS INR (0.8-3.0) Sodium (135-145) mmol/L Potassium (3.5-5.1) mmol/L Chloride (98-107) mmol/L Carbon Dioxide (22-30) mmol/L Anion Gap (5-15) MEQ/L BUN (7-17) mg/dL Creatinine (0.52-1.04) mg/dL Estimated GFR ML/MIN Glucose (74-106) mg/dL Lactic Acid 3.2 H (0.4-2.0) Calcium (8.4-10.2) mg/dL Magnesium (1.6-2.3) mg/dL Total Bilirubin (0.2-1.3) mg/dL Direct Bilirubin (0.0-0.4) mg/dL AST (14-36) U/L ALT (0-35) U/L Alkaline Phosphatase (38-126) U/L Troponin I (0.000-0.033) ng/mL NT-Pro-B Natriuret Pep 576 (<300) pg/mL Serum Total Protein (6.3-8.2) g/dL Albumin (3.5-5.0) g/dL Influenza Type A Ag NEGATIVE (NEGATIVE) Influenza Type B Ag NEGATIVE (NEGATIVE) RSV (PCR) NEGATIVE (NEGATIVE) SARS-CoV-2 (PCR) NEGATIVE (NEGATIVE) 07/29/25 07/29/25 07/29/25 Range/Units 11:00 11:00 11:00 WBC (3.98-10.04) x10^3/uL RBC (3.93-5.22) x10^6/uL Hgb (11.2-15.7) g/dL Hct (34.1-44.9) % MCV (79.4-94.8) fL MCH (25.6-32.2) pg MCHC (32.2-35.5) g/dL RDW (11.7-14.4) % Plt Count (182-369) x10^3/uL MPV (9.4-12.3) fL Gran % (34.0-71.1) % Immature Gran % (Auto) (0.001-0.429) % Nucleat RBC Rel Count (0.00-0.2) % Eos # (Auto) (0.04-0.36) x10^3/uL Immature Gran # (Auto) (0.001-0.031) x10^3u/L Absolute Lymphs (auto) (1.18-3.74) x10^3/uL Absolute Monos (auto) (0.24-0.86) x10^3/uL Absolute Nucleated RBC (0.00-0.012) x10^3u/L Lymphocytes % (19.3-51.7) % Monocytes % (4.7-12.5) % Eosinophils % (0.7-5.8) % Basophils % (0.1-1.2) % Absolute Granulocytes (1.56-6.13) x10^3/uL Basophils # (0.01-0.08) x10^3/uL PT 10.8 (9.4-12.5) SECONDS INR 0.96 (0.8-3.0) Sodium 139 (135-145) mmol/L Potassium 5.2 H (3.5-5.1) mmol/L Chloride 100 (98-107) mmol/L Carbon Dioxide 26 (22-30) mmol/L Anion Gap 17.8 H (5-15) MEQ/L BUN 16 (7-17) mg/dL Creatinine 0.88 (0.52-1.04) mg/dL Estimated GFR 67.2 ML/MIN Glucose 112 H (74-106) mg/dL Lactic Acid (0.4-2.0) Calcium 9.4 (8.4-10.2) mg/dL Magnesium 1.9 (1.6-2.3) mg/dL Total Bilirubin 0.70 (0.2-1.3) mg/dL Direct Bilirubin 0.4 (0.0-0.4) mg/dL AST 55 H (14-36) U/L ALT 25 (0-35) U/L Alkaline Phosphatase 77 (38-126) U/L Troponin I 0.014 (0.000-0.033) ng/mL NT-Pro-B Natriuret Pep (<300) pg/mL Serum Total Protein 7.8 (6.3-8.2) g/dL Albumin 4.2 (3.5-5.0) g/dL Influenza Type A Ag (NEGATIVE) Influenza Type B Ag (NEGATIVE) RSV (PCR) (NEGATIVE) SARS-CoV-2 (PCR) (NEGATIVE) 07/29/25 Range/Units 11:00 WBC 7.6 (3.98-10.04) x10^3/uL RBC 4.06 (3.93-5.22) x10^6/uL Hgb 11.2 (11.2-15.7) g/dL Hct 38.1 (34.1-44.9) % MCV 93.8 (79.4-94.8) fL MCH 27.6 (25.6-32.2) pg MCHC 29.4 L (32.2-35.5) g/dL RDW 15.7 H (11.7-14.4) % Plt Count 188 (182-369) x10^3/uL MPV 9.6 (9.4-12.3) fL Gran % 71.1 (34.0-71.1) % Immature Gran % (Auto) 0.4 (0.001-0.429) % Nucleat RBC Rel Count 0.0 (0.00-0.2) % Eos # (Auto) 0.19 (0.04-0.36) x10^3/uL Immature Gran # (Auto) 0.03 (0.001-0.031) x10^3u/L Absolute Lymphs (auto) 1.44 (1.18-3.74) x10^3/uL Absolute Monos (auto) 0.50 (0.24-0.86) x10^3/uL Absolute Nucleated RBC 0.00 (0.00-0.012) x10^3u/L Lymphocytes % 18.9 L (19.3-51.7) % Monocytes % 6.6 (4.7-12.5) % Eosinophils % 2.5 (0.7-5.8) % Basophils % 0.5 (0.1-1.2) % Absolute Granulocytes 5.43 (1.56-6.13) x10^3/uL Basophils # 0.04 (0.01-0.08) x10^3/uL PT (9.4-12.5) SECONDS INR (0.8-3.0) Sodium (135-145) mmol/L Potassium (3.5-5.1) mmol/L Chloride (98-107) mmol/L Carbon Dioxide (22-30) mmol/L Anion Gap (5-15) MEQ/L BUN (7-17) mg/dL Creatinine (0.52-1.04) mg/dL Estimated GFR ML/MIN Glucose (74-106) mg/dL Lactic Acid (0.4-2.0) Calcium (8.4-10.2) mg/dL Magnesium (1.6-2.3) mg/dL Total Bilirubin (0.2-1.3) mg/dL Direct Bilirubin (0.0-0.4) mg/dL AST (14-36) U/L ALT (0-35) U/L Alkaline Phosphatase (38-126) U/L Troponin I (0.000-0.033) ng/mL NT-Pro-B Natriuret Pep (<300) pg/mL Serum Total Protein (6.3-8.2) g/dL Albumin (3.5-5.0) g/dL Influenza Type A Ag (NEGATIVE) Influenza Type B Ag (NEGATIVE) RSV (PCR) (NEGATIVE) SARS-CoV-2 (PCR) (NEGATIVE) - Progress Progress: re-examined Air Movement: good Progress Note: 07/29/25 12:21 On reevaluation after nebulizer treatment, fluids, steroids reauscultation showed improved breath sounds. Patient states her breathing is also improved. However, patient continues to be atrial fibrillation with RVR ranges 110s to 130s with a max of 140. I reviewed laboratories. Discussed with hospitalist at this time for admission since she is not on active rate control for her atrial fibrillation I suspect that this is most likely the cause of her dyspnea on exertion as she has no significant CHF on chest x-ray. We will do oral metoprolol and add a UA at this time. 07/29/25 12:43 Patient stable on follow-up evaluation. Explained patient current findings, condition, admission and dissipated course. Heart rate is still atrial fibrillation with rapid ventricular response of rates 135. Patient is 99% on her traditional 3 L. She also states that her breathing has improved with her initial symptomatic treatment. Will see patient in: hospital (observation) - Departure Departure Disposition: In-patient Admission Clinical Impression: Atrial fibrillation with RVR, COPD (chronic obstructive pulmonary disease) Condition: Stable Critical Care Time: No
[2025-07-29] MEDS ORDERED: Sterile H2O 10 ml IJ ONE (10:59)
[2025-07-29] MEDS: solu-MEDROL 125 MG, Sterile H2O 10 ml 2 ML IV ONE (11:01)
[2025-07-29] MEDS: DUONEB 0.5-3 MG/3 ml Neb IH ONE (11:10)
[2025-07-29 11:15] LABS: BASOPHIL % 0.5 % (0.1-1.2); Basophil (Absolute #) 0.04 x10^3/uL (0.01-0.08); Eosinophil (Absolute #) 0.19 x10^3/uL (0.04-0.36); Hematocrit 38.1 % (34.1-44.9); Hemoglobin 11.2 g/dL (11.2-15.7); IMMATURE GRAN # 0.03 x10^3u/L (0.001-0.031); IMMATURE GRAN % 0.4 % (0.001-0.429); Lymphocyte (Absolute #) 1.44 x10^3/uL (1.18-3.74); Mean Corpuscular Hemoglobin 27.6 pg (25.6-32.2); Mean Corpuscular Hgb Concent. 29.4 g/dL (32.2-35.5); Monocyte (Absolute #) 0.50 x10^3/uL (0.24-0.86); NUCLEATED RBC # 0.00 x10^3u/L (0.00-0.012); NUCLEATED RBC % 0.0 % (0.00-0.2); Platelet Count 188 x10^3/uL (182-369); Red Blood Count 4.06 x10^6/uL (3.93-5.22); White Blood Count 7.6 x10^3/uL (3.98-10.04)
[2025-07-29 11:27] LABS: INR 0.96 (0.8-3.0); PROTIME 10.8 SECONDS (9.4-12.5)
[2025-07-29 11:36] LABS: Calcium 9.4 mg/dL (8.4-10.2); Carbon Dioxide 26.0 mmol/L (22-30); Creatinine 1 0.88 mg/dL (0.52-1.04); EST GLOMERULAR FILTRATION RATE 67.2 ML/MIN; Glucose 112.0 mg/dL (74-106); SGOT/AST 55.0 U/L (14-36); SGPT/ALT 25.0 U/L (0-35); Total Protein 7.8 g/dL (6.3-8.2)
[2025-07-29 11:37] LABS: Potassium 5.2 mmol/L (3.5-5.1)
[2025-07-29 11:48] LABS: INFLUENZA A NEGATIVE (NEGATIVE); INFLUENZA B NEGATIVE (NEGATIVE); RESPIRATORY SYNCTIAL VIRUS NEGATIVE (NEGATIVE); SARS-CoV-2 Xpert Express NEGATIVE (NEGATIVE)
[2025-07-29] MEDS ORDERED: Toprol-Xl 25MG Tablets ONE (12:31)
[2025-07-29] MEDS: Toprol-Xl 25MG Tablets PO ONE (12:33)
--- NOTE | 2025-07-29 13:47 | PCM.HP ---
History of Present Illness - Chief Complaint Chief Complaint: COPD exacerbation, A-fib RVR Date: 07/29/25 History of Present Illness: is a 80-year-old female with a complex medical history including COPD on chronic 3 L nasal cannula, atrial fibrillation, hypertension, type 2 diabetes, chronic kidney disease stage III, hypothyroidism, GERD, hiatal hernia, prior pulmonary embolism, breast cancer, and multiple other comorbidities was brought in by EMS from her [place] [facility] due to shortness of breath and cough, with oxygen saturation noted in the mid-80s. In the ED, she was found to be in atrial fibrillation with rapid ventricular response and received metoprolol 75 mg PO. She was also given a 500 mL IV fluid bolus for elevated lactic acid (3.2), potassium (5.2), and anion gap (17.8). Viral testing for flu, COVID, and RSV was negative. On exam, she was stable on her baseline 3 L oxygen with saturation of 98%, lungs clear, and reported improvement in symptoms after Solu- Medrol 125 mg IV and DuoNeb treatment. She additionally described a recent chok ing episode on meat and feels as though something remains stuck in her esophagus. Chest x-ray is pending, and surgical consultation will be considered if indicated. Lactic acid will be repeated. She currently reports epigastric discomfort but denies chest pain, abdominal pain, nausea, vomiting, or diarrhea. - Review of Systems Constitutional: No Fever, No Chills Eyes: No Symptoms Ears, Nose, & Throat: No Symptoms Respiratory: Short Of Breath, No Cough Cardiac: No Chest Pain, No Edema, No Syncope Abdominal/Gastrointestinal: Other (epgastric discomfort), No Abdominal Pain, No Nausea, No Vomiting, No Diarrhea Genitourinary Symptoms: No Dysuria Musculoskeletal: No Back Pain, No Neck Pain Skin: No Rash Neurological: No Dizziness, No Focal Weakness, No Sensory Changes Psychological: No Symptoms Endocrine: No Symptoms Hematologic/Lymphatic: No Symptoms Immunological/Allergic: No Symptoms Medications & Allergies Home Medications: Home Medication List Duloxetine HCl [Cymbalta] 60 mg PO BID 02/01/15 [History Confirmed 07/29/25] Multivitamin [Multivitamins] 1 each PO DAILY 02/01/15 [History Confirmed 07/29/25] Albuterol 2 puff IH Q4H PRN PRN 08/22/19 [History Confirmed 07/29/25] Albuterol 2.5 mg/3 ml Neb [Proventil 2.5 mg/3 ml Neb] 1 neb IH Q4HPRN PRN 08/22/19 [History Confirmed 07/29/25] Potassium Chloride Tab* [Klor Con] 10 meq PO DAILY 08/22/19 [History Confirmed 07/29/25] Apixaban [Eliquis] 5 mg PO BID 12/06/23 [History Confirmed 07/29/25] Magnesium 500 mg PO DAILY 12/06/23 [History Confirmed 07/29/25] Memantine HCl 10 mg PO BID 12/06/23 [History Confirmed 07/29/25] PANTOPRAZOLE 40 mg Tablet [Protonix 40MG Tablet] 40 mg PO QAM 12/06/23 [History Confirmed 07/29/25] Propranolol HCl [Propranolol HCl ER] 60 mg PO DAILY 12/07/23 [History Confirmed 07/29/25] Ropinirole HCl 1 mg PO TID 12/07/23 [History Confirmed 07/29/25] Calcium Carbonate/Vitamin D3 [Calcium 250-D Tablet] 1 each PO DAILY 05/14/24 [History Confirmed 07/29/25] Gabapentin [Neurontin ] 800 mg PO TID 05/14/24 [History Confirmed 07/29/25] Glimepiride 2 mg PO BREAKFAST 05/14/24 [History Confirmed 07/29/25] Levothyroxine Sodium 88 Mcg [Synthroid 88 Mcg] 88 mcg PO DAILY 05/14/24 [History Confirmed 07/29/25] Acetaminophen 325 mg [Tylenol 325 mg] 325 mg PO Q4-6HPRN PRN 07/29/25 [History Confirmed 07/29/25] Bisacodyl [Dulcolax] 10 mg RC DAILY PRN 07/29/25 [History Confirmed 07/29/25] Cranberry Fruit [Cranberry] 300 mg PO BID 07/29/25 [History Confirmed 07/29/25] Fexofenadine HCl [Padmini Allergy] 180 mg PO BREAKFAST 07/29/25 [History Confirmed 07/29/25] Fluticasone/Vilanterol [Breo Ellipta 100-25 Mcg INH] 1 each IH DAILY 07/29/25 [History Confirmed 07/29/25] Glucosam/Chondro/MSM/D3/Boswel [Osteo-Joint Complex Tablet] 1 each PO DAILY 07/29/25 [History Confirmed 07/29/25] Guaifenesin/Dextromethorphan [Tussin Dm 10-100 mg/5 ml Liq] 15 ml PO Q4-6HPRN PRN 07/29/25 [History Confirmed 07/29/25] Hydroxyzine HCl 25 mg [Atarax 25 mg] 25 mg PO BID 07/29/25 [History Confi rmed 07/29/25] Insulin Glargine,Hum.rec.anlog [Lantus] 30 unit SQ BID 07/29/25 [History Confirmed 07/29/25] Loperamide HCl [Imodium A-D] 2 mg PO Q6H PRN 07/29/25 [History Confirmed 07/29/25] Magnesium Hydroxide [Dulcolax] 2,400 mg PO DAILY 07/29/25 [History Confirmed 07/29/25] Magnesium Hydroxide [Milk of Magnesia] 30 ml PO DAILY PRN 07/29/25 [History Confirmed 07/29/25] Metformin HCl 500 mg [Glucophage 500 MG] 500 mg PO DINNER 07/29/25 [History Confirmed 07/29/25] Metformin HCl [Metformin ER Osmotic] 1,000 mg PO BREAKFAST 07/29/25 [History Confirmed 07/29/25] Nystatin 1 each MC DAILY PRN 07/29/25 [History Confirmed 07/29/25] Pilocarpine HCl [Salagen] 5 mg PO TID 07/29/25 [History Confirmed 07/29/25] SUMAtriptan succinate [Imitrex 50 mg] 50 mg PO DAILY PRN 07/29/25 [History Confirmed 07/29/25] Sodium Chloride/Aloe Vera [[place] Saline Nasal Gel] 14.1 gm NS DAILY PRN 07/29/25 [History Confirmed 07/29/25] Temazepam 30 mg PO HS 07/29/25 [History Confirmed 07/29/25] Torsemide 50 mg PO BREAKFAST 07/29/25 [History Confirmed 07/29/25] Torsemide 60 mg PO BREAKFAST 07/29/25 [History Confirmed 07/29/25] Zinc Oxide Ointment 30 gm 30 gm TP BID 07/29/25 [History Confirmed 07/29/25] cycloSPORINE [Restasis Multidose] 1.5 ml OP BID 07/29/25 [History Confirmed 07/29/25] Allergies/Adverse Reactions: Allergies Allergy/AdvReac Type Severity Reaction Status Date / Time Sulfa (Sulfonamide Allergy Severe Hives Verified 07/29/25 13:37 Antibiotics) tapentadol HCl [From Nucynta] Allergy Severe throat Verified 07/29/25 13:37 swelling and itching hydrocodone bitartrate Allergy Mild intense Verified 07/29/25 13:37 [From Vicodin] itching codeine Allergy Verified 07/29/25 13:37 oxycodone Allergy Verified 07/29/25 13:37 - Past Medical History Past Medical History: Yes Neurological History: Migraines, Peripheral Neuropathy ENT History: Cataracts Cardiac History: High Cholesterol, Hypertension Respiratory History: COPD, Pulmonary Embolism, Other Endocrine Medical History: Diabetes Type II, Hypothyroidism Musculoskelatal History: Degenerative Disk Disease, Fibromyalgia, Osteoporosis, Rheumatoid Arthritis GI Medical History: Diverticulosis, GERD History: Renal Disease Pyscho-Social History: Anxiety, Depression Reproductive Disorders: Breast Cancer Comment: Chronic stage 3 kidney disease, dropped mesh into vagina from bladder sling- causes frequent UTI, Iron def anemia and b-12 anemia, didn't recovery well from the PE pts wears 2L O2 via nasal canula - Past Surgical History Past Surgical History: Yes Neuro Surgical History: No Pertinent History Cardiac History: Cardiac Catheterization Respiratory Surgery: No Pertinent History GI Surgical History: Cholecystectomy Genitourinary Surgical Hx: Other Musculskeletal Surgical Hx: Orthopedic Surgery Female Surgical History: Hysterectomy, Lumpectomy, Mastectomy Other Surgical History: righ carpel tunnel surgery, bilateral mastectomy 2013 Radical to left side2 lamenectomys, 3 vertebre fused to lumbar neck fusion thorasic fusion left knee surgery bladder sling with mesh catarct and lasix surgery Significant Family History: no pertinent family hx - Social History Smoking Status: Never smoker Exposure to second hand smoke: No Alcohol: None Drug Use: none - Social Determinants of Health Will the patient participate in the screening: Yes Do you worry about a steady place to live?: No Do you have any problems with any of the following?: No known problems In the past 12 months,have you had to go without utilities?: No Have you or anyone in your house had to go without enough: No Transportation Issues: No Has anyone in your support network made you feel unsafe?: No Does the patient want assistance with any of the above?: No Comment: Currently resides at [facility]. - Physical Exam Vital Signs: Vital Signs - 24 hr Temp Pulse Resp BP BP Pulse Ox 07/29/25 13:26 97.7 F 125 H 18 120/51 98 07/29/25 13:08 124/98 07/29/25 13:00 108 H 18 138/92 99 07/29/25 12:45 117 H 13 119/94 97 07/29/25 12:30 137 H 20 149/100 99 07/29/25 12:15 115 H 21 143/88 97 07/29/25 12:11 117 H 20 139/104 99 07/29/25 12:10 115 H 18 99 07/29/25 12:00 112 H 25 H 97 07/29/25 11:50 122 H 24 98 07/29/25 11:40 132 H 20 100 07/29/25 11:30 120 H 17 99 07/29/25 11:20 127 H 17 99 07/29/25 11:18 115 H 17 99 07/29/25 11:10 118 H 19 100 07/29/25 11:01 120 H 25 H 94 L 07/29/25 10:47 144 H 34 H 138/91 94 L 07/29/25 10:38 97.7 F 130 H 26 H 138/91 98 General Appearance: no apparent distress, alert, obese Neurologic Exam: alert, oriented x 3, cooperative, normal mood/affect, nml cerebellar function, nml station & gait, sensation nml, No motor deficits Eye Exam: PERRL/EOMI, eyes nml inspection Ears, Nose, Throat Exam: normal ENT inspection, TMs normal, pharynx normal, moist mucous membranes Neck Exam: normal inspection, non-tender, supple, full range of motion Respiratory Exam: normal breath sounds, lungs clear, No respiratory distress Cardiovascular Exam: normal heart sounds, normal peripheral pulses, irregular Gastrointestinal/Abdomen Exam: soft, normal bowel sounds, No tenderness, No mass Back Exam: normal inspection, normal range of motion, No CVA tenderness, No vertebral tenderness Extremity Exam: normal inspection, normal range of motion, pelvis stable Skin Exam: normal color, warm, dry, No rash Lymphatic Exam: No adenopathy Results - Labs Lab/Micro Results: Lab Results-Last 24 Hours 07/29/25 07/29/25 07/29/25 Range/Units 11:00 11:00 11:00 WBC 7.6 (3.98-10.04) x10^3/uL RBC 4.06 (3.93-5.22) x10^6/uL Hgb 11.2 (11.2-15.7) g/dL Hct 38.1 (34.1-44.9) % MCV 93.8 (79.4-94.8) fL MCH 27.6 (25.6-32.2) pg MCHC 29.4 L (32.2-35.5) g/dL RDW 15.7 H (11.7-14.4) % Plt Count 188 (182-369) x10^3/uL MPV 9.6 (9.4-12.3) fL Gran % 71.1 (34.0-71.1) % Immature Gran % (Auto) 0.4 (0.001-0.429) % Nucleat RBC Rel Count 0.0 (0.00-0.2) % Eos # (Auto) 0.19 (0.04-0.36) x10^3/uL Immature Gran # (Auto) 0.03 (0.001-0.031) x10^3u/L Absolute Lymphs (auto) 1.44 (1.18-3.74) x10^3/uL Absolute Monos (auto) 0.50 (0.24-0.86) x10^3/uL Absolute Nucleated RBC 0.00 (0.00-0.012) x10^3u/L Lymphocytes % 18.9 L (19.3-51.7) % Monocytes % 6.6 (4.7-12.5) % Eosinophils % 2.5 (0.7-5.8) % Basophils % 0.5 (0.1-1.2) % Absolute Granulocytes 5.43 (1.56-6.13) x10^3/uL Basophils # 0.04 (0.01-0.08) x10^3/uL PT 10.8 (9.4-12.5) SECONDS INR 0.96 (0.8-3.0) Sodium 139 (135-145) mmol/L Potassium 5.2 H (3.5-5.1) mmol/L Chloride 100 (98-107) mmol/L Carbon Dioxide 26 (22-30) mmol/L Anion Gap 17.8 H (5-15) MEQ/L BUN 16 (7-17) mg/dL Creatinine 0.88 (0.52-1.04) mg/dL Estimated GFR 67.2 ML/MIN Glucose 112 H (74-106) mg/dL Lactic Acid (0.4-2.0) Calcium 9.4 (8.4-10.2) mg/dL Magnesium 1.9 (1.6-2.3) mg/dL Total Bilirubin 0.70 (0.2-1.3) mg/dL Direct Bilirubin 0.4 (0.0-0.4) mg/dL AST 55 H (14-36) U/L ALT 25 (0-35) U/L Alkaline Phosphatase 77 (38-126) U/L Troponin I (0.000-0.033) ng/mL NT-Pro-B Natriuret Pep (<300) pg/mL Serum Total Protein 7.8 (6.3-8.2) g/dL Albumin 4.2 (3.5-5.0) g/dL Influenza Type A Ag (NEGATIVE) Influenza Type B Ag (NEGATIVE) RSV (PCR) (NEGATIVE) SARS-CoV-2 (PCR) (NEGATIVE) 07/29/25 07/29/25 07/29/25 Range/Units 11:00 11:00 11:00 WBC (3.98-10.04) x10^3/uL RBC (3.93-5.22) x10^6/uL Hgb (11.2-15.7) g/dL Hct (34.1-44.9) % MCV (79.4-94.8) fL MCH (25.6-32.2) pg MCHC (32.2-35.5) g/dL RDW (11.7-14.4) % Plt Count (182-369) x10^3/uL MPV (9.4-12.3) fL Gran % (34.0-71.1) % Immature Gran % (Auto) (0.001-0.429) % Nucleat RBC Rel Count (0.00-0.2) % Eos # (Auto) (0.04-0.36) x10^3/uL Immature Gran # (Auto) (0.001-0.031) x10^3u/L Absolute Lymphs (auto) (1.18-3.74) x10^3/uL Absolute Monos (auto) (0.24-0.86) x10^3/uL Absolute Nucleated RBC (0.00-0.012) x10^3u/L Lymphocytes % (19.3-51.7) % Monocytes % (4.7-12.5) % Eosinophils % (0.7-5.8) % Basophils % (0.1-1.2) % Absolute Granulocytes (1.56-6.13) x10^3/uL Basophils # (0.01-0.08) x10^3/uL PT (9.4-12.5) SECONDS INR (0.8-3.0) Sodium (135-145) mmol/L Potassium (3.5-5.1) mmol/L Chloride (98-107) mmol/L Carbon Dioxide (22-30) mmol/L Anion Gap (5-15) MEQ/L BUN (7-17) mg/dL Creatinine (0.52-1.04) mg/dL Estimated GFR ML/MIN Glucose (74-106) mg/dL Lactic Acid (0.4-2.0) Calcium (8.4-10.2) mg/dL Magnesium (1.6-2.3) mg/dL Total Bilirubin (0.2-1.3) mg/dL Direct Bilirubin (0.0-0.4) mg/dL AST (14-36) U/L ALT (0-35) U/L Alkaline Phosphatase (38-126) U/L Troponin I 0.014 (0.000-0.033) ng/mL NT-Pro-B Natriuret Pep 576 (<300) pg/mL Serum Total Protein (6.3-8.2) g/dL Albumin (3.5-5.0) g/dL Influenza Type A Ag NEGATIVE (NEGATIVE) Influenza Type B Ag NEGATIVE (NEGATIVE) RSV (PCR) NEGATIVE (NEGATIVE) SARS-CoV-2 (PCR) NEGATIVE (NEGATIVE) 07/29/25 Range/Units 11:05 WBC (3.98-10.04) x10^3/uL RBC (3.93-5.22) x10^6/uL Hgb (11.2-15.7) g/dL Hct (34.1-44.9) % MCV (79.4-94.8) fL MCH (25.6-32.2) pg MCHC (32.2-35.5) g/dL RDW (11.7-14.4) % Plt Count (182-369) x10^3/uL MPV (9.4-12.3) fL Gran % (34.0-71.1) % Immature Gran % (Auto) (0.001-0.429) % Nucleat RBC Rel Count (0.00-0.2) % Eos # (Auto) (0.04-0.36) x10^3/uL Immature Gran # (Auto) (0.001-0.031) x10^3u/L Absolute Lymphs (auto) (1.18-3.74) x10^3/uL Absolute Monos (auto) (0.24-0.86) x10^3/uL Absolute Nucleated RBC (0.00-0.012) x10^3u/L Lymphocytes % (19.3-51.7) % Monocytes % (4.7-12.5) % Eosinophils % (0.7-5.8) % Basophils % (0.1-1.2) % Absolute Granulocytes (1.56-6.13) x10^3/uL Basophils # (0.01-0.08) x10^3/uL PT (9.4-12.5) SECONDS INR (0.8-3.0) Sodium (135-145) mmol/L Potassium (3.5-5.1) mmol/L Chloride (98-107) mmol/L Carbon Dioxide (22-30) mmol/L Anion Gap (5-15) MEQ/L BUN (7-17) mg/dL Creatinine (0.52-1.04) mg/dL Estimated GFR ML/MIN Glucose (74-106) mg/dL Lactic Acid 3.2 H (0.4-2.0) Calcium (8.4-10.2) mg/dL Magnesium (1.6-2.3) mg/dL Total Bilirubin (0.2-1.3) mg/dL Direct Bilirubin (0.0-0.4) mg/dL AST (14-36) U/L ALT (0-35) U/L Alkaline Phosphatase (38-126) U/L Troponin I (0.000-0.033) ng/mL NT-Pro-B Natriuret Pep (<300) pg/mL Serum Total Protein (6.3-8.2) g/dL Albumin (3.5-5.0) g/dL Influenza Type A Ag (NEGATIVE) Influenza Type B Ag (NEGATIVE) RSV (PCR) (NEGATIVE) SARS-CoV-2 (PCR) (NEGATIVE) - Radiology Impressions Radiology Exams & Impressions: Radiology Procedures Category Date Time Status CHEST 1 VIEW (PORTABLE) Stat Exams 07/29/25 10:46 Taken - Other Procedures and Tests Respiratory Therapy 07/29/25 13:27 Oxygen Nasal Cannula 3 lpm Assessment/Plan (1) Atrial fibrillation with RVR Current Visit: Yes Status: Acute Assessment & Plan: - HR increases from 109-130 - ICU - TELE - Gave Metoprolol 75mg once in ER - Cardiology consult - 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 - CBC, CMP reviewed - Not replacing MG+ since K+ elevated - Echo - CXR pending - 500ml IV bolus gave in ER Code(s): I48.91 - UNSPECIFIED ATRIAL FIBRILLATION (2) Hyperkalemia Current Visit: Yes Status: Acute Assessment & Plan: - K+ 5.2- recheck - ICU- tele - IVF gave in ER Code(s): E87.5 - HYPERKALEMIA (3) Dehydration Current Visit: Yes Status: Acute Assessment & Plan: - Anion gap 17.8- IVF gave in ER Code(s): E86.0 - DEHYDRATION (4) Lactic acidosis Current Visit: Yes Status: Acute Assessment & Plan: - Lactic acid 3.2- trend - 500ml IVF bolus gave in the ER Code(s): E87.20 - ACIDOSIS, UNSPECIFIED (5) Acute exacerbation of chronic obstructive pulmonary disease (COPD) Current Visit: No Status: Acute Assessment & Plan: - CXR pending - On baseline Oxygen at 3lNC 98% - Xopenex PRN - Lung sounds clear - Sxs may be 2:2 recent choking episode Code(s): J44.1 - CHRONIC OBSTRUCTIVE PULMONARY DISEASE W (ACUTE) EXACERBATION (6) Chronic back pain Current Visit: No Status: Chronic Assessment & Plan: - Continue home pain med Code(s): M54.9 - DORSALGIA, UNSPECIFIED; G89.29 - OTHER CHRONIC PAIN (7) HTN (hypertension) Current Visit: No Status: Chronic Assessment & Plan: - BP stable - Continue home meds Code(s): I10 - ESSENTIAL (PRIMARY) HYPERTENSION (8) Hypothyroidism Current Visit: No Status: Chronic Assessment & Plan: - Continue synthroid Code(s): E03.9 - HYPOTHYROIDISM, UNSPECIFIED (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 Current Visit: No Status: Chronic Assessment & Plan: - Continue Eliquis Code(s): Z79.01 - CARE HOME (CURRENT) USE OF ANTICOAGULANTS (10) Obesity (BMI 30-39.9) Current Visit: Yes Status: Chronic Assessment & Plan: - Advised diet and exercise control Code(s): E66.9 - OBESITY, UNSPECIFIED (11) CKD (chronic kidney disease) Current Visit: Yes Status: Chronic Assessment & Plan: - At baseline kidney function Code(s): N18.9 - CHRONIC KIDNEY DISEASE, UNSPECIFIED (12) Type II diabetes mellitus Current Visit: Yes Status: Chronic Assessment & Plan: - Accuchecks Ac/HS - Low dose s/s Humalog - A1C pending VTE: Eliquis PPI: Protonix Next of KIN: Ashtyn- Altagracia Matias [phone] D/C plan: 1-2 days Code status: SCO Plan of care time > 50 minutes
[2025-07-29 14:39] LABS: Calcium 9.0 mg/dL (8.4-10.2); Carbon Dioxide 23.0 mmol/L (22-30); Creatinine 1 0.86 mg/dL (0.52-1.04); EST GLOMERULAR FILTRATION RATE 69.1 ML/MIN; Glucose 89.0 mg/dL (74-106); Potassium 4.9 mmol/L (3.5-5.1); SGOT/AST 47.0 U/L (14-36); SGPT/ALT 26.0 U/L (0-35); Total Protein 8.0 g/dL (6.3-8.2)
[2025-07-29 15:59] LABS: Glucose, Urine Negative (Negative); Protein,Urine Dip Negative (Negative)
[2025-07-29] MEDS ORDERED: Dulcolax 10 MG SUPP RC PRN (17:06)
[2025-07-29] MEDS ORDERED: LOPERAMIDE HCL 2 MG PO PRN (17:06)
[2025-07-29] MEDS ORDERED: NON-FORMULARY ITEM (Sumatriptan Succinate [Imitrex 50 Mg] 50 MG Tablet) PO PRN (17:06)
[2025-07-29] MEDS ORDERED: NON-FORMULARY ITEM (Nystatin [Nystatin] 1 EACH Powder.Ea.) MC PRN (17:06)
[2025-07-29] MEDS: Advair Hfa 115/21 Common canister IH SCH (17:21)
[2025-07-29] MEDS ORDERED: OCEAN Nasal Spray NS PRN (17:24)
[2025-07-29] MEDS ORDERED: MEDICATION INTERVENTION MC SCH ×7 (17:30→18:00)
[2025-07-29] MEDS ORDERED: IMODIUM 2 MG PO PRN (17:40)
[2025-07-29] MEDS ORDERED: MILK OF MAGNESIA 30 ML PO PRN (17:41)
[2025-07-29] MEDS ORDERED: NYSTOP POWDER 15 GM TOP PRN (17:43)
[2025-07-29] MEDS: ROCEPHIN 1 GM / 100 ML NaCl 1 GM/100 ML IVPB IV SCH (19:51)
[2025-07-29] MEDS: ATARAX 25 MG PO SCH (21:15)
[2025-07-29] MEDS: Cymbalta 30 MG Capsule PO SCH (21:15)
[2025-07-29] MEDS: Namenda 5 MG PO SCH (21:15)
[2025-07-29] MEDS: Restoril 15 MG PO SCH (21:15)
[2025-07-29] MEDS: Singulair 10 MG PO SCH (21:15)
[2025-07-29] MEDS: Mucinex 600MG ER Tabs PO SCH (21:15)
[2025-07-29] MEDS: ELIQUIS 2.5 MG TABLET PO SCH (21:15)
[2025-07-29] MEDS: Requip 0.5 MG PO SCH (21:15)
[2025-07-29] MEDS: Lantus Insulin SQ SCH (21:16)
[2025-07-29] MEDS: ZINC OXIDE OINTMENT 30 GM TP SCH (21:16)
[2025-07-29] MEDS: Sodium Chloride 3 ML UD NEBULES IH PRN (21:31)
[2025-07-29] MEDS: Xopenex 1.25 MG/0.5 ML UD NEBULE IH PRN (21:31)
[2025-07-29] MEDS ORDERED: NON-FORMULARY ITEM (Ropinirole Hcl [Ropinirole Hcl] 1 MG Tablet) PO SCH (22:00)
[2025-07-29] MEDS ORDERED: NON-FORMULARY ITEM (Cyclosporine [Restasis Multidose] 5.5 ML Drops) OP SCH (22:00)
[2025-07-29] MEDS ORDERED: NON-FORMULARY ITEM (Apixaban [Eliquis] 5 MG Tab.Ds.Pk) PO SCH (22:00)
[2025-07-29] MEDS ORDERED: NON-FORMULARY ITEM (Memantine Hcl [Memantine Hcl] 10 MG Tablet) PO SCH (22:00)
[2025-07-29] MEDS ORDERED: NON-FORMULARY ITEM (Duloxetine Hcl [Cymbalta] 60 MG Capsule.Dr) PO SCH (22:00)
[2025-07-29] MEDS ORDERED: NON-FORMULARY ITEM (Temazepam [Temazepam] 30 MG Capsule) PO SCH (22:00)
[2025-07-29] MEDS ORDERED: PILOCARPINE HCL 5 MG PO SCH (22:00)
--- NOTE | 2025-07-29 22:06 | XRAY ---
CLINICAL HISTORY: intrabdominal infection COMPARISON: Comparison is made with 04/18/2023 TECHNIQUE: Non-contrast CT of the abdomen and pelvis was performed, with the following protocol: axial images, and reconstructed coronal and sagittal images. No intravenous contrast was administered. One of the following dose reduction techniques was utilized for this exam: Automated exposure control, adjustment of the mA and/or kV according to patient size, and use of iterative reconstruction. FINDINGS: Lungs: Bilateral, patchy ground-glass opacities in the lower lobes, possibly early inflammatory or atelectatic changes. Small subsegmental consolidation/collapse in the medial segment of the right lower lobe, likely gravity-dependent. The right hemidiaphragm is elevated. Abdomen: Liver: Normal in size, shape, and density. No focal lesions, cysts, or masses were identified. Gallbladder and Biliary System: The gallbladder is normal in size and shape. No wall thickening, pericholecystic fluid, or gallstones were identified. Pancreas: The pancreatic head, body, and tail are visualized and appear normal in size and density. No pancreatic masses or calcifications were noted. Spleen: Normal in size, shape, and density. No splenic lesions or masses were identified. Kidneys and Adrenal Glands: Both kidneys are normal in size, shape, and position. Cortical thickness is within normal limits. Small renal cyst (1.1 cm) in the right mid-pole.No renal calculi or hydronephrosis. Adrenal glands are unremarkable. Appendix: The appendix is normal in size without miranda-appendiceal fat stranding and without an appendicolith. No evidence of appendiceal abscess or perforation. Pelvis: Urinary Bladder: Normal in contour and wall thickness. No intraluminal lesions. Uterus: Not visualized Ovaries: Not well visualized, but no gross abnormalities noted. Vagina: Normal in contour and wall thickness. Cervix: No evidence of mass or abnormal thickening. Peritoneal and Retroperitoneal Structures: No free fluid or abnormal fluid collections were identified within the abdomen or pelvis. No lymphadenopathy was noted. Atherosclerosis calcification of the branches of the celiac axis. Bowel: The visualized bowel loops are normal in caliber and appearance. No evidence of bowel obstruction or wall thickening. The stomach is partially distended with smooth rooney. Bones and Soft Tissues: Pedicle and screw fixation at L4?S1. Diffuse osteopenia with multilevel end-plate sclerosis, decreased intervertebral disc height, and vacuum phenomena in the lower thoracolumbar spine. Straightening of the spine noted. Vertebral body height loss along L1: approximately 25?50% on the right lateral aspect. IMPRESSION: 1. No evidence of acute intra-abdominal pathology. No evidence of intra-abdominal abscess, perforation, or bowel wall thickening.Clinical correlation is recommended. 2. Pulmonary findings suggest early or reactive inflammatory changes with interval new small subsegmental collapse/consolidation in right middle lobe. Clincial correlation advised 3. Chronic degenerative and postsurgical changes of the lower thoracolumbar spine, with moderate compression of L1 (interval new). Clinical correlation recommended. Electronically Signed by: Jose Ascencio MD. (07/29/2025 22:04:42 EST)
[2025-07-29] MEDS: CARDIZEM DRIP 100 MG/100 ML D5W 100 ML IV PRN (23:06)
[2025-07-30 05:27] LABS: Hematocrit 33.5 % (34.1-44.9); Hemoglobin 10.1 g/dL (11.2-15.7); Mean Corpuscular Hemoglobin 27.7 pg (25.6-32.2); Mean Corpuscular Hgb Concent. 30.1 g/dL (32.2-35.5); Platelet Count 175 x10^3/uL (182-369); Red Blood Count 3.65 x10^6/uL (3.93-5.22); White Blood Count 8.8 x10^3/uL (3.98-10.04)
[2025-07-30 05:46] LABS: Calcium 8.7 mg/dL (8.4-10.2); Carbon Dioxide 23.0 mmol/L (22-30); Creatinine 1 0.87 mg/dL (0.52-1.04); EST GLOMERULAR FILTRATION RATE 68.2 ML/MIN; Glucose 287.0 mg/dL (74-106); Potassium 4.9 mmol/L (3.5-5.1); SGOT/AST 32.0 U/L (14-36); SGPT/ALT 23.0 U/L (0-35); Total Protein 7.2 g/dL (6.3-8.2)
[2025-07-30] MEDS ORDERED: NON-FORMULARY ITEM (Glimepiride [Glimepiride] 1 MG Tablet) PO SCH (08:00)
[2025-07-30] MEDS ORDERED: NON-FORMULARY ITEM (Metformin Hcl [Metformin Er Osmotic] 1,000 MG Tab.Er.24) PO SCH (08:00)
[2025-07-30] MEDS ORDERED: NON-FORMULARY ITEM (Fexofenadine Hcl [Allegra Allergy] 180 MG Tablet) PO SCH (08:00)
[2025-07-30] MEDS ORDERED: NON-FORMULARY ITEM (Torsemide [Torsemide] 10 MG Tablet) PO SCH (08:00)
--- NOTE | 2025-07-30 08:27 | XRAY ---
Indication: Short of breath. Comparison: June 14, 2024 Portable chest again demonstrates chronic lung markings and chronic right hemidiaphragm elevation with adjacent subsegmental atelectasis. No focal infiltrate, consolidation, or large effusion. Heart not enlarged. Bony thorax intact again with osteopenia and mild degenerative changes. Impression: Continued nonacute chest with chronic features.
[2025-07-30] MEDS: CLARITIN 10 MG PO SCH (08:45)
[2025-07-30] MEDS: DEMADEX 20 MG PO SCH (08:45)
[2025-07-30] MEDS: Amaryl 2 MG PO SCH (08:45)
[2025-07-30] MEDS: Glucophage XR 500 MG PO SCH (08:46)
[2025-07-30] MEDS: HUMALOG SQ PRN (08:46)
[2025-07-30] MEDS ORDERED: Protonix 40MG Tablet PO SCH (10:00)
[2025-07-30] MEDS ORDERED: NON-FORMULARY ITEM (Calcium Carbonate/Vitamin D3 [Calcium 250-D Tablet] 1 EACH Tablet) PO SCH (10:00)
[2025-07-30] MEDS ORDERED: NON-FORMULARY ITEM (Propranolol Hcl [Propranolol Hcl Er] 60 MG Cap.Sa.24h) PO SCH (10:00)
[2025-07-30] MEDS ORDERED: [UNRECOGNIZED DRUG - OTHER] PO SCH (10:00)
[2025-07-30] MEDS ORDERED: MAGNESIUM OXIDE 500 MG PO SCH (10:00)
[2025-07-30] MEDS ORDERED: NON-FORMULARY ITEM (Fluticasone/Vilanterol [Breo Ellipta 100-25 Mcg Inhalr] 1 EACH Blst.W. IH SCH (10:00)
[2025-07-30] MEDS ORDERED: NON-FORMULARY ITEM (Multivitamin [Multivitamins] 1 EACH Capsule) PO SCH (10:00)
[2025-07-30] MEDS ORDERED: Toprol Xl 50 MG PO SCH (10:00)
[2025-07-30] MEDS: THERAGRAN MULTIVITAMIN PO SCH (10:41)
[2025-07-30] MEDS: Calcium 500MG W/Vit D Tablet PO SCH (10:41)
[2025-07-30] MEDS: Protonix 20MG Tablet PO SCH (10:41)
[2025-07-30] MEDS: MAG-OX 400 PO SCH (10:41)
[2025-07-30] MEDS: Klor Con PO SCH (10:42)
[2025-07-30] MEDS: SYNTHROID 88 MCG PO SCH (10:43)
[2025-07-30] MEDS: MILK OF MAGNESIA 30 ML PO SCH (10:44)
[2025-07-30] MEDS: TYLENOL 325 MG PO PRN (12:22)
--- NOTE | 2025-07-30 13:05 | PCM.NOTE ---
Date and Time: 07/30/25 1258 Subjective Assessment: 07/29/25 is a 80-year-old female with a complex medical history including COPD on chronic 3 L nasal cannula, atrial fibrillation, hypertension, type 2 diabetes, chronic kidney disease stage III, hypothyroidism, GERD, hiatal hernia, prior pulmonary embolism, breast cancer, and multiple other comorbidities was [facility] due to shortness of breath and cough, with oxygen saturation noted in the mid-80s. In the ED, she was found to be in atrial fibrillation with rapid ventricular response and received metoprolol 75 mg PO. She was also given a 500 mL IV fluid bolus for elevated lactic acid (3.2), potassium (5.2), and anion gap (17.8). Viral testing for flu, COVID, and RSV was negative. On exam, she was stable on her baseline 3 L oxygen with saturation of 98%, lungs clear, and reported improvement in symptoms after Solu- Medrol 125 mg IV and DuoNeb treatment. She additionally described a recent choking episode on meat and feels as though something remains stuck in her esophagus. Chest x-ray is pending, and surgical consultation will be considered if indicated. Lactic acid will be repeated. She currently reports epigastric discomfort but denies chest pain, abdominal pain, nausea, vomiting, or diarrhea. 07/30/25 The patient is resting in bed on room air with oxygen saturation at 98%. She was placed on a Cardizem drip overnight at 11:00 PM, which was discontinued at 4:00 AM. Urinalysis returned positive for UTI, and ceftriaxone was initiated. She was also started on doxycycline by the overnight provider; however, chest x-ray showed no acute findings, and doxycycline will be discontinued. Echocardiogram is pending today. The patient appears to have urosepsis, as lactic acid remains elevated at 2.2, and normal saline is continued at 50 mL/hr. Her heart rhythm alternates between controlled atrial fibrillation and sinus rhythm with PACs. CT of the abdomen performed last night was negative for acute pathology. Sputum and blood cultures are pending, while urine culture has grown Gram-negative organisms with sensitivities pending. The patient currently denies any further concerns. Awaiting cardiology consult recs. - Review of Systems Constitutional: Other (intermittent confusion), No Fever, No Chills Eyes: No Symptoms Ears, Nose, & Throat: No Symptoms Respiratory: No Cough, No Short Of Breath Cardiac: No Chest Pain, No Edema, No Syncope Abdominal/Gastrointestinal: No Abdominal Pain, No Nausea, No Vomiting, No Diarrhea Genitourinary Symptoms: Dysuria Musculoskeletal: No Back Pain, No Neck Pain Skin: No Rash Neurological: No Dizziness, No Focal Weakness, No Sensory Changes Psychological: No Symptoms Endocrine: No Symptoms Hematologic/Lymphatic: No Symptoms Immunological/Allergic: No Symptoms Objective Exam General Appearance: no apparent distress, alert, obese Neurologic Exam: alert, oriented x 3, cooperative, normal mood/affect, nml cerebellar function, sensation nml, No motor deficits Skin Exam: normal color, warm, dry Eye Exam: PERRL, EOMI, eyes nml inspection Ears, Nose, Throat Exam: normal ENT inspection, pharynx normal, moist mucous membranes Neck Exam: normal inspection, non-tender, supple, full range of motion Respiratory Exam: normal breath sounds, lungs clear, No respiratory distress Cardiovascular Exam: normal heart sounds, irregular Gastrointestinal/Abdomen Exam: soft, No tenderness, No mass Extremity Exam: normal inspection, normal range of motion Back Exam: normal inspection, normal range of motion, No CVA tenderness, No vertebral tenderness Pelvic Exam: deferred Rectal Exam: deferred Objective Data Vital Signs: Vital Signs - 24 hr Temp Pulse Resp BP BP Pulse Ox 07/30/25 11:48 97.5 F 107 H 27 H 117/72 99 07/30/25 10:02 126 H 20 121/72 99 07/30/25 09:00 111 H 126/73 07/30/25 08:00 96.8 F 100 H 20 113/76 07/30/25 07:30 89 18 98 07/30/25 07:00 82 24 122/65 07/30/25 06:00 80 24 122/58 07/30/25 05:00 77 20 129/60 07/30/25 04:00 77 22 120/61 07/30/25 03:30 81 19 120/63 07/30/25 03:20 78 07/30/25 03:00 97 F 78 16 122/69 99 07/30/25 02:30 85 18 112/58 07/30/25 02:00 78 23 119/58 100 07/30/25 01:30 81 17 111/55 100 07/30/25 01:00 93 H 15 109/59 100 07/30/25 00:30 90 23 114/44 100 07/30/25 00:06 100 H 114/44 07/30/25 00:00 98 F 94 H 22 120/74 100 07/29/25 23:56 118 H 07/29/25 23:30 118 H 23 115/87 100 07/29/25 23:16 147 H 15 128/80 100 07/29/25 23:06 146 H 128/80 07/29/25 22:00 115 H 19 122/81 98 07/29/25 21:34 120 H 22 99 07/29/25 21:00 121 H 14 124/94 99 07/29/25 20:00 125 H 21 113/90 07/29/25 19:20 125 H 07/29/25 19:18 98.9 F 122 H 22 129/81 100 07/29/25 18:01 104 H 19 126/95 100 07/29/25 17:31 108 H 18 98 07/29/25 17:00 114 H 18 121/79 97 07/29/25 16:19 102 H 22 102/54 98 07/29/25 16:10 105 H 17 97 07/29/25 16:02 98 07/29/25 15:04 97.7 F 125 H 18 120/51 98 07/29/25 15:00 111 H 19 134/77 98 07/29/25 14:22 113 H 20 126/87 98 07/29/25 14:20 117 H 18 97 07/29/25 14:10 112 H 14 99 07/29/25 14:00 103 H 20 07/29/25 13:50 106 H 15 07/29/25 13:40 112 H 17 07/29/25 13:36 94 H 20 07/29/25 13:27 98 07/29/25 13:26 97.7 F 125 H 18 120/51 98 07/29/25 13:08 124/98 07/29/25 13:00 108 H 18 138/92 99 Pain Assessment - Last Documented Pain Intensity 5 Pain Scale Used 0-10 Pain Scale Intake and Output: Intake & Output 07/28/25 07/29/25 07/30/25 07/31/25 11:59 11:59 11:59 11:59 Intake Total 1397 Output Total 500 Balance 897 Weight 110 kg 108.9 kg Lab Results: Lab Results-Last 24 Hours 07/29/25 07/29/25 07/29/25 Range/Units 11:00 11:00 14:05 WBC (3.98-10.04) x10^3/uL RBC (3.93-5.22) x10^6/uL Hgb (11.2-15.7) g/dL Hct (34.1-44.9) % MCV (79.4-94.8) fL MCH (25.6-32.2) pg MCHC (32.2-35.5) g/dL RDW (11.7-14.4) % Plt Count (182-369) x10^3/uL MPV (9.4-12.3) fL Sodium (135-145) mmol/L Potassium (3.5-5.1) mmol/L Chloride (98-107) mmol/L Carbon Dioxide (22-30) mmol/L Anion Gap (5-15) MEQ/L BUN (7-17) mg/dL Creatinine (0.52-1.04) mg/dL Estimated GFR ML/MIN Glucose (74-106) mg/dL POC Glucometer (74 to 106) mg/dL Hemoglobin A1c 6.23 H (4.5-6.0) % Lactic Acid (0.4-2.0) Calcium (8.4-10.2) mg/dL Magnesium (1.6-2.3) mg/dL Total Bilirubin (0.2-1.3) mg/dL AST (14-36) U/L ALT (0-35) U/L Alkaline Phosphatase (38-126) U/L Troponin I < 0.012 (0.000-0.033) ng/mL Serum Total Protein (6.3-8.2) g/dL Albumin (3.5-5.0) g/dL TSH 3rd Generation 1.739 (0.470-4.680) mIU/L Urine Color (Yellow) Urine Appearance (Clear) Urine pH (4.6-8.0) Ur Specific [place] (1.005-1.030) Urine Protein (Negative) Urine Glucose (UA) (Negative) mg/dL Urine Ketones (Negative) Urine Blood (Negative) Urine Nitrite (Negative) Urine Bilirubin (Negative) Urine Urobilinogen (0.2) mg/dL Ur Leukocyte Esterase (Negative) U Hyaline Cast (Auto) (0-2) /LPF Urine Microscopic RBC (0-5) /HPF Urine Microscopic WBC (0-5) /HPF Ur Epithelial Cells (None Seen) /HPF Urine Bacteria (None Seen) /HPF Urine Culture Reflexed (NO) 07/29/25 07/29/25 07/29/25 Range/Units 14:05 15:30 15:40 WBC (3.98-10.04) x10^3/uL RBC (3.93-5.22) x10^6/uL Hgb (11.2-15.7) g/dL Hct (34.1-44.9) % MCV (79.4-94.8) fL MCH (25.6-32.2) pg MCHC (32.2-35.5) g/dL RDW (11.7-14.4) % Plt Count (182-369) x10^3/uL MPV (9.4-12.3) fL Sodium 138 (135-145) mmol/L Potassium 4.9 (3.5-5.1) mmol/L Chloride 103 (98-107) mmol/L Carbon Dioxide 23 (22-30) mmol/L Anion Gap 17.2 H (5-15) MEQ/L BUN 15 (7-17) mg/dL Creatinine 0.86 (0.52-1.04) mg/dL Estimated GFR 69.1 ML/MIN Glucose 89 (74-106) mg/dL POC Glucometer (74 to 106) mg/dL Hemoglobin A1c (4.5-6.0) % Lactic Acid 2.9 H (0.4-2.0) Calcium 9.0 (8.4-10.2) mg/dL Magnesium (1.6-2.3) mg/dL Total Bilirubin 0.60 (0.2-1.3) mg/dL AST 47 H (14-36) U/L ALT 26 (0-35) U/L Alkaline Phosphatase 80 (38-126) U/L Troponin I (0.000-0.033) ng/mL Serum Total Protein 8.0 (6.3-8.2) g/dL Albumin 4.2 (3.5-5.0) g/dL TSH 3rd Generation (0.470-4.680) mIU/L Urine Color Yellow (Yellow) Urine Appearance Clear (Clear) Urine pH 7.5 (4.6-8.0) Ur Specific [place] 1.010 (1.005-1.030) Urine Protein Negative (Negative) Urine Glucose (UA) Negative (Negative) mg/dL Urine Ketones Negative (Negative) Urine Blood Trace (Negative) Urine Nitrite Positive A (Negative) Urine Bilirubin Negative (Negative) Urine Urobilinogen 0.2 (0.2) mg/dL Ur Leukocyte Esterase Small A (Negative) U Hyaline Cast (Auto) NONE SEEN (0-2) /LPF Urine Microscopic RBC 3-5 (0-5) /HPF Urine Microscopic WBC 6-10 A (0-5) /HPF Ur Epithelial Cells None Seen (None Seen) /HPF Urine Bacteria Many A (None Seen) /HPF Urine Culture Reflexed YES (NO) 07/29/25 07/29/25 07/29/25 Range/Units 16:18 19:10 19:20 WBC (3.98-10.04) x10^3/uL RBC (3.93-5.22) x10^6/uL Hgb (11.2-15.7) g/dL Hct (34.1-44.9) % MCV (79.4-94.8) fL MCH (25.6-32.2) pg MCHC (32.2-35.5) g/dL RDW (11.7-14.4) % Plt Count (182-369) x10^3/uL MPV (9.4-12.3) fL Sodium (135-145) mmol/L Potassium (3.5-5.1) mmol/L Chloride (98-107) mmol/L Carbon Dioxide (22-30) mmol/L Anion Gap (5-15) MEQ/L BUN (7-17) mg/dL Creatinine (0.52-1.04) mg/dL Estimated GFR ML/MIN Glucose (74-106) mg/dL POC Glucometer 149 H 257 H (74 to 106) mg/dL Hemoglobin A1c (4.5-6.0) % Lactic Acid (0.4-2.0) Calcium (8.4-10.2) mg/dL Magnesium (1.6-2.3) mg/dL Total Bilirubin (0.2-1.3) mg/dL AST (14-36) U/L ALT (0-35) U/L Alkaline Phosphatase (38-126) U/L Troponin I < 0.012 (0.000-0.033) ng/mL Serum Total Protein (6.3-8.2) g/dL Albumin (3.5-5.0) g/dL TSH 3rd Generation (0.470-4.680) mIU/L Urine Color (Yellow) Urine Appearance (Clear) Urine pH (4.6-8.0) Ur Specific [place] (1.005-1.030) Urine Protein (Negative) Urine Glucose (UA) (Negative) mg/dL Urine Ketones (Negative) Urine Blood (Negative) Urine Nitrite (Negative) Urine Bilirubin (Negative) Urine Urobilinogen (0.2) mg/dL Ur Leukocyte Esterase (Negative) U Hyaline Cast (Auto) (0-2) /LPF Urine Microscopic RBC (0-5) /HPF Urine Microscopic WBC (0-5) /HPF Ur Epithelial Cells (None Seen) /HPF Urine Bacteria (None Seen) /HPF Urine Culture Reflexed (NO) 07/29/25 07/29/25 07/29/25 Range/Units 19:27 21:13 23:00 WBC (3.98-10.04) x10^3/uL RBC (3.93-5.22) x10^6/uL Hgb (11.2-15.7) g/dL Hct (34.1-44.9) % MCV (79.4-94.8) fL MCH (25.6-32.2) pg MCHC (32.2-35.5) g/dL RDW (11.7-14.4) % Plt Count (182-369) x10^3/uL MPV (9.4-12.3) fL Sodium (135-145) mmol/L Potassium (3.5-5.1) mmol/L Chloride (98-107) mmol/L Carbon Dioxide (22-30) mmol/L Anion Gap (5-15) MEQ/L BUN (7-17) mg/dL Creatinine (0.52-1.04) mg/dL Estimated GFR ML/MIN Glucose (74-106) mg/dL POC Glucometer 294 H (74 to 106) mg/dL Hemoglobin A1c (4.5-6.0) % Lactic Acid 5.2 H 2.8 H (0.4-2.0) Calcium (8.4-10.2) mg/dL Magnesium (1.6-2.3) mg/dL Total Bilirubin (0.2-1.3) mg/dL AST (14-36) U/L ALT (0-35) U/L Alkaline Phosphatase (38-126) U/L Troponin I (0.000-0.033) ng/mL Serum Total Protein (6.3-8.2) g/dL Albumin (3.5-5.0) g/dL TSH 3rd Generation (0.470-4.680) mIU/L Urine Color (Yellow) Urine Appearance (Clear) Urine pH (4.6-8.0) Ur Specific [place] (1.005-1.030) Urine Protein (Negative) Urine Glucose (UA) (Negative) mg/dL Urine Ketones (Negative) Urine Blood (Negative) Urine Nitrite (Negative) Urine Bilirubin (Negative) Urine Urobilinogen (0.2) mg/dL Ur Leukocyte Esterase (Negative) U Hyaline Cast (Auto) (0-2) /LPF Urine Microscopic RBC (0-5) /HPF Urine Microscopic WBC (0-5) /HPF Ur Epithelial Cells (None Seen) /HPF Urine Bacteria (None Seen) /HPF Urine Culture Reflexed (NO) 07/30/25 07/30/25 07/30/25 Range/Units 04:44 04:44 04:45 WBC 8.8 (3.98-10.04) x10^3/uL RBC 3.65 L (3.93-5.22) x10^6/uL Hgb 10.1 L (11.2-15.7) g/dL Hct 33.5 L (34.1-44.9) % MCV 91.8 (79.4-94.8) fL MCH 27.7 (25.6-32.2) pg MCHC 30.1 L (32.2-35.5) g/dL RDW 15.9 H (11.7-14.4) % Plt Count 175 L (182-369) x10^3/uL MPV 9.4 (9.4-12.3) fL Sodium 134 L (135-145) mmol/L Potassium 4.9 (3.5-5.1) mmol/L Chloride 102 (98-107) mmol/L Carbon Dioxide 23 (22-30) mmol/L Anion Gap 14.1 (5-15) MEQ/L BUN 22 H (7-17) mg/dL Creatinine 0.87 (0.52-1.04) mg/dL Estimated GFR 68.2 ML/MIN Glucose 287 H (74-106) mg/dL POC Glucometer (74 to 106) mg/dL Hemoglobin A1c (4.5-6.0) % Lactic Acid 2.2 H (0.4-2.0) Calcium 8.7 (8.4-10.2) mg/dL Magnesium 2.2 (1.6-2.3) mg/dL Total Bilirubin 0.40 (0.2-1.3) mg/dL AST 32 (14-36) U/L ALT 23 (0-35) U/L Alkaline Phosphatase 73 (38-126) U/L Troponin I (0.000-0.033) ng/mL Serum Total Protein 7.2 (6.3-8.2) g/dL Albumin 3.8 (3.5-5.0) g/dL TSH 3rd Generation (0.470-4.680) mIU/L Urine Color (Yellow) Urine Appearance (Clear) Urine pH (4.6-8.0) Ur Specific [place] (1.005-1.030) Urine Protein (Negative) Urine Glucose (UA) (Negative) mg/dL Urine Ketones (Negative) Urine Blood (Negative) Urine Nitrite (Negative) Urine Bilirubin (Negative) Urine Urobilinogen (0.2) mg/dL Ur Leukocyte Esterase (Negative) U Hyaline Cast (Auto) (0-2) /LPF Urine Microscopic RBC (0-5) /HPF Urine Microscopic WBC (0-5) /HPF Ur Epithelial Cells (None Seen) /HPF Urine Bacteria (None Seen) /HPF Urine Culture Reflexed (NO) 07/30/25 07/30/25 Range/Units 07:16 11:45 WBC (3.98-10.04) x10^3/uL RBC (3.93-5.22) x10^6/uL Hgb (11.2-15.7) g/dL Hct (34.1-44.9) % MCV (79.4-94.8) fL MCH (25.6-32.2) pg MCHC (32.2-35.5) g/dL RDW (11.7-14.4) % Plt Count (182-369) x10^3/uL MPV (9.4-12.3) fL Sodium (135-145) mmol/L Potassium (3.5-5.1) mmol/L Chloride (98-107) mmol/L Carbon Dioxide (22-30) mmol/L Anion Gap (5-15) MEQ/L BUN (7-17) mg/dL Creatinine (0.52-1.04) mg/dL Estimated GFR ML/MIN Glucose (74-106) mg/dL POC Glucometer 254 H 320 H (74 to 106) mg/dL Hemoglobin A1c (4.5-6.0) % Lactic Acid (0.4-2.0) Calcium (8.4-10.2) mg/dL Magnesium (1.6-2.3) mg/dL Total Bilirubin (0.2-1.3) mg/dL AST (14-36) U/L ALT (0-35) U/L Alkaline Phosphatase (38-126) U/L Troponin I (0.000-0.033) ng/mL Serum Total Protein (6.3-8.2) g/dL Albumin (3.5-5.0) g/dL TSH 3rd Generation (0.470-4.680) mIU/L Urine Color (Yellow) Urine Appearance (Clear) Urine pH (4.6-8.0) Ur Specific [place] (1.005-1.030) Urine Protein (Negative) Urine Glucose (UA) (Negative) mg/dL Urine Ketones (Negative) Urine Blood (Negative) Urine Nitrite (Negative) Urine Bilirubin (Negative) Urine Urobilinogen (0.2) mg/dL Ur Leukocyte Esterase (Negative) U Hyaline Cast (Auto) (0-2) /LPF Urine Microscopic RBC (0-5) /HPF Urine Microscopic WBC (0-5) /HPF Ur Epithelial Cells (None Seen) /HPF Urine Bacteria (None Seen) /HPF Urine Culture Reflexed (NO) Radiology Exams: Radiology Procedures Category Date Time Status ABDOMEN AND PELVIS W/0 CONTRAS [CT] Stat Exams 07/29/25 19:45 Completed CHEST 1 VIEW (PORTABLE) Stat Exams 07/29/25 10:46 Completed ECHO W/2D AND DOPPLER [US] Routine Exams 07/29/25 14:15 Taken Medications: Medications Generic Name Dose Route Start Last Admin Trade Name Freq PRN Reason Stop Dose Admin Acetaminophen 325 mg 07/29/25 17:06 07/30/25 12:22 Acetaminophen 325 Mg Tablet PO 08/28/25 17:05 325 mg Q4-6HPRN PRN Administration PAIN Albuterol Sulfate 2.5 mg 07/29/25 17:06 Albuterol Sulfate 2.5 Mg/3 Ml Neb IH 08/28/25 17:05 Q4HPRN PRN breathing Apixaban 5 mg 07/29/25 22:00 07/30/25 10:42 Apixaban 2.5 Mg Tablet PO 08/28/25 21:59 5 mg BID HUNTER Administration Bisacodyl 10 mg 07/29/25 17:06 Bisacodyl 10 Mg Supp.Rect RC 08/28/25 17:05 DAILY PRN CONSTIPATION Calcium Carbonate 1 tab 07/30/25 10:00 07/30/25 10:41 Calcium Carbonate 500 Mg/Vitamin D 1 Tab Tablet PO 08/29/25 09:59 1 tab DAILY HUNTER Administration Doxycycline Hyclate 100 mg 07/29/25 22:56 07/30/25 10:42 Doxycycline Hyclate 100 Mg Tablet PO 08/28/25 22:55 100 mg BID HUNTER Administration Duloxetine HCl 60 mg 07/29/25 22:00 07/30/25 10:42 Duloxetine Hcl 30 Mg Cap PO 08/28/25 21:59 60 mg BID HUNTER Administration Gabapentin 800 mg 07/29/25 22:00 07/30/25 10:42 Gabapentin 400 Mg Capsule PO 08/28/25 21:59 800 mg TID HUNTER Administration Glimepiride 2 mg 07/30/25 08:00 07/30/25 08:45 Glimepiride 2 Mg Tablet PO 08/29/25 07:59 2 mg BREAKFAST HUNTER Administration Guaifenesin 600 mg 07/29/25 22:00 07/29/25 21:15 Guaifenesin 600 Mg Tablet Er PO 08/28/25 21:59 600 mg HS UHNTER Administration Hydroxyzine HCl 25 mg 07/29/25 22:00 07/30/25 10:42 Hydroxyzine Hcl 25 Mg Tablet PO 08/28/25 21:59 25 mg BID HUNTER Administration Sodium Chloride 1,000 mls @ 50 mls/hr 07/29/25 15:00 07/30/25 12:22 Sodium Chloride 0.9% 1000 Ml IV 08/28/25 14:59 50 mls/hr .Q20H HUNTER Administration Diltiazem HCl 100 mls @ 5 mls/hr 07/29/25 22:56 07/30/25 04:00 Cardizem Drip 100 Mg/100 Ml D5w IV 08/28/25 22:55 0 mg/hr .Q20H PRN 0 mls/hr HEART RATE/ A-FIB Titration Protocol 5 MG/HR Ceftriaxone Sodium 1 gm in 100 mls @ 200 mls/hr 07/30/25 22:00 Rocephin 1 Gm / 100 Ml Nacl IV 08/29/25 21:59 Q24H22 HUNTER Insulin Glargine 30 unit 07/29/25 22:00 07/30/25 10:44 Insulin Glargine 1 Unit SQ 08/28/25 21:59 30 unit BID HUNTER Administration Insulin Human Lispro 0 unit 07/29/25 14:23 07/30/25 12:18 Insulin Lispro 1 Unit SQ 08/28/25 14:22 6 unit UD PRN Administration HYPERGLYCEMIA Levalbuterol HCl 1.25 mg 07/29/25 14:13 07/29/25 21:31 Levalbuterol Hcl 1.25 Mg/0.5 Ml Neb IH 08/28/25 14:12 1.25 mg Q4H PRN PRN Administration SHORTNESS OF BREATH Levothyroxine Sodium 88 mcg 07/30/25 10:00 07/30/25 10:43 Levothyroxine Sodium 88 Mcg Tablet PO 08/29/25 09:59 88 mcg DAILY HUNTER Administration Loperamide HCl 2 mg 07/29/25 17:40 Loperamide Hcl 2 Mg Capsule PO 08/28/25 17:39 Q6H PRN PRN DIARRHEA Loratadine 10 mg 07/30/25 08:00 07/30/25 08:45 Loratadine 10 Mg Tablet PO 08/29/25 07:59 10 mg BREAKFAST HUNTER Administration Magnesium Hydroxide 30 ml 07/30/25 10:00 07/30/25 10:44 Magnesium Hydroxide 30 Ml Udcup PO 08/29/25 09:59 Not Given DAILY HUNTER Magnesium Hydroxide 30 ml 07/29/25 17:41 Magnesium Hydroxide 30 Ml Udcup PO 08/28/25 17:40 DAILY PRN CONSTIPATION Magnesium Oxide 400 mg 07/30/25 10:00 07/30/25 10:41 Magnesium Oxide 400 Mg Tablet PO 08/29/25 09:59 400 mg DAILY HUNTER Administration Memantine 10 mg 07/29/25 22:00 07/30/25 10:42 Memantine Hcl 5 Mg Tablet PO 08/28/25 21:59 10 mg BID HUNTER Administration Metformin HCl 500 mg 07/30/25 17:00 Metformin Hcl 500 Mg Tablet PO 08/29/25 16:59 DINNER HUNTER Metformin HCl 1,000 mg 07/30/25 08:00 07/30/25 08:46 Metformin Hcl Er 500 Mg Tab PO 08/29/25 07:59 1,000 mg BREAKFAST HUNTER Administration Miscellaneous Information 0 each 07/29/25 17:30 Medication Intervention 1 Each Each 08/28/25 17:29 .RN TO CHECK WITH PT HUNTER Miscellaneous Information 0 each 07/29/25 17:45 Medication Intervention 1 Each Each 08/28/25 17:44 .RN TO CHECK WITH PT HUNTER Miscellaneous Information 0 each 07/29/25 17:45 Medication Intervention 1 Each Each 08/28/25 17:44 .RN TO CHECK WITH PT HUNTER Miscellaneous Information 0 each 07/29/25 18:00 Medication Intervention 1 Each Each 08/28/25 17:59 .RN TO CHECK WITH PT HUNTER Miscellaneous Information 0 each 07/29/25 18:00 Medication Intervention 1 Each Each 08/28/25 17:59 .RN TO CHECK WITH PT HUNTER Miscellaneous Information 0 each 07/29/25 18:00 Medication Intervention 1 Each Each 08/28/25 17:59 .RN TO CHECK WITH PT HUNTER Miscellaneous Information 0 each 07/29/25 18:00 Medication Intervention 1 Each Each 08/28/25 17:59 .RN TO CHECK WITH PT HUNTER Montelukast Sodium 10 mg 07/29/25 22:00 07/29/25 21:15 Montelukast Sodium 10 Mg Tablet PO 08/28/25 21:59 10 mg HS HUNTER Administration Multi-Ingredient Ointment 30 gm 07/29/25 22:00 07/30/25 10:45 Zinc Oxide 30 Gm/1 Tube Tube TP 08/28/25 21:59 Not Given BID HUNTER Multivitamins Therapeutic 1 tab 07/30/25 10:00 07/30/25 10:41 Multivitamins,Therapeutic 1 Tab Tab PO 08/29/25 09:59 1 tab DAILY HUNTER Administration Nystatin 0 gm 07/29/25 17:43 Nystatin 15 Gm Powder TOP 08/28/25 17:42 DAILY PRN PRN Pantoprazole Sodium 20 mg 07/30/25 10:00 07/30/25 10:41 Pantoprazole 20 Mg Tab PO 08/29/25 09:59 20 mg QAM HUNTER Administration Potassium Chloride 10 meq 07/30/25 10:00 07/30/25 10:42 Potassium Chloride Tab 10 Meq Tab PO 08/29/25 09:59 10 meq DAILY HUNTER Administration Ropinirole HCl 1 mg 07/29/25 22:00 07/30/25 10:42 Ropinirole Hcl 0.5 Mg Tablet PO 08/28/25 21:59 1 mg TID HUNTER Administration Fluticasone/Salmeterol 2 puff 07/29/25 19:00 07/30/25 07:26 Fluticasone/Salmeterol 115/21 60 Puff Aer.W.Adap 08/28/25 18:59 2 puff BIDRT HUNTER Administration Sodium Chloride 3 ml 07/29/25 14:51 07/29/25 21:31 Sodium Cl For Inhalation 3 Ml Ud Nebule 08/28/25 14:50 3 ml Q4H PRN PRN Administration Sodium Chloride 0 ml 07/29/25 17:24 Sodium Chloride Nasal [place] 45 Ml Bottle NS 08/28/25 17:23 DAILY PRN PRN Temazepam 30 mg 07/29/25 22:00 07/29/25 21:15 Temazepam 15 Mg Capsule PO 08/28/25 21:59 30 mg HS HUNTER Administration Torsemide 60 mg 07/30/25 08:00 07/30/25 08:45 Torsemide 20 Mg Tablet PO 08/29/25 07:59 60 mg BREAKFAST HUNTER Administration Discontinued Medications Generic Name Dose Route Start Last Admin Trade Name Lance PRN Reason Stop Dose Admin Albuterol/Ipratropium 3 ml 07/29/25 10:45 07/29/25 11:10 Ipratropium/Albuterol Sulfate 3 Ml Ampul.Neb IH 07/29/25 10:46 3 ml STAT ONE Administration Albuterol/Ipratropium Confirm 07/29/25 10:51 Ipratropium/Albuterol Sulfate 3 Ml Ampul.Neb Administered 07/29/25 10:52 Dose 3 ml IH .STK-MED ONE Methylprednisolone Sodium 0 mg 07/29/25 10:45 07/29/25 11:01 Succinate 125 mg/ Sterile IV 07/29/25 10:46 125 mg Water 2 ml STAT ONE Administration Sodium Chloride 500 mls @ 500 mls/hr 07/29/25 10:49 07/29/25 12:04 Sodium Chloride 0.9% 500 Ml IV 07/29/25 11:48 Infused .Q1H ONE Infusion Sodium Chloride Confirm 07/29/25 10:59 Sodium Chloride 0.9% 500 Ml Administered 07/29/25 11:00 Dose 500 mls @ ud IV .STK-MED ONE Sodium Chloride 250 mls @ 250 mls/hr 07/29/25 19:45 07/29/25 19:52 Sodium Chloride 0.9% 250 Ml IV 07/29/25 20:44 250 mls/hr .Q1H HUNTER Administration Ceftriaxone Sodium 1 gm in 100 mls @ 200 mls/hr 07/29/25 19:47 07/29/25 19:51 Rocephin 1 Gm / 100 Ml Nacl IV 08/28/25 19:46 200 mls/hr Q24H HUNTER Administration Methylprednisolone Sodium Succinate Confirm 07/29/25 10:59 Methylprednis Sod Succ 125 Mg/2 Ml Vial Administered 07/29/25 11:00 Dose 125 mg .ROUTE .STK-MED ONE Metoprolol Succinate 50 mg 07/30/25 10:00 Metoprolol Succinate 50 Mg Tablet.Sa PO 08/29/25 09:59 DAILY HUNTER Metoprolol Succinate Confirm 07/29/25 12:31 Metoprolol Succinate 25 Mg Xl Tab Administered 07/29/25 12:32 Dose 50 mg .ROUTE .STK-MED ONE Metoprolol Succinate 25 mg 07/29/25 12:32 07/29/25 12:33 Metoprolol Succinate 25 Mg Xl Tab PO 07/29/25 12:33 25 mg STAT ONE Administration Sterile Water Confirm 07/29/25 10:59 Water For Injection,Sterile 10 Ml Vial Administered 07/29/25 11:00 Dose 10 ml IJ .STK-MED ONE Assessment/Plan (1) Sepsis due to urinary tract infection Current Visit: Yes Status: Acute Assessment & Plan: - LA on admission to ER 3.2, repeat values 2.9, 5.2 and this AM 2.8 - Continue IVF NS @ 50 ml/hr - IVF bolus gave in ER of 500 ml- crackles in lungs on admission - Overnight IVF fluid bolus of 250ml - D/T heart hx conservative IV fluid replacement - UA reviewed- ceftriaxone started - UC gram negative and sensitivity pending - HX of repeat UTI's - CBC, CMP reviewed - BC x2 pending - Tele - Trend Lactic acid - STOP IVF if LA normal - ICU- tele Code(s): A41.9 - SEPSIS, UNSPECIFIED ORGANISM; N39.0 - URINARY TRACT INFECTION, SITE NOT SPECIFIED (2) Complicated UTI (urinary tract infection) Current Visit: Yes Status: Acute Assessment & Plan: - Hx of chronic UTI's - Old UA and UC results reviewed - Ceftriaxone - UC gram negative and sensitivity pending - Will need to f/u with urology OP - + urosepsis - + confusion this AM- 2:2 infection - Tele - CBC, CMP reviewed Code(s): N39.0 - URINARY TRACT INFECTION, SITE NOT SPECIFIED (3) Atrial fibrillation with RVR Current Visit: Yes Status: Acute Code(s): I48.91 - UNSPECIFIED ATRIAL FIBRILLATION (4) Hyperkalemia Current Visit: Yes Status: Acute Code(s): E87.5 - HYPERKALEMIA (5) Dehydration Current Visit: Yes Status: Acute Code(s): E86.0 - DEHYDRATION (6) Lactic acidosis Current Visit: Yes Status: Acute Code(s): E87.20 - ACIDOSIS, UNSPECIFIED (7) Acute exacerbation of chronic obstructive pulmonary disease (COPD) Current Visit: No Status: Acute Code(s): J44.1 - CHRONIC OBSTRUCTIVE PULMONARY DISEASE W (ACUTE) EXACERBATION (8) Chronic back pain Current Visit: No Status: Chronic Code(s): M54.9 - DORSALGIA, UNSPECIFIED; G89.29 - OTHER CHRONIC PAIN (9) HTN (hypertension) Current Visit: No Status: Chronic Code(s): I10 - ESSENTIAL (PRIMARY) HYPERTENSION (10) Hypothyroidism Current Visit: No Status: Chronic Code(s): E03.9 - HYPOTHYROIDISM, UNSPECIFIED (11) USP current use of anticoagulant therapy Current Visit: No Status: Chronic Code(s): Z79.01 - SAFETY ADVISOR (CURRENT) USE OF ANTICOAGULANTS (12) Obesity (BMI 30-39.9) Current Visit: Yes Status: Chronic Code(s): E66.9 - OBESITY, UNSPECIFIED (13) CKD (chronic kidney disease) Current Visit: Yes Status: Chronic Code(s): N18.9 - CHRONIC KIDNEY DISEASE, UNSPECIFIED (14) Type II diabetes mellitus Current Visit: Yes Status: Chronic Assessment & Plan: (3) Atrial fibrillation with RVR Current Visit: Yes Status: Acute Assessment & Plan: - HR increases from 109-130 - ICU - TELE - Gave Metoprolol 75mg once in ER - Cardiology consult - TSH - Already on Eliquis [employer]- continue - CBC, CMP reviewed - Not replacing MG+ since K+ elevated - Echo - CXR pending - 500ml IV bolus gave in ER 12/2 - Placed on cardizem gtt at 2300 last night taken off at 0400 this AM- No PO meds started after gtt turned off last night - HR alternates between A-fib and Sr with PAC's - HR increasing this afternoon again in Af-fib RVR - Start Cardizem 30mg PO QID today - Cards consult pending Code(s): I48.91 - UNSPECIFIED ATRIAL FIBRILLATION (4) Hyperkalemia Current Visit: Yes Status: Acute Assessment & Plan: - K+ 5.2- recheck 4.9- resolved - ICU- tele - IVF gave in ER 12/2 - resolved Code(s): E87.5 - HYPERKALEMIA (5) Dehydration Current Visit: Yes Status: Acute Assessment & Plan: - Anion gap 17.8- IVF gave in ER 12/2 - resolved Code(s): E86.0 - DEHYDRATION (6) Lactic acidosis Current Visit: Yes Status: Acute Assessment & Plan: - Lactic acid 3.2- trend - 500ml IVF bolus gave in the ER 12/2 - See urosepsis plan above - CT abd completed last night negative for acute concern. Code(s): E87.20 - ACIDOSIS, UNSPECIFIED (7) Acute exacerbation of chronic obstructive pulmonary disease (COPD) Current Visit: No Status: Acute Assessment & Plan: - CXR pending - On baseline Oxygen at 3lNC 98% - Xopenex PRN - Lung sounds clear - Sxs may be 2:2 recent choking episode 07/30 - CXR reviewed and negative for acute concern - 3LNC 95% - Stop doxycycline Code(s): J44.1 - CHRONIC OBSTRUCTIVE PULMONARY DISEASE W (ACUTE) EXACERBATION (8) Chronic back pain Current Visit: No Status: Chronic Assessment & Plan: - Continue home pain med Code(s): M54.9 - DORSALGIA, UNSPECIFIED; G89.29 - OTHER CHRONIC PAIN (9) HTN (hypertension) Current Visit: No Status: Chronic Assessment & Plan: - BP stable - Continue home meds Code(s): I10 - ESSENTIAL (PRIMARY) HYPERTENSION (10) Hypothyroidism Current Visit: No Status: Chronic Assessment & Plan: - Continue synthroid - TSH non-concerning Code(s): E03.9 - HYPOTHYROIDISM, UNSPECIFIED (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 Current Visit: No Status: Chronic Assessment & Plan: - Continue Eliquis Code(s): Z79.01 - NURSING HOME (CURRENT) USE OF ANTICOAGULANTS (12) Obesity (BMI 30-39.9) Current Visit: Yes Status: Chronic Assessment & Plan: - Advised diet and exercise control Code(s): E66.9 - OBESITY, UNSPECIFIED (13) CKD (chronic kidney disease) Current Visit: Yes Status: Chronic Assessment & Plan: - At baseline kidney function Code(s): N18.9 - CHRONIC KIDNEY DISEASE, UNSPECIFIED (14) Type II diabetes mellitus Current Visit: Yes Status: Chronic Assessment & Plan: - Accuchecks Ac/HS - Low dose s/s Humalog - A1C 6.23- controlled VTE: Eliquis PPI: Protonix Next of KIN: Ashtyn- Altagracia Matias [phone] D/C plan: 1-2 days Code status: SCO Plan of care time > 50 minutes
[2025-07-30] MEDS: Cardizem 30 MG PO SCH (13:38)
[2025-07-30] MEDS ORDERED: TYLENOL 325 MG PO PRN (13:43)
[2025-07-30] MEDS: Glucophage 500 MG PO SCH (18:55)
[2025-07-30] MEDS ORDERED: Lopressor 25MG Tab ONE (22:00)
--- NOTE | 2025-07-30 22:03 | PCM.CONS ---
History of Present Illness - Date of Consult Date of Encounter: 07/30/25 Consulting Frame Stylist: HELGA DICKERSON MD Requesting Provider: Attending Provider: FLORENTINO FLORIAN MD Primary Care Provider: PCP: NO FAMILY DOCTOR Consent was: Given for this tele-med encounter - Consult Narrative Reason for Consult: Atrial fibrillation with RVR HPI: Patient is a 80F with COPD on home O2, obesity, pAF on anticoagulation who presented to the hospital with weakness and cough. Lives in a nursing facility but could not take care of herself any longer. She was exhausted by any effort and could not breathe and felt that she would faint. Her heart was pounding hard. She felt that she did not need more O2. Presented to the hospital for a COPD exacerbation and has been treated as such since. Afib has been treated with IV CCB and beta vladimir as well. Denies orthopnea or PND. Denies lower extremity edema. cc:: The requesting physician will be sent a copy of the consult. Review of Systems - Review of Systems All systems: as per HPI - Past Medical History Past Medical History: Yes Neurological History: Migraines, Peripheral Neuropathy ENT History: Cataracts Cardiac History: High Cholesterol, Hypertension Respiratory History: COPD, Pulmonary Embolism, Other Endocrine Medical History: Diabetes Type II, Hypothyroidism Musculoskelatal History: Degenerative Disk Disease, Fibromyalgia, Osteoporosis, Rheumatoid Arthritis GI Medical History: Diverticulosis, GERD History: Renal Disease Pyscho-Social History: Anxiety, Depression Reproductive Disorders: Breast Cancer Comment: Chronic stage 3 kidney disease, dropped mesh into vagina from bladder sling- causes frequent UTI, Iron def anemia and b-12 anemia, didn't recovery well from the PE pts wears 2L O2 via nasal canula - Past Surgical History Past Surgical History: Yes Neuro Surgical History: No Pertinent History Cardiac History: Cardiac Catheterization Respiratory Surgery: No Pertinent History GI Surgical History: Cholecystectomy Genitourinary Surgical Hx: Other Musculskeletal Surgical Hx: Orthopedic Surgery Female Surgical History: Hysterectomy, Lumpectomy, Mastectomy Other Surgical History: righ carpel tunnel surgery, bilateral mastectomy 2013 Radical to left side2 lamenectomys, 3 vertebre fused to lumbar neck fusion thorasic fusion left knee surgery bladder sling with mesh catarct and lasix surgery Significant Family History: no pertinent family hx - Social History Smoking Status: Never smoker Exposure to second hand smoke: No Alcohol: None Drug Use: none - Social Determinants of Health Will the patient participate in the screening: Yes Do you worry about a steady place to live?: No Do you have any problems with any of the following?: No known problems In the past 12 months,have you had to go without utilities?: No Have you or anyone in your house had to go without enough: No Transportation Issues: No Has anyone in your support network made you feel unsafe?: No Does the patient want assistance with any of the above?: No Comment: Currently resides at [facility]. Medications & Allergies Home Medications: Home Medication List Duloxetine HCl [Cymbalta] 60 mg PO BID 02/01/15 [History Confirmed 07/29/25] Multivitamin [Multivitamins] 1 each PO DAILY 02/01/15 [History Confirmed 07/29/25] Albuterol 2 puff IH Q4H PRN PRN 08/22/19 [History Confirmed 07/29/25] Albuterol 2.5 mg/3 ml Neb [Proventil 2.5 mg/3 ml Neb] 1 neb IH Q4HPRN PRN 08/22/19 [History Confirmed 07/29/25] Potassium Chloride Tab* [Klor Con] 10 meq PO DAILY 08/22/19 [History Confirmed 07/29/25] Apixaban [Eliquis] 5 mg PO BID 12/06/23 [History Confirmed 07/29/25] Memantine HCl 10 mg PO BID 12/06/23 [History Confirmed 07/29/25] PANTOPRAZOLE 40 mg Tablet [Protonix 40MG Tablet] 20 mg PO QAM 12/06/23 [History Confirmed 07/29/25] Propranolol HCl [Propranolol HCl ER] 60 mg PO DAILY 12/07/23 [History Confirmed 07/29/25] Ropinirole HCl 1 mg PO TID 12/07/23 [History Confirmed 07/29/25] Calcium Carbonate/Vitamin D3 [Calcium 250-D Tablet] 1 each PO DAILY 05/14/24 [History Confirmed 07/29/25] Gabapentin [Neurontin ] 800 mg PO TID 05/14/24 [History Confirmed 07/29/25] Glimepiride 2 mg PO BREAKFAST 05/14/24 [History Confirmed 07/29/25] Levothyroxine Sodium 88 Mcg [Synthroid 88 Mcg] 88 mcg PO DAILY 05/14/24 [History Confirmed 07/29/25] Acetaminophen 325 mg [Tylenol 325 mg] 325 mg PO Q4-6HPRN PRN 07/29/25 [History Confirmed 07/29/25] Bisacodyl [Dulcolax] 10 mg RC DAILY PRN 07/29/25 [History Confirmed 07/29/25] Cranberry Fruit [Cranberry] 300 mg PO BID 07/29/25 [History Confirmed 07/29/25] Fexofenadine HCl [Padmini Allergy] 180 mg PO BREAKFAST 07/29/25 [History Confirmed 07/29/25] Fluticasone/Vilanterol [Breo Ellipta 100-25 Mcg INH] 1 each IH DAILY 07/29/25 [History Confirmed 07/29/25] Glucosam/Antony-Msm1/C/[place]/Bosw [Osteo Bi-Flex Caplet] 1 tablet PO DAILY 07/29/25 [History Confirmed 07/29/25] Guaifenesin [Mucinex] 600 mg PO HS 07/29/25 [History Confirmed 07/29/25] Guaifenesin/Dextromethorphan [Tussin Dm 10-100 mg/5 ml Liq] 15 ml PO Q4-6HPRN PRN 07/29/25 [History Confirmed 07/29/25] Hydroxyzine HCl 25 mg [Atarax 25 mg] 25 mg PO BID 07/29/25 [History Confirmed 07/29/25] Insulin Glargine,Hum.rec.anlog [Lantus] 30 unit SQ BID 07/29/25 [History Confirmed 07/29/25] Loperamide HCl [Imodium A-D] 2 mg PO Q6H PRN 07/29/25 [History Confirmed 07/29/25] Magnesium Hydroxide [Dulcolax] 2,400 mg PO DAILY 07/29/25 [History Confirmed 07/29/25] Magnesium Hydroxide [Milk of Magnesia] 30 ml PO DAILY PRN 07/29/25 [History Confirmed 07/29/25] Magnesium Oxide 500 mg PO DAILY 07/29/25 [History Confirmed 07/29/25] Metformin HCl 500 mg [Glucophage 500 MG] 500 mg PO DINNER 07/29/25 [History Confirmed 07/29/25] Metformin HCl [Metformin ER Osmotic] 1,000 mg PO BREAKFAST 07/29/25 [History Confirmed 07/29/25] Montelukast Sodium 10 mg [Singulair 10 MG] 10 mg PO HS 07/29/25 [History Confirmed 07/29/25] Nystatin 1 each MC DAILY PRN PRN 07/29/25 [History Confirmed 07/29/25] Pilocarpine HCl [Salagen] 5 mg PO TID 07/29/25 [History Confirmed 07/29/25] SUMAtriptan succinate [Imitrex 50 mg] 50 mg PO DAILY PRN 07/29/25 [History Confirmed 07/29/25] Sodium Chloride/Aloe Vera [Conner Saline Nasal Gel] 14.1 gm NS DAILY PRN PRN 07/29/25 [History Confirmed 07/29/25] Temazepam 30 mg PO HS 07/29/25 [History Confirmed 07/29/25] Torsemide 60 mg PO BREAKFAST 07/29/25 [History Confirmed 07/29/25] Zinc Oxide Ointment 30 gm 30 gm TP BID 07/29/25 [History Confirmed 07/29/25] cycloSPORINE [Restasis Multidose] 1.5 ml OP BID 07/29/25 [History Confirmed 07/29/25] Allergies/Adverse Reactions: Allergies Allergy/AdvReac Type Severity Reaction Status Date / Time Sulfa (Sulfonamide Allergy Severe Hives Verified 07/29/25 13:37 Antibiotics) tapentadol HCl [From Nucynta] Allergy Severe throat Verified 07/29/25 13:37 swelling and itching hydrocodone bitartrate Allergy Mild intense Verified 07/29/25 13:37 [From Vicodin] itching codeine Allergy Verified 07/29/25 13:37 oxycodone Allergy Verified 07/29/25 13:37 Exam - Vitals Vital Signs: Vital Signs - 24 hr Temp Pulse Resp BP Pulse Ox 07/30/25 21:42 115 H 20 96 07/30/25 18:46 112 H 28 H 97/59 98 07/30/25 18:30 106 H 26 H 98 07/30/25 18:00 105 H 25 H 98 07/30/25 17:40 113 H 23 100 07/30/25 17:01 97 H 19 98 07/30/25 16:29 99 H 23 94/62 98 07/30/25 16:20 91 H 22 99 07/30/25 16:10 91 H 29 H 98 07/30/25 16:00 94 H 25 H 98 07/30/25 15:50 106 H 18 07/30/25 15:40 106 H 21 07/30/25 15:30 105 H 25 H 99 07/30/25 15:20 106 H 26 H 100 07/30/25 15:10 106 H 25 H 99 07/30/25 15:03 116 H 23 07/30/25 14:00 111 H 128/69 07/30/25 13:00 124 H 26 H 127/77 95 07/30/25 12:01 124 H 27 H 110/60 98 07/30/25 12:00 113 H 07/30/25 11:48 97.5 F 107 H 27 H 117/72 99 07/30/25 10:02 126 H 20 121/72 99 07/30/25 09:00 111 H 126/73 07/30/25 08:00 96.8 F 100 H 20 113/76 07/30/25 07:30 89 18 98 07/30/25 07:00 82 24 122/65 07/30/25 06:00 80 24 122/58 07/30/25 05:00 77 20 129/60 07/30/25 04:00 77 22 120/61 07/30/25 03:30 81 19 120/63 07/30/25 03:20 78 07/30/25 03:00 97 F 78 16 122/69 99 07/30/25 02:30 85 18 112/58 07/30/25 02:00 78 23 119/58 100 07/30/25 01:30 81 17 111/55 100 07/30/25 01:00 93 H 15 109/59 100 07/30/25 00:30 90 23 114/44 100 07/30/25 00:06 100 H 114/44 07/30/25 00:00 98 F 94 H 22 120/74 100 07/29/25 23:56 118 H 07/29/25 23:30 118 H 23 115/87 100 07/29/25 23:16 147 H 15 128/80 100 07/29/25 23:06 146 H 128/80 07/29/25 22:00 115 H 19 122/81 98 General:: alert and oriented x 4 HEENT: PERRLA, EOMI Cardiovascular Exam: tachycardia, irregular Respiratory Exam: wheezing SpO2: 96 Extremity Exam: normal inspection Results Vital Signs: Vital Signs - 24 hr Temp Pulse Resp BP Pulse Ox 07/30/25 21:42 115 H 20 96 07/30/25 18:46 112 H 28 H 97/59 98 07/30/25 18:30 106 H 26 H 98 07/30/25 18:00 105 H 25 H 98 07/30/25 17:40 113 H 23 100 07/30/25 17:01 97 H 19 98 07/30/25 16:29 99 H 23 94/62 98 07/30/25 16:20 91 H 22 99 07/30/25 16:10 91 H 29 H 98 07/30/25 16:00 94 H 25 H 98 07/30/25 15:50 106 H 18 07/30/25 15:40 106 H 21 07/30/25 15:30 105 H 25 H 99 07/30/25 15:20 106 H 26 H 100 07/30/25 15:10 106 H 25 H 99 07/30/25 15:03 116 H 23 07/30/25 14:00 111 H 128/69 07/30/25 13:00 124 H 26 H 127/77 95 07/30/25 12:01 124 H 27 H 110/60 98 07/30/25 12:00 113 H 07/30/25 11:48 97.5 F 107 H 27 H 117/72 99 07/30/25 10:02 126 H 20 121/72 99 07/30/25 09:00 111 H 126/73 07/30/25 08:00 96.8 F 100 H 20 113/76 07/30/25 07:30 89 18 98 07/30/25 07:00 82 24 122/65 07/30/25 06:00 80 24 122/58 07/30/25 05:00 77 20 129/60 07/30/25 04:00 77 22 120/61 07/30/25 03:30 81 19 120/63 07/30/25 03:20 78 07/30/25 03:00 97 F 78 16 122/69 99 07/30/25 02:30 85 18 112/58 07/30/25 02:00 78 23 119/58 100 07/30/25 01:30 81 17 111/55 100 07/30/25 01:00 93 H 15 109/59 100 07/30/25 00:30 90 23 114/44 100 07/30/25 00:06 100 H 114/44 07/30/25 00:00 98 F 94 H 22 120/74 100 07/29/25 23:56 118 H 07/29/25 23:30 118 H 23 115/87 100 07/29/25 23:16 147 H 15 128/80 100 07/29/25 23:06 146 H 128/80 07/29/25 22:00 115 H 19 122/81 98 Pain Assessment - Last Documented Pain Intensity 4 Pain Scale Used 0-10 Pain Scale Intake and Output: Intake & Output 07/28/25 07/29/25 07/30/25 07/31/25 11:59 11:59 11:59 11:59 Intake Total 1397 748 Output Total 500 1200 Balance 897 -452 Weight 110 kg 108.9 kg LAB: I have reviewed the Labs in [employer]. Radiology Exams: Radiology Procedures Category Date Time Status ABDOMEN AND PELVIS W/0 CONTRAS [CT] Stat Exams 07/29/25 19:45 Completed CHEST 1 VIEW (PORTABLE) Stat Exams 07/29/25 10:46 Completed ECHO W/2D AND DOPPLER [US] Routine Exams 07/29/25 14:15 Taken Assessment & Plan (1) Atrial fibrillation with RVR Current Visit: Yes Status: Acute Assessment & Plan: Likely 2/2 COPD exacerbation START metoprolol tartrate 25 mg Q6H Continue diltiazem 30 mg q6h with goal of titrating this off Continue apixaban 2.5 mg bid Treat underlying COPD Code(s): I48.91 - UNSPECIFIED ATRIAL FIBRILLATION (2) Dehydration Current Visit: Yes Status: Acute Code(s): E86.0 - DEHYDRATION (3) CKD (chronic kidney disease) Current Visit: Yes Status: Chronic Code(s): N18.9 - CHRONIC KIDNEY DISEASE, UNSPECIFIED (4) COPD (chronic obstructive pulmonary disease) Current Visit: No Status: Chronic - Encounter Encounter: "The entirety of this encounter was performed via Telemedicine using audio and visual "
[2025-07-30] MEDS: ROCEPHIN 1 GM / 100 ML NaCl 1 GM/100 ML IVPB IV SCH (22:05)
[2025-07-30] MEDS: Lopressor 25MG Tab PO SCH (22:09)
[2025-07-31 05:53] LABS: Hematocrit 31.3 % (34.1-44.9); Hemoglobin 9.5 g/dL (11.2-15.7); Mean Corpuscular Hemoglobin 27.5 pg (25.6-32.2); Mean Corpuscular Hgb Concent. 30.4 g/dL (32.2-35.5); Platelet Count 188 x10^3/uL (182-369); Red Blood Count 3.45 x10^6/uL (3.93-5.22); White Blood Count 8.5 x10^3/uL (3.98-10.04)
[2025-07-31 06:35] LABS: Calcium 8.4 mg/dL (8.4-10.2); Carbon Dioxide 28.0 mmol/L (22-30); Creatinine 1 1.06 mg/dL (0.52-1.04); EST GLOMERULAR FILTRATION RATE 53.8 ML/MIN; Glucose 105.0 mg/dL (74-106); Potassium 3.7 mmol/L (3.5-5.1); SGOT/AST 37.0 U/L (14-36); SGPT/ALT 23.0 U/L (0-35); Total Protein 7.0 g/dL (6.3-8.2)
[2025-07-31] MEDS: Invanz *** 1 G in Sodium Chloride 100ML MINI-BAG PLUS 100 ML IV SCH (10:08)
--- NOTE | 2025-07-31 15:20 | PCM.NOTE ---
Date and Time: 07/31/25 1510 Subjective Assessment: 07/29/25 is a 80-year-old female with a complex medical history including COPD on chronic 3 L nasal cannula, atrial fibrillation, hypertension, type 2 diabetes, chronic kidney disease stage III, hypothyroidism, GERD, hiatal hernia, prior pulmonary embolism, breast cancer, and multiple other comorbidities was brought in by EMS from her senior care due to shortness of breath and cough, with oxygen saturation noted in the mid-80s. In the ED, she was found to be in atrial fibrillation with rapid ventricular response and received metoprolol 75 mg PO. She was also given a 500 mL IV fluid bolus for elevated lactic acid (3.2), potassium (5.2), and anion gap (17.8). Viral testing for flu, COVID, and RSV was negative. On exam, she was stable on her baseline 3 L oxygen with saturation of 98%, lungs clear, and reported improvement in symptoms after Solu- Medrol 125 mg IV and DuoNeb treatment. She additionally described a recent choking episode on meat and feels as though something remains stuck in her esophagus. Chest x-ray is pending, and surgical consultation will be considered if indicated. Lactic acid will be repeated. She currently reports epigastric discomfort but denies chest pain, abdominal pain, nausea, vomiting, or diarrhea. 07/30/25 The patient is resting in bed on room air with oxygen saturation at 98%. She was placed on a Cardizem drip overnight at 11:00 PM, which was discontinued at 4:00 AM. Urinalysis returned positive for UTI, and ceftriaxone was initiated. She was also started on doxycycline by the overnight provider; however, chest x-ray showed no acute findings, and doxycycline will be discontinued. Echocardiogram is pending today. The patient appears to have urosepsis, as lactic acid remains elevated at 2.2, and normal saline is continued at 50 mL/hr. Her heart rhythm alternates between controlled atrial fibrillation and sinus rhythm with PACs. CT of the abdomen performed last night was negative for acute pathology. Sputum and blood cultures are pending, while urine culture has grown Gram-negative organisms with sensitivities pending. The patient currently denies any further concerns. Awaiting cardiology consult recs. 07/31/25 Patient resting in bed. She states she feels better today. Heart rate controlled in sinus rhythm. Cardizem held last night due to blood pressure being soft, but restarted this AM per cardiology orders. Metoprolol started by cards last night. Blood pressure and heart rate stable. Patient can transfer to [facility] [place] today. Lactic acid is 1.5 today. Creatinine is up at 1.60, encouraged oral fluid intake. Echo results are pending. Antibiotic changed to Invanz today for urosepsis after reviewing sensitively results. Patient to get a PICC line today for outpatient antibiotics to continue at senior care. Patient denies any further concerns at this time. - Review of Systems Constitutional: No Fever, No Chills Eyes: No Symptoms Ears, Nose, & Throat: No Symptoms Respiratory: No Cough, No Short Of Breath Cardiac: No Chest Pain, No Edema, No Syncope Abdominal/Gastrointestinal: No Abdominal Pain, No Nausea, No Vomiting, No Diarrhea Genitourinary Symptoms: No Dysuria Musculoskeletal: No Back Pain, No Neck Pain Skin: No Rash Neurological: No Dizziness, No Focal Weakness, No Sensory Changes Psychological: No Symptoms Endocrine: No Symptoms Hematologic/Lymphatic: No Symptoms Immunological/Allergic: No Symptoms Objective Exam General Appearance: no apparent distress, alert, obese Neurologic Exam: alert, oriented x 3, cooperative, normal mood/affect, nml cerebellar function, sensation nml, No motor deficits Skin Exam: normal color, warm, dry Eye Exam: PERRL, EOMI, eyes nml inspection Ears, Nose, Throat Exam: normal ENT inspection, pharynx normal, moist mucous membranes Neck Exam: normal inspection, non-tender, supple, full range of motion Respiratory Exam: normal breath sounds, lungs clear, No respiratory distress Cardiovascular Exam: regular rate/rhythm, normal heart sounds Gastrointestinal/Abdomen Exam: soft, No tenderness, No mass Extremity Exam: normal inspection, normal range of motion Back Exam: normal inspection, normal range of motion, No CVA tenderness, No vertebral tenderness Pelvic Exam: deferred Rectal Exam: deferred Objective Data Vital Signs: Vital Signs - 24 hr Temp Pulse Resp BP Pulse Ox 07/31/25 14:37 74 23 117/77 98 07/31/25 14:36 88 22 98 07/31/25 14:30 87 22 97 07/31/25 14:20 86 24 98 07/31/25 14:10 85 24 99 07/31/25 14:02 82 29 H 99 07/31/25 13:01 80 27 H 132/61 98 07/31/25 12:02 91 H 20 146/83 93 L 07/31/25 12:00 75 07/31/25 11:50 85 20 98 07/31/25 11:49 81 23 98 07/31/25 11:40 84 28 H 99 07/31/25 11:33 97 H 24 96 07/31/25 11:20 92 H 21 100 07/31/25 11:10 87 17 100 07/31/25 11:02 85 26 H 100 07/31/25 10:04 81 26 H 101/59 100 07/31/25 10:03 91 H 23 07/31/25 10:00 92 H 23 07/31/25 09:54 84 18 100 07/31/25 09:50 101 H 19 07/31/25 09:40 87 26 H 07/31/25 09:30 86 19 07/31/25 09:20 88 24 07/31/25 09:10 88 20 07/31/25 09:02 84 20 07/31/25 08:00 87 24 113/63 07/31/25 07:00 81 21 122/75 07/31/25 06:00 80 22 106/63 93 L 07/31/25 05:00 86 23 114/73 94 L 07/31/25 04:00 97.0 F 81 21 101/61 96 07/31/25 03:00 81 22 112/69 07/31/25 02:00 79 21 102/71 98 07/31/25 01:00 83 23 98/54 98 07/31/25 00:01 84 07/31/25 00:00 97.0 F 84 22 119/69 99 07/30/25 23:00 86 18 118/63 94 L 07/30/25 22:12 96 07/30/25 22:01 102 H 25 H 127/72 07/30/25 21:42 115 H 20 96 07/30/25 21:00 105 H 27 H 131/65 07/30/25 20:01 97.1 F 101 H 27 H 117/77 99 07/30/25 20:00 101 H 07/30/25 19:00 96 H 22 112/67 07/30/25 18:46 112 H 28 H 97/59 98 07/30/25 18:30 106 H 26 H 98 07/30/25 18:00 105 H 25 H 98 07/30/25 17:40 113 H 23 100 07/30/25 17:01 97 H 19 98 07/30/25 16:29 99 H 23 94/62 98 07/30/25 16:20 91 H 22 99 07/30/25 16:10 91 H 29 H 98 07/30/25 16:00 94 H 25 H 98 07/30/25 15:50 106 H 18 07/30/25 15:40 106 H 21 07/30/25 15:30 105 H 25 H 99 07/30/25 15:20 106 H 26 H 100 Pain Assessment - Last Documented Pain Intensity 4 Pain Scale Used 0-10 Pain Scale Intake and Output: Intake & Output 07/29/25 07/30/25 07/31/25 08/01/25 11:59 11:59 11:59 11:59 Intake Total 1397 1240 Output Total 500 1550 200 Balance 897 -310 -200 Weight 110 kg 108.9 kg Lab Results: Lab Results-Last 24 Hours 07/30/25 07/30/25 07/31/25 Range/Units 16:47 21:34 05:38 WBC (3.98-10.04) x10^3/uL RBC (3.93-5.22) x10^6/uL Hgb (11.2-15.7) g/dL Hct (34.1-44.9) % MCV (79.4-94.8) fL MCH (25.6-32.2) pg MCHC (32.2-35.5) g/dL RDW (11.7-14.4) % Plt Count (182-369) x10^3/uL MPV (9.4-12.3) fL Sodium (135-145) mmol/L Potassium (3.5-5.1) mmol/L Chloride (98-107) mmol/L Carbon Dioxide (22-30) mmol/L Anion Gap (5-15) MEQ/L BUN (7-17) mg/dL Creatinine (0.52-1.04) mg/dL Estimated GFR ML/MIN Glucose (74-106) mg/dL POC Glucometer 103 108 H (74 to 106) mg/dL Lactic Acid 1.5 (0.4-2.0) Calcium (8.4-10.2) mg/dL Magnesium (1.6-2.3) mg/dL Total Bilirubin (0.2-1.3) mg/dL AST (14-36) U/L ALT (0-35) U/L Alkaline Phosphatase (38-126) U/L Serum Total Protein (6.3-8.2) g/dL Albumin (3.5-5.0) g/dL 07/31/25 07/31/25 07/31/25 Range/Units 05:40 05:40 11:44 WBC 8.5 (3.98-10.04) x10^3/uL RBC 3.45 L (3.93-5.22) x10^6/uL Hgb 9.5 L (11.2-15.7) g/dL Hct 31.3 L (34.1-44.9) % MCV 90.7 (79.4-94.8) fL MCH 27.5 (25.6-32.2) pg MCHC 30.4 L (32.2-35.5) g/dL RDW 16.5 H (11.7-14.4) % Plt Count 188 (182-369) x10^3/uL MPV 9.2 L (9.4-12.3) fL Sodium 138 (135-145) mmol/L Potassium 3.7 D (3.5-5.1) mmol/L Chloride 102 (98-107) mmol/L Carbon Dioxide 28 (22-30) mmol/L Anion Gap 11.9 (5-15) MEQ/L BUN 26 H (7-17) mg/dL Creatinine 1.06 H (0.52-1.04) mg/dL Estimated GFR 53.8 ML/MIN Glucose 105 (74-106) mg/dL POC Glucometer 172 H (74 to 106) mg/dL Lactic Acid (0.4-2.0) Calcium 8.4 (8.4-10.2) mg/dL Magnesium 2.1 (1.6-2.3) mg/dL Total Bilirubin 0.20 (0.2-1.3) mg/dL AST 37 H (14-36) U/L ALT 23 (0-35) U/L Alkaline Phosphatase 64 (38-126) U/L Serum Total Protein 7.0 (6.3-8.2) g/dL Albumin 3.7 (3.5-5.0) g/dL Radiology Exams: Radiology Procedures Category Date Time Status ABDOMEN AND PELVIS W/0 CONTRAS [CT] Stat Exams 07/29/25 19:45 Completed ECHO W/2D AND DOPPLER [US] Routine Exams 07/29/25 14:15 Taken PICC LINE PLACEMENT Routine Exams 08/01/25 13:00 Ordered Medications: Medications Generic Name Dose Route Start Last Admin Trade Name Freq PRN Reason Stop Dose Admin Acetaminophen 650 mg 07/30/25 13:43 Acetaminophen 325 Mg Tablet PO 08/29/25 13:42 Q4HPRN PRN PAIN Albuterol Sulfate 2.5 mg 07/29/25 17:06 Albuterol Sulfate 2.5 Mg/3 Ml Neb IH 08/28/25 17:05 Q4HPRN PRN breathing Apixaban 5 mg 07/31/25 22:00 Apixaban 2.5 Mg Tablet PO 08/30/25 21:59 BID HUNTER Bisacodyl 10 mg 07/29/25 17:06 Bisacodyl 10 Mg Supp.Rect RC 08/28/25 17:05 DAILY PRN CONSTIPATION Calcium Carbonate 1 tab 07/30/25 10:00 07/31/25 08:32 Calcium Carbonate 500 Mg/Vitamin D 1 Tab Tablet PO 08/29/25 09:59 1 tab DAILY HUNTER Administration Diltiazem HCl 30 mg 07/30/25 13:30 07/31/25 13:05 Diltiazem Hcl 30 Mg Tablet PO 08/29/25 13:29 30 mg QID UHNTER Administration Duloxetine HCl 60 mg 07/29/25 22:00 07/31/25 08:36 Duloxetine Hcl 30 Mg Cap PO 08/28/25 21:59 60 mg BID HUNTER Administration Gabapentin 800 mg 07/29/25 22:00 07/31/25 15:02 Gabapentin 400 Mg Capsule PO 08/28/25 21:59 800 mg TID HUNTER Administration Glimepiride 2 mg 07/30/25 08:00 07/31/25 08:35 Glimepiride 2 Mg Tablet PO 08/29/25 07:59 2 mg BREAKFAST HUNTER Administration Guaifenesin 600 mg 07/29/25 22:00 12/02/25 22:07 Guaifenesin 600 Mg Tablet Er PO 08/28/25 21:59 600 mg HS HUNTER Administration Hydroxyzine HCl 25 mg 07/29/25 22:00 07/31/25 08:35 Hydroxyzine Hcl 25 Mg Tablet PO 08/28/25 21:59 25 mg BID HUNTER Administration Diltiazem HCl 100 mls @ 5 mls/hr 07/29/25 22:56 07/30/25 04:00 Cardizem Drip 100 Mg/100 Ml D5w IV 08/28/25 22:55 0 mg/hr .Q20H PRN 0 mls/hr HEART RATE/ A-FIB Titration Protocol 5 MG/HR Ertapenem 1 g/ Sodium Chloride 100 mls @ 200 mls/hr 07/31/25 10:00 07/31/25 10:08 IV 08/30/25 09:59 200 mls/hr Q24H10 HUNTER Administration Insulin Glargine 30 unit 07/29/25 22:00 07/31/25 08:37 Insulin Glargine 1 Unit SQ 08/28/25 21:59 30 unit BID HUNTER Administration Insulin Human Lispro 0 unit 07/29/25 14:23 07/30/25 12:18 Insulin Lispro 1 Unit SQ 08/28/25 14:22 6 unit UD PRN Administration HYPERGLYCEMIA Levalbuterol HCl 1.25 mg 07/29/25 14:13 07/30/25 21:42 Levalbuterol Hcl 1.25 Mg/0.5 Ml Neb IH 08/28/25 14:12 1.25 mg Q4H PRN PRN Administration SHORTNESS OF BREATH Levothyroxine Sodium 88 mcg 07/30/25 10:00 07/31/25 09:19 Levothyroxine Sodium 88 Mcg Tablet PO 08/29/25 09:59 88 mcg DAILY HUNTER Administration Loperamide HCl 2 mg 07/29/25 17:40 Loperamide Hcl 2 Mg Capsule PO 08/28/25 17:39 Q6H PRN PRN DIARRHEA Loratadine 10 mg 07/30/25 08:00 07/31/25 08:35 Loratadine 10 Mg Tablet PO 08/29/25 07:59 10 mg BREAKFAST HUNTER Administration Magnesium Hydroxide 30 ml 07/30/25 10:00 07/31/25 08:46 Magnesium Hydroxide 30 Ml Udcup PO 08/29/25 09:59 Not Given DAILY HUNTER Magnesium Hydroxide 30 ml 07/29/25 17:41 Magnesium Hydroxide 30 Ml Udcup PO 08/28/25 17:40 DAILY PRN CONSTIPATION Magnesium Oxide 400 mg 07/30/25 10:00 07/31/25 08:34 Magnesium Oxide 400 Mg Tablet PO 08/29/25 09:59 400 mg DAILY HUNTER Administration Memantine 10 mg 07/29/25 22:00 07/31/25 08:34 Memantine Hcl 5 Mg Tablet PO 08/28/25 21:59 10 mg BID HUNTER Administration Metformin HCl 500 mg 07/30/25 17:00 07/30/25 18:55 Metformin Hcl 500 Mg Tablet PO 08/29/25 16:59 500 mg DINNER HUNTER Administration Metformin HCl 1,000 mg 07/30/25 08:00 07/31/25 08:36 Metformin Hcl Er 500 Mg Tab PO 08/29/25 07:59 1,000 mg BREAKFAST HUNTER Administration Metoprolol Tartrate 25 mg 07/30/25 22:00 07/31/25 13:05 Metoprolol Tartrate 25 Mg Tab PO 08/29/25 21:59 25 mg QID HUNTER Administration Miscellaneous Information 0 each 07/29/25 17:30 Medication Intervention 1 Each Each 08/28/25 17:29 .RN TO CHECK WITH PT HUNTER Miscellaneous Information 0 each 07/29/25 17:45 Medication Intervention 1 Each Each 08/28/25 17:44 .RN TO CHECK WITH PT HUNTER Miscellaneous Information 0 each 07/29/25 17:45 Medication Intervention 1 Each Each 08/28/25 17:44 .RN TO CHECK WITH PT HUNTER Miscellaneous Information 0 each 07/29/25 18:00 Medication Intervention 1 Each Each 08/28/25 17:59 .RN TO CHECK WITH PT HUNTER Miscellaneous Information 0 each 07/29/25 18:00 Medication Intervention 1 Each Each 08/28/25 17:59 .RN TO CHECK WITH PT HUNTER Miscellaneous Information 0 each 07/29/25 18:00 Medication Intervention 1 Each Each 08/28/25 17:59 .RN TO CHECK WITH PT HUNTER Miscellaneous Information 0 each 07/29/25 18:00 Medication Intervention 1 Each Each 08/28/25 17:59 .RN TO CHECK WITH PT HUNTER Montelukast Sodium 10 mg 07/29/25 22:00 07/30/25 22:07 Montelukast Sodium 10 Mg Tablet PO 08/28/25 21:59 10 mg HS HUNTER Administration Multi-Ingredient Ointment 30 gm 07/29/25 22:00 07/31/25 09:19 Zinc Oxide 30 Gm/1 Tube Tube TP 08/28/25 21:59 Not Given BID HUNTER Multivitamins Therapeutic 1 tab 07/30/25 10:00 07/31/25 08:34 Multivitamins,Therapeutic 1 Tab Tab PO 08/29/25 09:59 1 tab DAILY HUNTER Administration Nystatin 0 gm 07/29/25 17:43 Nystatin 15 Gm Powder TOP 08/28/25 17:42 DAILY PRN PRN Pantoprazole Sodium 20 mg 07/30/25 10:00 07/31/25 08:36 Pantoprazole 20 Mg Tab PO 08/29/25 09:59 20 mg QAM HUNTER Administration Potassium Chloride 10 meq 07/30/25 10:00 07/31/25 08:36 Potassium Chloride Tab 10 Meq Tab PO 08/29/25 09:59 10 meq DAILY HUNTER Administration Ropinirole HCl 1 mg 07/29/25 22:00 07/31/25 15:02 Ropinirole Hcl 0.5 Mg Tablet PO 08/28/25 21:59 1 mg TID HUNTER Administration Fluticasone/Salmeterol 2 puff 07/29/25 19:00 07/31/25 09:54 Fluticasone/Salmeterol 115/21 60 Puff Aer.W.Adap 08/28/25 18:59 2 puff BIDRT HUNTER Administration Sodium Chloride 3 ml 07/29/25 14:51 07/30/25 21:42 Sodium Cl For Inhalation 3 Ml Ud Nebule 08/28/25 14:50 3 ml Q4H PRN PRN Administration Sodium Chloride 0 ml 07/29/25 17:24 Sodium Chloride Nasal Tatamy 45 Ml Bottle NS 08/28/25 17:23 DAILY PRN PRN Temazepam 30 mg 07/29/25 22:00 07/30/25 22:06 Temazepam 15 Mg Capsule PO 08/28/25 21:59 30 mg HS UHNTER Administration Torsemide 60 mg 07/30/25 08:00 12/03/25 08:33 Torsemide 20 Mg Tablet PO 08/29/25 07:59 60 mg BREAKFAST HUNTER Administration Discontinued Medications Generic Name Dose Route Start Last Admin Trade Name Lance PRN Reason Stop Dose Admin Acetaminophen 325 mg 07/29/25 17:06 07/30/25 12:22 Acetaminophen 325 Mg Tablet PO 08/28/25 17:05 325 mg Q4-6HPRN PRN Administration PAIN Albuterol/Ipratropium 3 ml 07/29/25 10:45 07/29/25 11:10 Ipratropium/Albuterol Sulfate 3 Ml Ampul.Neb IH 07/29/25 10:46 3 ml STAT ONE Administration Albuterol/Ipratropium Confirm 07/29/25 10:51 Ipratropium/Albuterol Sulfate 3 Ml Ampul.Neb Administered 07/29/25 10:52 Dose 3 ml IH .STK-MED ONE Apixaban 5 mg 07/29/25 22:00 07/31/25 08:32 Apixaban 2.5 Mg Tablet PO 08/28/25 21:59 5 mg BID HUNTER Administration Methylprednisolone Sodium 0 mg 07/29/25 10:45 07/29/25 11:01 Succinate 125 mg/ Sterile IV 07/29/25 10:46 125 mg Water 2 ml STAT ONE Administration Doxycycline Hyclate 100 mg 07/29/25 22:56 07/30/25 10:42 Doxycycline Hyclate 100 Mg Tablet PO 08/28/25 22:55 100 mg BID HUNTER Administration Sodium Chloride 500 mls @ 500 mls/hr 07/29/25 10:49 07/29/25 12:04 Sodium Chloride 0.9% 500 Ml IV 07/29/25 11:48 Infused .Q1H ONE Infusion Sodium Chloride Confirm 07/29/25 10:59 Sodium Chloride 0.9% 500 Ml Administered 07/29/25 11:00 Dose 500 mls @ ud IV .STK-MED ONE Sodium Chloride 1,000 mls @ 50 mls/hr 07/29/25 15:00 07/30/25 12:22 Sodium Chloride 0.9% 1000 Ml IV 08/28/25 14:59 50 mls/hr .Q20H HUNTER Administration Sodium Chloride 250 mls @ 250 mls/hr 07/29/25 19:45 07/29/25 19:52 Sodium Chloride 0.9% 250 Ml IV 07/29/25 20:44 250 mls/hr .Q1H HUNTER Administration Ceftriaxone Sodium 1 gm in 100 mls @ 200 mls/hr 07/29/25 19:47 07/29/25 19:51 Rocephin 1 Gm / 100 Ml Nacl IV 08/28/25 19:46 200 mls/hr Q24H HUNTER Administration Ceftriaxone Sodium 1 gm in 100 mls @ 200 mls/hr 07/30/25 22:00 07/30/25 22:05 Rocephin 1 Gm / 100 Ml Nacl IV 08/29/25 21:59 200 mls/hr Q24H22 HUNTER Administration Methylprednisolone Sodium Succinate Confirm 07/29/25 10:59 Methylprednis Sod Succ 125 Mg/2 Ml Vial Administered 07/29/25 11:00 Dose 125 mg .ROUTE .STK-MED ONE Metoprolol Succinate 50 mg 07/30/25 10:00 Metoprolol Succinate 50 Mg Tablet.Sa PO 08/29/25 09:59 DAILY HUNTER Metoprolol Succinate Confirm 07/29/25 12:31 Metoprolol Succinate 25 Mg Xl Tab Administered 07/29/25 12:32 Dose 50 mg .ROUTE .STK-MED ONE Metoprolol Succinate 25 mg 07/29/25 12:32 07/29/25 12:33 Metoprolol Succinate 25 Mg Xl Tab PO 07/29/25 12:33 25 mg STAT ONE Administration Metoprolol Tartrate Confirm 07/30/25 22:00 Metoprolol Tartrate 25 Mg Tab Administered 07/30/25 22:01 Dose 25 mg .ROUTE .STK-MED ONE Sterile Water Confirm 07/29/25 10:59 Water For Injection,Sterile 10 Ml Vial Administered 07/29/25 11:00 Dose 10 ml IJ .STK-MED ONE Multi-Disciplinary Progress Notes: Multi-Disciplinary Progress Notes 07/31/25 12:41 Case Management Note by Lois Payton NO CHANGE IN DC PLANS AT THIS TIME- UPDATE WITH URINE CULTURE RESULTS FAXED TO [facility] AT THIS TIME Initialized on 07/31/25 12:41 - END OF NOTE Assessment/Plan (1) Sepsis due to urinary tract infection Current Visit: Yes Status: Acute Code(s): A41.9 - SEPSIS, UNSPECIFIED ORGANISM; N39.0 - URINARY TRACT INFECTION, SITE NOT SPECIFIED (2) Complicated UTI (urinary tract infection) Current Visit: Yes Status: Acute Code(s): N39.0 - URINARY TRACT INFECTION, SITE NOT SPECIFIED (3) Atrial fibrillation with RVR Current Visit: Yes Status: Acute Code(s): I48.91 - UNSPECIFIED ATRIAL FIBRILLATION (4) Hyperkalemia Current Visit: Yes Status: Acute Code(s): E87.5 - HYPERKALEMIA (5) Dehydration Current Visit: Yes Status: Acute Code(s): E86.0 - DEHYDRATION (6) Lactic acidosis Current Visit: Yes Status: Acute Code(s): E87.20 - ACIDOSIS, UNSPECIFIED (7) Acute exacerbation of chronic obstructive pulmonary disease (COPD) Current Visit: No Status: Acute Code(s): J44.1 - CHRONIC OBSTRUCTIVE PULMONARY DISEASE W (ACUTE) EXACERBATION (8) Chronic back pain Current Visit: No Status: Chronic Code(s): M54.9 - DORSALGIA, UNSPECIFIED; G89.29 - OTHER CHRONIC PAIN (9) HTN (hypertension) Current Visit: No Status: Chronic Code(s): I10 - ESSENTIAL (PRIMARY) HYPERTENSION (10) Hypothyroidism Current Visit: No Status: Chronic Code(s): E03.9 - HYPOTHYROIDISM, UNSPECIFIED (11) FDC current use of anticoagulant therapy Current Visit: No Status: Chronic Code(s): Z79.01 - EMBLEM MAKER (CURRENT) USE OF ANTICOAGULANTS (12) Obesity (BMI 30-39.9) Current Visit: Yes Status: Chronic Code(s): E66.9 - OBESITY, UNSPECIFIED (13) CKD (chronic kidney disease) Current Visit: Yes Status: Chronic Code(s): N18.9 - CHRONIC KIDNEY DISEASE, UNSPECIFIED (14) Type II diabetes mellitus Current Visit: Yes Status: Chronic Assessment & Plan: (1) Sepsis due to urinary tract infection Current Visit: Yes Status: Acute Assessment & Plan: - LA on admission to ER 3.2, repeat values 2.9, 5.2 and this AM 2.8 - Continue IVF NS @ 50 ml/hr - IVF bolus gave in ER of 500 ml- crackles in lungs on admission - Overnight IVF fluid bolus of 250ml - D/T heart hx conservative IV fluid replacement - UA reviewed- ceftriaxone started - UC gram negative and sensitivity pending - HX of repeat UTI's - CBC, CMP reviewed - BC x2 pending - Tele - Trend Lactic acid - STOP IVF if LA normal - ICU- tele 07/31 - Tx to medsurg bed today - LA 1.5 - IVF stopped last night - CBC, CMP reviewed - UC + E-coli - BC x2 negative Code(s): A41.9 - SEPSIS, UNSPECIFIED ORGANISM; N39.0 - URINARY TRACT INFECTION, SITE NOT SPECIFIED (2) Complicated UTI (urinary tract infection) Current Visit: Yes Status: Acute Assessment & Plan: - Hx of chronic UTI's - Old UA and UC results reviewed - Ceftriaxone - UC gram negative and sensitivity pending - Will need to f/u with urology OP - + urosepsis - + confusion this AM- 2:2 infection - Tele - CBC, CMP reviewed 07/31 - UC + E-coli with multi-resistance - Started Invanz - Stopped ceftriaxone - PICC line ordered for OP antibiotics Code(s): N39.0 - URINARY TRACT INFECTION, SITE NOT SPECIFIED (3) Atrial fibrillation with RVR Current Visit: Yes Status: Acute Assessment & Plan: - HR increases from 109-130 - ICU - TELE - Gave Metoprolol 75mg once in ER - Cardiology consult - TSH - Already on Eliquis PULP AND PAPER TESTER- continue - CBC, CMP reviewed - Not replacing MG+ since K+ elevated - Echo - CXR pending - 500ml IV bolus gave in ER 07/30 - Placed on cardizem gtt at 2300 last night taken off at 0400 this AM- No PO meds started after gtt turned off last night - HR alternates between A-fib and Sr with PAC's - HR increasing this afternoon again in Af-fib RVR - Start Cardizem 30mg PO QID today - Cards consult pending 07/31 - Cardiology note reviewed - Cardizem held last night - Metoprolol 25mg QID started per cardiology - HR NSR - Tele- medsurg Code(s): I48.91 - UNSPECIFIED ATRIAL FIBRILLATION (4) Hyperkalemia Current Visit: Yes Status: Acute Assessment & Plan: - K+ 5.2- recheck 4.9- resolved - ICU- tele - IVF gave in ER 07/30 - resolved Code(s): E87.5 - HYPERKALEMIA (5) Dehydration Current Visit: Yes Status: Acute Assessment & Plan: - Anion gap 17.8- IVF gave in ER 07/30 - resolved Code(s): E86.0 - DEHYDRATION (6) Lactic acidosis Current Visit: Yes Status: Acute Assessment & Plan: - Lactic acid 3.2- trend - 500ml IVF bolus gave in the ER 07/30 - See urosepsis plan above - CT abd completed last night negative for acute concern. - IVF stopped in the evening 07/31 - Resolved Code(s): E87.20 - ACIDOSIS, UNSPECIFIED (7) Acute exacerbation of chronic obstructive pulmonary disease (COPD) Current Visit: No Status: Acute Assessment & Plan: - CXR pending - On baseline Oxygen at 3lNC 98% - Xopenex PRN - Lung sounds clear - Sxs may be 2:2 recent choking episode 07/30 - CXR reviewed and negative for acute concern - 3LNC 95% - Stop doxycycline 07/31 - On 3lNC- 98% - BL Code(s): J44.1 - CHRONIC OBSTRUCTIVE PULMONARY DISEASE W (ACUTE) EXACERBATION (8) Chronic back pain Current Visit: No Status: Chronic Assessment & Plan: - Continue home pain med Code(s): M54.9 - DORSALGIA, UNSPECIFIED; G89.29 - OTHER CHRONIC PAIN (9) HTN (hypertension) Current Visit: No Status: Chronic Assessment & Plan: - BP stable - Continue home meds Code(s): I10 - ESSENTIAL (PRIMARY) HYPERTENSION (10) Hypothyroidism Current Visit: No Status: Chronic Assessment & Plan: - Continue synthroid - TSH non-concerning Code(s): E03.9 - HYPOTHYROIDISM, UNSPECIFIED (11) FDC current use of anticoagulant therapy Current Visit: No Status: Chronic Assessment & Plan: - Continue Eliquis Code(s): Z79.01 - PENITENTIARY (CURRENT) USE OF ANTICOAGULANTS (12) Obesity (BMI 30-39.9) Current Visit: Yes Status: Chronic Assessment & Plan: - Advised diet and exercise control Code(s): E66.9 - OBESITY, UNSPECIFIED (13) CKD (chronic kidney disease) Current Visit: Yes Status: Chronic Assessment & Plan: - At baseline kidney function 07/31 - Creat 1.06- trend - IVF stopped yesterday Code(s): N18.9 - CHRONIC KIDNEY DISEASE, UNSPECIFIED (14) Type II diabetes mellitus Current Visit: Yes Status: Chronic Assessment & Plan: - Accuchecks Ac/HS - Low dose s/s Humalog - A1C 6.23- controlled VTE: Eliquis PPI: Protonix Next of KIN: Child- Altagracia Matias [phone] D/C plan: tomorrow? Code status: [facility] Plan of care time > 40 minutes
[2025-07-31] MEDS: PROVENTIL 2.5 MG/3 ML NEB IH PRN (19:47)
[2025-07-31] MEDS: ELIQUIS 2.5 MG TABLET PO SCH (23:03)
[2025-08-01 05:12] VITALS: TEMP 98
[2025-08-01 05:32] LABS: Hematocrit 37.3 % (34.1-44.9); Hemoglobin 10.8 g/dL (11.2-15.7); Mean Corpuscular Hemoglobin 27.5 pg (25.6-32.2); Mean Corpuscular Hgb Concent. 29.0 g/dL (32.2-35.5); Platelet Count 197 x10^3/uL (182-369); Red Blood Count 3.93 x10^6/uL (3.93-5.22); White Blood Count 8.6 x10^3/uL (3.98-10.04)
[2025-08-01 05:53] LABS: Calcium 9.0 mg/dL (8.4-10.2); Carbon Dioxide 33.0 mmol/L (22-30); Creatinine 1 1.12 mg/dL (0.52-1.04); EST GLOMERULAR FILTRATION RATE 50.3 ML/MIN; Glucose 112.0 mg/dL (74-106); INR 1.01 (0.8-3.0); PROTIME 11.3 SECONDS (9.4-12.5); Potassium 4.2 mmol/L (3.5-5.1); SGOT/AST 52.0 U/L (14-36); SGPT/ALT 29.0 U/L (0-35); Total Protein 7.1 g/dL (6.3-8.2)
--- NOTE | 2025-08-01 14:32 | PCM.DS ---
Discharge Summary Date of Admission: 07/29/25 13:25 Date of Discharge: 08/01/25 Admitting Physician: FLORENTINO FLORIAN MD Consults: Consults on Case 07/29/25 13:43 Consult Cardiology ROUTINE Primary Care Provider: NO FAMILY DOCTOR Allergies Allergies Sulfa (Sulfonamide Antibiotics) Allergy (Severe, Verified 07/29/25 13:37) Hives tapentadol HCl [From Nucynta] Allergy (Severe, Verified 07/29/25 13:37) throat swelling and itching hydrocodone bitartrate [From Vicodin] Allergy (Mild, Verified 07/29/25 13:37) intense itching codeine Allergy (Verified 07/29/25 13:37) oxycodone Allergy (Verified 07/29/25 13:37) Hospital Summary - Hospital Course Hospital Course: 07/29/25 is a 80-year-old female with a complex medical history including COPD on chronic 3 L nasal cannula, atrial fibrillation, hypertension, type 2 diabetes, chronic kidney disease stage III, hypothyroidism, GERD, hiatal hernia, prior pulmonary embolism, breast cancer, and multiple other comorbidities. She was brought in from her correction on 07/29/25 with shortness of breath and cough, found to be in atrial fibrillation with rapid ventricular response, and treated with metoprolol and IV fluids for elevated lactic acid, potassium, and anion gap. Viral testing was negative, and she improved with Solu-Medrol and DuoNeb. She also reported a recent choking episode with concern for esophageal obstruction, though chest imaging showed no acute findings. On 07/30, she was noted to have a UTI with urine culture growing Gram-negative organisms, started on ceftriaxone, and later transitioned to Invanz after sensitivities were reviewed. She was managed for urosepsis with IV fluids, antibiotics, and cardiology-directed rate control for atrial fibrillation. CT abdomen was negative, and echocardiogram results were pending. By 07/31, her heart rate and blood pressure were stable, lactic acid improved to 1.5, and creatinine was mildly elevated at 1.60. A PICC line was placed for outpatient IV antibiotics. On 08/01, she reported feeling better and was ready for discharge back to her extended care facility. At discharge, her atrial fibrillation was controlled, white blood cell count was normal, blood cultures were negative, and she remained stable on her baseline 3 L oxygen. She will continue IV Invanz via PICC line for complicated UTI and follow up with her care team at the nursing facility. She was discharged in stable condition, denying chest pain, shortness of breath, abdominal pain, nausea, vomiting, or diarrhea. - Vitals & Intake/Output Vital Signs: Vital Signs Temperature 98.0 F 08/01/25 04:00 Pulse Rate 84 08/01/25 13:15 Respiratory Rate 29 H 08/01/25 13:15 Blood Pressure 102/69 08/01/25 13:15 O2 Sat by Pulse Oximetry 100 08/01/25 13:15 Intake & Output: Intake & Output 07/30/25 07/31/25 08/01/25 08/02/25 11:59 11:59 11:59 11:59 Intake Total 1397 1240 720 Output Total 500 1550 1600 400 Balance 897 -310 -880 -400 Weight 108.9 kg 108.9 kg - Lab Result Diagrams: 08/01/25 05:31 08/01/25 05:31 Lab Results-Last 24 Hrs: Lab Results-Last 24 Hours 07/31/25 07/31/25 08/01/25 Range/Units 16:30 22:55 05:31 WBC 8.6 (3.98-10.04) x10^3/uL RBC 3.93 (3.93-5.22) x10^6/uL Hgb 10.8 L (11.2-15.7) g/dL Hct 37.3 (34.1-44.9) % MCV 94.9 H (79.4-94.8) fL MCH 27.5 (25.6-32.2) pg MCHC 29.0 L (32.2-35.5) g/dL RDW 16.4 H (11.7-14.4) % Plt Count 197 (182-369) x10^3/uL MPV 9.3 L (9.4-12.3) fL PT (9.4-12.5) SECONDS INR (0.8-3.0) Sodium (135-145) mmol/L Potassium (3.5-5.1) mmol/L Chloride (98-107) mmol/L Carbon Dioxide (22-30) mmol/L Anion Gap (5-15) MEQ/L BUN (7-17) mg/dL Creatinine (0.52-1.04) mg/dL Estimated GFR ML/MIN Glucose (74-106) mg/dL POC Glucometer 74 93 (74 to 106) mg/dL Calcium (8.4-10.2) mg/dL Total Bilirubin (0.2-1.3) mg/dL AST (14-36) U/L ALT (0-35) U/L Alkaline Phosphatase (38-126) U/L Serum Total Protein (6.3-8.2) g/dL Albumin (3.5-5.0) g/dL 08/01/25 08/01/25 08/01/25 Range/Units 05:31 05:31 07:09 WBC (3.98-10.04) x10^3/uL RBC (3.93-5.22) x10^6/uL Hgb (11.2-15.7) g/dL Hct (34.1-44.9) % MCV (79.4-94.8) fL MCH (25.6-32.2) pg MCHC (32.2-35.5) g/dL RDW (11.7-14.4) % Plt Count (182-369) x10^3/uL MPV (9.4-12.3) fL PT 11.3 (9.4-12.5) SECONDS INR 1.01 (0.8-3.0) Sodium 138 (135-145) mmol/L Potassium 4.2 (3.5-5.1) mmol/L Chloride 97 L (98-107) mmol/L Carbon Dioxide 33 H (22-30) mmol/L Anion Gap 11.3 (5-15) MEQ/L BUN 29 H (7-17) mg/dL Creatinine 1.12 H (0.52-1.04) mg/dL Estimated GFR 50.3 ML/MIN Glucose 112 H (74-106) mg/dL POC Glucometer 78 (74 to 106) mg/dL Calcium 9.0 (8.4-10.2) mg/dL Total Bilirubin 0.40 (0.2-1.3) mg/dL AST 52 H (14-36) U/L ALT 29 (0-35) U/L Alkaline Phosphatase 73 (38-126) U/L Serum Total Protein 7.1 (6.3-8.2) g/dL Albumin 3.9 (3.5-5.0) g/dL 08/01/25 Range/Units 12:02 WBC (3.98-10.04) x10^3/uL RBC (3.93-5.22) x10^6/uL Hgb (11.2-15.7) g/dL Hct (34.1-44.9) % MCV (79.4-94.8) fL MCH (25.6-32.2) pg MCHC (32.2-35.5) g/dL RDW (11.7-14.4) % Plt Count (182-369) x10^3/uL MPV (9.4-12.3) fL PT (9.4-12.5) SECONDS INR (0.8-3.0) Sodium (135-145) mmol/L Potassium (3.5-5.1) mmol/L Chloride (98-107) mmol/L Carbon Dioxide (22-30) mmol/L Anion Gap (5-15) MEQ/L BUN (7-17) mg/dL Creatinine (0.52-1.04) mg/dL Estimated GFR ML/MIN Glucose (74-106) mg/dL POC Glucometer 324 H (74 to 106) mg/dL Calcium (8.4-10.2) mg/dL Total Bilirubin (0.2-1.3) mg/dL AST (14-36) U/L ALT (0-35) U/L Alkaline Phosphatase (38-126) U/L Serum Total Protein (6.3-8.2) g/dL Albumin (3.5-5.0) g/dL Micro Results-Entire Visit: Microbiology 07/29/25 15:40 Urine Culture - Final Clean Catch Midstream Escherichia Coli 07/29/25 11:00 Blood Culture - Preliminary Blood 07/29/25 11:05 Blood Culture - Preliminary Blood Accuchecks Date 08/01/25 Date 08/01/25 Date 07/31/25 Date 07/31/25 Time 12:05 Time 07:30 Time 22:55 Time 16:55 - Radiology Exams Ordered Rad Exams-Entire Visit: Radiology Procedures Category Date Time Status PICC LINE PLACEMENT Routine Exams 08/01/25 13:00 Ordered - Procedures and Test Procedures and Tests throughout Hospitalization: Therapy Orders & Screens 07/29/25 11:18 Respiratory Therapy Assessment DAILY Comment: 07/29/25 13:27 Oxygen Nasal Cannula 3 lpm Comment: 07/29/25 14:27 RT Miscellaneous Order ROUTINE Comment: Physician Instructions: Reason For Exam: CPAP at night Diagnosis: COPD exacerbation, A-fib RVR 07/29/25 15:55 Respiratory MDI UD Comment: Diagnosis: Afib RVR, COPD exac. 07/29/25 15:57 BiPap/CPAP ROUTINE Comment: Diagnosis: Afib RVR, COPD exac. Discharge Exam General Appearance: no apparent distress, alert Neurologic Exam: alert, oriented x 3, cooperative, normal mood/affect, nml cerebellar function, sensation nml, No motor deficits Eye Exam: PERRL, EOMI, eyes nml inspection Ears, Nose, Throat Exam: normal ENT inspection, pharynx normal, moist mucous membranes Neck Exam: normal inspection, non-tender, supple, full range of motion Respiratory Exam: normal breath sounds, lungs clear, No respiratory distress Cardiovascular Exam: regular rate/rhythm, normal heart sounds Gastrointestinal/Abdomen Exam: soft, No tenderness, No mass Pelvic Exam: deferred Rectal Exam: deferred Back Exam: normal inspection, normal range of motion, No CVA tenderness, No vertebral tenderness Extremity Exam: normal inspection, normal range of motion Skin Exam: normal color, warm, dry Final Diagnosis/Problem List - Final Discharge Diagnosis/Problem (1) Sepsis due to urinary tract infection Current Visit: Yes Status: Acute Code(s): A41.9 - SEPSIS, UNSPECIFIED ORGANISM; N39.0 - URINARY TRACT INFECTION, SITE NOT SPECIFIED (2) Complicated UTI (urinary tract infection) Current Visit: Yes Status: Acute Code(s): N39.0 - URINARY TRACT INFECTION, SITE NOT SPECIFIED (3) Atrial fibrillation with RVR Current Visit: Yes Status: Acute Code(s): I48.91 - UNSPECIFIED ATRIAL FIBRILLATION (4) Hyperkalemia Current Visit: Yes Status: Acute Code(s): E87.5 - HYPERKALEMIA (5) Dehydration Current Visit: Yes Status: Acute Code(s): E86.0 - DEHYDRATION (6) Lactic acidosis Current Visit: Yes Status: Acute Code(s): E87.20 - ACIDOSIS, UNSPECIFIED (7) Acute exacerbation of chronic obstructive pulmonary disease (COPD) Current Visit: No Status: Acute Code(s): J44.1 - CHRONIC OBSTRUCTIVE PULMONARY DISEASE W (ACUTE) EXACERBATION (8) Chronic back pain Current Visit: No Status: Chronic Code(s): M54.9 - DORSALGIA, UNSPECIFIED; G89.29 - OTHER CHRONIC PAIN (9) HTN (hypertension) Current Visit: No Status: Chronic Code(s): I10 - ESSENTIAL (PRIMARY) HYPERTENSION (10) Hypothyroidism Current Visit: No Status: Chronic Code(s): E03.9 - HYPOTHYROIDISM, UNSPECIFIED (11) intermediate card tender current use of anticoagulant therapy Current Visit: No Status: Chronic Code(s): Z79.01 - SENIOR LIVING (CURRENT) USE OF ANTICOAGULANTS (12) Obesity (BMI 30-39.9) Current Visit: Yes Status: Chronic Code(s): E66.9 - OBESITY, UNSPECIFIED (13) CKD (chronic kidney disease) Current Visit: Yes Status: Chronic Code(s): N18.9 - CHRONIC KIDNEY DISEASE, UNSPECIFIED (14) Type II diabetes mellitus Current Visit: Yes Status: Chronic Assessment & Plan: (1) Sepsis due to urinary tract infection Current Visit: Yes Status: Acute Assessment & Plan: - LA on admission to ER 3.2, repeat values 2.9, 5.2 and this AM 2.8 - Continue IVF NS @ 50 ml/hr - IVF bolus gave in ER of 500 ml- crackles in lungs on admission - Overnight IVF fluid bolus of 250ml - D/T heart hx conservative IV fluid replacement - UA reviewed- ceftriaxone started - UC gram negative and sensitivity pending - HX of repeat UTI's - CBC, CMP reviewed - BC x2 pending - Tele - Trend Lactic acid - STOP IVF if LA normal - ICU- tele 07/31 - Tx to medsur bed today - LA 1.5 - IVF stopped last night - CBC, CMP reviewed - UC + E-coli - BC x2 negative 08/01 - PICC line placed - Continue IV invanz OP at [facility] - CBC, CMP reviewed Code(s): A41.9 - SEPSIS, UNSPECIFIED ORGANISM; N39.0 - URINARY TRACT INFECTION, SITE NOT SPECIFIED (2) Complicated UTI (urinary tract infection) Current Visit: Yes Status: Acute Assessment & Plan: - Hx of chronic UTI's - Old UA and UC results reviewed - Ceftriaxone - UC gram negative and sensitivity pending - Will need to f/u with urology OP - + urosepsis - + confusion this AM- 2:2 infection - Tele - CBC, CMP reviewed 07/31 - UC + E-coli with multi-resistance - Started Invanz - Stopped ceftriaxone - PICC line ordered for OP antibiotics 08/01 - PICC line placed - Continue IV invanz OP at [facility] - ID referral OP for repeat UTI Code(s): N39.0 - URINARY TRACT INFECTION, SITE NOT SPECIFIED (3) Atrial fibrillation with RVR Current Visit: Yes Status: Acute Assessment & Plan: - HR increases from 109-130 - ICU - TELE - Gave Metoprolol 75mg once in ER - Cardiology consult - TSH - 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[employer]- continue - CBC, CMP reviewed - Not replacing MG+ since K+ elevated - Echo - CXR pending - 500ml IV bolus gave in ER 07/30 - Placed on cardizem gtt at 2300 last night taken off at 0400 this AM- No PO meds started after gtt turned off last night - HR alternates between A-fib and Sr with PAC's - HR increasing this afternoon again in Af-fib RVR - Start Cardizem 30mg PO QID today - Cards consult pending 07/31 - Cardiology note reviewed - Cardizem held last night - Metoprolol 25mg QID started per cardiology - HR NSR - Tele- medsurg 08/01 - HR stable NSR/A-fib - Will need to be weaned off of cardizem OP- F/u with cardiology OP Code(s): I48.91 - UNSPECIFIED ATRIAL FIBRILLATION (4) Hyperkalemia Current Visit: Yes Status: Acute Assessment & Plan: - K+ 5.2- recheck 4.9- resolved - ICU- tele - IVF gave in ER 07/30 - resolved Code(s): E87.5 - HYPERKALEMIA (5) Dehydration Current Visit: Yes Status: Acute Assessment & Plan: - Anion gap 17.8- IVF gave in ER 07/30 - resolved Code(s): E86.0 - DEHYDRATION (6) Lactic acidosis Current Visit: Yes Status: Acute Assessment & Plan: - Lactic acid 3.2- trend - 500ml IVF bolus gave in the ER 07/30 - See urosepsis plan above - CT abd completed last night negative for acute concern. - IVF stopped in the evening 07/31 - Resolved Code(s): E87.20 - ACIDOSIS, UNSPECIFIED (7) Acute exacerbation of chronic obstructive pulmonary disease (COPD) Current Visit: No Status: Acute Assessment & Plan: - CXR pending - On baseline Oxygen at 3lNC 98% - Xopenex PRN - Lung sounds clear - Sxs may be 2:2 recent choking episode 07/30 - CXR reviewed and negative for acute concern - 3LNC 95% - Stop doxycycline 07/31 - On 3lNC- 98% - BL 08/01 - At baseline O2 Code(s): J44.1 - CHRONIC OBSTRUCTIVE PULMONARY DISEASE W (ACUTE) EXACERBATION (8) Chronic back pain Current Visit: No Status: Chronic Assessment & Plan: - Continue home pain med Code(s): M54.9 - DORSALGIA, UNSPECIFIED; G89.29 - OTHER CHRONIC PAIN (9) HTN (hypertension) Current Visit: No Status: Chronic Assessment & Plan: - BP stable - Continue home meds Code(s): I10 - ESSENTIAL (PRIMARY) HYPERTENSION (10) Hypothyroidism Current Visit: No Status: Chronic Assessment & Plan: - Continue synthroid - TSH non-concerning Code(s): E03.9 - HYPOTHYROIDISM, UNSPECIFIED (11) intermediate card tender current use of anticoagulant therapy Current Visit: No Status: Chronic Assessment & Plan: - Continue Eliquis Code(s): Z79.01 - SENIOR LIVING (CURRENT) USE OF ANTICOAGULANTS (12) Obesity (BMI 30-39.9) Current Visit: Yes Status: Chronic Assessment & Plan: - Advised diet and exercise control Code(s): E66.9 - OBESITY, UNSPECIFIED (13) CKD (chronic kidney disease) Current Visit: Yes Status: Chronic Assessment & Plan: - At baseline kidney function 07/31 - Creat 1.06- trend - IVF stopped yesterday 08/01 - Creat 1.12- encourage oral intake- trend OP Code(s): N18.9 - CHRONIC KIDNEY DISEASE, UNSPECIFIED (14) Type II diabetes mellitus Current Visit: Yes Status: Chronic Assessment & Plan: - Accuchecks Ac/HS - Low dose s/s Humalog - A1C 6.23- controlled D/C plan of care time > 40 minutes - Discharge Discharge Date: 08/01/25 Disposition: DC TO ANY "OTHER" SNF Condition: Stable Prescriptions: New Diltiazem HCl 30 mg [Cardizem 30 MG] 30 mg PO QID 30 Days #120 tablet Ertapenem Sodium [Invanz ] 1 g IV Q24H10 10 Days #10 units Metoprolol Tartrate 25 mg [Lopressor 25MG Tab] 25 mg PO QID 30 Days #120 tablet Continue Duloxetine HCl [Cymbalta] 60 mg PO BID Multivitamin [Multivitamins] 1 each PO DAILY Albuterol 2.5 mg/3 ml Neb [Proventil 2.5 mg/3 ml Neb] 1 neb IH Q4HPRN PRN PRN Reason: breathing Albuterol 2 puff IH Q4H PRN PRN PRN Reason: breathing Potassium Chloride Tab* [Klor Con] 10 meq PO DAILY PANTOPRAZOLE 40 mg Tablet [Protonix 40MG Tablet] 20 mg PO QAM Memantine HCl 10 mg PO BID Apixaban [Eliquis] 5 mg PO BID Ropinirole HCl 1 mg PO TID Levothyroxine Sodium 88 Mcg [Synthroid 88 Mcg] 88 mcg PO DAILY Gabapentin [Neurontin ] 800 mg PO TID Calcium Carbonate/Vitamin D3 [Calcium 250-D Tablet] 1 each PO DAILY Glimepiride 2 mg PO BREAKFAST Guaifenesin/Dextromethorphan [Tussin Dm 10-100Mg/5Ml Liq Cup] 15 ml PO Q4- 6HPRN PRN PRN Reason: Cough Torsemide 60 mg PO BREAKFAST Temazepam 30 mg PO HS Pilocarpine HCl [Salagen] 5 mg PO TID cycloSPORINE [Restasis Multidose] 1.5 ml OP BID Nystatin 1 each MC DAILY PRN PRN PRN Reason: excoriation Magnesium Hydroxide [Milk of Magnesia] 30 ml PO DAILY PRN PRN Reason: Constipation Metformin HCl [Metformin ER Osmotic] 1,000 mg PO BREAKFAST Metformin HCl 500 mg [Glucophage 500 MG] 500 mg PO DINNER Insulin Glargine,Hum.rec.anlog [Lantus] 30 unit SQ BID Loperamide HCl [Imodium A-D] 2 mg PO Q6H PRN PRN Reason: Diarrhea SUMAtriptan succinate [Imitrex 50 mg] 50 mg PO DAILY PRN PRN Reason: Headache Hydroxyzine HCl 25 mg [Atarax 25 mg] 25 mg PO BID Magnesium Hydroxide [Dulcolax] 2,400 mg PO DAILY Cranberry Fruit [Cranberry] 300 mg PO BID Fluticasone/Vilanterol [Breo Ellipta 100-25 Mcg Inhalr] 1 each IH DAILY Bisacodyl [Dulcolax] 10 mg RC DAILY PRN PRN Reason: Constipation Sodium Chloride/Aloe Vera [[place] Saline Nasal Gel] 14.1 gm NS DAILY PRN PRN PRN Reason: Redness/Irritation Fexofenadine HCl [Padmini Allergy] 180 mg PO BREAKFAST Acetaminophen 325 mg [Tylenol 325 mg] 325 mg PO Q4-6HPRN PRN PRN Reason: Pain Zinc Oxide Ointment 30 gm 30 gm TP BID Montelukast Sodium 10 mg [Singulair 10 MG] 10 mg PO HS Glucosam/Antony-Msm1/C/[place]/Bosw [Osteo Bi-Flex Caplet] 1 tablet PO DAILY Magnesium Oxide 500 mg PO DAILY Guaifenesin [Mucinex] 600 mg PO HS Discontinued Propranolol HCl [Propranolol HCl ER] 60 mg PO DAILY Additional Instructions: SNF ORDERS: RESUME PREVIOUS [facility] ORDERS ROUTINE PICC LINE MANAGEMENT SEE ATTACHED MED LIST * She will need weaned off of cardizem- follow up with cardiology for plan. Follow up with: NEELAM ROBBINS [COURTESY STAFF, UROLOGY] - 08/07/25 11:00 am
[2025-08-01] MEDS ORDERED: Acidophilus TABLET PO SCH (15:00)
--- NOTE | 2025-08-01 16:54 | XRAY ---
Indication: Long-term IV access and therapy for urinary tract infection. Informed consent obtained. Patient was placed on the fluoroscopic table in a supine position. Initial sonographic imaging of the right upper extremity was performed for localization of patent veins. The right upper extremity was then prepped and draped in sterile fashion. Tourniquet applied. 1% lidocaine plain used for local anesthesia. Using ultrasound guidance and a micropuncture needle, a basilic vein above the elbow was successfully percutaneously cannulized. A floppy tip 0.018 guidewire inserted. Tourniquet released. Needle was exchanged for a 5 Iraqi dilator peel away sheath catheter. Ultimately a 5 [place] double-lumen PICC line was inserted over a longer 0.018 guidewire. Catheter and guidewire further advanced and positioned in the distal SVC using fluoroscopic guidance. Guidewire removed. Both ports flushed with heparinized saline. Catheter was secured. Postoperative instructions and orders given. Patient discharged in good condition. Impression: Technically successful right upper extremity PICC line placement using ultrasound and fluoroscopic guidance. No immediate complications. Approximately 2 cc blood loss. Approximately 1.3 minute of fluoroscopy used. Catheter length is 42 cm.
[2025-08-01 16:55] VITALS: BP 142/93; PULSE 81; RESP 24; O2SAT 98
== END 2025-08-01 16:15 | DRG 872 ==
LOC: ED 10:37 → OBSVTOIN 13:25 → MED SURG 13:25 → ICU 13:52
PROVIDERS: ADMIT Internal Medicine; ATTEND Internal Medicine
DX: A41.9 Sepsis, unspecified organism (principal); N39.0 Urinary tract infection, site not specified; I48.20 Chronic atrial fibrillation, unspecified; E87.20 Acidosis, unspecified; J44.1 Chronic obstructive pulmonary disease with (acute) exacerbation; E86.0 Dehydration; E11.22 Type 2 diabetes mellitus with diabetic chronic kidney disease; I12.9 Hypertensive chronic kidney disease with stage 1 through stage 4 chronic kidney disease, or unspecified chronic kidney disease; N18.30 Chronic kidney disease, stage 3 unspecified; Z99.81 Dependence on supplemental oxygen; E03.9 Hypothyroidism, unspecified; E87.5 Hyperkalemia; M54.9 Dorsalgia, unspecified; G89.29 Other chronic pain; E66.9 Obesity, unspecified; Z85.3 Personal history of malignant neoplasm of breast; Z79.01 Long term (current) use of anticoagulants; Z79.899 Other long term (current) drug therapy
CPT/HCPCS: 36415; 36573; 71045; 74176; 80048; 80053; 80076; 81001; 82947; 83036; 83605; 83735; 83880; 84443; 84484; 85025; 85027; 85610; 87040; 87077; 87086; 87186; 87637; 93005; 93041; 93306; 94640; 94660; 94760; 94762; 96360; 96374; 99285; Q3014